=== PATIENT | male | born 1970 | race Caucasian/White ===

== ENCOUNTER 2017-12-04 14:37 | Emergency (ER) | payer OTHER ==
[~2017-12-04] VITALS: Ht 190.5 cm; Wt 130.8 kg
[~2017-12-04 14:37] MED LIST: CLINDAMYCIN HCL 150 MG CAP PO SCH; SULF800T23 PO
[2017-12-04 14:51] VITALS: Ht 190.5 cm; Wt 130.8 kg
--- NOTE | 2017-12-04 16:06 | DIAGNOSTIC IMAGING REPORT ---
LEFT THIRD FINGER 3 VIEWS CLINICAL HISTORY: left third finger laceration, infection over pip COMPARISON: None. DISCUSSION: No acute fractures or dislocations are visualized. There is soft tissue swelling centered on the proximal interphalangeal joint. There are mild osteoarthritic changes. No radiopaque foreign bodies are visualized. There is no conventional radiographic evidence of osteomyelitis. No radiopaque foreign bodies are visualized. IMPRESSION: 1. No acute fractures 2. Soft tissue swelling 3. No conventional radiographic evidence of osteomyelitis. 4. No radiopaque foreign bodies identified Electronically signed by: Venkata Gleason M.D. 12/04/2017 4:05 PM Dictated Date/Time: 12/04/2017 4:04 PM
[2017-12-04 16:12] LABS: BASO % 0.1 %; BASO ABS # 0.01 K/uL (0-0.2); EOS % 1.7 %; EOS ABS # 0.15 K/uL (0-0.5); HEMATOCRIT 43.4 % (42-52); HEMOGLOBIN 14.8 g/dL (14.0-18.0); IG# 0.03 K/uL (0.00-0.02); LYMPH % 21.8 %; LYMPH ABS # 1.97 K/uL (1.2-3.4); MEAN CELL VOLUME 92.1 fL (80-100); MEAN CORPUSCULAR HEMOGLOBIN 31.4 pg (25-34); MEAN CORPUSCULAR HGB CONC 34.1 g/dl (32-36); MEAN PLATELET VOLUME 9.7 fL (7.4-10.4); MONO % 9.3 %; MONO ABS # 0.84 K/uL (0.11-0.59); NEUT % 66.8 %; NEUT ABS # 6.03 K/uL (1.4-6.5); PLATELET COUNT 247 K/uL (130-400); RED CELL DISTRIBUTION WIDTH SD 43.6 fL (36.4-46.3); WHITE BLOOD COUNT 9.03 K/uL (4.8-10.8)
[2017-12-04 16:28] LABS: CALCIUM 8.5 mg/dl (8.5-10.1); CREATININE 0.83 mg/dl (0.60-1.40); POTASSIUM 3.7 mmol/L (3.5-5.1)
[2017-12-04] MEDS ORDERED: CLINDAMYCIN IV 600 MG in DEXTROSE 5% 50ML 50 ML IV ONE (16:45)
[2017-12-04] MEDS ORDERED: CLIN300C2 PO ×2 (18:34→18:36)
--- NOTE | 2017-12-04 18:36 | EMERGENCY ROOM VISIT NOTE ---
History First contact with patient: 15:11 Chief Complaint: LACERATION/CUT (SUT/DERMABOND) Stated Complaint: FINGER INFECTED Nursing Triage Summary: Pt bumped his finger off the rear end of his truck last week. Drainage coming from wound. History of Present Illness The patient is a 47 year old male who presents to the Emergency Room with complaints of an infection of his left third finger. The patient states that he was working on his truck approximately 1 week ago and hit his finger on the edge of the truck and cut it. He states that the finger seems to be healing well until yesterday. At that time, he bumped his hand on something and states since then it has been swollen and painful. He is having difficulty bending the finger. He rates his discomfort an 8/10. Review of Systems A complete 10 point review of systems was reviewed with the patient with pertinent positives and negatives as per history of present illness. All else were negative. Past Medical/Surgical History Medical Problems: (1) Amputation of right arm Social History Smoking Status: Current Every Day Smoker Occupation Status: unemployed Current/Historical Medications Scheduled Clindamycin Hcl (Cleocin), 300 MG PO QID Physical Exam Vital Signs Date Time Temp Pulse Resp B/P (MAP) Pulse Ox O2 Delivery O2 Flow Rate FiO2 12/04/17 19:09 37.1 73 16 172/93 97 12/04/17 19:00 73 16 172/93 97 Room Air 12/04/17 14:51 37.1 92 20 158/80 95 Room Air Physical Exam VITALS: Vitals are noted on the nurse's note and reviewed by myself. Vital signs stable. GENERAL: This is a 47-year-old male, in no acute distress, nondiaphoretic, well- developed well-nourished. SKIN: There is a 2 cm laceration to the left third finger over the PIP with surrounding mild erythema which extends slightly into the dorsal aspect of the hand, but not past the wrist. There is a small amount of drainage from the laceration. There is no palpable fluctuance or induration. Capillary refill within 2 seconds. HEART: Regular rate and rhythm without murmurs gallops or rubs. LUNGS: Clear to auscultation bilaterally without wheezes, rales or rhonchi. MUSCULOSKELETAL: Patient has full range of motion of the left third digit. NEURO: Patient was alert and oriented to person place and time. Distal sensation intact. Medical Decision & Procedures ER Provider Diagnostic Interpretation: LEFT THIRD FINGER 3 VIEWS CLINICAL HISTORY: left third finger laceration, infection over pip COMPARISON: None. DISCUSSION: No acute fractures or dislocations are visualized. There is soft tissue swelling centered on the proximal interphalangeal joint. There are mild osteoarthritic changes. No radiopaque foreign bodies are visualized. There is no conventional radiographic evidence of osteomyelitis. No radiopaque foreign bodies are visualized. IMPRESSION: 1. No acute fractures 2. Soft tissue swelling 3. No conventional radiographic evidence of osteomyelitis. 4. No radiopaque foreign bodies identified Laboratory Results 12/04/17 16:01 Red Blood Count 4.71, Mean Corpuscular Volume 92.1, Mean Corpuscular Hemoglobin 31.4, Mean Corpuscular Hemoglobin Concent 34.1, Mean Platelet Volume 9.7, Neutrophils (%) (Auto) 66.8, Lymphocytes (%) (Auto) 21.8, Monocytes (%) (Auto) 9.3, Eosinophils (%) (Auto) 1.7, Basophils (%) (Auto) 0.1, Neutrophils # (Auto) 6.03, Lymphocytes # (Auto) 1.97, Monocytes # (Auto) 0.84, Eosinophils # (Auto) 0.15, Basophils # (Auto) 0.01 12/04/17 16:01 Test 12/04/17 16:01 White Blood Count 9.03 K/uL (4.8-10.8) Red Blood Count 4.71 M/uL (4.7-6.1) Hemoglobin 14.8 g/dL (14.0-18.0) Hematocrit 43.4 % (42-52) Mean Corpuscular Volume 92.1 fL (80-100) Mean Corpuscular Hemoglobin 31.4 pg (25-34) Mean Corpuscular Hemoglobin Concent 34.1 g/dl (32-36) Platelet Count 247 K/uL (130-400) Mean Platelet Volume 9.7 fL (7.4-10.4) Neutrophils (%) (Auto) 66.8 % Lymphocytes (%) (Auto) 21.8 % Monocytes (%) (Auto) 9.3 % Eosinophils (%) (Auto) 1.7 % Basophils (%) (Auto) 0.1 % Neutrophils # (Auto) 6.03 K/uL (1.4-6.5) Lymphocytes # (Auto) 1.97 K/uL (1.2-3.4) Monocytes # (Auto) 0.84 K/uL (0.11-0.59) Eosinophils # (Auto) 0.15 K/uL (0-0.5) Basophils # (Auto) 0.01 K/uL (0-0.2) RDW Standard Deviation 43.6 fL (36.4-46.3) RDW Coefficient of Variation 13.0 % (11.5-14.5) Immature Granulocyte % (Auto) 0.3 % Immature Granulocyte # (Auto) 0.03 K/uL (0.00-0.02) Anion Gap 8.0 mmol/L (3-11) Est Creatinine Clear Calc Drug Dose 156.9 ml/min Estimated GFR () 119.7 Estimated GFR (Non- 103.3 BUN/Creatinine Ratio 11.5 (10-20) Calcium Level 8.5 mg/dl (8.5-10.1) Medications Administered Medications (Trade) Dose Ordered Sig/Nanda Route Start Time Stop Time Status Last Admin Dose Admin Clindamycin Phosphate 600 mg/ Dextrose 54 ml @ 100 mls/hr ONE ONCE IV 12/04/17 16:45 12/04/17 17:17 DC 12/04/17 17:38 100 MLS/HR Medical Decision Differential diagnosis includes cellulitis, abscess, septic joint, tenosynovitis , among others. The patient was evaluated as above. He is a 47-year-old male complaining of an infected laceration. He does appear to have an infected laceration with surrounding cellulitis. Culture was obtained and is pending. Patient has allergies to penicillins and therefore was given a dose of IV clindamycin. He will be placed on clindamycin at home. He did say that he would not be able to slat pickler the prescription for a few days due to money issues. He was given a home pack with enough medication to get him through until he is able to pay for his prescription. He was given strict return precautions and was advised to return in 48 hours for a recheck of his wound. He verbalized understanding of my assessment and treatment plan and was discharged home in good condition. Medication Reconcilliation Current Medication List: was personally reviewed by me Blood Pressure Screening Patient's blood pressure: Elevated blood pressure Blood pressure disposition: Referred to PCP Impression Primary Impression: Infected finger laceration Departure Information Dispostion Home / Self-Care Condition GOOD Prescriptions Clindamycin Hcl (CLEOCIN) 300 Mg Cap 300 MG PO QID for 10 Days, #40 CAP Prov: Dianne Beltrán PA-C 12/04/17 Referrals [facility] (PCP) Patient Instructions My [facility] Additional Instructions You were prescribed clindamycin to be taken 300 mg, 4 times daily as prescribed. This is an antibiotic. All antibiotics have the potential to cause diarrhea. Stop this medication and contact a medical provider if you were to develop any significant adverse side effects including: wheezing, shortness of breath, passing out, vomiting, or a diffuse rash. Always take antibiotics as directed and COMPLETE the ENTIRE course regardless of the improvement of your symptoms. For pain control, you can use the following [id number] medicines (if >12 yo): - Regular strength (325mg/tab) Tylenol (acetaminophen) 2 tabs every 4-6 hours as needed. Do not exceed 12 tablets in a 24 hour period. Avoid taking more than 4 grams (4000 mg) of Tylenol per day. This includes any other sources of acetaminophen you may take on a regular basis. - Regular strength (200 mg/tab) Advil (ibuprofen) 1-2 tabs every 4-6 hours as needed. Do not exceed a dose of 3200 mg per day. Proper wound care is essential for adequate wound healing and infection prevention. You can shower and clean the wound with soap and water. Do not scour over the wound, pat dry with a towel. Do not submerse the wound (i.e. bathe or dish wash) until the wound has fully healed. You can use an antibiotic ointment with a dressing over the wound for the next 3-4 days. After this time you may leave the wound dry and open to the air. Return to the emergency department in 48 hours for a recheck of your wound. Return sooner if you have worsening pain, worsening difficulty moving your finger, worsening redness, fevers or any other new/concerning symptoms. Problem Qualifiers Primary Impression: Infected finger laceration Encounter type: initial encounter Qualified Codes: S61.219A - Laceration without foreign body of unspecified finger without damage to nail, initial encounter; L08.9 - Local infection of the skin and subcutaneous tissue, unspecified
[2017-12-04 19:09] VITALS: BP 172/93; PULSE 73; TEMP 37.1; O2SAT 97
[2017-12-04] MEDS ORDERED: CLINDAMYCIN HCL 150 MG CAP PO ONE (19:15)
== END 2017-12-04 19:09 | disposition home or self-care (01) ==
LOC: C.EDB 14:40 → C.EDD 19:09
DX: L08.9 Local infection of the skin and subcutaneous tissue, unspecified (principal); S61.213A Laceration without foreign body of left middle finger without damage to nail, initial encounter; W26.8XXA Contact with other sharp object(s), not elsewhere classified, initial encounter; F17.200 Nicotine dependence, unspecified, uncomplicated; Z89.201 Acquired absence of right upper limb, unspecified level

== ENCOUNTER 2017-12-06 14:16 | Emergency (ER) | payer OTHER ==
[~2017-12-06] VITALS: Ht 190.5 cm; Wt 128.4 kg
[~2017-12-06 14:16] MED LIST changes: +CLIN300C2 PO; -CLINDAMYCIN HCL 150 MG CAP PO SCH; -SULF800T23 PO
[2017-12-06 14:30] VITALS: PULSE 83; TEMP 36.8; O2SAT 93; Ht 190.5 cm; Wt 128.4 kg
[2017-12-06 15:00] VITALS: BP 150/95
--- NOTE | 2017-12-06 21:02 | EMERGENCY ROOM VISIT NOTE ---
History First contact with patient: 14:35 (Desean Espinoza,P.A.) First contact with patient: 14:35 (Abdi Ordonez M.D.) Chief Complaint: FINGER PAIN Stated Complaint: RECHECK FINGER LEFT HAND History of Present Illness The patient is a 47 year old white male who presents to the Emergency Room for reevaluation of his left long finger. He has a history of previous finger laceration that became infected. He was seen here earlier this week and it was cleansed. He has been keeping it clean at home. He has been using triple antibiotic ointment and keeping it covered. He states he has finished his initial home pack of antibiotics and will be picking up his prescription for antibiotics later today. He denies any fevers or chills. He feels the finger is 10 times better than what it was. He denies any loss of motion. His accompanies him today. No other complaints. (Desean Espinoza,P.A.) Review of Systems Unchanged from previous exam (Desean Espinoza,P.A.) Past Medical/Surgical History Medical Problems: (1) Amputation of right arm (Abdi Ordonez M.D.) Social History Smoking Status: Current Every Day Smoker Smokeless Tobacco Use: No Drug Use: none Marital Status: Housing Status: lives with family Occupation Status: unemployed (Desean Espinoza,P.A.) Current/Historical Medications Scheduled Clindamycin Hcl (Cleocin), 300 MG PO QID Physical Exam Vital Signs Date Time Temp Pulse Resp B/P (MAP) Pulse Ox O2 Delivery O2 Flow Rate FiO2 12/06/17 15:00 150/95 12/06/17 14:30 36.8 83 18 93 Room Air (Abdi Ordonez M.D.) Physical Exam General: Well-developed, well-nourished, middle-aged white male bed. Alert and oriented. Skin: Warm and dry with good turgor. No rashes. No ecchymosis or erythema. The open wound on the dorsum of the long finger proximal phalanx shows no signs of infection. Granulation tissue is visible. It does appear healthy. The patient is not diaphoretic. Bilateral lower leg abrasions. Musculoskeletal: Patient is missing his right arm. Left long finger has intact motion at the MCP, PIP, and DIP joints. FDS and FDP function are intact by isolation. Strength is 5/5 for resisted flexion and extension of the long finger. No pain with palpation over the proximal phalanx, PIP joint, middle phalanx, DIP joint, or distal phalanx. Neurologic: Gross sensation is intact across the long finger by soft touch. Capillary refill is equal to the other fingers. (Desean Espinoza,P.A.) Medical Decision & Procedures ED Course Patient was educated regarding today's findings. Conservative care measures were discussed. The wound looks good. Continue with his home care as he has been doing. Cleanse with soap and water daily. Cover with antibiotic ointment. He should fill his antibiotic prescription today. Take it until finished. Tylenol and Motrin every 6 hours as needed for discomfort. Return to the ED for any acute worsening of symptoms. (Desean Espinoza.,P.A.) Medical Decision Possibility of retained foreign body, tendon involvement, joint penetration, and further wound infection were considered among others (Desean Espinoza.,P.A.) Medication Reconcilliation Current Medication List: was personally reviewed by me (Desean Espinoza.,P.A.) Blood Pressure Screening Blood pressure disposition: Elevated BP felt to be situational (Desean Espinoza,P.A.) Impression Primary Impression: Visit for wound check Departure Information Dispostion Home / Self-Care Condition GOOD Forms WORK / SCHOOL INSTRUCTIONS, HOME CARE DOCUMENTATION FORM, IMPORTANT VISIT INFORMATION Patient Instructions My [facility] Additional Instructions Fill your antibiotic prescription and start it today Continue gentle range of motion with the finger Continue cleansing it daily with soap and water and cover with triple antibiotic ointment Return to the ED or see your PCP for any acute worsening of symptoms
== END 2017-12-06 15:01 | disposition home or self-care (01) ==
LOC: C.EDB 14:17 → C.EDD 15:01
DX: Z48.00 Encounter for change or removal of nonsurgical wound dressing (principal); F17.200 Nicotine dependence, unspecified, uncomplicated

== ENCOUNTER 2020-06-26 11:03 | Inpatient (IN) ==
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
[2020-06-26 11:49] LABS: Basophils # (auto) 0.02 K/uL (0-0.2); Basophils % (auto) 0.2 %; Eosinophils # (auto) 0.16 K/uL (0-0.5); Eosinophils % (auto) 1.8 %; Hematocrit (blood only) 43.8 % (42-52); Hemoglobin 16.1 g/dL (14.0-18.0); Immature Granulocytes # (auto) 0.04 K/uL (0.00-0.02); Immature Granulocytes % (auto) 0.4 %; Lymphocytes # (auto) 1.92 K/uL (1.2-3.4); Lymphocytes % (auto) 21.5 %; Mean Corpuscular Hemoglobin 31.8 pg (25-34); Mean Corpuscular Hgb Conc 36.8 g/dL (32-36); Mean Corpuscular Volume 86.4 fL (80-100); Mean Platelet Volume 9.9 fL (7.4-10.4); Monocytes # (auto) 0.45 K/uL (0.11-0.59); Neutrophils # (auto) 6.33 K/uL (1.4-6.5); Neutrophils % (auto) 71.1 %; Platelet Count 283 K/uL (130-400); RDW Coefficient of Variation 12.4 % (11.5-14.5); RDW Standard Deviation 39.6 fL (36.4-46.3); Red Blood Count 5.07 M/uL (4.7-6.1); White Blood Count 8.92 K/uL (4.8-10.8)
--- NOTE | 2020-06-26 11:50 | XRay Report ---
XR chest 1V portable CLINICAL HISTORY: Atypical chest pain. COMPARISON STUDY: No previous studies for comparison. FINDINGS: Lung volumes are normal. There is no pneumothorax or pleural effusion. There is no consolid ation. Slight increased attenuation of the left lung is likely artifactual. Cardiac size is normal. M ediastinal contours are normal IMPRESSION: No acute cardiopulmonary findings. ACT 112: Negative or not required by law. Electronically signed by: Prabhjot Mederos M.D. 06/26/2020 11:48 AM
[2020-06-26 12:11] LABS: BUN Creatinine Ratio 8.6 (10-20); Bilirubin,Total 0.4 mg/dl (0.2-1); Blood Urea Nitrogen 8 mg/dl (7-18); Calcium 8.5 mg/dl (8.5-10.1); Carbon Dioxide 25 mmol/L (21-32); D Dimer 370 ug/L FEU (0-500); Est GFR (African American) 103.6; Est GFR (Non-African American) 89.4; Sodium 132 mmol/L (136-145); Total Protein 7.5 gm/dl (6.4-8.2)
[2020-06-26 12:18] LABS: Alanine Aminotransferase 33 U/L (12-78); Albumin Level 3.7 gm/dl (3.4-5.0); Alkaline Phosphatase 117 U/L (45-117); Aspartate Aminotransferase 42 U/L (15-37); Chloride 100 mmol/L (98-107); Globulin 3.8 gm/dl (2.5-4.0); Glucose 322 mg/dl (70-99); Lipase 209 U/L (73-393)
[2020-06-26] MEDS ORDERED: ASPIRIN CHEW 324 MG ONE (12:35)
[2020-06-26] MEDS ORDERED: NITROGLYCERIN SL 0.4 MG/TAB TAB SL STA ×2 (12:40→12:57)
[2020-06-26 12:43] LABS: Beta-Hydroxybutyrate 1.25 mg/dl (0.2-2.81)
[2020-06-26] MEDS ORDERED: Heparin IV Adult Wt-Based Standard WITH Bolus Protocol IV STA (12:57)
[2020-06-26] MEDS ORDERED: HEPARIN SODIUM/DEXTROSE 25,000 UNITS/500 ML BAG IV SCH (13:00)
[2020-06-26] MEDS ORDERED: niCARdipine HCL INJ 2.5 MG/ML 10 ML AMP ONE (13:05)
[2020-06-26] MEDS ORDERED: fentaNYL citrate 100 MCG/2 ML VIAL ONE ×2 (13:05→13:57)
[2020-06-26] MEDS ORDERED: HEPARIN (PORCINE) 1000 UNIT/ML 10 ML (CATH LAB USE ONLY) ONE ×2 (13:05→14:03)
[2020-06-26] MEDS ORDERED: MIDAZOLAM HCL 1 MG/ML 2ML VIAL ONE ×3 (13:05→14:07)
[2020-06-26] MEDS ORDERED: NITROGLYCERIN/D5W 100MCG/ML 20ML SYR ONE (13:06)
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
[2020-06-26] MEDS ORDERED: EPTIFIBATIDE 2 MG/ML 10 ML VIAL (CATH LAB USE ONLY) IV ONE (14:29)
[2020-06-26] MEDS ORDERED: CLOPIDOGREL BISULFATE 300 MG TAB ONE (14:52)
--- NOTE | 2020-06-26 14:56 | Pre Anesthesia Assessment ---
Date of Service June 26, 2020 Pre Sedation Assessment Vital Signs Temp Pulse Resp BP Pulse Ox 06/26/20 13:07 72 18 100/70 98 06/26/20 13:01 68 12 129/69 96 06/26/20 12:45 74 15 136/74 99 06/26/20 11:58 74 15 131/72 98 06/26/20 11:56 95 06/26/20 11:40 95 06/26/20 11:07 97.7 F 88 18 97 Cardiovascular RRR, no murmur, no edema Respiratory normal respiratory effort, lungs clear to auscultation Pre-Sedation Airway Assessment Smoking Status: Current some day smoker Hx Sleep Apnea: No Hx Difficult Intubation: No Short, Thick Neck: No Thyromental Distance: > or= 3.5 Finger Breadths Oral Cavity: + WNL Mallampati Class: III ASA: ASA3 Procedure Planning Contraindications for Sedation: none Current Medications Reviewed: Yes Notes The planned sedation has been discussed with the patient. Informed Consent was obtained. I have identified the patient, determined the appropriateness of sedation and have assessed the patient immediately prior to the procedure. All medicine(s) and interventions are by my order.
[2020-06-26] MEDS ORDERED: ACETAMINOPHEN 325 MG TAB PO PRN (14:57)
[2020-06-26] MEDS ORDERED: ONDANSETRON INJ 2 MG/ML 2 ML VIAL IV PRN (14:57)
--- NOTE | 2020-06-26 14:57 | Post Anesthesia Assessment ---
Date of Service June 26, 2020 Post Sedation Assessment Vital Signs Temp Pulse Resp BP Pulse Ox 06/26/20 13:07 72 18 100/70 98 06/26/20 13:01 68 12 129/69 96 06/26/20 12:45 74 15 136/74 99 06/26/20 11:58 74 15 131/72 98 06/26/20 11:56 95 06/26/20 11:40 95 06/26/20 11:07 97.7 F 88 18 97 Recovery Score Activity: Moves 4 extremities Respiration: Deep Breath/Cough Circulation: +/-20% PreAnes Value Consciousness: Fully Awake Oxygen Saturation: O2 needed for >90% Discharge Sedation Level of Care: Fast Track Phase II Post Sedation Plan On clinical assessment, the patient appears to have tolerated the sedation without complications. Patient is recovering as anticipated. Patient will continue to be monitored by nursing and may be discharged when sedation discharge criteria are met per below protocol. Upon Completions of procedure up to 15 minutes continue every 5 minute vital signs and the P.A.R. score; then discharge to a Phase I or Fast Track to Phase II per the following guidelines: * Discharge Patient to appropriate Phase II area if PAR is 8 or greater or return to pre- procedure baseline. The post - procedure orders will be as directed. * If PAR score is less than 8 or not return to pre-procedure baseline then patient will follow Phase I monitoring till PAR is reached for Phase II. The Phase I may be done in procedure room or may call to secure a Phase I area. * If naloxone or flumazenil are used for reversal, hold in Phase I for continued monitoring from when last reversal dose was given for a minimum of 60 minutes or longer pending the nurse and/or physician discretion of patient condition before discharge to Phase II. Please call the Sedation Physician to re-evaluate and complete post-note for discharge to Phase II area. Do NOT discharge from procedure sedation or Phase 1 until post- sedation evaluation note is complete by procedure /sedation MD Sedation Discharge Instructions to be given to the patient at discharge to home.
[2020-06-26] MEDS ORDERED: SODIUM CHLORIDE 0.9% 1000ML 1,000 ML IV SCH (15:00)
--- NOTE | 2020-06-26 15:09 | Post Operative Brief Note ---
Cardiology Brief Post Op Date of Surgery June 26, 2020 Pre & Post Diagnosis Operation Date: 06/26/20 13:30 <No data on this case meets the specified criteria> Procedure -- Sales And Service Consultant Parker Olguin MD Mail Processing Associate Jared Estimated Blood Loss 20 Findings Consistent with Post-Op Diagnosis Occluded distal RCA Successful PCI of distal RCA into PDA with 3 overlapping KOKO (2.75 x 22, 2.5 x 30, 2.5 x 30 Young). Specimens Specimen Description: none Anesthesia Type RN Sedation Complications none Disposition Accompanied Patient To Recovery: No Disposition: PCU Overlapping Procedure I was present for: the critical portions of procedure. I was immediately available: during the entire case. Back up surgeon: was not required during procedure.
[2020-06-26] MEDS ORDERED: GLUCOSE 10 TABS/TUBE PO PRN (15:50)
[2020-06-26] MEDS ORDERED: GLUCOSE 40% GEL 15 GM TUBE PO PRN (15:50)
[2020-06-26] MEDS ORDERED: GLUCAGON FOR INJ 1 MG VIAL SQ PRN (15:50)
[2020-06-26] MEDS ORDERED: DEXTROSE 50% 50 ML SYRINGE IV PRN (15:50)
[2020-06-26] MEDS ORDERED: CARBOHYDRATES FOR HYPOGLYCEMIA PO PRN (15:50)
[2020-06-26] MEDS ORDERED: PHARMACY GLYCEMIC MGMT CONSULT PRN (16:16)
[2020-06-26] MEDS ORDERED: INSULIN GLARGINE SOLOSTAR 100 UNITS/ML 3 ML PEN SC ONE (17:15)
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
[2020-06-26] MEDS: INSULIN ASPART 100 UNITS/ML 3 ML PEN SC SCH ×2 (17:36→20:23)
[2020-06-26] MEDS ORDERED: LORazepam 1 MG TAB PO PRN (17:40)
--- NOTE | 2020-06-26 18:21 | Cardiac Catheterization ---
[facility] Data: [place] Cardiac Status Clinical evaluation leading to the procedure CAD Presenation: Non STEMI Anginal Classification: CCS IV Heart Failure: No Cardiogenic Shock within 24 Hours: No Cardiac Arrest within 24 Hours: No Imaging Studies Past 6 Months: No Stress Studies Past 6 Months: No Diagnostic Physicians Name: Parker Olguin MD Status: Urgent Closure Device Percutaneous Entry Location: Radial Recommendations: PCI without planned CABG PCI Indication: PCI for high risk Non-FRANK Lesion Segment Name: distal RCA Culprit Artery: Yes Stenosis Prior to Rx (%): 100 Chronic Total Occlusion: No IVUS: No FFR: No Pre-Procedure CARLOS Flow: 0 Previously Treated Lesion: No Lesion Complexity: High/C Lesion Length (mm): 50 Thrombus Present: Yes Bifurcation Lesion: No Guidewire Across Lesion: Stenosis Post-Procedure (%): 0 Post-Procedure CARLOS Flow: 3 Devices(s) Deployed: Yes Yes Intraprocedure Events Significant Disection: No Perforation: No Cardiac Cath Procedure Full Procedure Date June 26, 2020 Pre-Procedure Diagnosis Pre-Procedure Diagnosis: Non STEMI AUC Score AUC Score: 9 Post-Procedure Diagnosis Post-Procedure Diagnosis: Severe CAD, Successful PCI and Normal Intracardiac Pressures Procedure(s) Performed Procedure(s) Performed: Coronary Angiography, Left Heart Cath and Drug Eluting Stent Student Development Coordinator Parker Olguin MD Date Night Sitter(s) Jared Estimated Blood Loss Estimated Blood Loss: None Medication(s) Medication(s): Clopidogrel, Fentanyl, Heparin, Lidocaine 1%, Nicardipine, Nitroglycerin and Versed Summary of Findings Indication: High risk NSTEMI, late presentation with subtle inferior ST elevations and ongoing chest pain. Heart Alert Access: 6 Fr left radial artery under ultrasound guidance Catheters: JR4, JL4, JL 3.5, JR4 guide Findings: LM -Short, no significant disease LAD -proximal luminal regularities, 50 to 60% mid focal stenosis at takeoff of first diagonal, 30 to 40% late mid stenosis, distal vessel with luminal irregularities and tapers to apex. Circumflex -medium caliber, 23% proximal disease, 30 to 40% mid to distal disease. Bifurcating OM 2 and left PLB with luminal irregularities. RCA -dominant, large caliber vessel, 20 to 30% mid segment disease, 100% acute distal occlusion after takeoff of large posterior branch which gives off distal PLB's. -- PCI -- Antithrombotic therapy: Heparin Procedure: RCA cannulated with JR4 guide. Guide liner used for additional support Director Of Consumer Affairs 50 wire passed across lesion into distal vessel. In PDA occlusion more organized, difficult to cross but eventually able to place wire into distal PDA. Distal vessel into PDA lesion predilated with 2.5 compliant balloon IC Integrilin given for excess thrombus burden PDA stented with 2.5 x 30 mm Young drug-eluting stent Second KOKO placed to distal RCA overlapping proximal aspect of initial stent (2.5 x 30 mm [place]) Third KOKO placed from distal RCA just after takeoff of large posterior branch. Stent overlapped with proximal aspect of second stent (2.75 x 22 mm Young) Stents postdilated with stent balloons IC vasodilators administered for spasm Post procedure CARLOS 3 flow, stent well expanded with minimal residual stenosis and no apparent cardiac complications. Arterial Closure: TR band Summary: 1. 100% occluded distal RCA into PDA 2. Mild to moderate non-culprit coronary artery disease -50 to 60% focal mid LAD 30 to 40% mid to distal circumflex 20 to 30% mid RCA 3. Successful PCI of distal RCA and PDA with 3 overlapping drug-eluting stents (2.75 x 22, 2.5 x 30, 2.5 x 30 mm Independence). Recommendations: Admit to PCU for continued monitoring Loaded with clopidogrel 600 mg in [place] Continue dual-antiplatelet therapy for at least 1 year. Trend troponins until peak, Check Echo Uptitrate beta-woody/SIDDHARTHA as BP allows High-dose statin Consult cardiac Rehab Hemodynamics Rest Ao:: 91/67/95 Final Ao: 103/65/97 LV: -- Recommendations Recommendations: PCI without planned CABG Specimens Specimens: None Radiation Exposure (mGy) 5783 Contrast (mls) 175 Fluids (cc crystalloids) Fluids (cc crystalloids): 150 Drains Drains: none Anesthesia moderate [id number] Procedural Complication(s) None Disposition PCU I attest to the content of the Intraoperative Record and any orders documented therein. Any exceptions are noted below. [facility] Card Cath Procedure Codes Cardiac Catheterization Procedure 1: Cardiovascular Cath Procedures: 49373 Coronaries and LHC (+/-LV) Moderate Sedation Procedure 1: Sedation/Anesthesia: 95297 Mod Sedation by the same physician;Init15 Min Child Age 5 & Up Procedure 2: Sedation/Anesthesia: 27285 Mod Sedation by the same physician; Ea [id number] Minutes Stenting Procedure 1: Cardiovascular Stent Procedures: 80860 Perc transluminal revascularization of acute sub/total occl, aMI PG Care Time/CCT Total # of Minutes Spent Total Time Spent with Patient: Total time spent is greater than 50% in coordi nation of care (as documented) at patient's floor/unit and/or counseling patient:
[2020-06-26] MEDS: METOPROLOL TARTRATE 25 MG TAB PO SCH (20:22)
[2020-06-27] MEDS: INSULIN ASPART 100 UNITS/ML 3 ML PEN SC SCH ×4 (00:22→12:09)
[2020-06-27 03:49] LABS: Basophils # (auto) 0.02 K/uL (0-0.2); Basophils % (auto) 0.2 %; Eosinophils # (auto) 0.26 K/uL (0-0.5); Eosinophils % (auto) 2.6 %; Hematocrit (blood only) 41.3 % (42-52); Hemoglobin 14.5 g/dL (14.0-18.0); Immature Granulocytes # (auto) 0.06 K/uL (0.00-0.02); Immature Granulocytes % (auto) 0.6 %; Lymphocytes # (auto) 2.79 K/uL (1.2-3.4); Mean Corpuscular Hgb Conc 35.1 g/dL (32-36); Mean Corpuscular Volume 88.4 fL (80-100); Mean Platelet Volume 9.7 fL (7.4-10.4); Monocytes # (auto) 0.75 K/uL (0.11-0.59); Monocytes % (auto) 7.5 %; Neutrophils # (auto) 6.09 K/uL (1.4-6.5); Neutrophils % (auto) 61.1 %; Platelet Count 241 K/uL (130-400); RDW Coefficient of Variation 12.5 % (11.5-14.5); RDW Standard Deviation 40.1 fL (36.4-46.3); Red Blood Count 4.67 M/uL (4.7-6.1); White Blood Count 9.97 K/uL (4.8-10.8)
[2020-06-27 03:59] LABS: Prothrombin Time 9.8 Seconds (9.0-12.0)
[2020-06-27 04:21] LABS: Chol HDL Ratio 7; Cholesterol 233 mg/dl (0-200); HDL Cholesterol 33 mg/dl; LDL Cholesterol Direct 145 mg/dl; Triglycerides 296 mg/dl (0-150); VLDL Cholesterol 59 mg/dl
[2020-06-27 06:05] LABS: Estimated Average Glucose 263 mg/dl; Hemoglobin A1C 10.8 % (4.5-5.6)
--- NOTE | 2020-06-27 06:31 | Electrocardiogram Report ---
Test Reason : Blood Pressure : / mmHG Vent. Rate : 087 BPM Atrial Rate : 087 BPM P-R Int : 152 ms QRS Dur : 112 ms QT Int : 350 ms P-R-T Axes : 061 065 013 degrees QTc Int : 421 ms Normal sinus rhythm Inferior infarct , age undetermined ST elevation, consider inferior injury pattern Abnormal ECG No previous ECGs available Confirmed by Gatito Cooney ([id number]) on 06/27/2020 6:30:19 AM Referred By: ED Confirmed By:Gatito Cooney
--- NOTE | 2020-06-27 06:35 | Electrocardiogram Report ---
Test Reason : Blood Pressure : / mmHG Vent. Rate : 068 BPM Atrial Rate : 068 BPM P-R Int : 158 ms QRS Dur : 106 ms QT Int : 376 ms P-R-T Axes : 047 038 018 degrees QTc Int : 399 ms Normal sinus rhythm Inferior infarct (cited on or before 26-JUN-2020) Abnormal ECG When compared with ECG of 26-JUN-2020 11:19, No significant change was found Confirmed by Gatito Cooney ([id number]) on 06/27/2020 6:35:43 AM Referred By: REFERRED SELF Confirmed By:Gatito Cooney
[2020-06-27] MEDS: METOPROLOL TARTRATE 25 MG TAB PO SCH (08:39)
[2020-06-27] MEDS ORDERED: ASPIRIN 81 MG ECTAB PO SCH (09:00)
[2020-06-27] MEDS ORDERED: ENOXAPARIN INJ 40 MG/0.4 ML SYR SQ SCH (09:00)
[2020-06-27] MEDS ORDERED: ATORVASTATIN 40 MG TAB PO SCH (09:00)
[2020-06-27] MEDS ORDERED: CLOPIDOGREL BISULFATE 75 MG TAB PO SCH (09:00)
[2020-06-27] MEDS ORDERED: lisinopril 5 MG TAB PO SCH (09:00)
[2020-06-27] MEDS ORDERED: INSULIN GLARGINE SOLOSTAR 100 UNITS/ML 3 ML PEN SC SCH (09:00)
--- NOTE | 2020-06-27 12:50 | Pharmacy Report ---
Pharmacy Glycemic Short Note 2 - Date of Service June 27, 2020 - Glycemic Short BSG Results (Last 24 hours): 06/26/20 06/26/20 06/26/20 16:46 16:48 20:05 POC Glucose 454 H* 326 H* 184 H 06/27/20 06/27/20 06/27/20 00:03 04:08 07:30 POC Glucose 106 H 137 H 155 H 06/27/20 12:07 POC Glucose 153 H OUTPATIENT ANTIDIABETIC REGIMEN: * n/a (new diagnosis) * HbA1c: 10.8% (06/26/20) ASSESSMENT: * Mr Mcpherson is a 50yo male POD 1 s/p PCI. * On admission, A1c 10.8% and BSGs elevated. Pt was initiated on SQ basal/bolus insulin. PLAN FOR INPATIENT GLYCEMIC CONTROL: * Basal insulin * Lantus 35 units SQ x1 dose given last evening * Lantus 20 units SQ BID * Bolus insulin * NovoLog per scale ACHS or Q6hrs while NPO * Goal Range: Low 110 mg/dL - High 140 mg/dL * Correction Factor: 15 mg/dL/unit * Nutritional / Prandial insulin per carb ratio of 1 unit per 6 grams CHO consumed PLAN FOR DISCHARGE: * A1c is 10.8% -- consider dual combination therapy * Metformin + additional agent listed below. * B12 supplementation may be necessary with medical terminologist metformin * Initiate Metformin + (GLP-1 receptor agonist or SGLT2 inhibitor) * GLP1 RA: strongest evidence for reducing CVD events = liraglutide > semaglutide > exenatide extended release * SGLT2i: strongest evidence for reducing CVD events = empagliflozin or canagliflozin. * Recommend starting: * Metformin XR 500mg PO daily with evening meal. Typically the XR formulation of metformin is better tolerated than the immediate release formulation. Continue to titrate metformin dosing upwards as recommended. Dosage increases should be made in increments of 500 mg weekly, up to 2,000 mg/day PO, given in divided doses. Doses above 2000 mg/day may be better tolerated if divided and given 3 times per day with meals. Max: 2,550 mg/day PO, in divided doses * Jardiance 10 mg PO once daily in the morning with or without food. May increase to 25 mg PO once daily in those who require additional glycemic c ontrol. Correct any volume depletion prior to initiation of treatment * Support Patient Self-Management * Healthy Lifestyle (diet, exercise, and smoking cessation) * Disease self-management (SMBG) * Prevention of complications (BP, Lipid goals, Immunizations) * Consider outpatient Diabetes Self-Management Education & Support
--- NOTE | 2020-06-27 13:06 | Cardiology Progress Note ---
Date of Service June 27, 2020 Assessment & Plan (1) Acute RI, inferior wall: Patient underwent emergent coronary intervention of occluded right coronary artery yesterday with successful reperfusion. Now on guideline directed beta-woody SIDDHARTHA inhibitor statin and dual antiplatelet therapy. Left radial access site healing. Urged tobacco cessation, medication compliance Stable for discharge from cardiac standpoint will need close clinical follow-up with PCP, cardiology 1 month (2) HTN (hypertension): (3) Tobacco use disorder: Admission and Anticipated Discharge Date Admission Date: June 26, 2020 Subjective Patient seen and examined, chart, medications, telemetry reviewed. No chest pains overnight. Left wrist healing well. No fevers or chills. Heart rate and blood pressure better controlled. No bleeding difficulties. Patient with substantial rise in troponin but only mild hypokinesis of the inferior posterior wall on echocardiogram. Review of Systems Review of Systems: All systems reviewed & are unremarkable except as noted in HPI & below Physical Exam Constitutional: WD/WN, vitals as above + obese Eyes: PERRL, conjunctivae normal, anicteric sclerae ENMT: external ear and nose normal, oropharynx normal Mallampati Class: III Neck: trachea midline, no thyromegaly + thick neck Respiratory: normal respiratory effort, lungs clear to auscultation Cardiovascular: Rate/Rhythm: regular rate and regular rhythm Heart Sounds: normal S1 and normal S2; no gallop and no murmur Palpation: normal PMI Ve ssels: normal carotid upstroke and radial pulses present (Left radial access site healing); no JVD and no carotid bruit Extremities: no edema Gastrointestinal (Abdomen): normal bowel sounds, soft, nontender, no hepatosplenomegaly Musculoskeletal: no cyanosis or clubbing, extremities motor strength 5/5 Right arm amputation chronic Skin: no rashes, warm and dry Neurologic: PERRL, EOMI, accommodation nl, no face palsy, no dysarthria Psychiatric: A+Ox3, euthymic affect Results & Data ([facility]) Vital Signs (Past 12 Hours) Vital Signs Temp Pulse Pulse Resp BP Pulse Ox 06/27/20 11:30 65 18 126/82 98 06/27/20 08:00 36.7 C 66 69 18 101/71 98 06/27/20 03:11 36.9 C 86 20 120/72 97 Laboratory Results Laboratory Results - last 24 hr 0306/26/20 06/26/20 11:34 14:34 16:46 WBC RBC Hgb Hct MCV MCH MCHC RDW Std Deviation RDW Coeff of Yasmine Plt Count MPV Immature Gran % (Auto) Neut % (Auto) Lymph % (Auto) Falls % (Auto) Eos % (Auto) Baso % (Auto) Neut # (Auto) Lymph # (Auto) Falls # (Auto) Eos # (Auto) Baso # (Auto) Immature Gran # (Auto) PT INR Activ Coag Time Kaolin 208 H POC Glucose 454 H* Estimat Average Glucose 263 Hemoglobin A1c 10.8 H Troponin I Triglycerides Cholesterol LDL Cholesterol Direct LDL Cholesterol, Calc VLDL Cholesterol, Calc HDL Cholesterol Cholesterol/HDL Ratio 06/26/20 06/26/20 06/26/20 16:48 20:05 20:51 WBC RBC Hgb Hct MCV MCH MCHC RDW Std Deviation RDW Coeff of Yasmine Plt Count MPV Immature Gran % (Auto) Neut % (Auto) Lymph % (Auto) Falls % (Auto) Eos % (Auto) Baso % (Auto) Neut # (Auto) Lymph # (Auto) Falls # (Auto) Eos # (Auto) Baso # (Auto) Immature Gran # (Auto) PT INR Activ Coag Time Kaolin POC Glucose 326 H* 184 H Estimat Average Glucose Hemoglobin A1c Troponin I 59.300 H* Triglycerides Cholesterol LDL Cholesterol Direct LDL Cholesterol, Calc VLDL Cholesterol, Calc HDL Cholesterol Cholesterol/HDL Ratio 06/27/20 06/27/20 06/27/20 00:03 03:13 03:13 WBC 9.97 RBC 4.67 L Hgb 14.5 Hct 41.3 L MCV 88.4 MCH 31.0 MCHC 35.1 RDW Std Deviation 40.1 RDW Coeff of Yasmine 12.5 Plt Count 241 MPV 9.7 Immature Gran % (Auto) 0.6 Neut % (Auto) 61.1 Lymph % (Auto) 28.0 Falls % (Auto) 7.5 Eos % (Auto) 2.6 Baso % (Auto) 0.2 Neut # (Auto) 6.09 Lymph # (Auto) 2.79 Falls # (Auto) 0.75 H Eos # (Auto) 0.26 Baso # (Auto) 0.02 Immature Gran # (Auto) 0.06 H PT INR Activ Coag Time Kaolin POC Glucose 106 H Estimat Average Glucose Hemoglobin A1c Troponin I 33.500 H* Triglycerides 296 H Cholesterol 233 H LDL Cholesterol Direct 145 LDL Cholesterol, Calc Not Reportable VLDL Cholesterol, Calc 59 HDL Cholesterol 33 Cholesterol/HDL Ratio 7 06/27/20 06/27/20 06/27/20 03:13 04:08 07:30 WBC RBC Hgb Hct MCV MCH MCHC RDW Std Deviation RDW Coeff of Yasmine Plt Count MPV Immature Gran % (Auto) Neut % (Auto) Lymph % (Auto) Falls % (Auto) Eos % (Auto) Baso % (Auto) Neut # (Auto) Lymph # (Auto) Falls # (Auto) Eos # (Auto) Baso # (Auto) Immature Gran # (Auto) PT 9.8 INR 1.0 Activ Coag Time Kaolin POC Glucose 137 H 155 H Estimat Average Glucose Hemoglobin A1c Troponin I Triglycerides Cholesterol LDL Cholesterol Direct LDL Cholesterol, Calc VLDL Cholesterol, Calc HDL Cholesterol Cholesterol/HDL Ratio 06/27/20 12:07 WBC RBC Hgb Hct MCV MCH MCHC RDW Std Deviation RDW Coeff of Yasmine Plt Count MPV Immature Gran % (Auto) Neut % (Auto) Lymph % (Auto) Falls % (Auto) Eos % (Auto) Baso % (Auto) Neut # (Auto) Lymph # (Auto) Falls # (Auto) Eos # (Auto) Baso # (Auto) Immature Gran # (Auto) PT INR Activ Coag Time Kaolin POC Glucose 153 H Estimat Average Glucose Hemoglobin A1c Troponin I Triglycerides Cholesterol LDL Cholesterol Direct LDL Cholesterol, Calc VLDL Cholesterol, Calc HDL Cholesterol Cholesterol/HDL Ratio Medications Administered Current Medications Acetaminophen (Acetaminophen 325 Mg Tab) 650 mg PO Q4H PRN PRN Reason: MILD Pain (Scale 1,2,3) Stop: 07/26/20 14:56 Aspirin (Aspirin 81 Mg Ectab) 81 mg PO [facility] Stop: 07/27/20 08:59 Last Admin: 06/27/20 08:40 Dose: 81 mg Documented by: Atorvastatin Calcium (Atorvastatin 40 Mg Tab) 80 mg PO [facility] Stop: 07/27/20 08:59 Last Admin: 06/27/20 08:39 Dose: 80 mg Documented by: Clopidogrel Bisulfate (Clopidogrel Bisulfate 75 Mg Tab) 75 mg PO [facility] Stop: 07/27/20 08:59 Last Admin: 06/27/20 08:39 Dose: 75 mg Documented by: Dextrose (Dextrose 50% 50 Ml Syringe) 25 - 50 ml IV UD PRN; Protocol PRN Reason: Hypoglycemia Protocol Stop: 07/26/20 15:49 Enoxaparin Sodium (Enoxaparin Inj 40 Mg/0.4 Ml Syr) 40 mg SQ QAM [facility] Stop: 07/27/20 08:59 Last Admin: 06/27/20 08:40 Dose: 40 mg Documented by: Glucagon (Glucagon For Inj 1 Mg Vial) 1 mg SQ UD PRN; Protocol PRN Reason: Hypoglycemia Protocol Stop: 07/26/20 15:49 Glucose (Glucose 10 Tabs/Tube) 4 - 8 tabs PO UD PRN; Protocol PRN Reason: Hypoglycemia Protocol Stop: 07/26/20 15:49 Glucose (Glucose 40% Gel 15 Gm Tube) 15 - 30 gm PO UD PRN; Protocol PRN Reason: Hypoglycemia Protocol Stop: 07/26/20 15:49 Insulin Aspart (Insulin Aspart 100 Units/Ml 3 Ml Pen) 0 units SC ACHS [facility] Stop: 07/26/20 16:29 Last Admin: 06/27/20 12:09 Dose: 12 units Documented by: Insulin Glargine (Insulin Glargine Solostar 100 Units/Ml 3 Ml Pen) 20 units SC BID [facility]; Protocol Stop: 07/27/20 08:59 Last Admin: 06/27/20 08:43 Dose: 20 units Documented by: Lisinopril (Lisinopril 5 Mg Tab) 5 mg PO QAM [facility] Stop: 07/27/20 08:59 Last Admin: 06/27/20 08:40 Dose: 5 mg Documented by: Lorazepam (Lorazepam 1 Mg Tab) 1 mg PO ONE PRN; Protocol PRN Reason: EtoH Withdrawal AWSS 6-10 Metoprolol Tartrate (Metoprolol Tartrate 25 Mg Tab) 12.5 mg PO BID [facility] Stop: 07/26/20 20:59 Last Admin: 06/27/20 08:39 Dose: 12.5 mg Documented by: Miscellaneous (Carbohydrates For Hypoglycemia ) 15 - 30 gm PO UD PRN PRN Reason: Hypoglycemia Protocol Stop: 07/26/20 15:49 Miscellaneous Information (Pharmacy Glycemic Mgmt Consult) 1 ea N/A UD PRN; Protocol PRN Reason: Consult Stop: 07/26/20 16:15 Ondansetron HCl (Ondansetron Inj 2 Mg/Ml 2 Ml Vial) 4 mg IV Q6H PRN PRN Reason: Nausea And Vomiting Stop: 07/26/20 14:56
--- NOTE | 2020-06-28 06:00 | Electrocardiogram Report ---
Test Reason : Blood Pressure : / mmHG Vent. Rate : 075 BPM Atrial Rate : 075 BPM P-R Int : 148 ms QRS Dur : 102 ms QT Int : 362 ms P-R-T Axes : 048 000 058 degrees QTc Int : 404 ms Normal sinus rhythm Inferior infarct (cited on or before 26-JUN-2020) Abnormal ECG When compared with ECG of 26-JUN-2020 12:38, No significant change was found Confirmed by Gatito Cooney ([id number]) on 06/28/2020 6:00:30 AM Referred By: REFERRED SELF Confirmed By:Gatito Cooney
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
== END 2020-06-27 14:35 | disposition home or self-care (01) | DRG 247 ==
LOC: 2S 11:03 → ED 11:03 → 2S 13:22 → SUATTDRO 23:55

== ENCOUNTER 2023-01-04 12:41 | Inpatient (IN) ==
[2023-01-04] MEDS ORDERED: ASPIRIN CHEW 324 MG PO STA (12:57)
[2023-01-04] MEDS ORDERED: HEPARIN SOD (PORCINE) 1000 UNIT/ML IV ONE (12:59)
[2023-01-04] MEDS ORDERED: HEPARIN (PORCINE) 1000 UNIT/ML 10 ML (CATH LAB USE ONLY) ONE (13:00)
[2023-01-04] MEDS ORDERED: MIDAZOLAM HCL 1 MG/ML 2ML VIAL ONE ×2 (13:00→13:38)
[2023-01-04] MEDS ORDERED: fentaNYL citrate PF 100 MCG/2 ML VIAL ONE (13:01)
[2023-01-04] MEDS ORDERED: niCARdipine HCL INJ 2.5 MG/ML 10 ML AMP ONE (13:01)
[2023-01-04] MEDS ORDERED: NITROGLYCERIN/D5W 100MCG/ML 20ML SYR ONE (13:01)
[2023-01-04 13:09] LABS: iSTAT Creatinine 0.7 mg/dl (0.6-1.3); iSTAT Ionized Calcium 1.15 mmol/l (1.12-1.32); iSTAT Potassium 4.1 mmol/L (3.3-5.0)
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
[2023-01-04] MEDS ORDERED: TICAGRELOR 90 MG TAB PO ONE (13:19)
[2023-01-04 13:20] LABS: Basophils # (auto) 0.05 K/uL (0.00-0.20); Basophils % (auto) 0.6 %; Eosinophils # (auto) 0.19 K/uL (0.00-0.50); Eosinophils % (auto) 2.2 %; Hemoglobin 16.5 g/dl (14.0-18.0); Immature Granulocytes # (auto) 0.05 K/uL (0.01-0.20); Immature Granulocytes % (auto) 0.6 %; Lymphocytes # (auto) 2.11 K/uL (1.20-3.40); Lymphocytes % (auto) 24.1 %; Mean Corpuscular Hemoglobin 31.4 pg (25.0-34.0); Mean Corpuscular Hgb Conc 35.1 g/dL (32.0-36.0); Mean Corpuscular Volume 89.4 fL (80.0-100.0); Mean Platelet Volume 9.5 fL (9.4-12.4); Monocytes # (auto) 0.82 K/uL (0.11-0.59); Monocytes % (auto) 9.4 %; Neutrophils # (auto) 5.53 K/uL (1.40-6.50); Neutrophils % (auto) 63.1 %; Platelet Count 259 K/uL (130-400); RDW Coefficient of Variation 12.9 % (11.5-14.5); RDW Standard Deviation 42.4 fL (36.4-46.3); Red Blood Count 5.26 M/uL (4.70-6.10); White Blood Count 8.75 K/ul (4.8-10.8)
[2023-01-04 13:34] LABS: Albumin Globulin Ratio 1.5 (0.9-2); Albumin Level 4.5 gm/dl (3.4-5.0); Bilirubin,Total 0.5 mg/dl (0.2-1.0); Calcium 9.2 mg/dl (8.6-10.3); Creatinine Clr Calc Pharmacy 155.6 ml/min; Est GFR (Non-African American) 101.8 ml/min; Potassium 4.3 mmol/L (3.5-5.1); Total Protein 7.5 gm/dl (6.0-8.3)
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
[2023-01-04 13:47] LABS: Thyroid Stimulating Hormone 1.403 uIu/ml (0.300-4.500)
[2023-01-04] MEDS ORDERED: ATROPINE SULFATE 0.1 MG/ML 10ML SYR IV PRN (14:40)
[2023-01-04] MEDS ORDERED: ACETAMINOPHEN 325 MG TAB PO PRN ×2 (14:40→15:35)
[2023-01-04] MEDS ORDERED: LORazepam 2 MG/1 ML VIAL IV PRN (14:40)
[2023-01-04] MEDS ORDERED: ONDANSETRON INJ 2 MG/ML 2 ML VIAL IV PRN ×2 (14:40→15:35)
[2023-01-04 14:55] LABS: Troponin I High Sensitivity 8.3 pg/ml (0-20)
[2023-01-04 14:56] LABS: Troponin I High Sensitivity 9.5 pg/ml (0-20)
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
--- NOTE | 2023-01-04 15:31 | Pre Anesthesia Assessment ---
Date of Service January 04, 2023 Pre Sedation Assessment Vital Signs Temp Pulse Resp BP Pulse Ox O2 Del Method 01/04/23 13:21 77 16 145/86 H 96 Room Air 01/04/23 13:11 96 Room Air 01/04/23 12:52 80 01/04/23 12:43 36.6 C 63 18 146/79 H 96 Room Air Cardiovascular RRR, no murmur, no edema Respiratory normal respiratory effort, lungs clear to auscultation Pre-Sedation Airway Assessment Smoking Status: Current every day smoker Hx Sleep Apnea: No Hx Difficult Intubation: No Short, Thick Neck: Yes Oral Cavity: + Dental Abnormalities Mallampati 3 ASA 4 Notes The planned sedation has been discussed with the patient. Informed Consent was obtained. I have identified the patient, determined the appropriateness of sedation and have assessed the patient immediately prior to the procedure. All medicine(s) and interventions are by my order. [facility] [place] Procedure Codes (Charges) Indication for Procedure Indication for procedure: ST elevation MD Sedation/Anesthesia Procedure 1: Sedation/Anesthesia: 01625 Mod Sedation by the same physician;Init15 Min Child Age 5 & Up (Initial 15 min, start time 1334) Total Sedation Time (minutes): 37 Procedure 2: Sedation/Anesthesia: 38780 Mod Sedation by the same physician; Ea [id number] Minutes (Additional 22 min, end time 1411) Total Sedation Time (minutes): 37
[2023-01-04] MEDS ORDERED: GLUCOSE 40% GEL 15 GM TUBE PO PRN (15:35)
[2023-01-04] MEDS ORDERED: DEXTROSE 50% 50 ML SYRINGE IV PRN (15:35)
[2023-01-04] MEDS ORDERED: GLUCAGON FOR INJ 1 MG VIAL SQ PRN (15:35)
[2023-01-04] MEDS ORDERED: GLUCOSE 10 TAB/TUBE PO PRN (15:35)
[2023-01-04] MEDS ORDERED: CARBOHYDRATES FOR HYPOGLYCEMIA PO PRN (15:35)
--- NOTE | 2023-01-04 15:45 | Cardiac Catheterization ---
[facility] Data: Communication Studies Professor Cardiac Status Clinical evaluation leading to the procedure CAD Presenation: STEMI Anginal Classification: CCS IV Heart Failure: No Cardiogenic Shock within 24 Hours: No Cardiac Arrest within 24 Hours: No Imaging Studies Past 6 Months: No STEMI OR Non-STEMI Symptom Onset Date: 01/04/23 Symptom Onset Time: 11:00 Coronary Anatomy Dominant: Right Left Main (% Stenosis): Normal LAD (% Stenosis): Mid (70%) D1 (% Stenosis): Proximal (90 to 95%) D2 (% Stenosis): Proximal (70 to 80%) Circumflex (% Stenosis): Mid (99 to 100%) OM1 (% Stenosis): Ostial (95%) OM2 (% Stenosis): Normal L PL1 (% Stenosis): Normal RCA (% Stenosis): Proximal (30%), Mid (Mild) and Distal (Long stent training into PDA with 100% occlusion proximally. CARLOS 0 flow.) R PL1 (% Stenosis): Normal Diagnostic Physicians Name: Nick Blue MD, PhD Closure Device Recommendations: Medical Therapy and/or Counseling and CABG Lesion Segment Name: Distal RCA/PDA Culprit Artery: Yes Stenosis Prior to Rx (%): 100% Chronic Total Occlusion: No (Possibly) Pre-Procedure CARLOS Flow: 0 Previously Treated Lesion: Yes Lesion Complexity: High/C Lesion Length (mm): 75 Thrombus Present: Yes (Small amount) Bifurcation Lesion: No Guidewire Across Lesion: No (Partial ) Intraprocedure Events Significant Disection: No Perforation: No Cardiac Cath Procedure Full Procedure Date January 04, 2023 Pre-Procedure Diagnosis Pre-Procedure Diagnosis: STEMI AUC Score AUC Score: 9 Post-Procedure Diagnosis Post-Procedure Diagnosis: Severe CAD and Unsuccessful PCI Procedure(s) Performed Procedure(s) Performed: Coronary Angiography, PTCA and Ultrasound Guided Vascular Access Telephone Supervisor Nick Blue MD, PhD Estimated Blood Loss Estimated Blood Loss: 10 mL Medication(s) Medication(s): Fentanyl, Heparin, Lidocaine 1% and Versed Summary of Findings Brief description: Patient was brought to the cardiac catheterization suite where he was shaved and prepped in a sterile fashion. Sedated using IV Versed and fentanyl. Soft tissues the right groin were anesthetized using 10 mL of 1% Xylocaine. Using the ultrasound for guidance (image saved), the right femoral artery was accessed and a 6 Indonesian femoral artery sheath was placed. All catheters were advanced and exchanged over a 0.035 J-tip wire. Of note, at the beginning of the procedure patient reported resolution of chest pain. Left coronary angiography in orthogonal views with a 6 Indonesian JL 4 diagnostic catheter. Right coronary angiography in orthogonal views with a 6 Indonesian JR4 guide catheter. We next proceeded with PCI attempt. Patient was provided additional IV heparin after ACT was checked. BMW number so guidewire was advanced through the guide catheter and into the stented portion of the RCA. We were able to advance the wire to the level of the intersection of 2 previously placed stents. However the guidewire would not advance. On the distal edge of the first stent. A 2.5 x 12 mm trek balloon was advanced over the guidewire and the proximal stented portion was predilated to nominal pressure. Several inflations performed. The balloon was then deflated and angiography was performed. We attempted to use the balloon catheter to provide backup to advance the guidewire. Despite this and multiple reshaping attempts we were unable to pass the guidewire past the proximal edge of the prior mid stent. The balloon and the guidewire were removed and a new BMW universal guidewire was advanced with a more aggressive curve in the tip. Despite this and the use of backup balloon catheter we were still unable to pass the proximal edge of the mid stent. The balloon catheter and the wire were then removed. Finally, a run-through guidewire with a aggressive bend was advanced. We were able to form a "safety loop" in the proximal stent but again this would not pass the proximal edge of the previously placed mid stent. We then pulled back and the safety loop was lost. We tried to advance the wire in the standard manner and again we could not pass the occluded proximal edge of the mid stent. Since it became increasingly obvious that we have a low likelihood of guidewire passage and since the patient had no chest pain with no identifiable ST elevations on the monitor we decided to abandon further attempts. The risk of perforation seem to outweigh the likelihood of success. The guidewire and guide catheter were removed. ACT was checked and limited right femoral artery angiography was performed to evaluate for closure. Findings were favorable, therefore, the femoral artery sheath was exchanged for a 6 Indonesian Angio-Seal closure device. This was deployed in the recommended fashion. We obtained immediate hemostasis and the patient remained hemodynamically stable. He was returned to the recovery area. This ended the case. Plan for admission to the ICU. Coronary angiography findings: HOY-tovkq-tzhoaje and short. Bifurcates into LAD and circumflex. No significant disease. LAD-large caliber and transapical. Proximal mild disease. Provides a medium to large caliber branching first diagonal which has proximal up to 95% stenosis. The mid LAD appears to have a focal up to 70% stenosis which is hazy. There is a large caliber second diagonal with proximal to mid hazy eccentric stenosis of 70 to 80%. Distal LAD is tortuous with mild scattered plaques. LCx-this is large caliber. Provides a large caliber branching OM1 there is ostial 80 to 90% stenosis and then diffuse mild disease. Mid AV groove circumflex is then 99 to 100% occluded and is still relatively large. After this there is a large caliber OM 2 with minimal disease. The distal AV groove circumflex has diffuse mild disease and tapers where it terminates after a small caliber posterolateral branch. RDM-cycjo-meytclu vessel. Proximal segment with mild disease up to 30% narrowing. Mid segment has mild disease then the vessel bifurcates into what appears to be a large caliber posterior lateral which branches distally. This vessel has mild luminal irregularities and is patent. The other branch is likely the PDA. This was previously stented and is 100% occluded very shortly after the bifurcation. There is some mild staining of the vessel in the most proximal portion but beyond that we see only the residual stent train. The most distal portion fills via left to right collateralization. CARLOS 0 flow in the stent train. PTCA of RCA/PDA. Remains occluded post PTCA CARLOS 0 flow post PTCA No evidence of dissection or perforation post PTCA Summary: 1. 100% occlusion of prior long distal RCA/PDA stent train. Attempted PCI unsuccessful as we could not pass the edge of the second stent. 2. Severe left-sided coronary artery disease as described. 3. Recommend maintain heparin drip for 48 hours and continue on aspirin. 4. Recommend continue guideline directed medical therapy for secondary prevention including high intensity statin therapy, beta-woody, and SIDDHARTHA inhibitor. Titrate to achieve clinical targets. 5. At some point the patient should be considered for surgical revascularization given multivessel coronary disease and diabetes. A viability study of the RCA territory should be considered as it is unclear how acute the occlusion may be. There is some collateralization suggesting there may be viable myocardium in that territory. 6. Highly recommend tobacco cessation and participation in CARDIAC REHAB. Hemodynamics Rest Ao:: 125/73 mmHg Final Ao: 120/71 mmHg LV: Not performed Recommendations Recommendations: Medical Therapy and/or Counseling and CABG Radiation Exposure (mGy) 2661 mGy, fluoroscopy time 12.8 minutes Contrast (mls) 145 mL Anesthesia 3 mg IV Versed, 75 mcg IV fentanyl. Start time 1334, end time 1411 Procedural Complication(s) None Disposition ICU I attest to the content of the Intraoperative Record and any orders documented therein. Any exceptions are noted below. [facility] Card Cath Procedure Codes Cardiac Catheterization Procedure 1: Cardiovascular Cath Procedures: 03553 Coronaries Therapeutic Services & Ancillary Procedure 1: Cardiovascular Tx and Anc Procedures: 75938 Ultrasonic Guidance Vascular Access Angioplasty Procedure 1: Cardiovascular Angioplasty Procedures: 72506 PTCA; Single mafor coronary artery or branch RC LC LD PG Care Time/CCT Total # of Minutes Spent Total Time Spent with Patient: Total time spent is greater than 50% in coordination of care (as documented) at patient's floor/unit and/or counseling patient:
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
[2023-01-04] MEDS: SODIUM CHLORIDE 0.9% 1,000 ML IV SCH (16:40)
[2023-01-04] MEDS: ATORVASTATIN 40 MG TAB PO SCH (16:40)
[2023-01-04 16:41] LABS: Basophils # (auto) 0.04 K/uL (0.00-0.20); Basophils % (auto) 0.5 %; Eosinophils # (auto) 0.15 K/uL (0.00-0.50); Eosinophils % (auto) 1.8 %; Hematocrit (blood only) 47.1 % (42.0-52.0); Hemoglobin 16.3 g/dl (14.0-18.0); Immature Granulocytes # (auto) 0.05 K/uL (0.01-0.20); Immature Granulocytes % (auto) 0.6 %; Lymphocytes # (auto) 1.74 K/uL (1.20-3.40); Lymphocytes % (auto) 20.4 %; Mean Corpuscular Hemoglobin 31.5 pg (25.0-34.0); Mean Corpuscular Hgb Conc 34.6 g/dL (32.0-36.0); Mean Corpuscular Volume 90.9 fL (80.0-100.0); Mean Platelet Volume 9.1 fL (9.4-12.4); Monocytes # (auto) 0.58 K/uL (0.11-0.59); Monocytes % (auto) 6.8 %; Neutrophils # (auto) 5.99 K/uL (1.40-6.50); Neutrophils % (auto) 69.9 %; Platelet Count 232 K/uL (130-400); RDW Coefficient of Variation 12.8 % (11.5-14.5); RDW Standard Deviation 43.5 fL (36.4-46.3); Red Blood Count 5.18 M/uL (4.70-6.10); White Blood Count 8.55 K/ul (4.8-10.8)
[2023-01-04] MEDS: Heparin IV Adult Wt-Based Standard *NO* INITIAL Bolus Protocol IV SCH ×2 (16:41→18:20)
[2023-01-04] MEDS: INSULIN ASPART PER UNIT CHARGE SC SCH ×2 (16:42→20:40)
[2023-01-04] MEDS: HEPARIN SODIUM/DEXTROSE 25,000 UNITS/500 ML BAG IV SCH (16:44)
[2023-01-04 16:55] LABS: Estimated Average Glucose 134 mg/dl; Hemoglobin A1C 6.3 % (4.5-5.6)
[2023-01-04 16:59] LABS: Chol HDL Ratio 3.2 (0-5)
[2023-01-04] MEDS: NICOTINE 21 MG/24 HR TDSY TD SCH (17:03)
[2023-01-04 17:17] LABS: Troponin I High Sensitivity 98.6 pg/ml (0-20)
[2023-01-04 17:21] LABS: INR 0.9 (0.9-1.1); Partial Thromboplastin Ratio 1.8; Prothrombin Time 10.3 Seconds (9.0-12.0)
[2023-01-04 17:24] LABS: Partial Thromboplastin Time 51.6 Seconds (21.0-31.0)
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
[2023-01-04 19:18] LABS: Partial Thromboplastin Ratio 1.1; Partial Thromboplastin Time 30.4 Seconds (21.0-31.0)
[2023-01-04] MEDS: METOPROLOL TARTRATE 25 MG TAB PO SCH (20:41)
[2023-01-05 02:11] LABS: Hematocrit (blood only) 43.6 % (42.0-52.0); Hemoglobin 15.3 g/dl (14.0-18.0); Mean Corpuscular Hemoglobin 31.7 pg (25.0-34.0); Mean Corpuscular Hgb Conc 35.1 g/dL (32.0-36.0); Mean Corpuscular Volume 90.5 fL (80.0-100.0); Mean Platelet Volume 9.3 fL (9.4-12.4); Platelet Count 228 K/uL (130-400); RDW Coefficient of Variation 12.9 % (11.5-14.5); RDW Standard Deviation 42.5 fL (36.4-46.3); Red Blood Count 4.82 M/uL (4.70-6.10); White Blood Count 7.65 K/ul (4.8-10.8)
[2023-01-05 02:27] LABS: BUN Creatinine Ratio 15.9 (10-20); Calcium 8.6 mg/dl (8.6-10.3); Chol HDL Ratio 3.3 (0-5); Creatinine Clr Calc Pharmacy 181.3 ml/min; Est GFR (African American) 124.7 ml/min; Est GFR (Non-African American) 107.6 ml/min; Magnesium 2.1 mg/dl (1.7-2.4); Potassium 3.6 mmol/L (3.5-5.1)
[2023-01-05 02:53] LABS: Partial Thromboplastin Ratio 1.3; Partial Thromboplastin Time 37.3 Seconds (21.0-31.0)
[2023-01-05 03:00] LABS: Troponin I High Sensitivity 359.9 pg/ml (0-20)
[2023-01-05 04:09] LABS: Phosphorus 4.1 mg/dl (2.5-4.9)
[2023-01-05] MEDS: SODIUM CHLORIDE 0.9% 1,000 ML IV SCH (06:44)
[2023-01-05] MEDS: ICU ELECTROLYTE REPLACEMENT PROTOCOL SCH ×2 (06:46→18:43)
[2023-01-05] MEDS: POTASSIUM CHLORIDE CRTAB 20 MEQ TABCR PO SCH ×2 (07:15→11:18)
--- NOTE | 2023-01-05 07:15 | Electrocardiogram Report ---
Test Reason : Blood Pressure : / mmHG Vent. Rate : 073 BPM Atrial Rate : 073 BPM P-R Int : 140 ms QRS Dur : 108 ms QT Int : 374 ms P-R-T Axes : 053 061 076 degrees QTc Int : 412 ms Normal sinus rhythm Inferior-posterior infarct (cited on or before 26-JUN-2020) ACUTE ID / STEMI Abnormal ECG When compared with ECG of 27-JUN-2020 07:48, ST more elevated in Inferior leads Nonspecific T wave abnormality no longer evident in Lateral leads Confirmed by Parker Hamm ([id number]) on 01/05/2023 7:15:41 AM Referred By: Confirmed By:Bay Hamm
--- NOTE | 2023-01-05 07:17 | Electrocardiogram Report ---
Test Reason : Blood Pressure : / mmHG Vent. Rate : 066 BPM Atrial Rate : 066 BPM P-R Int : 150 ms QRS Dur : 110 ms QT Int : 410 ms P-R-T Axes : 036 047 040 degrees QTc Int : 429 ms Normal sinus rhythm Normal ECG When compared with ECG of 04-JAN-2023 12:50, (unconfirmed) ST no longer elevated in Inferior leads Confirmed by Parker Hamm ([id number]) on 01/05/2023 7:16:23 AM Referred By: REFERRED SELF Confirmed By:Bay Hamm
--- NOTE | 2023-01-05 07:44 | XRay Report ---
XR chest 1V portable CLINICAL HISTORY: f/u COMPARISON STUDY: Chest radiograph June 26, 2020. FINDINGS: Lung volumes are normal. Lungs are clear. There is no pneumothorax or pleural effusion. Car diac size is normal. Mediastinal contours are normal. There is no evidence for pulmonary edema. IMPRESSION: No acute cardiopulmonary findings. ACT 112: Negative or not required by law. Electronically signed by: Prabhjot Mederos M.D. 01/05/2023 7:43 AM
[2023-01-05] MEDS: INSULIN ASPART PER UNIT CHARGE SC SCH ×4 (08:00→21:39)
--- NOTE | 2023-01-05 08:03 | Critical Care Progress Note ---
Date of Service January 05, 2023 Assessment & Plan (1) Benign essential hypertension: (2) CAD (coronary artery disease): (3) ST elevation myocardial infarction (STEMI): (4) Chest pain: (5) Chronic bronchitis: (6) Tobacco use disorder, continuous: (7) Obesity: Plan EKG 01/04/2023 12:50 PM: Normal sinus rhythm. ST elevation appreciated in leads II, III and aVF, ST depressions in the lateral leads. No T wave inversions -- STEMI S/p cardiac cath 01/04/2023, no stents were placed Patient have good collaterals CABG was recommended Continue with heparin drip. Brilinta on hold for possible transfer for CABG. Continue with aspirin Continue with high intensity statin therapy 2D echo 01/04/2023: EF 60-65%, grade 1 diastolic dysfunction -- Hypertension and dyslipidemia Continue with statin Continue with beta-woody and lisinopril --Chronic bronchitis Recommend PFT as an outpatient -- Current smoker > [id number] smoking history Importance of quitting explained to the patient in depth -- Diabetes Continue with ICU hyperglycemia protocol -- Obesity Advised to lose weight with diet and exercise --Prophylaxis VTE: Heparin drip GI: None Lines: Peripheral Diet: Cardiac Plan: In/out: -312, urine output 2700 EKG from today still shows mildly elevated ST segments in 2 3 and aVF, better than yesterday. Continue with beta-woody, lisinopril and aspirin. Potassium being replaced Patient hemodynamically stable. Disposition as per cardiology/primary team Please note the above document was generated using voice recognition software. It may contain grammatical, syntax or spelling errors.Any formal questions or concerns about the content, text or information contained within the body of this dictation should be directly addressed to the provider for clarification. Admission and Anticipated Discharge Date Admission Date: January 04, 2023 Subjective Patient seen and examined at bedside. No acute distress, no adverse events overnight Systolic blood pressure was in the 150s at the time of examination Denies any chest pain, no headache, no nausea, no vomiting Is on heparin drip Asking if he could go home Review of Systems Review of Systems: All systems reviewed & are unremarkable except as noted in Subjective Physical Exam Physical Exam: Constitutional: No acute distress HEENT: EOMI, PERRLA, poor dentition Respiratory system: Decreased air entry bilaterally, no wheeze, no rhonchi, no crackles CVS: S1-S2 positive, no murmurs or gallops Abdomen: Soft, nontender, nondistended, positive bowel sounds x4 Extremities: +2 pulses bilaterally radialis/ dorsalis pedis, no cyanosis, no edema, right arm amputated Neuro: Awake alert oriented x3 Psych: Normal mood and affect G/U: No [place] Skin: no rashes, warm and dry Lymphatic: no cervical or axillary lymphadenopathy Results & Data Results & Data Vital Signs (Past 12 Hours) Vital Signs Temp Pulse Resp BP Pulse Ox O2 Del Method 01/05/23 07:00 66 18 142/76 H 98 Room Air 01/05/23 07:45 Room Air 01/05/23 07:00 36.7 C 01/05/23 06:30 64 0 L 96 01/05/23 06:30 123/79 01/05/23 06:16 70 5 L 96 01/05/23 06:16 121/76 01/05/23 06:01 72 3 L 96 01/05/23 06:01 144/101 H 01/05/23 06:00 69 0 L 96 01/05/23 05:45 147/77 H 01/05/23 05:45 65 0 L 96 01/05/23 05:31 65 0 L 95 01/05/23 05:31 139/71 01/05/23 05:30 69 0 L 94 01/05/23 05:16 171/77 H 01/05/23 05:16 65 0 L 95 01/05/23 05:00 76 13 97 01/05/23 05:00 166/82 H 01/05/23 04:46 64 0 L 95 01/05/23 04:46 137/79 01/05/23 04:30 64 1 L 96 01/05/23 04:30 147/83 H 01/05/23 04:16 135/79 01/05/23 04:16 63 0 L 95 01/05/23 04:00 69 1 L 93 01/05/23 04:00 149/78 H 01/05/23 03:45 150/87 H 01/05/23 03:45 70 5 L 96 01/05/23 03:30 63 0 L 95 01/05/23 03:30 137/76 01/05/23 03:16 64 0 L 95 01/05/23 03:16 141/75 H 01/05/23 03:00 63 0 L 94 01/05/23 03:00 145/81 H 01/05/23 02:45 62 0 L 95 01/05/23 02:45 138/86 01/05/23 02:31 61 0 L 95 01/05/23 02:31 133/76 01/05/23 02:30 61 0 L 95 01/05/23 02:16 63 2 L 96 01/05/23 02:16 150/82 H 01/05/23 02:00 63 0 L 94 01/05/23 02:00 141/84 H 01/05/23 01:46 77 0 L 97 01/05/23 01:46 123/77 01/05/23 01:30 66 0 L 94 01/05/23 01:30 115/74 01/05/23 01:15 131/69 01/05/23 01:15 63 0 L 96 01/05/23 01:00 61 0 L 97 01/05/23 01:00 123/68 01/05/23 00:45 128/74 01/04/23 21:30 65 15 93 01/04/23 21:30 149/80 H 01/04/23 21:15 63 12 94 01/04/23 21:15 155/88 H 01/04/23 21:05 65 15 96 01/04/23 21:05 166/77 H 01/04/23 21:00 65 16 97 01/04/23 20:45 152/106 H 01/04/23 20:45 71 15 97 01/04/23 20:30 69 16 96 01/04/23 20:30 143/92 H 01/04/23 20:16 73 20 94 01/04/23 20:16 144/92 H Laboratory Results 01/05/23 01:46 01/05/23 01:46 Coding Level of Care Code 33615 SUB INP/OBS CARE MIN Diagnoses Benign essential hypertension I10 CAD (coronary artery disease) I25.10 ST elevation myocardial infarction (STEMI) I21.11 Involved coronary artery: right coronary artery Chest pain R07.9 Chest pain type: unspecified Chronic bronchitis J42 Tobacco use disorder, continuous F17.209 Obesity E66.9 (3) ST elevation myocardial infarction (STEMI) Involved coronary artery: right coronary artery Qualified Code(s): I21.11 - ST elevation (STEMI) myocardial infarction involving right coronary artery (4) Chest pain Chest pain type: unspecified Qualified Code(s): R07.9 - Chest pain, unspecified
[2023-01-05] MEDS: ASPIRIN 81 MG ECTAB PO SCH (08:55)
[2023-01-05] MEDS: ATORVASTATIN 40 MG TAB PO SCH (08:55)
[2023-01-05] MEDS: lisinopril 5 MG TAB PO SCH (08:56)
[2023-01-05] MEDS: NICOTINE 21 MG/24 HR TDSY TD SCH (08:56)
[2023-01-05] MEDS: METOPROLOL TARTRATE 25 MG TAB PO SCH ×2 (08:56→21:43)
[2023-01-05 10:02] LABS: Partial Thromboplastin Ratio 1.4; Partial Thromboplastin Time 39.7 Seconds (21.0-31.0)
--- NOTE | 2023-01-05 11:01 | Electrocardiogram Report ---
Test Reason : Blood Pressure : / mmHG Vent. Rate : 070 BPM Atrial Rate : 070 BPM P-R Int : 156 ms QRS Dur : 108 ms QT Int : 400 ms P-R-T Axes : 033 033 002 degrees QTc Int : 432 ms Normal sinus rhythm Inferior infarct , age undetermined Abnormal ECG When compared with ECG of 04-JAN-2023 16:24, Nonspecific T wave abnormality, worse in Inferior leads Confirmed by Parker Hamm ([id number]) on 01/05/2023 11:01:23 AM Referred By: REFERRED SELF Confirmed By:Bay Hamm
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
[2023-01-05] MEDS: HEPARIN SODIUM/DEXTROSE 25,000 UNITS/500 ML BAG IV SCH (12:47)
--- NOTE | 2023-01-05 15:28 | Hospitalist Progress Note ---
Date of Service January 05, 2023 Assessment & Plan (1) ST elevation myocardial infarction (STEMI): (2) Chest pain: (3) CAD (coronary artery disease): (4) HTN (hypertension): (5) T2DM (type 2 diabetes mellitus): (6) Tobacco use disorder: Plan: Per admitting service notes with addendum: STEMI CAD s/p cardiac stent in 2020 HTN HLD - Admit to ICU for monitoring s/p cardiac cath: Per cardiology consult possible the ST elevation is residual from prior OR, occlusion in the RCA appeared to be more acute, however could not pass wire or balloon beyond most proximal portion of that stented segment. Possible referral to tertiary care center for possible CABG, No lesion was amendable to PCI at this time -Maintain heparin drip and aspirin for 24 to 48 hours, holding Brilinta -Check 2D echo, am EKG -Continue beta-woody, aspirin, high intensity statin and SIDDHARTHA -Metoprolol 25 twice daily, lisinopril 5 daily, holding amlodipine for now -Consult cardiology - following with Dr. Collins as outpatient -Lipid panel from 11/20/22 reviewed personally in [employer] software outpt chart showing triglycerides 183, total cholesterol 145, HDL 46, LDL 72 01/05 Unsuccessful PCI Clinical suspicion for acute on chronic occlusion of the right PDA Continue heparin drip-to complete 48 hours Continue aspirin, metoprolol, atorvastatin, lisinopril Possible surgical versus PCI intervention being considered DM type 2 - Chronic, stable - Cont ISS with accucheck achs - A1C 6.7 on 11/20/22 - Hold metformin and jardiance for now BSG is within acceptable range Obesity, Class II, BMI 35-39.9 -Chronic, Diet and exercise to be encouraged throughout hospital stay, consider nutrition consult Tobacco Use -Cessation advised DVT ppx: heparin gtt FEN/GI: Allow heart healthy diet Lines-2 PIV Code: Full Dispo: Anticipate discharge to home when cleared by cardiology service Admission and Anticipated Discharge Date Admission Date: January 04, 2023 Subjective Follow-up for ST elevation OR, etc. Seen resting in bed, watching TV, comfortable no chest pain, dyspnea, palpitations, dizziness No nausea or vomiting No other new symptoms Review of Systems Review of Systems: all noted and negative except for above Physical Exam Physical Exam: General- oriented x 3, not in distress, speaks in sentences with no effort or accessory muscle use Head- atraumatic Eyes- PERRL, EOMI, anicteric ENT- oropharynx clear Neck- supple, no JVD, no adenopathy, no thyromegaly; carotids +2/2, no bruits appreciated Lungs- clear to auscultation bilaterally, no rales/wheezes Heart- normal rate, regular rhythm; no murmur, no gallop, no rub appreciated Abdomen- normal bowel sounds, nondistended, soft, nontender, no masses or hepatosplenomegaly Extremities- no pretibial edema, no calf tenderness; peripheral pulses intact Neuro- alert, oriented x 3; CN 2-12 grossly intact; motor 5/5 bilaterally;sensation 100% on all extremities; no other gross focal neurologic deficits Skin- warm & dry Results & Data Results & Data Vital Signs (Past 12 Hours) Vital Signs Temp Pulse Resp BP Pulse Ox O2 Del Method 01/05/23 13:01 69 16 131/76 94 Room Air 01/05/23 12:17 71 16 129/79 97 Room Air 01/05/23 12:00 36.5 C 01/05/23 11:08 67 16 118/77 96 Room Air 01/05/23 10:01 68 20 128/97 95 Room Air 01/05/23 09:00 70 18 145/88 H 95 Room Air 01/05/23 08:01 68 16 138/74 93 Room Air 01/05/23 07:00 66 18 142/76 H 98 Room Air 01/05/23 07:45 Room Air 01/05/23 07:00 36.7 C 01/05/23 06:30 64 0 L 96 01/05/23 06:30 123/79 01/05/23 06:16 70 5 L 96 01/05/23 06:16 121/76 01/05/23 06:01 72 3 L 96 01/05/23 06:01 144/101 H 01/05/23 06:00 69 0 L 96 01/05/23 05:45 147/77 H 01/05/23 05:45 65 0 L 96 01/05/23 05:31 65 0 L 95 01/05/23 05:31 139/71 01/05/23 05:30 69 0 L 94 01/05/23 05:16 171/77 H 01/05/23 05:16 65 0 L 95 01/05/23 05:00 76 13 97 01/05/23 05:00 166/82 H 01/05/23 04:46 64 0 L 95 01/05/23 04:46 137/79 01/05/23 04:30 64 1 L 96 01/05/23 04:30 147/83 H 01/05/23 04:16 135/79 01/05/23 04:16 63 0 L 95 01/05/23 04:00 69 1 L 93 01/05/23 04:00 149/78 H 01/05/23 03:45 150/87 H 01/05/23 03:45 70 5 L 96 01/05/23 03:30 63 0 L 95 01/05/23 03:30 137/76 all noted and reviewed including below (1) ST elevation myocardial infarction (STEMI) Involved coronary artery: right coronary artery Qualified Code(s): I21.11 - ST elevation (STEMI) myocardial infarction involving right coronary artery (2) Chest pain Chest pain type: unspecified Qualified Code(s): R07.9 - Chest pain, unspecified
[2023-01-05 16:47] LABS: Basophils # (auto) 0.03 K/uL (0.00-0.20); Basophils % (auto) 0.4 %; Eosinophils # (auto) 0.14 K/uL (0.00-0.50); Hematocrit (blood only) 43.6 % (42.0-52.0); Hemoglobin 14.9 g/dl (14.0-18.0); Immature Granulocytes # (auto) 0.05 K/uL (0.01-0.20); Immature Granulocytes % (auto) 0.7 %; Lymphocytes # (auto) 1.86 K/uL (1.20-3.40); Lymphocytes % (auto) 26.8 %; Mean Corpuscular Hemoglobin 31.1 pg (25.0-34.0); Mean Corpuscular Hgb Conc 34.2 g/dL (32.0-36.0); Mean Platelet Volume 9.4 fL (9.4-12.4); Monocytes # (auto) 0.66 K/uL (0.11-0.59); Monocytes % (auto) 9.5 %; Neutrophils # (auto) 4.19 K/uL (1.40-6.50); Neutrophils % (auto) 60.6 %; Platelet Count 207 K/uL (130-400); RDW Coefficient of Variation 12.7 % (11.5-14.5); RDW Standard Deviation 41.9 fL (36.4-46.3); Red Blood Count 4.79 M/uL (4.70-6.10); White Blood Count 6.93 K/ul (4.8-10.8)
[2023-01-05 17:05] LABS: Magnesium 2.1 mg/dl (1.7-2.4); Phosphorus 3.6 mg/dl (2.5-4.9); Potassium 4.2 mmol/L (3.5-5.1)
[2023-01-05 17:32] LABS: Partial Thromboplastin Ratio 1.6
[2023-01-05 17:36] LABS: Partial Thromboplastin Time 43.9 Seconds (21.0-31.0)
[2023-01-06] MEDS ORDERED: Nursing to Pharmacy Communication SCH ×3 (00:30→16:30)
[2023-01-06] MEDS: HEPARIN SODIUM/DEXTROSE 25,000 UNITS/500 ML BAG IV SCH (04:25)
[2023-01-06 06:00] LABS: BUN Creatinine Ratio 13.7 (10-20); Calcium 8.5 mg/dl (8.6-10.3); Creatinine Clr Calc Pharmacy 171.3 ml/min; Est GFR (African American) 121.9 ml/min; Est GFR (Non-African American) 105.2 ml/min; Phosphorus 3.6 mg/dl (2.5-4.9); Potassium 4.3 mmol/L (3.5-5.1)
[2023-01-06 06:26] LABS: Partial Thromboplastin Ratio 1.6
[2023-01-06 06:27] LABS: Partial Thromboplastin Time 45.1 Seconds (21.0-31.0)
[2023-01-06 07:28] LABS: Estimated Average Glucose 137 mg/dl; Hemoglobin A1C 6.4 % (4.5-5.6)
[2023-01-06] MEDS: ATORVASTATIN 40 MG TAB PO SCH (08:01)
[2023-01-06] MEDS: NICOTINE 21 MG/24 HR TDSY TD SCH (08:01)
[2023-01-06] MEDS: lisinopril 5 MG TAB PO SCH (08:01)
[2023-01-06] MEDS: ASPIRIN 81 MG ECTAB PO SCH (08:01)
[2023-01-06] MEDS: METOPROLOL TARTRATE 25 MG TAB PO SCH ×2 (08:02→20:27)
[2023-01-06] MEDS: INSULIN ASPART PER UNIT CHARGE SC SCH ×3 (08:12→20:25)
--- NOTE | 2023-01-06 09:09 | Cardiology Progress Note ---
Date of Service January 06, 2023 Assessment & Plan (1) ST elevation myocardial infarction (STEMI): (2) Benign essential hypertension: (3) Atherogenic dyslipidemia: (4) Tobacco use disorder, continuous: Plan 52-year-old male with a past medical history of cigarette smoking, type 2 diabetes mellitus, obesity, and coronary heart disease with previous acute inferior myocardial infarction in 2020 for which patient underwent complex PCI with 3 overlapping drug-eluting stents to the RPDA at that time. Pt underwent emergent cardiac catheterization of 01/04/23. PCI was unsuccessful, with clinical suspicion that this was an acute on chronic occlusion of the right PDA. Echocardiogram performed 01/05/2023=normal LVEF 55-60%, small wall motion abnormality of the basal inferior wall. No significant valvular disease. Patient expresses concerns of needing to limit his recovery interval as much as possible and he is concerned of loosing his job and having financial hardship. Films reviewed with Dr Olguin of interventional cardiology. Tentative plan is for repeat cardiac catheterization today for further evaluation of the LAD and consideration of PCI of the LAD and circumflex. Patient is agreeable to fdc dural antiplatelet therapy. Continue aspirin, metoprolol, lisinopril, nicotine patch, and atorvastatin. Heparin infusion discontinued, having completed jut under 48hrs of treatment. Admission and Anticipated Discharge Date Admission Date: January 04, 2023 Subjective Patient seen in cardiology follow-up. He had been transferred from the first floor ICU to room 207. Telemetry reveals sinus rhythm in the 60s to 70s with occasional isolated PVCs. No sustained arrhythmias. Review of Systems Review of Systems: All systems reviewed & are unremarkable except as noted in HPI & below Physical Exam Constitutional: WD/WN, vitals as above Respiratory: normal respiratory effort, lungs clear to auscultation Cardiovascular: RRR, no murmur, no edema right femoral arterial access site is clean , dry and intact without hematoma Gastrointestinal (Abdomen): normal bowel sounds, soft, nontender, no hepatosplenomegaly Neurologic: PERRL, EOMI, accommodation nl, no face palsy, no dysarthria Results & Data Vital Signs (Past 12 Hours) Vital Signs Temp Pulse Pulse Resp BP Pulse Ox O2 Del Method 01/06/23 07:25 36.9 C 72 18 151/67 H 93 Room Air 01/06/23 02:35 36.6 C 63 18 106/70 94 Room Air 01/05/23 21:58 72 01/05/23 22:56 36.7 C 80 18 117/77 94 Room Air Laboratory Results Cardiac Enzymes 01/05/23 Range/Units 11:05 Troponin I High Sens 231.9 H* (0-20) pg/ml Coagulation 01/05/23 01/05/23 01/06/23 Range/Units 09:11 16:02 05:28 APTT 39.7 H 43.9 H* 45.1 H* (21.0-31.0) Seconds CBC 01/05/23 Range/Units 16:02 WBC 6.93 (4.8-10.8) K/ul RBC 4.79 (4.70-6.10) M/uL Hgb 14.9 (14.0-18.0) g/dl Hct 43.6 (42.0-52.0) % Plt Count 207 (130-400) K/uL Neut # (Auto) 4.19 (1.40-6.50) K/uL Lymph # (Auto) 1.86 (1.20-3.40) K/uL [place] # (Auto) 0.66 H (0.11-0.59) K/uL Eos # (Auto) 0.14 (0.00-0.50) K/uL Baso # (Auto) 0.03 (0.00-0.20) K/uL Comprehensive Metabolic Panel 01/05/23 01/06/23 Range/Units 16:02 05:28 Sodium 134 L (136-145) mmol/L Potassium 4.2 4.3 (3.5-5.1) mmol/L Chloride 105 (98-107) mmol/L Carbon Dioxide 24 (21-32) mmol/L BUN 10 (6-23) mg/dl Creatinine 0.73 (0.6-1.4) mg/dl Glucose 95 (70-99(Fasting)) mg/dl Calcium 8.5 L (8.6-10.3) mg/dl (1) ST elevation myocardial infarction (STEMI) Involved coronary artery: right coronary artery Qualified Code(s): I21.11 - ST elevation (STEMI) myocardial infarction involving right coronary artery
[2023-01-06] MEDS ORDERED: INSULIN ASPART PER UNIT CHARGE SC SCH (12:00)
[2023-01-06] MEDS ORDERED: MIDAZOLAM HCL 1 MG/ML 2ML VIAL ONE ×3 (14:01→15:21)
[2023-01-06] MEDS ORDERED: niCARdipine HCL INJ 2.5 MG/ML 10 ML AMP ONE (14:01)
[2023-01-06] MEDS ORDERED: HEPARIN (PORCINE) 1000 UNIT/ML 10 ML (CATH LAB USE ONLY) ONE (14:01)
[2023-01-06] MEDS ORDERED: fentaNYL citrate PF 100 MCG/2 ML VIAL ONE ×2 (14:02→15:10)
[2023-01-06] MEDS ORDERED: NITROGLYCERIN/D5W 100MCG/ML 20ML SYR ONE (14:03)
--- NOTE | 2023-01-06 14:47 | Pre Anesthesia Assessment ---
Date of Service January 06, 2023 Pre Sedation Assessment Vital Signs Temp Pulse Pulse Resp BP BP Pulse Ox 01/06/23 13:30 79 14 121/74 98 01/06/23 11:55 98.8 F 72 16 145/102 H 96 01/06/23 08:00 67 01/06/23 07:25 98.4 F 72 18 151/67 H 93 01/06/23 02:35 97.9 F 63 18 106/70 94 01/05/23 19:45 01/05/23 21:58 72 01/05/23 22:56 98.1 F 80 18 117/77 94 01/05/23 19:15 98.2 F 65 18 136/79 96 01/05/23 17:47 01/05/23 17:43 99.7 F H 83 19 146/83 H 92 01/05/23 17:00 70 18 135/74 93 01/05/23 16:00 68 18 147/69 H 94 01/05/23 16:00 71 01/05/23 16:00 97.9 F 01/05/23 15:00 74 19 149/75 H 95 O2 Del Method 01/06/23 13:30 Room Air 01/06/23 11:55 Room Air 01/06/23 08:00 01/06/23 07:25 Room Air 01/06/23 02:35 Room Air 01/05/23 19:45 Room Air 01/05/23 21:58 01/05/23 22:56 Room Air 01/05/23 19:15 Room Air 01/05/23 17:47 Room Air 01/05/23 17:43 Room Air 01/05/23 17:00 Room Air 01/05/23 16:00 Room Air 01/05/23 16:00 01/05/23 16:00 01/05/23 15:00 Room Air Cardiovascular RRR, no murmur, no edema Respiratory normal respiratory effort, lungs clear to auscultation Pre-Sedation Airway Assessment Smoking Status: Current every day smoker Hx Sleep Apnea: No Hx Difficult Intubation: No Short, Thick Neck: No Thyromental Distance: > or= 3.5 Finger Breadths Oral Cavity: + WNL Mallampati Class: III ASA: ASA2 NPO Status Date of Last Intake of Fluids: 01/06/23 Time of Last Intake of Fluids: 08:00 Date of Last Intake of Solid Food: 01/06/23 Time of Last Intake of Solid Foods: 08:00 Procedure Planning Contraindications for Sedation: none Current Medications Reviewed: Yes Notes The planned sedation has been discussed with the patient. Informed Consent was obtained. I have identified the patient, determined the appropriateness of sedation and have assessed the patient immediately prior to the procedure. All medicine(s) and interventions are by my order.
[2023-01-06] MEDS ORDERED: ADENOSINE IV SOLN 3 MG/ML 20 ML VIAL IV ONE (14:54)
--- NOTE | 2023-01-06 15:24 | Hospitalist Progress Note ---
Date of Service January 06, 2023 Assessment & Plan (1) ST elevation myocardial infarction (STEMI): (2) Chest pain: (3) CAD (coronary artery disease): (4) HTN (hypertension): (5) T2DM (type 2 diabetes mellitus): (6) Tobacco use disorder: Plan: Per admitting service notes with addendum: STEMI CAD s/p cardiac stent in 2020 HTN HLD - Admit to ICU for monitoring s/p cardiac cath: Per cardiology consult possible the ST elevation is residual from prior TN, occlusion in the RCA appeared to be more acute, however could not pass wire or balloon beyond most proximal portion of that stented segment. Possible referral to tertiary care center for possible CABG, No lesion was amendable to PCI at this time -Maintain heparin drip and aspirin for 24 to 48 hours, holding Brilinta -Check 2D echo, am EKG -Continue beta-wodoy, aspirin, high intensity statin and SIDDHARTHA -Metoprolol 25 twice daily, lisinopril 5 daily, holding amlodipine for now -Consult cardiology - following with Dr. Collins as outpatient -Lipid panel from 11/20/22 reviewed personally in [facility] outpt chart showing triglycerides 183, total cholesterol 145, HDL 46, LDL 72 01/05 Unsuccessful PCI Clinical suspicion for acute on chronic occlusion of the right PDA 01/06 completed Heparin IV Continue aspirin, metoprolol, atorvastatin, lisinopril Possible surgical versus PCI intervention being considered DM type 2 - Chronic, stable - Cont ISS with accucheck achs - A1C 6.7 on 11/20/22 - Hold metformin and jardiance for now BSG is within acceptable range Obesity, Class II, BMI 35-39.9 -Chronic, Diet and exercise to be encouraged throughout hospital stay Tobacco Use -Cessation advised DVT ppx: SCD FEN/GI: Allow heart healthy diet Lines-2 PIV Code: Full Dispo: Anticipate discharge to home when cleared by cardiology service Admission and Anticipated Discharge Date Admission Date: January 04, 2023 Subjective ff up for STEMI, etc seen resting in bed, comfortable states he feels fine overall no chest pain, dyspnea, palpitations, dizziness for cardiac cath today Review of Systems Review of Systems: all noted and negative except for above Physical Exam Physical Exam: General- oriented x 3, not in distress, speaks in sentences with no effort or accessory muscle use Eyes- anicteric Neck- no JVD Lungs- clear breath sounds bilaterally, no crackles/wheezing Heart- normal rate, regular rhythm; no murmurs Abdomen- normal bowel sounds, nondistended, soft, nontender Extremities- no pretibial edema, no calf tenderness Neuro- alert, oriented x 3; no gross focal neurologic deficits Skin- warm & dry Results & Data Results & Data Vital Signs (Past 12 Hours) Vital Signs Temp Pulse Pulse Resp BP Pulse Ox O2 Del Method 01/06/23 13:30 79 14 121/74 98 Room Air 01/06/23 11:55 37.1 C 72 16 145/102 H 96 Room Air 01/06/23 08:00 67 01/06/23 07:25 36.9 C 72 18 151/67 H 93 Room Air all noted and reviewed including below (1) ST elevation myocardial infarction (STEMI) Involved coronary artery: right coronary artery Qualified Code(s): I21.11 - ST elevation (STEMI) myocardial infarction involving right coronary artery (2) Chest pain Chest pain type: unspecified Qualified Code(s): R07.9 - Chest pain, unspecified
[2023-01-06] MEDS ORDERED: LIDOCAINE 1% LOCAL 20 ML VIAL ONE (15:44)
[2023-01-06] MEDS ORDERED: CLOPIDOGREL BISULFATE 300 MG TAB ONE ×2 (15:53→15:57)
--- NOTE | 2023-01-06 16:05 | Post Anesthesia Assessment ---
Date of Service January 06, 2023 Post Sedation Assessment Vital Signs Temp Pulse Pulse Pulse Resp BP BP 01/06/23 15:50 74 18 01/06/23 13:30 79 14 121/74 01/06/23 11:55 98.8 F 72 16 145/102 H 01/06/23 08:00 67 01/06/23 07:25 98.4 F 72 18 151/67 H 01/06/23 02:35 97.9 F 63 18 106/70 01/05/23 19:45 01/05/23 21:58 72 01/05/23 22:56 98.1 F 80 18 117/77 01/05/23 19:15 98.2 F 65 18 136/79 01/05/23 17:47 01/05/23 17:43 99.7 F H 83 19 146/83 H 01/05/23 17:00 70 18 135/74 BP Pulse Ox O2 Del Method 01/06/23 15:50 128/69 96 Room Air 01/06/23 13:30 98 Room Air 01/06/23 11:55 96 Room Air 01/06/23 08:00 01/06/23 07:25 93 Room Air 01/06/23 02:35 94 Room Air 01/05/23 19:45 Room Air 01/05/23 21:58 01/05/23 22:56 94 Room Air 01/05/23 19:15 96 Room Air 01/05/23 17:47 Room Air 01/05/23 17:43 92 Room Air 01/05/23 17:00 93 Room Air Recovery Score Activity: Moves 4 extremities Respiration: Deep Breath/Cough Circulation: +/-20% PreAnes Value Consciousness: Fully Awake Oxygen Saturation: > 92% On Room Air Post Anesthesia Score: 10 Discharge Sedation Level of Care: Fast Track Phase II Post Sedation Plan On clinical assessment, the patient appears to have tolerated the sedation without complications. Patient is recovering as anticipated. Patient will continue to be monitored by nursing and may be discharged when sedation discharge criteria are met per below protocol. Upon Completions of procedure up to 15 minutes continue every 5 minute vital signs and the P.A.R. score; then discharge to a Phase I or Fast Track to Phase II per the following guidelines: * Discharge Patient to appropriate Phase II area if PAR is 8 or greater or return to pre- procedure baseline. The post - procedure orders will be as directed. * If PAR score is less than 8 or not return to pre-procedure baseline then patient will follow Phase I monitoring till PAR is reached for Phase II. The Phase I may be done in procedure room or may call to secure a Phase I area. * If naloxone or flumazenil are used for reversal, hold in Phase I for continued monitoring from when last reversal dose was given for a minimum of 60 minutes or longer pending the nurse and/or physician discretion of patient condition before discharge to Phase II. Please call the Sedation Physician to re-evaluate and complete post-note for discharge to Phase II area. Do NOT discharge from procedure sedation or Phase 1 until post- sedation evaluation note is complete by procedure /sedation MD Sedation Discharge Instructions to be given to the patient at discharge to home.
--- NOTE | 2023-01-06 16:22 | Cardiac Catheterization ---
[facility] Data: Unix Developer Cardiac Status Clinical evaluation leading to the procedure CAD Presenation: Non STEMI Anginal Classification: CCS IV Diagnostic Physicians Name: Parker Olguin MD Closure Device Recommendations: PCI without planned CABG Cardiac Cath Procedure Full Procedure Date January 06, 2023 Pre-Procedure Diagnosis Pre-Procedure Diagnosis: Non STEMI AUC Score AUC Score: 9 Post-Procedure Diagnosis Post-Procedure Diagnosis: Severe CAD Procedure(s) Performed Procedure(s) Performed: Coronary Angiography, Drug Eluting Stent and Fractional Flow [place] Manager Stone Parker Olguin MD Complex Director(s) Deibler Estimated Blood Loss Estimated Blood Loss: 20 Medication(s) Medication(s): Adenosine, Clopidogrel, Fentanyl, Heparin, Lidocaine 1%, Nicardipine, Nitroglycerin and Versed Summary of Findings Indication: NSTEMI. Acute on chronic in-stent RCA occlusion with left to right collaterals. Noted to have severe mid LCx disease and moderate mid LAD disease. Brought back today for distal LCx PCI and FFR of LAD. Access: 6Fr LT radial artery Catheters: EBU 3.5 guide Findings: For full details of patient's coronary angiography please see cath report from Dr. Blue on 01/04/2023. Again noted to have 50-60% mid LAD stenosis and 95+% mid circumflex stenosis. __ FFR of LAD -- Procedure: -Left main cannulated with EBU3.5 guide -Elastic Tape Inserter 50 wire placed into distal LAD -ACIST Catheter placed across stenosis -Pd/Pa 0.93 -FFR 0.80 -Coronary angiography revealed no apparent complications post wire/catheter removal -- PCI of mid circumflex -- Antithrombotic therapy: Heparin, Clopidogrel Procedure: Pre-procedure flow CARLOS 3 Elastic Tape Inserter 50 wire passed across lesion into distal OM2 Mid circumflex lesion predilated with 2.0 compliant balloon Whisper wire placed into distal AV groove circumflex Dilated mid circumflex lesion stented with 2.25 x 18 mm Young KOKO into OM2 Stent post-dilated with 2.5 noncompliant balloon IC vasodilators administered for spasm Post procedure CARLOS 3 flow, stent well expanded with minimal residual stenosis. Minimal ostial narrowing of jailed distal AV groove circumflex and no apparent cardiac complications. Arterial Closure: TR Band Summary: 1. Successful PCI of mid circumflex into OM2 with single drug-eluting stent (2.25 x 18 mm Young KOKO;post-dilated with 2.5 NC). 2. Moderate to severe mid LAD disease (FFR 0.80). Recommendations: Loaded with clopidogrel 600mg in [employer] Continue dual-antiplatelet therapy for at least 1 year Continue statin, ASCVD risk factor modification and tobacco cessation. Consult cardiac Rehab Hemodynamics Rest Ao:: 109/70 Final Ao: 108/71/87 LV: -- Recommendations Recommendations: PCI without planned CABG Specimens Specimens: None Radiation Exposure (mGy) 1840 Contrast (mls) 95 Anesthesia Moderate 9652-4303 Procedural Complication(s) None Disposition PCU I attest to the content of the Intraoperative Record and any orders documented therein. Any exceptions are noted below. [facility] Card Cath Procedure Codes Cardiac Catheterization Procedure 1: Cardiovascular Cath Procedures: 60953 (Doppler) Pressure Wire Moderate Sedation Procedure 1: Sedation/Anesthesia: 12959 Mod Sedation by the same physician;Init15 Min Child Age 5 & Up Procedure 2: Sedation/Anesthesia: 61206 Mod Sedation by the same physician; Ea [id number] Minutes Stenting Procedure 1: Cardiovascular Stent Procedures: 15852 Perc transcatheter placement of intracoronary stent(s), with ang PG Care Time/CCT Total # of Minutes Spent Total Time Spent with Patient: Total time spent is greater than 50% in coordination of care (as documented) at patient's floor/unit and/or counseling patient:
[2023-01-06 17:05] LABS: Basophils # (auto) 0.04 K/uL (0.00-0.20); Basophils % (auto) 0.5 %; Eosinophils # (auto) 0.11 K/uL (0.00-0.50); Eosinophils % (auto) 1.4 %; Hematocrit (blood only) 47.2 % (42.0-52.0); Hemoglobin 16.2 g/dl (14.0-18.0); Immature Granulocytes # (auto) 0.05 K/uL (0.01-0.20); Immature Granulocytes % (auto) 0.6 %; Lymphocytes # (auto) 1.96 K/uL (1.20-3.40); Lymphocytes % (auto) 25.5 %; Mean Corpuscular Hemoglobin 31.3 pg (25.0-34.0); Mean Corpuscular Hgb Conc 34.3 g/dL (32.0-36.0); Mean Corpuscular Volume 91.1 fL (80.0-100.0); Mean Platelet Volume 9.3 fL (9.4-12.4); Monocytes # (auto) 0.77 K/uL (0.11-0.59); Neutrophils # (auto) 4.77 K/uL (1.40-6.50); Platelet Count 233 K/uL (130-400); RDW Coefficient of Variation 12.8 % (11.5-14.5); RDW Standard Deviation 42.8 fL (36.4-46.3); Red Blood Count 5.18 M/uL (4.70-6.10)
[2023-01-07 07:22] LABS: BUN Creatinine Ratio 17.1 (10-20); Calcium 9.1 mg/dl (8.6-10.3); Creatinine Clr Calc Pharmacy 164.3 ml/min; Est GFR (African American) 119.9 ml/min; Est GFR (Non-African American) 103.4 ml/min; Phosphorus 3.9 mg/dl (2.5-4.9); Potassium 4.4 mmol/L (3.5-5.1)
[2023-01-07] MEDS: INSULIN ASPART PER UNIT CHARGE SC SCH ×2 (08:04→12:00)
[2023-01-07] MEDS: ASPIRIN 81 MG ECTAB PO SCH (08:24)
[2023-01-07] MEDS: NICOTINE 21 MG/24 HR TDSY TD SCH (08:26)
[2023-01-07] MEDS: ATORVASTATIN 40 MG TAB PO SCH (08:26)
[2023-01-07] MEDS ORDERED: METOPROLOL SUCC 50MG EXT REL TAB PO STA (08:27)
[2023-01-07] MEDS ORDERED: CLOPIDOGREL BISULFATE 75 MG TAB PO SCH (09:00)
[2023-01-07] MEDS ORDERED: lisinopril 10 MG TAB PO SCH (09:00)
--- NOTE | 2023-01-07 10:00 | Cardiology Progress Note ---
Date of Service January 07, 2023 Assessment & Plan (1) ST elevation myocardial infarction (STEMI): (2) Benign essential hypertension: (3) Atherogenic dyslipidemia: (4) Tobacco use disorder, continuous: Plan 52-year-old male with a past medical history of cigarette smoking, type 2 diabetes mellitus, obesity, and coronary heart disease with previous acute inferior myocardial infarction in 2020 for which patient underwent complex PCI with 3 overlapping drug-eluting stents to the RPDA at that time. Pt underwent emergent cardiac catheterization of 01/04/23. PCI was unsuccessful, with clinical suspicion that this was an acute on chronic occlusion of the right PDA. Echocardiogram performed 01/05/2023=normal LVEF 55-60%, small wall motion abnormality of the basal inferior wall. No significant valvular disease. Patient expresses concerns of needing to limit his recovery interval as much as possible and he is concerned of loosing his job and having financial hardship. Pt returned to the cardiac clinical laboratory aide on 01/06/23. The LAD was reassessed and stenosis felt not to be hemodynamically significant by visual appearance and FFR assessemtent . Pt went on to have PCI KOKO to the mid circumflex in to OM1. Summary of cardiac catheterization from 01/06/23: 1. Successful PCI of mid circumflex into OM2 with single drug-eluting stent (2.25 x 18 mm Young KOKO;post-dilated with 2.5 NC). 2. Moderate to severe mid LAD disease (FFR 0.80). Patient to have repeat EKG this am. As long as findings are stable , plan for discharge on the following medications: ASA 81 mg daily (life long therapy) Clopidogrel 75 mg daily (residential therapy over 1 year recommended) Atorvastatin 80 mg daily Metoprolol succinate 50 mg daily Increase lisinopril to 10 mg daily Jardiance 10 mg daily Will arrange cardiology follow up. Admission and Anticipated Discharge Date Admission Date: January 04, 2023 Subjective Patient seen in cardiology follow up. Telemetry reveals SR in the 70s. No arrhythmias. He feels well this am . Denies chest pain. Physical Exam Physical Exam: Temp Pulse Resp BP Pulse Ox O2 Del Method 37.0 C 99 H 22 160/91 H 97 Room Air 01/07/23 08:00 01/07/23 08:00 01/07/23 08:00 01/07/23 08:00 01/07/23 08:00 01/07/23 08:00 Constitutional: WD/WN, vitals as above Respiratory: normal respiratory effort, lungs clear to auscultation Cardiovascular: RRR, no murmur, no edema Gastrointestinal (Abdomen): normal bowel sounds, soft, nontender, no hepatosplenomegaly Neurologic: PERRL, EOMI, accommodation nl, no face palsy, no dysarthria Results & Data Vital Signs (Past 12 Hours) Vital Signs Temp Pulse Pulse Resp BP Pulse Ox O2 Del Method 01/07/23 08:00 37.0 C 99 H 22 160/91 H 97 Room Air 01/07/23 08:00 58 L 01/07/23 02:27 36.7 C 62 18 165/101 H 95 Room Air 01/07/23 00:00 69 01/06/23 22:51 37.5 C 75 18 123/79 94 Room Air Laboratory Results CBC 01/06/23 Range/Units 16:50 WBC 7.70 (4.8-10.8) K/ul RBC 5.18 (4.70-6.10) M/uL Hgb 16.2 (14.0-18.0) g/dl Hct 47.2 (42.0-52.0) % Plt Count 233 (130-400) K/uL Neut # (Auto) 4.77 (1.40-6.50) K/uL Lymph # (Auto) 1.96 (1.20-3.40) K/uL Emmet # (Auto) 0.77 H (0.11-0.59) K/uL Eos # (Auto) 0.11 (0.00-0.50) K/uL Baso # (Auto) 0.04 (0.00-0.20) K/uL Comprehensive Metabolic Panel 01/07/23 Range/Units 06:32 Sodium 133 L (136-145) mmol/L Potassium 4.4 (3.5-5.1) mmol/L Chloride 102 (98-107) mmol/L Carbon Dioxide 25 (21-32) mmol/L BUN 13 (6-23) mg/dl Creatinine 0.76 (0.6-1.4) mg/dl Glucose 95 (70-99(Fasting)) mg/dl Calcium 9.1 (8.6-10.3) mg/dl Intake and Output 01/06/23 01/07/23 01/07/23 22:59 06:59 14:59 Intake Total 200 / 2105.6 150 / 2105.6 Output Total 800 / 2100 600 / 2100 Balance -600 / 5.6 -450 / 5.6 Intake: Oral 200 / 2000 150 / 2000 Output: Urine 800 / 2100 600 / 2100 Other: Weight 131.2 kg (1) ST elevation myocardial infarction (STEMI) Involved coronary artery: right coronary artery Qualified Code(s): I21.11 - ST elevation (STEMI) myocardial infarction involving right coronary artery
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
[2023-01-08] MEDS ORDERED: METOPROLOL SUCC 50MG EXT REL TAB PO SCH (09:00)
--- NOTE | 2023-01-08 10:03 | Electrocardiogram Report ---
Test Reason : Blood Pressure : / mmHG Vent. Rate : 072 BPM Atrial Rate : 072 BPM P-R Int : 166 ms QRS Dur : 108 ms QT Int : 410 ms P-R-T Axes : 048 030 004 degrees QTc Int : 448 ms Normal sinus rhythm Inferior-posterior infarct , age undetermined Abnormal ECG When compared with ECG of 04-JAN-2023 16:24, No significant change was found Confirmed by Gatito Cooney ([id number]) on 01/08/2023 10:03:25 AM Referred By: REFERRED SELF Confirmed By:Gatito Cooney
--- NOTE | 2023-01-09 21:54 | Electrocardiogram Report ---
Test Reason : Blood Pressure : / mmHG Vent. Rate : 068 BPM Atrial Rate : 068 BPM P-R Int : 170 ms QRS Dur : 112 ms QT Int : 390 ms P-R-T Axes : 009 030 -20 degrees QTc Int : 414 ms Normal sinus rhythm Inferior infarct (cited on or before 05-JAN-2023) Abnormal ECG When compared with ECG of 05-JAN-2023 08:22, No significant change was found Confirmed by Gatito Cooney ([id number]) on 01/09/2023 9:53:58 PM Referred By: REFERRED SELF Confirmed By:Gatito Cooney
--- OUTSIDE RECORDS SUMMARY | 2023-01-12 10:23 | External Medical Summary ---
Author Name Unknown Address Unknown Organization [id number]:LABORATORY [facility] [place] - [address] [place] [address] Laboratory Report Ordering Provider Test Date Status MARILYN PATEL 11/20/2022 10:00:04 Final Observation Date Value Abnormality Reference (Units ) Status HbA1C 11/20/2022 10:00:04 6.7 Above high normal 4. 0-5.6 (%) Final Performing Location LABORATORY [facility] [place] - [address] [place] [address]
--- OUTSIDE RECORDS SUMMARY | 2023-01-12 10:23 | External Medical Summary ---
Author Name Unknown Address Unknown Organization [id number]:[facility] [place] [address] [place] [address] Laboratory Report Ordering Provider Test Date Status MARILYN PATEL 11/20/2022 10:00:04 Final Observation Date Value Abnormality Reference (Units ) Status BUN 11/20/2022 10:00:04 17 6-20 (mg/dL) Final Creatinine 11/20/2022 10:00:04 0.8 0.6-1.2 (mg/dL) Final Glomerular filtration rate/1.73 sq M.predicted [Volume Rate/Area] in Serum, Plasma or Blood by Creatinine-based formula (CKD-EPI) 11/20/2022 10:00:04 >90 >=60 (mL/min) Final Performing Location [facility] [place] [address] [place] [address]
--- OUTSIDE RECORDS SUMMARY | 2023-01-12 10:23 | External Medical Summary ---
Author Name Unknown Address Unknown Organization K01:[facility] [place] [address] [place] [address] Laboratory Report Ordering Provider Test Date Status KADE SANCHEZ 07/12/2022 10:52:50 Final Observation Date Value Abnormality Reference (Units ) Status WBC, Total 07/12/2022 10:52:50 8.39 4.00-10.80 (K/uL) Final RBC 07/12/2022 10:52:50 5.34 4.50-5.25 (M/uL) Final Hemoglobin 07/12/2022 10:52:50 16.6 14.0-16.8 (g/dL) Final HCT 07/12/2022 10:52:50 50.4 Above high normal 40.0-48.4 (%) Final MCV 07/12/2022 10:52:50 94.4 82.0-99.5 (fL) Final MCH 07/12/2022 10:52:50 31.1 27.0-34.0 (pg) Final MCHC 07/12/2022 10:52:50 32.9 32.0-36.0 (g/dL) Final RDW 07/12/2022 10:52:50 12.6 11.5-15.5 (%) Final Platelets 07/12/2022 10:52:50 295 140-400 (K/uL) Final MPV 07/12/2022 10:52:50 9.6 6.6-11.1 (fL) Final Nucleated erythrocytes/100 leukocytes [Ratio] in Blood by Automated count 07/12/2022 10:52:50 0 <=0 (/100 WBCs) Final Performing Location [facility] [place] [address] [place] [address]
--- OUTSIDE RECORDS SUMMARY | 2023-01-12 10:23 | External Medical Summary ---
Author Name Unknown Address Unknown Organization K01:[facility] [place] [facility] [place] [address] [place] [address] Laboratory Report Ordering Provider Test Date Status MARILYN PATEL 11/20/2022 10:00:04 Final Observation Date Value Abnormality Reference (Units ) Status LDL, (direct) 11/20/2022 10:00:04 72 <=129 (mg/dL) Final Performing Location [facility] - [address] [place] [address]
--- OUTSIDE RECORDS SUMMARY | 2023-01-12 10:23 | External Medical Summary | Summary of Care ---
Author Name Unknown Organization [place] [address] Care Team Providers Care Laundry Clerk Name Role Phone Ronald Jean MD Primary Care Provid er Reason for Visit * Reason Onset Date Comments Medication Refill 03/21/2022 Encounter Details Date Type Department Care Team Description 03/21/[address] [facility] [address] [place] [address] Ronald Jean MD [address] [place] [address] Encounter for long-term (current) use of other medications*; Acute ST elevation myocardial infarction (STEMI) involving right coronary artery (HCC); H/O heart artery stent Allergies Active Allergy Reactions Severity Noted Date Comments Penicillins 12/09/2018 Facial swelling documented as of this encounter (statuses as of 03/22/2022) Medications Medication Sig Dispensed Refills Start Date End Date Status acetaminophen (TYLENOL) 500 MG TabletIndications :Acute pain of left shoulder Take 2 Tabs by mouth every 8 hours as needed for Pain or Fever. 100 Tab 0 12/09/2018 Active OneTouch Verio In Vitro Strip USE 1 STRIP TO CHECK GLUCOSE ONCE DAILY DIRECTED 0 06/27/2020 Active OneTouch Delica Plus [id number] USE 1 TO CHECK GLUCOSE ONCE DAILY DIRECTED 0 06/27/2020 Active Aspirin 81 MG Oral Tablet Delayed Release Take 81 mg by mouth daily. 0 Active Vardenafil HCl 20 MG Oral Tablet (Levitra) Take by mouth 1 Tablet daily as needed for Erectile Dysfunction. 10 Tablet 5 06/18/2021 Active Atorvastatin Calcium 80 MG Oral Tablet (Lipitor) Take by mouth 1 Tablet before bedtime. 30 Tablet 8 07/24/2021 Active amLODIPine Besylate 5 MG Oral Tablet (Norvasc) Take by mouth 1 Tablet in the morning. 30 Tablet 8 07/24/2021 Active Jardiance 10 MG Oral TabletIndications :Type 2 diabetes mellitus with hemoglobin A1c goal of less than 7.0% (HCC) Take by mouth 1 Tablet in the morning. 90 Tablet 3 11/21/2021 Active Lisinopril 5 MG Oral Tablet (Prinivil) Take by mouth 1 Tablet in the morning. In the morning.. 90 Tablet 1 12/13/2021 Active Metoprolol Succinate ER 25 MG Oral Tablet Extended Release 24 Hour (toPROL XL) Take by mouth 1 Tablet in the morning. 90 Tablet 1 12/13/2021 Active metFORMIN HCl ER 500 MG Oral Tablet Extended Release 24 Hour (Glucophage XR)Indications:Ty pe 2 diabetes mellitus with hemoglobin A1c goal of less than 7.0% (HCC) Take by mouth 1 Tablet in the morning AND 1 Tablet before bedtime. 180 Tablet 1 01/22/2022 Active Clopidogrel Bisulfate 75 MG Oral Tablet (pLAVix)Indicatio ns:Acute ST elevation myocardial infarction (STEMI) involving right coronary artery (HCC),H/O heart artery stent Take 1 Tablet (75 mg) by mouth in the morning. 90 Tablet 0 03/22/2022 Active Clopidogrel Bisulfate 75 MG Oral Tablet (pLAVix)Indicatio ns:Acute ST elevation myocardial infarction (STEMI) involving right coronary artery (HCC),H/O heart artery stent Take by mouth 1 Tablet in the morning. 90 Tablet 2 06/21/2021 03/21/2022 Discontinued (Refill) documented as of this encounter (statuses as of 03/22/2022) Active Problems Problem Noted Date Coronary artery disease invo lving [place] coronary artery of [place] heart without angina pectoris 05/02/2021 Dyslipidemia, goal LDL below 70 05/02/19 Erectile disorder due to medical conditi on in male patient 09/05/2020 HTN, goal below 130/80 07/03/2020 H/O heart artery stent 07/03/2020 Type 2 diabetes mellitus with hemoglobin A1c goal of less than 7.0% 07/03/2020 Screen for colon cancer 04/02/2019 History of tobacco abuse 12/09/2018 Obesity, Class II, BMI 35-39.9, isolated (see actual BMI) 12/09/2018 documented as of this encounter (statuses as of 03/22/2022) Resolved Problems Problem Noted Date Resolved Date Acute ST elevation myocardia l infarction (STEMI) involving right coronary artery 07/03/2020 11/05/2021 Screening for diabetes mellitus 12/09/2018 04/02/2019 documented as of this encounter (statuses as of 03/22/2022) Immunizations Name Administration Dates Next Due Pneumococcal Polysaccharide PPV23 (Pneumovax) 12/09/2018 TDAP (age 11 and older)(Adacel) 10/04/2016 Zoster Vaccine Recombinant (Shingrix) (Deferred: Patient Refused - Pt states his arm is sore and will get at another time.) documented as of this encounter Social History Tobacco Use Types Packs/Day Years Used Date Smoking Tobacco: Every Day Cigarettes 0.3 30 Smokeless Tobacco: Current Snuff Comments:was sm 1.5 ppd x 2- 3 yrs, 1/2 ppd x 30yrs Alcohol Use Standard Drinks/Week Comments Yes 0 (1 standard drink = 0.6 oz pure alcohol) Beer once in awhile- light beer Alcohol Habits Answer Date Recorded How often do you have a drink containing alcohol ? 2-3 times a week 12/09/2018 How many drinks containing a lcohol do you have on a typical day when you are drinking? 3 or 4 12/09/2018 How often do you have six or more drinks on one occasion? Never 12/09/2018 Food Insecurity Answer Date Recorded Within the past 12 months, y ou worried that your food would run out before you got money to buy more. Never true 12/09/2018 Within the past 12 months, t he food you bought just didn't last and you didn't have money to get more. Never true 12/09/2018 Sex Assigned at Date Recorded Male 04/02/2019 9:[address] Job Start Date Occupation Industry Not on file Not on file Not on file documented as of this encounter Miscellaneous Notes * Telephone Encounter - Ronald Jean MD - 03/22/2022 8:05 AM EST Signed Prescriptions: Disp Refills Clopidogrel Bisulfate 75 MG Oral Tablet (p*90 Tab*0 Sig: Take 1 Tablet (75 mg) by mouth in the morning. Authorizing Provider: RONALD JEAN * Telephone Encounter - KARSTEN Yuen - 03/21/2022 10:14 AM ESTPending Prescriptions: Disp Refills Clopidogrel Bisulfate 75 MG Oral Tablet (p*90 Tab*0 Sig: Take 1 Tablet (75 mg) by mouth in the morning. * Telephone Encounter - KARSTEN Yuen - 03/21/2022 10:13 AM EST Received message from [facility] regarding patient needing labs. Placed call to patient to advise. Left message on voicemail advising of required labs Thank you, Queenie Germain [facility] Tubing Machine Operator [facility] 03/21/2022,10:13 AM * Telephone Encounter - Ayla Carlisle [facility] - 03/21/2022 9:57 AM ESTPending Prescriptions: Disp Refills Clopidogrel Bisulfate 75 MG Oral Tablet (p*90 Tab*0 Sig: Take 1 Tablet (75 mg) by mouth in the morning. * Telephone Encounter - Ayla Carlisle [facility] - 03/21/2022 9:55 AM EST Unable to authorize medication refills for pended medication(s) at this time. Part of the protocol criteria used for refill authorization was not satisfied. Patient needs CBC on file within past year. Please approve if appropriate. OUTBOUND - Per refill protocol patient should have CBC and b12 screening on file within past year. Reviewed AMP report, Care Gaps/Health Maintenance, medications list, and for any routine labs typically ordered for this patient. Lab orders placed. Please contact patient to advise of labs ordered for blood draw.. Fasting is not required. Advise to obtain labs before requesting the next refill. Thank you, Ayla Carlisle, PharmD Clinical Pharmacist [facility] [phone] 03/21/2022, 9:57 AM * Telephone Encounter - Khloe Garza CPhT - 03/21/2022 9:42 AM EST Did you pend patient's preferred pharmacy and medication before forwarding?yes Pharmacy: [facility] [address] [id number] [place] Pt requests high priority as he is out of med Pending Prescriptions: Disp Refills Clopidogrel Bisulfate 75 MG Oral Tablet (*90 Tab*2 Sig: Take 1 Tablet (75 mg) by mouth in the morning. Last Visit: 11/05/2021 (in office), Visit date not found (telemedicine) Next Visit: 2022 If no future appointments scheduled, and last appointment is greater than a year ago, please schedule patient for a follow-up appointment Last date the medication was ordered: 06/21/2021 Is this request for a controlled substance?No Urine Drug Screen:No results found for this or any previous visit. Patient Phone Numbers Labs: Lab Results Component Value Date/Time CREAT 0.8 11/01/2021 11:24 AM CREAT 0.9 12/16/2018 03:08 PM POTASSIUM 4.5 11/01/2021 11:24 AM POTASSIUM 4.4 12/16/2018 03:08 PM TSH 1.77 12/16/2018 03:08 PM LDLCALC 81 11/01/2021 11:24 AM LDLCALC 120 12/16/2018 03:08 PM LDLDIRECT 61 10/13/2020 12:13 PM LDLDIRECT NOT APPLICABLE 12/16/2018 03:08 PM ALT 30 11/01/2021 11:24 AM ALT 28 12/16/2018 03:08 PM HGBA1C 6.1 (H) 11/01/2021 11:24 AM documented in this encounter Plan of Treatment Upcoming Encounters Date Type Specialty Care Team Description 04/17/2022 Office Visit Cardiology Clementine Steiner CRNP [address] [facility] [place] [address] 2022 Office Visit Family Medicine Cristal Ayala PA-C [address] [place], [place] [id number] Scheduled Orders Name Type Priority Associated Diagnoses Orde r Schedule CBC Lab Routine Encounter for long-term (current) use of other medications Expected: 03/28/2022 (Approximate), Expires: 03/21/2023 VITAMIN B12 Lab Routine Encounter for long-term (current) use of other medications Expected: 03/28/2022 (Approximate), Expires: 03/21/2023 Health Maintenance Due Date Last Done Comments DISCUSS TOBACCO CESSATION (REFER TO SMARTSET #2801) 1968 Hepatitis B (1 of 3 - 3-dose series) 1968 COVID-19 Vaccine (#1) 1968 HIV Screening 1983 Hepatitis C Screening 1986 Cologuard: Ages 45-75 2013 Colonoscopy: Ages 45-75 2013 Colorectal Cancer Screening (Colonoscopy 10 Years; Sigmoidoscopy 5 Years; Cologuard 3 Years; FOBT 1 Year): Ages 45-75 2013 FOBT: Ages 45-75 2013 Sigmoidoscopy: Ages 45-75 2013 Zoster Vaccines (1 of 2) 2018 Depression Screening, Annual for Pts 12 and Over 12/10/2019 12/09/2018 Pneumococcal Vaccine: Pediatrics (0 to 5 Years) and At-Risk Patients (6 to 64 Years) (2 - PCV) 12/10/2019 12/09/2018 Influenza Vaccine (FLU shot) (#1) 2021 DIABETES-HGBA1C EVERY 6 MONTHS 05/04/2022 11/01/2021, 05/28/2021, 10/13/2020, Additional history exists Alb / Creat Ratio 10/18/2022 10/18/2021, 06/23/2019 DIABETES-EYE EXAM 11/01/2022 11/01/2021, 09/05/2020 DIABETES-FOOT EXAM 11/01/2022 11/01/2021 GFR - Renal Function 11/01/2022 11/01/2021, 05/28/2021, 07/14/2020, Additional history exists DTaP,Tdap,and Td Vaccines (2 - Td or Tdap) 10/04/2026 10/04/2016 GARDASIL-HPV IMMUNIZATION SERIES Aged Out No longer eligible based on patient's age to complete this topic MENINGOCOCCAL (MENACTRA/MENVEO) Aged Out No longer eligible based on patient's age to complete this topic documented as of this encounter Medical Devices Not on filedocumented as of this encounter Visit Diagnoses Diagnosis Encounter for long-term (current) use of other medications- Primary Acute ST elevation myocardial infarction (STEMI) involving right coronary artery (HCC) H/O heart artery stent Postsurgical percutaneous transluminal coronary angioplasty status documented in this encounter Care Teams Laundry Clerk Relationship Specialty Start Date End Date Ronald Jean MD [address] [facility] [place] [address] PCP - General Family Medicine 06/28/20 documented as of this encounter
--- OUTSIDE RECORDS SUMMARY | 2023-01-12 10:23 | External Medical Summary | Summary of Care ---
Author Name Unknown Organization [facility] Address [address] [place] [address] Phone [phone] Care Team Providers Care Shirt Sewer Name Role Phone Patrica Zhang MD Primary Care Provid er Reason for Referral * Evaluate & Treat - Unlimited Visits (Within 30 days (routine)) - Authorized Specialty Diagnoses / Procedures Referred By Contact Referred To Contact Cardiovascular Medicine / Cardiology Diagnoses HTN, goal below 130/80 H/O heart artery stent Obesity, Class II, BMI 35-39.9, isolated (see actual BMI) Cristal Ayala PA-C [address] [place] [address] Referral ID Status Reason Start Date Expiration Date Visits Requested Visits Authorized [id number] Authorized Specialty Services Required 07/12/[phone] Question Answer Referral Priority Within 30 days (routine) To which of the following clinics are you referring your patient? General Cardiology Clinic Reason for Visit * Reason Comments Re-Check 6 month return Encounter Details Date Type Department Care Team Description 07/12/2022 Office Visit [facility] [address] [place] [id number] Cristal Ayala PA-C [address] [place] [address] DM type 2 nursing care encounter (HCC)*; Coronary artery disease involving [place] coronary artery of [place] heart without angina pectoris; Type 2 diabetes mellitus with hemoglobin A1c goal of less than 7.0% (HCC); HTN, goal below 130/80; Diabetes mellitus screening; Weight gain; H/O heart artery stent; Obesity, Class II, BMI 35-39.9, isolated (see actual BMI) Allergies Active Allergy Reactions Severity Noted Date Comments Penicillins 12/09/2018 Facial swelling documented as of this encounter (statuses as of 07/12/2022) Medications Medication Sig Dispensed Refills Start Date End Date Status acetaminophen (TYLENOL) 500 MG TabletIndications :Acute pain of left shoulder Take 2 Tabs by mouth every 8 hours as needed for Pain or Fever. 100 Tab 0 12/09/2018 Active OneTouch Verio In Vitro Strip USE 1 STRIP TO CHECK GLUCOSE ONCE DAILY DIRECTED 0 06/27/2020 Active OneTouch Delica Plus [id number] USE 1 TO CHECK GLUCOSE ONCE DAILY DIRECTED 0 06/27/2020 Active Aspirin 81 MG Oral Tablet Delayed Release Take 1 Tablet by mouth in the morning. 0 Active Jardiance 10 MG Oral TabletIndications :Type 2 diabetes mellitus with hemoglobin A1c goal of less than 7.0% (HCC) Take by mouth 1 Tablet in the morning. 90 Tablet 3 11/21/2021 Active Atorvastatin Calcium 80 MG Oral Tablet (Lipitor) Take 1 Tablet by mouth at bedtime. 30 Tablet 8 04/22/2022 Active amLODIPine Besylate 5 MG Oral Tablet (Norvasc) Take 1 Tablet by mouth in the morning. 30 Tablet 8 04/22/2022 Active Metoprolol Succinate ER 25 MG Oral Tablet Extended Release 24 Hour (toPROL XL) Take 1 Tablet by mouth in the morning. 90 Tablet 1 06/13/2022 Active metFORMIN HCl ER 500 MG Oral Tablet Extended Release 24 Hour (Glucophage XR)Indications:Ty pe 2 diabetes mellitus with hemoglobin A1c goal of less than 7.0% (HCC) Take 1 Tablet by mouth in the morning and 1 Tablet before bedtime. 180 Tablet 1 06/13/2022 Active Lisinopril 5 MG Oral Tablet (Prinivil) Take 1 Tablet by mouth in the morning. In the morning.. 90 Tablet 1 06/13/2022 Active Vardenafil HCl 20 MG Oral Tablet (Levitra) Take 1 Tablet by mouth daily as needed for Erectile Dysfunction. 30 Tablet 3 07/12/2022 Active Vardenafil HCl 20 MG Oral Tablet (Levitra) Take by mouth 1 Tablet daily as needed for Erectile Dysfunction. 10 Tablet 5 06/18/2021 07/12/2022 Discontinued (Refill) documented as of this encounter (statuses as of 07/12/2022) Active Problems Problem Noted Date Coronary artery disease invo lving [place] coronary artery of [place] heart without angina pectoris 05/02/2021 Dyslipidemia, goal [...] as of this encounter (statuses as of 07/12/2022) Resolved Problems Problem Noted Date Resolved Date Acute ST elevation myocardia l infarction (STEMI) involving right coronary artery 07/03/2020 11/05/2021 Screening for diabetes mellitus 12/09/2018 04/02/2019 documented as of this encounter (statuses as of 07/12/2022) Immunizations Name Administration Dates Next Due Pneumococcal Polysaccharide PPV23 (Pneumovax) 12/09/2018 TDAP (age 11 and older)(Adacel) 10/04/2016 Zoster Vaccine Recombinant (Shingrix) (Deferred: Patient Refused - Pt states his arm is sore and will get at another time.) documented as of this encounter Social History Tobacco Use Types Packs/Day Years Used Date Smoking Tobacco: Every Day Cigarettes 0.3 30 Smokeless Tobacco: Current Snuff Tobacco Cessation:Ready to Q uit: Not Asked; Counseling Given: Not Answered Comments:was sm 1.5 ppd x 2-3 yrs, 1/2 ppd x 30yrs Alcohol Use [...] on file documented as of this encounter Last Filed Vital Signs Vital Sign Reading Time Taken Comments Blood Pressure 132/78 07/12/2022 10:09 AM EDT Pulse 82 07/12/2022 10:09 AM EDT Temperature 36.2 C (97.1 F) 07/12/2022 1 0:09 AM EDT Respiratory Rate 16 07/12/2022 10:0 9 AM EDT Oxygen Saturation 95% 07/12/2022 10: 09 AM EDT Inhaled Oxygen Concentration - - Weight 132.2 kg (291 lb 6.4 oz) 023 10:09 AM EDT Height 188 cm (6' 2") 07/12/2022 10:09 AM EDT Body Mass Index 37.41 07/12/2022 10:09 AM EDT documented in this encounter Progress Notes * Cristal Ayala PA-C - 07/12/2022 10:27 AM EDT Images from the original note were not included. History of Present Illness Reyes Mcpherson is a 52 year old male that presents for Re-Check (6 month return ) Here for 6 month return. Has noted that he gained some weight. He did just start walking in the evenings. Cardiology took him off plavix as it had been a year. Component Latest Ref Rng 10/18/2021 11/01/2021 BUN 6 - 20 mg/dL 17 Creatinine 0.6 - 1.2 mg/dL 0.8 Estimated Glomerular Filtration Rate >=60 mL/min >90 Sodium 135 - 146 mmol/L 137 Potassium 3.5 - 5.1 mmol/L 4.5 Chloride 98 - 107 mmol/L 104 CO2 22 - 32 mmol/L 22 Anion Gap 7 - 15 mmol/L 11 Glucose 70 - 120 mg/dL 129 (H) Albumin 3.8 - 5.0 g/dL 4.6 AST 10 - 50 U/L 22 Alkaline Phosphatase 35 - 130 U/L 78 Bilirubin, Total <=1.2 mg/dL 0.4 Calcium 8.4 - 10.2 mg/dL 9.0 Protein 6.0 - 8.3 g/dL 6.9 ALT 10 - 50 U/L 30 Triglycerides <=174 mg/dL 77 Cholesterol <200 mg/dL 147 HDL Cholesterol >39 mg/dL 51 Non-HDL Cholesterol <=159 mg/dL 96 LDL Cholesterol <=129 mg/dL 81 Albumin, Random Urine mg/dL <1.20 Creatinine, Random Urine mg/dL 87 Albumin / Creatinine Ratio, Urine <30 mg/g Creat <14 Hemoglobin A1C 4.0 - 5.6 % 6.1 (H) Estimated Average Glucose <126 mg/dL 128 (H) (H) High Past Medical History: Diagnosis Date ADD (attention deficit disorder) as a child H/O heart artery stent 07/03/2020 Extensive ROS Constitutional (f/c/wt/vision/hearing): Negative Resp (cough/sob/gavin): Negative CV (cp/palp/fluttering/diaphoresis/gavin/pnd):Negative GI (n/v/d/hrtburn): Negative Endo (hair/cold or heat intol/ 3 p's): Negative Neuro (shaking/weak/fatigu/parasthesi/): Negative Skin (rash/easy bruis/xerosis): Negative Psy (si/hi/halluc/): Negative (nocturia/hesit/drib/sexual review): Negative Lymph (swollen glands/b sx's/: Negative Physical Exam Vitals: 07/12/22 1009 Temp: 36.2 C (97.1 F) Pulse: 82 Resp: 16 SpO2: 95% BP: 132/78 BMI: 37.4 BP Readings from Last 3 Encounters: 07/12/22 132/78 11/05/21 120/78 10/18/21 122/78 Wt Readings from Last 3 Encounters: 07/12/22 132.2 kg (291 lb 6.4 oz) 11/05/21 125.5 kg (276 lb 9.6 oz) 10/18/21 124 kg (273 lb 6 oz) BMI Readings from Last 3 Encounters: 07/12/22 37.41 kg/m 11/05/21 35.51 kg/m 10/18/21 35.10 kg/m Ht Readings from Last 3 Encounters: 07/12/22 1.88 m (6' 2") 11/05/21 1.88 m (6' 2") 09/05/20 1.88 m (6' 2") General: alert, healthy and no distress Head: Normocephalic, No masses, lesions, tenderness or abnormalities Eye Exam: PERRLA, extraocular movements intact, conjunctiva are pink and non- injected, sclera clear Heart: regular rate & rhythm, no murmur, no gallops, S-1 normal and S-2 normal Lungs: chest symmetric with normal AP diameter, no chest deformities noted, no chest wall tenderness, lungs clear to auscultation Extremities: less than 2 second capillary refill, no joint deformities, effusion, or inflammation Skin: skin color, texture, turgor are normal, no rashes or significant lesions Assessment and Plan DM type 2 nursing care encounter (HCC) (Primary) - HEMOGLOBIN A1C; Future; Expected date: 07/12/2022 Coronary artery disease involving [place] coronary artery of [place] heart without angina pectoris - able to stop plavix, per cardiology does not need dual platelet therapy. Type 2 diabetes mellitus with hemoglobin A1c goal of less than 7.0% (HCC) - ALBUMIN / CREATININE RATIO, URINE; Future; Expected date: 07/12/2022 HTN, goal below 130/80 - ALBUMIN / CREATININE RATIO, URINE; Future; Expected date: 07/12/2022 - CARDIOLOGY REFERRAL OP Diabetes mellitus screening - HEMOGLOBIN A1C; Future; Expected date: 07/12/2022 Weight gain - HEMOGLOBIN A1C; Future; Expected date: 07/12/2022 H/O heart artery stent - CARDIOLOGY REFERRAL OP Obesity, Class II, BMI 35-39.9, isolated (see actual BMI) - CARDIOLOGY REFERRAL OP Wrap-Up Refills done Labs due No other concerns Defers HM Time: I spent a total of 10-19 minutes (exact time 18 mins) on the date of service in preparation, delivery, and documentation of the care provided to Reyes Mcpherson excluding any time spent in the performance of separately billed services. Cristal Ayala PA-C 07/12/2022 10:34 AM documented in this encounter Nursing Notes * WILLOW Solorio - 07/12/2022 10:12 AM EDT Reyes Mcpherson is a 52 year old male who presents today for Chief Complaint Patient presents with Re-Check 6 month return documented in this encounter Plan of Treatment Upcoming Encounters Date Type Specialty Care Team Description 07/12/2022 Laboratory Laboratory [facility] [address] [place] [address] Encounter for long-term (current) use of medications; Encounter for long-term (current) use of other medications; DM type 2 nursing care encounter (HCC); Diabetes mellitus screening; Weight gain 07/18/2022 Office Visit Cardiology Clementine Steiner CRNP [address] [place] [address] 01/14/2023 Office Visit Family Medicine Cristal Ayala PA-C [address] [place] [address] Scheduled Orders Name Type Priority Associated Diagnoses Orde r Schedule HEMOGLOBIN A1C Lab Routine DM type 2 nursing care encounter (HCC) Diabetes mellitus screening Weight gain Expected: 07/12/2022 (Approximate), Expires: 07/12/2023 ALBUMIN / CREATININE RATIO, URINE Lab Routine Type 2 diabetes mellitus with hemoglobin A1c goal of less than 7.0% (HCC) HTN, goal below 130/80 Expected: 07/12/2022 (Approximate), Expires: 07/12/2023 Scheduled Referrals Name Type Priority Associated Diagnoses Orde r Schedule CARDIOLOGY REFERRAL OP Referral Within 30 days (routine) HTN, goal below 130/80 H/O heart artery stent Obesity, Class II, BMI 35-39.9, isolated (see actual BMI) Ordered: 07/12/2022 Health Maintenance Due Date Last Done Comments DISCUSS TOBACCO CESSATION (REFER TO SMARTSET #9919) 1970 Hepatitis B (1 of 3 - [...] 12/09/2018 Influenza Vaccine (FLU shot) (#1) 2021 HgA1C 05/04/2022 11/01/2021, 05/15, 10/13/2020, Additional history exists Albumin/Creatinine Ratio 10/18/2022 10/18/2021, 06/12 DIABETES-EYE EXAM 11/01/2022 11/01/2021, 09/05/2020 DIABETES-FOOT EXAM [...] as of this encounter Visit Diagnoses Diagnosis DM type 2 nursing care encounter (HCC)- Primary Type II or unspecified type diabetes mellitus without mention of complication, not stated as uncontrolled Coronary artery disease involving [place] coronary artery of [place] heart without angina pectoris Type 2 diabetes mellitus with hemoglobin A1c goal of less than 7.0% (HCC) HTN, goal below 130/80 Unspecified essential hypertension Diabetes mellitus screening Screening for diabetes mellitus Weight gain Abnormal weight gain H/O heart artery stent Postsurgical percutaneous transluminal coronary angioplasty status Obesity, Class II, BMI 35-39.9, isolated (see actual BMI) Morbid obesity Encounter for long-term (current) use of medications Encounter for long-term (current) use of other medications Encounter for long-term (current) use of other medications DM type 2 nursing care encounter (HCC) Type II or unspecified type diabetes mellitus without mention of complication, not stated as uncontrolled Diabetes mellitus screening Screening for diabetes mellitus Weight gain Abnormal weight gain documented in this encounter Care Teams Shirt Sewer Relationship Specialty Start Date End Date Patrica hZang MD [address] [place] [address] PCP - General Family Medicine 06/28/20 documented as of this encounter
--- OUTSIDE RECORDS SUMMARY | 2023-01-12 10:23 | External Medical Summary | Summary of Care ---
Author Name Unknown Organization [place] [address] Care Team Providers Care Director Of Informatics Name Role Phone Patrica Zhang MD Primary Care Provid er Reason for Visit * Reason Onset Date Comments Medication Refill 01/21/2022 Encounter Details Date Type Department Care Team Description 01/21/2022 Refill [facility] [address] [place] [address] Patrica Zhang MD [address] [place] [address] Encounter for long-term (current) use of medications*; Type 2 diabetes mellitus with hemoglobin A1c goal of less than 7.0% ([facility]) Allergies Active Allergy Reactions Severity Noted Date Comments Penicillins 12/09/2018 Facial swelling documented as of this encounter (statuses as of 01/22/2022) Medications Medication Sig Dispensed Refills Start Date End Date Status acetaminophen (TYLENOL) 500 MG TabletIndications :Acute pain of left shoulder Take 2 Tabs by mouth every 8 hours as needed for Pain or Fever. 100 Tab 0 12/09/2018 Active OneTouch Verio In Vitro Strip USE 1 STRIP TO CHECK GLUCOSE ONCE DAILY DIRECTED 0 06/27/2020 Active OneTouch Delica Plus [id number] USE 1 TO CHECK GLUCOSE ONCE DAILY DIRECTED 0 06/27/2020 Active Aspirin 81 MG Oral Tablet Delayed Release Take 81 mg by mouth daily. 0 Active Vardenafil HCl 20 MG Oral Tablet (Levitra) Take by mouth 1 Tablet daily as needed for Erectile Dysfunction. 10 Tablet 5 06/18/2021 Active Clopidogrel Bisulfate 75 MG Oral Tablet (pLAVix)Indicatio ns:Acute ST elevation myocardial infarction (STEMI) involving right coronary artery (HCC),H/O heart artery stent Take by mouth 1 Tablet in the morning. 90 Tablet 2 06/21/2021 Active Atorvastatin Calcium 80 MG Oral Tablet [...] before bedtime. 180 Tablet 1 01/22/2022 Active metFORMIN HCl ER 500 MG Oral Tablet Extended Release 24 Hour (Glucophage XR)Indications:Ty pe 2 diabetes mellitus with hemoglobin A1c goal of less than 7.0% (HCC) Take by mouth 1 Tablet in the morning AND 1 Tablet before bedtime. 90 Tablet 2 11/05/2021 01/21/2022 Discontinued (Refill) documented as of this encounter (statuses as of 01/22/2022) Active Problems Problem Noted Date Coronary artery disease invo lving [place] coronary artery of [place] heart without angina pectoris 05/02/2021 Dyslipidemia, goal LDL below 70 05/02/19 22 Erectile disorder due to medical conditi on in male patient 09/05/2020 HTN, goal below 130/80 07/03/2020 H/O heart artery stent 07/03/2020 Type 2 diabetes mellitus with hemoglobin A1c goal of less than 7.0% 07/03/2020 Screen for colon cancer 04/02/2019 History of tobacco abuse 12/09/2018 Obesity, Class II, BMI 35-39.9, isolated (see actual BMI) 12/09/2018 documented as of this encounter (statuses as of 01/22/2022) Resolved Problems Problem Noted Date Resolved Date Acute ST elevation myocardia l infarction (STEMI) involving right coronary artery 07/03/2020 11/05/2021 Screening for diabetes mellitus 12/09/2018 04/02/2019 documented as of this encounter (statuses as of 01/22/2022) Immunizations Name Administration Dates Next Due Pneumococcal Polysaccharide PPV23 (Pneumovax) 12/09/2018 TDAP (age 11 and older)(Adacel) 10/04/2016 Zoster Vaccine Recombinant (Shingrix) (Deferred: Patient Refused - Pt states his arm is sore and will get at another time.) documented as of this encounter Social History Tobacco Use Types Packs/Day Years Used Date Current Every Day Smoker Cigarettes 0.25 30 Smokeless Tobacco: Current User Snuff Comments:was sm 1.5 ppd x 2- 3 yrs, 1/2 ppd x 30yrs Alcohol Use Standard Drinks/Week Comments Yes 0 (1 standard drink = 0.6 oz pure alcohol) Beer once in awhile- light beer Alcohol Habits Answer Date Recorded How often do you have a drin k containing alcohol? 2-3 times a week 12/09/2018 How many drinks containing a lcohol do you have on a typical day when you are drinking? 3 or 4 12/09/2018 How often do you have six or more drinks on one occasion? Never 12/09/2018 Comment: Beer once in awhile- light beer 05/02/2021 Food Insecurity Answer Date Recorded Within the [...] encounter Miscellaneous Notes * Telephone Encounter - Claus Presley [facility] - 01/22/2022 9:39 AM EDT Signed Prescriptions: Disp Refills metFORMIN HCl ER 500 MG Oral Tablet Extend*180 Ta*1 Sig: Take bymouth 1 Tablet in the morning AND 1 Tablet before bedtime.Authorizing Provider: CRISTAL AYALA User: CLAUS PRESLEY * Telephone Encounter - Sophia Calderon [facility] - 01/21/2022 10:00 AM EDT Did you pend patient's preferred pharmacy and medication before forwarding?yes [facility] [id number] [id number] [facility] Pending Prescriptions: Disp Refills metFORMIN HCl ER 500 MG Oral Tablet Exten*90 Tab*2 Sig: Take by mouth 1 Tablet in the morning AND 1 Tablet before bedtime. Last Visit: 11/05/2021 (in office), Visit date not found (telemedicine) Next Visit: 2022 If no future appointments scheduled, and last appointment is greater than a year ago, please schedule patient for a follow-up appointment Last date the medication was ordered: 11/05/2021 Is this request for a controlled substance?No [...] Encounters Date Type Specialty Care Team Description 01/30/2022 Office Visit Cardiology Michael Collins MD [address] [facility] [place] [address] 2022 Office Visit Family Medicine Cristal Ayala PA-C [address] [facility] [address] Scheduled Orders Name Type Priority Associated Diagnoses Orde r Schedule VITAMIN B12 Lab Routine Encounter for long-term (current) use of medications Expected: 02/22/2022 (Approximate), Expires: 01/22/2023 Health Maintenance Due Date Last Done Comments DISCUSS TOBACCO CESSATION (REFER TO SMARTSET #3299) 1970 COVID-19 Vaccine (#1) 1970 HIV Screening 1983 Hepatitis C Screening 1986 Hepatitis B (1 of 3 - Risk 3-dose series) 1987 Cologuard: Ages 45-75 2013 Colonoscopy: Ages 45-75 [...] this topic documented as of this encounter Implants Not on filedocumented as of this encounter Visit Diagnoses Diagnosis Encounter for long-term (current) use of medications- Primary Encounter for long-term (current) use of other medications Type 2 diabetes mellitus with hemoglobin A1c goal of less than 7.0% (HCC) documented in this encounter Advance Directives Documents on File Type Date Recorded Patient Production Corrugator Expl 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 Advanced Directive Advanced Directive Advanced Directive Advanced Directive Advanced Directive Advanced Directive Advanced Directive Advanced Directive Advanced Directive Advanced Directive Advanced Directive Advanced Directive Advanced Directive Advanced Directive Advanced Directive Care Teams Director Of Informatics Relationship Specialty Start Date End Date Patrica Zhang MD [address] [place] [address] PCP - General Family Medicine 06/28/20 documented as of this encounter
--- OUTSIDE RECORDS SUMMARY | 2023-01-12 10:23 | External Medical Summary ---
Author Name Unknown Address Unknown Organization [id number]:[facility] [place] [address] [place] [address] Laboratory Report Ordering Provider Test Date Status JAMIE MADDEN 07/12/2022 10:52:50 Final Observation Date Value Abnormality Reference (Units ) Status HbA1C 07/12/2022 10:52:50 6.4 Above high normal 4. 0-5.6 (%) Final Performing Location LAB[facility] - [address] [place] [address]
--- OUTSIDE RECORDS SUMMARY | 2023-01-12 10:23 | External Medical Summary ---
Author Name Unknown Address Unknown Organization [id number][place] [place] [address] [facility] [place] [address] Laboratory Report Ordering Provider Test Date Status ESPERANZA ORTIZ 07/12/2022 10:52:50 Final Observation Date Value Abnormality Reference (Units ) Status Vitamin B12 07/12/2022 10:52:50 [id number] (pg/mL) Final Performing Location [facility] [place] [address] [place] [address]
--- OUTSIDE RECORDS SUMMARY | 2023-01-12 10:23 | External Medical Summary | Summary of Care ---
Author Name Unknown Organization [place] [address] Care Team Providers Care Purse Framer Name Role Phone Ronald Jean MD Primary Care Provid er Reason for Visit * Reason Onset Date Comments Medication Refill 11/20/2021 Encounter Details Date Type Department Care Team Description 11/20/2021 Refill [facility] [address] [place] [address] Ronald Jean MD [address] [place] [address] Type 2 diabetes mellitus with hemoglobin A1c goal of less than 7.0% ([facility]) Allergies Active Allergy Reactions Severity Noted Date Comments Penicillins 12/09/2018 Facial swelling documented as of this encounter (statuses as of 11/21/2021) Medications Medication Sig Dispensed Refills Start Date End Date Status acetaminophen (TYLENOL) 500 MG TabletIndications :Acute pain of left shoulder Take 2 Tabs by mouth every 8 hours as needed for Pain or Fever. 100 Tab 0 12/09/2018 Active OneTouch Verio In Vitro Strip USE 1 STRIP TO CHECK GLUCOSE ONCE DAILY DIRECTED 0 06/27/2020 Active OneTouch Delica Plus [id number] USE 1 TO CHECK GLUCOSE ONCE DAILY DIRECTED 0 06/27/2020 Active Aspirin 81 MG Oral Tablet Delayed Release Take 81 mg by mouth daily. 0 Active Metoprolol Succinate ER 25 MG Oral Tablet Extended Release 24 Hour (toPROL XL) Take 1 Tablet (25 mg) in the morning by mouth. 90 Tablet 1 05/08/2021 Active Lisinopril 5 MG Oral Tablet (Prinivil) Take 1 Tablet (5 mg) in the morning by mouth. In the morning.. 90 Tablet 1 05/08/2021 Active Vardenafil HCl 20 MG Oral Tablet [...] the morning. 30 Tablet 8 07/24/2021 Active metFORMIN HCl ER 500 MG Oral Tablet Extended Release 24 Hour (Glucophage XR)Indications:Ty pe 2 diabetes mellitus with hemoglobin A1c goal of less than 7.0% (HCC) Take by mouth 1 Tablet in the morning AND 1 Tablet before bedtime. 90 Tablet 2 11/05/2021 Active Jardiance 10 MG Oral TabletIndications :Type 2 diabetes mellitus with hemoglobin A1c goal of less than 7.0% (HCC) Take by mouth 1 Tablet in the morning. 90 Tablet 3 11/21/2021 Active Jardiance 10 MG Oral TabletIndications :Type 2 diabetes mellitus with hemoglobin A1c goal of less than 7.0% (HCC) Take 1 tablet by mouth once daily 90 Tab 3 11/27/2020 11/20/2021 Discontinued (Refill) documented as of this encounter (statuses as of 11/21/2021) Active Problems Problem Noted Date Coronary artery disease invo lving [place] coronary artery of [place] heart without angina pectoris 05/02/2021 Dyslipidemia, goal [...] as of this encounter (statuses as of 11/21/2021) Resolved Problems Problem Noted Date Resolved Date Acute ST elevation myocardia l infarction (STEMI) involving right coronary artery 07/03/2020 11/05/2021 Screening for diabetes mellitus 12/09/2018 04/02/2019 documented as of this encounter (statuses as of 11/21/2021) Immunizations Name Administration Dates Next Due Pneumococcal [...] encounter Miscellaneous Notes * Telephone Encounter - Shikha Hawkins [facility] - 11/21/2021 6:10 AM EDT Signed Prescriptions: Disp Refills Jardiance 10 MG Oral Tablet 90 Tab*3 Sig: Take by mouth 1 Tablet in the morning. Authorizing Provider: RONALD JEAN Ordering User: SHIKHA HAWKINS * Telephone Encounter - Daysi Presley CPhT - 11/20/2021 8:21 AM EDT Did you pend patient's preferred pharmacy and medication before forwarding?yes Pharmacy: [facility] [place] Pending Prescriptions: Disp Refills Jardiance 10 MG Oral Tablet 90 Tab*3 Sig: Take by mouth 1 Tablet in the morning. Last Visit: 11/05/2021 (in office), Visit date not found (telemedicine) Next Visit: 2022 If no future appointments scheduled, and last appointment is greater than a year ago, please schedule patient for a follow-up appointment Last date the medication was ordered: 11/27/20 Is this request for a controlled substance?No [...] Office Visit Cardiology Michael Collins MD [address] [place] [id number] 2022 Office Visit Family Medicine Cristal Ayala PA-C [address] [place] [facility] [place] [address] Health Maintenance Due Date Last Done Comments [...] 05/04/2022 11/01/2021, 05/28/2021, 10/13/2020, Additional history exists DIABETES-URINE ALBUMIN/CREATININE EVERY 12 MONTHS 10/18/2022 10/18/2021, 06/23/2019 DIABETES-EYE EXAM 11/01/2022 11/01/2021, [...] as of this encounter Visit Diagnoses Diagnosis Type 2 diabetes mellitus with hemoglobin A1c goal of less than 7.0% (HCC) documented in this encounter Advance Directives Documents on File Type Date Recorded Patient Blood Bank Technologist Expl 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 Advanced Directive Advanced Directive Advanced Directive Advanced Directive Advanced Directive Advanced Directive Advanced Directive Advanced Directive Advanced Directive Advanced Directive Advanced Directive Advanced Directive Advanced Directive Advanced Directive Advanced Directive Care Teams Purse Framer Relationship Specialty Start Date End Date Ronald Jean MD [address] [place] [id number] PCP - General Family Medicine 06/28/20 documented as of this encounter
--- OUTSIDE RECORDS SUMMARY | 2023-01-12 10:23 | External Medical Summary | Summary of Care ---
Author Name Unknown Organization [facility] Address [address] [place] [address] Phone [phone] Care Team Providers Care Home School Teacher Name Role Phone Ronald Jean MD Primary Care Provid er Reason for Visit * Reason Onset Date Comments Medication Refill 06/12/2022 Encounter Details Date Type Department Care Team Description 06/12/2022 Refill [facility] [address] [place] [address] Ronald Jean MD [address] [place] [address] Type 2 diabetes mellitus with hemoglobin A1c goal of less than 7.0% ([facility]); Acute ST elevation myocardial infarction (STEMI) involving right coronary artery ([facility]); H/O heart artery stent Allergies Active Allergy Reactions Severity Noted Date Comments Penicillins 12/09/2018 Facial swelling documented as of this encounter (statuses as of 06/14/2022) Medications Medication Sig Dispensed Refills Start Date End Date Status acetaminophen (TYLENOL) 500 MG TabletIndications :Acute pain of left shoulder Take 2 Tabs by mouth every 8 hours as needed for Pain or Fever. 100 Tab 0 12/09/2018 Active OneTouch Verio In Vitro Strip USE 1 STRIP TO CHECK GLUCOSE ONCE DAILY DIRECTED 0 06/27/2020 Active OneTouch Delica Plus [id number] USE 1 TO CHECK GLUCOSE ONCE DAILY DIRECTED 0 06/27/2020 Active Aspirin 81 MG Oral Tablet Delayed Release Take 81 mg by mouth daily. 0 Active Vardenafil HCl 20 MG Oral Tablet (Levitra) Take by mouth 1 Tablet daily as needed for Erectile Dysfunction. 10 Tablet 5 06/18/2021 Active Jardiance 10 MG Oral TabletIndications :Type [...] the morning.. 90 Tablet 1 06/13/2022 Active Lisinopril 5 MG Oral Tablet (Prinivil) Take by mouth 1 Tablet in the morning. In the morning.. 90 Tablet 1 12/13/2021 06/12/2022 Discontinued (Refill) Metoprolol Succinate ER 25 MG Oral Tablet Extended Release 24 Hour (toPROL XL) Take by mouth 1 Tablet in the morning. 90 Tablet 1 12/13/2021 06/12/2022 Discontinued (Refill) metFORMIN HCl ER 500 MG Oral Tablet Extended Release 24 Hour (Glucophage XR)Indications:Ty pe 2 diabetes mellitus with hemoglobin A1c goal of less than 7.0% (HCC) Take by mouth 1 Tablet in the morning AND 1 Tablet before bedtime. 180 Tablet 1 01/22/2022 06/12/2022 Discontinued (Refill) Clopidogrel Bisulfate 75 MG Oral Tablet (pLAVix)Indicatio ns:Acute ST elevation myocardial infarction (STEMI) involving right coronary artery (HCC),H/O heart artery stent Take 1 Tablet (75 mg) by mouth in the morning. 90 Tablet 0 03/22/2022 06/14/2022 Discontinued (End of Procedure) documented as of this encounter (statuses as of 06/14/2022) Active Problems Problem Noted Date Coronary artery disease invo lving [place] coronary artery of [place] heart without angina pectoris 05/02/2021 Dyslipidemia, goal [...] as of this encounter (statuses as of 06/14/2022) Resolved Problems Problem Noted Date Resolved Date Acute ST elevation myocardia l infarction (STEMI) involving right coronary artery 07/03/2020 11/05/2021 Screening for diabetes mellitus 12/09/2018 04/02/2019 documented as of this encounter (statuses as of 06/14/2022) Immunizations Name Administration Dates Next Due Pneumococcal [...] Telephone Encounter - Ronald Jean MD - 06/14/2022 1:00 PM EST Signed Prescriptions: Disp Refills Metoprolol Succinate ER 25 MG Oral Tablet *90 Tab*1 Sig: Take 1Tablet by mouth in the morning.Authorizing Provider: RONALD JEAN User: REGINA TALBERT metFORMIN HCl ER 500 MG Oral Tablet Extend*180 Ta*1 Sig: Take 1 Tablet by mouth in the morning and 1 Tablet before bedtime.Authorizing Provider: RONALD JEAN User: REGINA TALBERT Lisinopril 5 MG Oral Tablet (Prinivil) 90 Tab*1 Sig: Take 1 Tablet by mouth in the morning. In the morning..Authorizing Provider: RONALD JEAN User: REGINA TALBERT NN * Telephone Encounter - Ronald Jean MD - 06/14/2022 1:00 PM EST Signed Prescriptions: Disp Refills Metoprolol Succinate ER 25 MG Oral Tablet *90 Tab*1 Sig: Take 1 Tablet by mouth in the morning.Authorizing Provider: RONALD JEAN User: REGINA TALBERT metFORMIN HCl ER 500 MG Oral Tablet Extend*180 Ta*1 Sig: Take 1 Tablet by mouth in the morning and 1 Tablet before bedtime.Authorizing Provider: RONALD JEAN User: REGINA TALBERT Lisinopril 5 MG Oral Tablet (Prinivil) 90 Tab*1 Sig: Take 1 Tablet by mouth in the morning. In the morning..Authorizing Provider: RONALD JEAN User: REGINA TALBERT * Telephone Encounter - Ronald Jean MD - 06/14/2022 12:58 PM EST Reviewed last cardiology note from Apr 2021 - "He needs to continue dual antiplatelet therapy for minimum of 1 year, which would be mid June 2021. For ease of remembering, I told him and wrote instructions that plavix can be discontinued on 07/13/21. Continue ASA 81 mg for life. Continue all other meds. " Plavix dc'd AG * Telephone Encounter - Gisela Scanoln mowing machine operator - 06/13/2022 1:07 PM EST Pt returning call received. Advised pt of message regarding labs needed. Pt reports he will have labs drawn prior to upcoming OV scheduled for 07/12/2022. Thank you, Gisela Scanlon Storage Brine Worker [facility] 06/13/2022,1:08 PM * Telephone Encounter - Christiane Massey CPhT - 06/13/2022 12:47 PM ESTPending Prescriptions: Disp Refills Clopidogrel Bisulfate 75 MG Oral Tablet (p*90 Tab*0 Sig: Take 1 Tablet by mouth in the morning. Signed Prescriptions: Disp Refills Metoprolol Succinate ER 25 MG Oral Tablet *90 Tab*1 Sig: Take 1 Tablet by mouth in the morning. Authorizing Provider: RONALD JEAN Ordering User: REGINA TALBERT tFORMIN HCl ER 500 MG Oral Tablet Extend*180 Ta*1 Sig: Take 1 Tablet by mouth in the morning and 1 Tablet before bedtime. Authorizing Provider: RONALD JEAN Ordering User: REGINA TALBERT Lisinopril 5 MG Oral Tablet (Prinivil) 90 Tab*1 Sig: Take 1 Tablet by mouth in the morning. In the morning.. Authorizing Provider: RONALD JEAN Ordering User: REGINA ROCHA * Telephone Encounter - Christiane Massey CPhT - 06/13/2022 12:46 PM EST Received message from [facility] regarding patient needing labs. Placed call to patient to advise. Unable to reach pt, as there was no answer and no VM available to leave message. Letter created, please send out to patient to advise. Thank you, Christiane Massey CPhT Contract Driver [facility] 06/13/2022,12:46 PM * Telephone Encounter - Regina Talbert [facility] - 06/13/2022 9:01 AM ESTPending Prescriptions: Disp Refills Clopidogrel Bisulfate 75 MG Oral Tablet (p*90 Tab*0 Sig: Take 1 Tablet by mouth in the morning. Signed Prescriptions: Disp Refills Metoprolol Succinate ER 25 MG Oral Tablet *90 Tab*1 Sig: Take 1 Tablet by mouth in the morning. Authorizing Provider: RONALD JEAN Ordering User: REGINA TALBERT tFORMIN HCl ER 500 MG Oral Tablet Extend*180 Ta*1 Sig: Take 1 Tablet by mouth in the morning and 1 Tablet before bedtime. Authorizing Provider: RONALD JEAN Ordering User: REGINA TALBERT Lisinopril 5 MG Oral Tablet (Prinivil) 90 Tab*1 Sig: Take 1 Tablet by mouth in the morning. In the morning.. Authorizing Provider: RONALD JEAN Ordering User: NEIDA GrisREGINA * Telephone Encounter - Regina Talbert RP - 06/13/2022 9:00 AM EST Second attempt. Provided 0 days supply with 0 refill(s). Per refill protocol patient should have CBC and B12 on file within past year. Reviewed AMP report, Care Gaps/Health Maintenance, medications list, and for anyroutine labs typically ordered for this patient. Lab orders placed. Please contact patient to advise of labs ordered for blood draw.. Fasting is not required. Advise to obtain labs before requesting the next refill. Thanks, Regina Talbert Clinical Pharmacist [facility] [phone] 06/13/2022, 9:00 AM * Telephone Encounter - Renate Garcia CPhT - 06/12/2022 10:44 AM EST Did you pend patient's preferred pharmacy and medication before forwarding?yes Pharmacy: [facility] [id number] [id number] [address] Pending Prescriptions: Disp Refills Metoprolol Succinate ER 25 MG Oral Tablet*90 Tab*1 Sig: Take 1 Tablet by mouth in the morning. metFORMIN HCl ER 500 MG Oral Tablet Exten*180 Ta*1 Sig: Take 1 Tablet by mouth in the morning and 1 Tablet before bedtime. Lisinopril 5 MG Oral Tablet (Prinivil) 90 Tab*1 Sig: Take 1 Tablet by mouth in the morning. In the morning.. Clopidogrel Bisulfate 75 MG Oral Tablet (*90 Tab*0 Sig: Take 1 Tablet by mouth in the morning. Last Visit: 11/05/2021 (in office), Visit date not found (telemedicine) Next Visit: Visit date not found If no future appointments scheduled, and last appointment is greater than a year ago, please schedule patient for a follow-up appointment Last date the medication was ordered: 12/13/2021,01/22/2022 Is this request for a controlled substance?No [...] Date Type Specialty Care Team Description 07/12/2022 Office Visit Family Medicine Cristal Ayala PA-C [address] [place] [address] Health Maintenance Due Date Last Done Comments DISCUSS TOBACCO CESSATION (REFER TO SMARTSET #1440) 1970 Hepatitis B (1 of 3 - [...] A1c goal of less than 7.0% (HCC) Acute ST elevation myocardial infarction (STEMI) involving right coronary artery (HCC) H/O heart artery stent Postsurgical percutaneous transluminal coronary angioplasty status documented in this encounter Care Teams Home School Teacher Relationship Specialty Start Date End Date Ronald Jean MD [address] [place] [id number] PCP - General Family Medicine 06/28/20 documented as of this encounter
--- OUTSIDE RECORDS SUMMARY | 2023-01-12 10:23 | External Medical Summary ---
Author Name Unknown Address Unknown Organization K01:[facility] - [address] [place] [address] Laboratory Report Ordering Provider Test Date Status MARILYN PATEL 11/20/2022 10:00:04 Final Observation Date Value Abnormality Reference (Units ) Status Triglyceride 11/20/2022 10:00:04 183 Above high normal <=174 (mg/dL) Final Performing Location [facility] - [address] [place] [address]
--- OUTSIDE RECORDS SUMMARY | 2023-01-12 10:23 | External Medical Summary | Summary of Care ---
Author Name Unknown Organization [facility] Address [address] [place] [address] Phone [phone] Care Team Providers Care Meat Stock Clerk Name Role Phone Patrica Zhang MD Primary Care Provid er Reason for Visit * Reason Comments Outpatient Testing Encounter Details Date Type Department Care Team Description 07/12/2022 Laboratory Laboratory, [place] [address] [place] [address] [place] [address] [place] [address] Encounter for long-term (current) use of medications; Encounter for long-term (current) use of other medications; DM type 2 nursing care encounter ([facility]); Diabetes mellitus screening; Weight gain; Type 2 diabetes mellitus with hemoglobin A1c goal of less than 7.0% ([facility]); HTN, goal below 130/80 Allergies Active Allergy Reactions Severity Noted Date Comments Penicillins 12/09/2018 Facial swelling documented as of this encounter (statuses as of 07/12/2022) Medications Medication Sig Dispensed Refills Start Date End Date Status acetaminophen (TYLENOL) 500 MG TabletIndications:Ac viet pain of left shoulder Take 2 Tabs by mouth every 8 hours as needed for Pain or Fever. 100 Tab 0 12/09/2018 Active OneTouch Verio In Vitro Strip USE 1 STRIP TO CHECK GLUCOSE ONCE DAILY DIRECTED 0 06/27/2020 Active OneTouch Delica Plus [id number] USE 1 TO CHECK GLUCOSE ONCE DAILY DIRECTED 0 06/27/2020 Active Aspirin 81 MG Oral Tablet Delayed Release Take 1 Tablet by mouth in the morning. 0 Active Jardiance 10 MG Oral TabletIndications:Ty pe 2 diabetes mellitus with hemoglobin A1c [...] Oral Tablet Extended Release 24 Hour (Glucophage XR)Indications:Type 2 diabetes mellitus with hemoglobin A1c goal [...] Erectile Dysfunction. 30 Tablet 3 07/12/2022 Active documented as of this encounter (statuses as of 07/12/2022) Active Problems Problem Noted Date Coronary artery disease invo lving [place] coronary artery of [place] heart without angina pectoris 05/02/2021 Dyslipidemia, goal [...] on file documented as of this encounter Plan of Treatment Upcoming Encounters Date Type Specialty Care Team Description 07/18/2022 Office Visit Cardiology Clementine Steiner CRNP [address] [place] [id number] 01/14/2023 Office Visit Family Medicine [facility]al [facility]C [address] [facility] [address] Pending Results Name Type Priority Associated Diagnoses Date /Time VITAMIN B12 Lab Routine Encounter for long-term (current) use of medications 07/12/2022 10:52 AM EDT CBC Lab Routine Encounter for long-term (current) use of other medications 07/12/2022 10:52 AM EDT HEMOGLOBIN A1C Lab Routine DM type 2 nursing care encounter (HCC) Diabetes mellitus screening Weight gain 07/12/2022 10:52 AM EDT ALBUMIN / CREATININE RATIO, URINE Lab Routine Type 2 diabetes mellitus with hemoglobin A1c goal of less than 7.0% (HCC) HTN, goal below 130/80 07/12/2022 10:59 AM EDT Health Maintenance Due Date Last Done Comments DISCUSS TOBACCO CESSATION (REFER TO SMARTSET #3291) 1970 Hepatitis B (1 of 3 - [...] Diagnosis Encounter for long-term (current) use of medications Encounter for long-term (current) use of other medications Encounter for long-term (current) use of other medications DM type 2 nursing care encounter (HCC) Type II or unspecified type diabetes mellitus without mention of complication, not stated as uncontrolled Diabetes mellitus screening Screening for diabetes mellitus Weight gain Abnormal weight gain Type 2 diabetes mellitus with hemoglobin A1c goal of less than 7.0% (HCC) HTN, goal below 130/80 Unspecified essential hypertension documented in this encounter Care Teams Meat Stock Clerk Relationship Specialty Start Date End Date Patrica Zhang MD [address], [place] [id number] PCP - General Family Medicine 06/28/20 documented as of this encounter
--- OUTSIDE RECORDS SUMMARY | 2023-01-12 10:23 | External Medical Summary | Summary of Care ---
Author Name Unknown Organization [facility] Address [address] [place] [address] Phone [phone] Care Team Providers Care Sales Representative Graphic Art Name Role Phone Ronald Jean MD Primary Care Provid er Reason for Visit * Reason Onset Date Comments Medication Refill 11/19/2022 Encounter Details Date Type Department Care Team Description 11/19/2022 Refill [facility] [address] [place] [address] Ronald Jean MD [address] [place] [address] Type 2 diabetes mellitus with hemoglobin A1c goal of less than 7.0% ([facility]) Allergies Active Allergy Reactions Severity Noted Date Comments Penicillins 12/09/2018 Facial swelling documented as of this encounter (statuses as of 11/19/2022) Medications Medication Sig Dispensed Refills Start Date End Date Status acetaminophen (TYLENOL) 500 MG TabletIndications :Acute pain of left shoulder Take 2 Tabs by mouth every 8 hours as needed for Pain or Fever. 100 Tab 0 12/09/2018 Active OneTouch Verio In Vitro Strip USE 1 STRIP TO CHECK GLUCOSE ONCE DAILY DIRECTED 0 06/27/2020 Active OneTouch Delica Plus [id number] USE 1 TO CHECK GLUCOSE ONCE DAILY DIRECTED 0 06/27/2020 Active Aspirin 81 MG Oral Tablet Delayed Release Take 1 Tablet by mouth in the morning. 0 Active Atorvastatin Calcium 80 MG Oral Tablet [...] Erectile Dysfunction. 30 Tablet 3 07/12/2022 Active Jardiance 10 MG Oral TabletIndications :Type 2 diabetes mellitus with hemoglobin A1c goal of less than 7.0% (HCC) Take 1 Tablet by mouth in the morning. 90 Tablet 1 11/19/2022 Active Jardiance 10 MG Oral TabletIndications :Type 2 diabetes mellitus with hemoglobin A1c goal of less than 7.0% (HCC) Take by mouth 1 Tablet in the morning. 90 Tablet 3 11/21/2021 11/19/2022 Discontinued (Refill) documented as of this encounter (statuses as of 11/19/2022) Active Problems Problem Noted Date Coronary artery disease invo lving [place] coronary artery of [place] heart without angina pectoris 05/02/2021 Dyslipidemia, goal [...] as of this encounter (statuses as of 11/19/2022) Resolved Problems Problem Noted Date Resolved Date Acute ST elevation myocardia l infarction (STEMI) involving right coronary artery 07/03/2020 11/05/2021 Screening for diabetes mellitus 12/09/2018 04/02/2019 documented as of this encounter (statuses as of 11/19/2022) Immunizations Name Administration Dates Next Due Pneumococcal [...] encounter Miscellaneous Notes * Telephone Encounter - Marleni Barargan RPh - 11/19/2022 1:37 PM EDTSigned Prescriptions: Disp Refills Jardiance 10 MG Oral Tablet 90 Tab*1 Sig: Take 1 Tablet by mouth in the morning. Authorizing Provider: RONALD JEAN Ordering User: MARLENI BARRAGAN * Telephone Encounter - Marleni Barragan RP - 11/19/2022 1:37 PM EDT Provided 90 days supply with 1 refill(s). Per refill protocol patient should have cmp lipid on filewithin past year. Reviewed AMP report, Care Gaps/Health Maintenance, medications list, and for any routine labs typically ordered for this patient. Lab orders placed. Please contact patient to advise of labs ordered for blood draw. Recommend patient to fast if able for labs. Patient may still have water and regular medications. Advise to obtain labs before requesting the next refill. Thank you, Marleni Barragan, PharmD. Clinical Pharmacist [facility] ([facility]) (formerly Telepharmacy) 11/19/2022, 1:37 PM * Telephone Encounter - Clementine Palencia CPhT - 11/19/2022 1:24 PM EDT Pt is completely out of medication, asking high priority. Did you pend patient's preferred pharmacy and medication before forwarding?yes [facility]acy: [facility] [address] [address] [facility] Pending Prescriptions: Disp Refills Jardiance 10 MG Oral Tablet 90 Tab*3 Sig: Take 1 Tablet by mouth in the morning. Last Visit: 07/12/2022 (in office), Visit date not found (telemedicine) Next Visit: 01/14/2023 If no future appointments scheduled, and last appointment is greater than a year ago, please schedule patient for a follow-up appointment Last date the medication was ordered: 11/21/2022 Is this request for a controlled substance?No [...] AM ALT 28 12/16/2018 03:08 PM HGBA1C 6.4 (H) 07/12/2022 10:52 AM documented in this encounter Plan of Treatment Upcoming Encounters Date Type Specialty Care Team Description 01/14/2023 Office Visit Family Medicine Cristal Ayala, PA-C [address] [place] [address] Scheduled Orders Name Type Priority Associated Diagnoses Orde r Schedule COMPREHENSIVE METABOLIC PANEL Lab Routine Type 2 diabetes mellitus with hemoglobin A1c goal of less than 7.0% (HCC) Expected: 11/19/2022 (Approximate), Expires: 11/20/2023 LIPID PANEL WITH DIRECT LDL IF TG IS HIGH Lab Routine Type 2 diabetes mellitus with hemoglobin A1c goal of less than 7.0% (HCC) Expected: 11/19/2022 (Approximate), Expires: 11/20/2023 HEMOGLOBIN A1C Lab Routine Type 2 diabetes mellitus with hemoglobin A1c goal of less than 7.0% (HCC) Expected: 11/19/2022 (Approximate), Expires: 11/20/2023 Health Maintenance Due Date Last Done Comments DISCUSS TOBACCO CESSATION (REFER TO SMARTSET #8056) 1970 Hepatitis B (1 of 3 - 3-dose series) 1968 COVID-19 Vaccine (#1) 1968 HIV Screening 1983 Hepatitis C Screening 1986 Cologuard 2013 Colonoscopy 2013 Colorectal Cancer Screening 2013 Fecal Occult Blood Test 2013 Sigmoidoscopy 2013 Zoster Vaccines (1 of 2) 2018 Depression Screening, Annual for Pts 12 and Over 12/10/2019 12/09/2018 Pneumococcal Vaccine: Pediatrics (0 to 5 Years) and At-Risk Patients (6 to 64 Years) (2 - PCV) 12/10/2019 12/09/2018 DIABETES-EYE EXAM 11/01/2022 11/01/2021, 09/05/2020 DIABETES-FOOT EXAM 11/01/2022 11/01/2021 GFR 11/01/2022 11/01/2021, 05/15, 07/14/2020, Additional history exists Influenza Vaccine (FLU shot) (#1) 2022 HbA1c 01/11/2023 07/12/2022, 10/13, 05/28/2021, Additional history exists Albumin/Creatinine Ratio 07/13/2023 023, 10/18/2021, 06/23/2019 DTaP,Tdap,and Td Vaccines (2 - Td or [...] than 7.0% (HCC) documented in this encounter Care Teams Sales Representative Graphic Art Relationship Specialty Start Date End Date Ronald Jean MD [address] [place] [facility] [place] [address] PCP - General Family Medicine 06/28/20 documented as of this encounter
--- OUTSIDE RECORDS SUMMARY | 2023-01-12 10:23 | External Medical Summary | Summary of Care ---
Author Name Unknown Organization [facility] Address [address] [place] [address] Phone [phone] Care Team Providers Care Asphalt Coater Name Role Phone Ronald Zhang MD Primary Care Provid er Reason for Visit * Reason Onset Date Comments Medication Refill 06/12/2022 Encounter Details Date Type Department Care Team Description 06/12/[address] [facility] [address] [place] [address] Ronald Zhang MD [address] [place] [address] Type 2 diabetes mellitus with hemoglobin A1c goal of less than 7.0% ([facility]); Acute ST elevation myocardial infarction (STEMI) involving right coronary artery ([facility]); H/O heart artery stent Allergies Active Allergy Reactions Severity Noted Date Comments Penicillins 12/09/2018 Facial swelling documented as of this encounter (statuses as of 06/18/2022) Medications Medication Sig Dispensed Refills Start Date End Date Status acetaminophen (TYLENOL) 500 MG TabletIndications :Acute pain of left shoulder Take 2 Tabs by mouth every 8 hours as needed for Pain or Fever. 100 Tab 0 12/09/2018 Active OneTouch Verio In Vitro Strip USE 1 STRIP TO CHECK GLUCOSE ONCE DAILY DIRECTED 0 06/27/2020 Active OneTouch Delica Plus [id number] USE 1 TO CHECK GLUCOSE ONCE DAILY [...] as of this encounter (statuses as of 06/18/2022) Active Problems Problem Noted Date Coronary artery disease invo lving [place] coronary artery of [place] heart without angina pectoris 05/02/2021 Dyslipidemia, goal [...] as of this encounter (statuses as of 06/18/2022) Resolved Problems Problem Noted Date Resolved Date Acute ST elevation myocardia l infarction (STEMI) involving right coronary artery 07/03/2020 11/05/2021 Screening for diabetes mellitus 12/09/2018 04/02/2019 documented as of this encounter (statuses as of 06/18/2022) Immunizations Name Administration Dates Next Due Pneumococcal [...] encounter Miscellaneous Notes * Telephone Encounter - KARSTEN Dunn - 06/18/2022 10:26 AM EST Pt calling to check on status of Plavix . Advised dr's message below and he understood Thank you, Alia Wing,[facility] Industry Segment Specialist [employer] 06/18/2022,10:26 AM * Telephone Encounter - Ronald Zhang MD - 06/14/2022 1:00 PM EST Signed Prescriptions: Disp Refills Metoprolol Succinate ER 25 MG Oral Tablet *90 Tab*1 Sig: Take 1 Tablet by mouth in the morning.Authorizing Provider: RONALD ZHANG User: REGINA TALBERT metFORMIN HCl ER 500 MG Oral Tablet Extend*180 Ta*1 Sig: Take 1 Tablet by mouth in the morning and 1 Tablet before bedtime.Authorizing Provider: RONALD ZHANG User: REGINA TALBERT Lisinopril 5 MG Oral Tablet (Prinivil) 90 Tab*1 Sig: Take 1 Tablet by mouth in the morning. In the morning..Authorizing Provider: RONALD ZHANG User: REGINA TALBERT NN * Telephone Encounter - Ronald Zhang MD - 06/14/2022 1:00 PM EST Signed Prescriptions: Disp Refills Metoprolol Succinate ER 25 MG Oral Tablet *90 Tab*1 Sig: Take 1 Tablet by mouth in the morning.Authorizing Provider: RONALD ZHANG User: REGINA TALBERT metFORMIN HCl ER 500 MG Oral Tablet Extend*180 Ta*1 Sig: Take 1 Tablet by mouth in the morning and 1 Tablet before bedtime.Authorizing Provider: RONALD ZHANG User: REGINA TALBERT Lisinopril 5 MG Oral Tablet (Prinivil) 90 Tab*1 Sig: Take 1 Tablet by mouth in the morning. In the morning..Authorizing Provider: RONALD ZHANG User: REGINA TALBERT NN * Telephone Encounter - Ronald Zhang MD - 06/14/2022 12:58 PM EST Reviewed [...] dc'd AG * Telephone Encounter - Gisela Scanlon, shipwright supervisor - 06/13/2022 1:07 PM EST Pt returning call received. Advised pt of message regarding labs needed. Pt reports he will have labs drawn prior to upcoming OV scheduled for 07/12/2022. Thank you, Gisela Scanlon Storage Consultant [employer] 06/13/2022,1:08 PM * Telephone Encounter - Christiane Massey CPhT - 06/13/2022 12:47 PM ESTPending Prescriptions: Disp Refills Clopidogrel Bisulfate 75 MG Oral Tablet (p*90 Tab*0 Sig: Take 1 Tablet by mouth in the morning. Signed Prescriptions: Disp Refills Metoprolol Succinate ER 25 MG Oral Tablet *90 Tab*1 Sig: Take 1 Tablet by mouth in the morning. Authorizing Provider: RONALD ZHANG Ordering User: REGINA TALBERT me tFORMIN HCl ER 500 MG Oral Tablet Extend*180 Ta*1 Sig: Take 1 Tablet by mouth in the morning and 1 Tablet before bedtime. Authorizing Provider: RONALD ZHANG Ordering User: REGINA TALBERT Lisinopril 5 MG Oral Tablet (Prinivil) 90 Tab*1 Sig: Take 1 Tablet by mouth in the morning. In the morning.. Authorizing Provider: RONALD ZHANG Ordering User: REGINA ROCHA * Telephone Encounter - Christiane Massey CPhT - 06/13/2022 12:46 PM EST Received message from [facility] regarding patient needing labs. Placed call to patient to advise. Unable to reach pt, as there was no answer and no VM available to leave message. Letter created, please send out to patient to advise. Thank you, Christiane Massey CPhT Industry Segment Specialist [facility] 06/13/2022,12:46 PM * Telephone Encounter - Regina Talbert [facility] - 06/13/2022 9:01 AM ESTPending Prescriptions: Disp Refills Clopidogrel Bisulfate 75 MG Oral Tablet (p*90 Tab*0 Sig: Take 1 Tablet by mouth in the morning. Signed Prescriptions: Disp Refills Metoprolol Succinate ER 25 MG Oral Tablet *90 Tab*1 Sig: Take 1 Tablet by mouth in the morning. Authorizing Provider: RONALD ZHANG Ordering User: REGINA TALBERT tFORMIN HCl ER 500 MG Oral Tablet Extend*180 Ta*1 Sig: Take 1 Tablet by mouth in the morning and 1 Tablet before bedtime. Authorizing Provider: RONALD ZHANG Ordering User: REGINA TALBERT Lisinopril 5 MG Oral Tablet (Prinivil) 90 Tab*1 Sig: Take 1 Tablet by mouth in the morning. In the morning.. Authorizing Provider: RONALD ZHANG Ordering User: REGINA ROCHA * Telephone Encounter - Regina Talbert RP [...] next refill. Thanks, Regina Talbert Clinical Pharmacist [facility] [phone] 06/13/2022, 9:00 AM * Telephone Encounter - Renate Garcia CPhT - 06/12/2022 10:44 AM EST Did you pend patient's preferred pharmacy and medication before forwarding?yes [facility] [address] [address] [address] Pending Prescriptions: Disp Refills Metoprolol [...] Family Medicine Cristal Ayala PA-C [address] [place] [address] Health Maintenance Due Date Last Done Comments DISCUSS TOBACCO CESSATION (REFER TO SMARTSET #8551) 1970 Hepatitis B (1 of 3 - [...] status documented in this encounter Care Teams Asphalt Coater Relationship Specialty Start Date End Date Ronald Zhang MD [address] [place] [address] PCP - General Family Medicine 06/28/20 documented as of this encounter
--- OUTSIDE RECORDS SUMMARY | 2023-01-12 10:23 | External Medical Summary | Summary of Care ---
Author Name Unknown Organization [facility] Address [address] [place] [address] Phone [phone] Care Team Providers Care Senior Environmental Consultant Name Role Phone Patrica Zhang MD Primary Care Provid er Reason for Visit * Reason Onset Date Comments Health Maintenance 11/04/2022 Encounter Details Date Type Department Care Team Description 11/04/2022 Telephone [facility] [address] [place] [address] Patrica Zhang MD [address] [place] [address] Health Maintenance Allergies Active Allergy Reactions Severity Noted Date Comments Penicillins 12/09/2018 Facial swelling documented as of this encounter (statuses as of 11/04/2022) Medications Medication Sig Dispensed Refills Start Date End Date Status acetaminophen (TYLENOL) 500 MG TabletIndications:Ac [place] pain of left shoulder Take 2 Tabs by mouth every 8 hours as needed for Pain or Fever. 100 Tab 0 12/09/2018 Active OneTouch Verio In Vitro Strip USE 1 STRIP TO CHECK GLUCOSE ONCE DAILY DIRECTED 0 06/27/2020 Active OneTouch Delica Plus [id number] USE 1 TO CHECK GLUCOSE ONCE DAILY DIRECTED 0 06/27/2020 Active Aspirin 81 MG Oral Tablet Delayed Release Take 1 Tablet by mouth in the morning. 0 Active Jardiance 10 MG Oral TabletIndications:Ty pe 2 diabetes mellitus with hemoglobin A1c goal of less than 7.0% ([facility]) Take by mouth 1 Tablet in the [...] as of this encounter (statuses as of 11/04/2022) Active Problems Problem Noted Date Coronary artery disease invo lving [place] coronary artery of [place] heart without angina pectoris 05/02/2021 Dyslipidemia, goal [...] as of this encounter (statuses as of 11/04/2022) Resolved Problems Problem Noted Date Resolved Date Acute ST elevation myocardia l infarction (STEMI) involving right coronary artery 07/03/2020 11/05/2021 Screening for diabetes mellitus 12/09/2018 04/02/2019 documented as of this encounter (statuses as of 11/04/2022) Immunizations Name Administration Dates Next Due Pneumococcal [...] encounter Miscellaneous Notes * Telephone Encounter - Kaleigh Bella LPN - 11/04/2022 8:48 AM EDT Care Gaps Comprehensive Care Outreach Last Office/Telemedicine Visit: 07/12/2022 (in office), Visit date not found (telemedicine) Next Office Visit: 01/14/2023 Hemoglobin AIC Results: Lab Results Component Value Date/Time HEMOGLOBIN A1C - [facility] 6.4 (H) 07/12/2022 10:52 AM HEMOGLOBIN A1C - [facility] 6.1 (H) 11/01/2021 11:24 AM HEMOGLOBIN A1C - [facility] 6.2 (H) 05/28/2021 08:46 AM Reviewed Health Maintenance below: Health Maintenance Topic Date Due Hepatitis B (1 of 3 - 3-dose series) Never done DISCUSS TOBACCO CESSATION (REFER TO SMARTSET #3291) Never done COVID-19 Vaccine (1) Never done HIV Screening Never done Hepatitis C Screening Never done Colorectal Cancer Screening Never done Zoster Vaccines (1 of 2) Never done Depression Screening, Annual for Pts 12 and Over 12/10/2019 Pneumococcal Vaccine: Pediatrics (0 to 5 Years) and At-Risk Patients (6 to 64 Years) (2 - PCV) 12/10/2019 DIABETES-EYE EXAM 11/01/2022 DIABETES-FOOT EXAM 11/01/2022 GFR 11/01/2022 Influenza Vaccine (FLU shot) (1) 12/13/2022 HbA1c 01/11/2023 Colon Eye Foot labs Care Gap Outreach Action Taken: Unable to reach picked up and hung up documented in this encounter Plan of Treatment Upcoming Encounters Date Type Specialty Care Team Description 01/14/2023 Office Visit Family Medicine Cristal Ayala PA-C [address] [place] [address] Health Maintenance Due Date Last Done Comments [...] Not on filedocumented as of this encounter Care Teams Senior Environmental Consultant Relationship Specialty Start Date End Date Patrica Zhang MD [address] [place] [address] PCP - General Family Medicine 06/28/20 documented as of this encounter
--- OUTSIDE RECORDS SUMMARY | 2023-01-12 10:23 | External Medical Summary ---
Author Name Unknown Address Unknown Organization K01:[facility] - [address] [facility] [address] Laboratory Report Ordering Provider Test Date Status MARYANNENATALIAKAN 07/12/2022 10:59:41 Final Observation Date Value Abnormality Reference (Units ) Status Albumin, Urine 07/12/2022 10:59:41 <1.20 (mg/dL) Final Creatinine, Urine 07/12/2022 10:59:41 73 (mg/dL) Final Albumin/Creatinine [Mass Ratio] in Urine 07/12/2022 10:59:41 <16 <30 (mg/g Creat) Final Performing Location [facility] [address] [facility] [address]
--- OUTSIDE RECORDS SUMMARY | 2023-01-12 10:23 | External Medical Summary | Summary of Care ---
Author Name Unknown Organization [facility] Address [address] [place] [address] Phone [phone] Care Team Providers Care Vegetable Tester Name Role Phone Patrica Zhang MD Primary Care Provid er Reason for Visit * Reason Comments Outpatient Testing Encounter Details Date Type Department Care Team Description 07/12/2022 Laboratory [facility] [address] [place] [address] [facility] [address] [place] [address] Encounter for long-term (current) use of medications; Encounter for long-term (current) use of other medications; DM type 2 nursing care encounter ([facility]); Diabetes mellitus screening; Weight gain; Type 2 diabetes mellitus with hemoglobin A1c goal of less than 7.0% ([facility]); HTN, goal below 130/80 Allergies [...] DIRECTED 0 06/27/2020 Active OneTouch Delica Plus [id number] USE 1 TO CHECK GLUCOSE ONCE DAILY [...] Noted Date Coronary artery disease invo lving [place] coronary artery of [place] heart without angina pectoris 05/02/2021 Dyslipidemia, goal [...] Steiner CRNP [address] [place] [address] 01/14/2023 Office Visit Family Medicine Cristal [facility] [address] [facility] [address] Pending Results Name Type Priority Associated Diagnoses [...] hypertension documented in this encounter Care Teams Vegetable Tester Relationship Specialty Start Date End Date Patrica Zhang MD [address], [place] [id number] PCP - General Family Medicine 06/28/20 documented as of this encounter
--- OUTSIDE RECORDS SUMMARY | 2023-01-12 10:23 | External Medical Summary | Summary of Care ---
Author Name Unknown Organization [place] [address] Care Team Providers Care Coil Strapper Name Role Phone Patrica Zhang MD Primary Care Provid er Reason for Visit * Reason Onset Date Comments Medication Refill 04/22/2022 Encounter Details Date Type Department Care Team Description 04/22/2022 Refill [facility] [address] [place] [address] Patrica Zhang MD [address] [place] [address] Allergies Active Allergy Reactions Severity Noted Date Comments Penicillins 12/09/2018 Facial swelling documented as of this encounter (statuses as of 04/22/2022) Medications Medication Sig Dispensed Refills Start Date End Date Status acetaminophen (TYLENOL) 500 MG TabletIndications :Acute pain of left shoulder Take 2 Tabs by mouth every 8 hours as needed for Pain or Fever. 100 Tab 0 12/09/2018 Active OneTouch Verio In Vitro Strip USE 1 STRIP TO CHECK GLUCOSE ONCE DAILY DIRECTED 0 06/27/2020 Active OneTouch Delica Plus [id number] USE 1 TO CHECK GLUCOSE ONCE DAILY [...] hemoglobin A1c goal of less than 7.0% ([facility]) Take by mouth 1 Tablet in the [...] the morning. 90 Tablet 0 03/22/2022 Active Atorvastatin Calcium 80 MG Oral Tablet (Lipitor) Take 1 Tablet by mouth at bedtime. 30 Tablet 8 04/22/2022 Active amLODIPine Besylate 5 MG Oral Tablet (Norvasc) Take 1 Tablet by mouth in the morning. 30 Tablet 8 04/22/2022 Active Atorvastatin Calcium 80 MG Oral Tablet (Lipitor) Take by mouth 1 Tablet before bedtime. 30 Tablet 8 07/24/2021 04/22/2022 Discontinued (Refill) amLODIPine Besylate 5 MG Oral Tablet (Norvasc) Take by mouth 1 Tablet in the morning. 30 Tablet 8 07/24/2021 04/22/2022 Discontinued (Refill) documented as of this encounter (statuses as of 04/22/2022) Active Problems Problem Noted Date Coronary artery disease invo lving [place] coronary artery of [place] heart without angina pectoris 05/02/2021 Dyslipidemia, goal [...] as of this encounter (statuses as of 04/22/2022) Resolved Problems Problem Noted Date Resolved Date Acute ST elevation myocardia l infarction (STEMI) involving right coronary artery 07/03/2020 11/05/2021 Screening for diabetes mellitus 12/09/2018 04/02/2019 documented as of this encounter (statuses as of 04/22/2022) Immunizations Name Administration Dates Next Due Pneumococcal [...] encounter Miscellaneous Notes * Telephone Encounter - Kali Henriquez, [facility] - 04/22/2022 10:42 AM ESTSigned Prescriptions: Disp Refills Atorvastatin Calcium 80 MG Oral Tablet (Li*30 Tab*8 Sig: Take 1 Tablet by mouth at bedtime. Authorizing Provider: MARYANNE AYALA Ordering User: KALI HENRIQUEZ amLODIPine Besylate 5 MG Oral Tablet (Norv*30 Tab*8 Sig: Take 1 Tablet by mouth in the morning. Authorizing Provider: MARYANNE AYALA Ordering User: KALI HENRIQUEZ SE * Telephone Encounter - Theo Panda, pipelaying fitter - 04/22/2022 10:30 AM EST Pt only has one dose of each med left. Asking for scripts to be expedited. Did you pend patient's preferred pharmacy and medication before forwarding?yes Pharmacy: [facility] [address] [place] [address] Pending Prescriptions: Disp Refills Atorvastatin Calcium 80 MG Oral Tablet (L*30 Tab*8 Sig: Take 1 Tablet by mouth at bedtime. amLODIPine Besylate 5 MG Oral Tablet (Nor*30 Tab*8 Sig: Take 1 Tablet by mouth in the morning. Last Visit: 11/05/2021 (in office), Visit date not found (telemedicine) Next Visit: Visit date not found If no future appointments scheduled, and last appointment is greater than a year ago, please schedule patient for a follow-up appointment Last date the medication was ordered: 07/24/2021 Is this request for a controlled substance?No [...] documented in this encounter Plan of Treatment Health Maintenance Due Date Last Done Comments [...] filedocumented as of this encounter Care Teams Coil Strapper Relationship Specialty Start Date End Date Patrica Zhang MD [address] [facility] [place] [place] [address] PCP - General Family Medicine 06/28/20 documented as of this encounter
--- OUTSIDE RECORDS SUMMARY | 2023-01-12 10:23 | External Medical Summary | Summary of Care ---
Author Name Unknown Organization [facility] Address [address] [place] [address] Phone [phone] Care Team Providers Care [employer] Principal Name Role Phone Ronald Jean MD Primary Care Provid er Reason for Visit * Reason Onset Date Comments Medication Refill 11/19/2022 Encounter Details Date Type Department Care Team Description 11/19/2022 Refill [facility] [address] [place] [address] Ronald Jean MD [address] [place] [address] Type 2 diabetes mellitus with hemoglobin A1c goal of less than 7.0% ([facility]) Allergies Active Allergy Reactions Severity Noted Date [...] DIRECTED 0 06/27/2020 Active OneTouch Delica Plus [id number] USE 1 TO CHECK GLUCOSE ONCE DAILY [...] Noted Date Coronary artery disease invo lving [place] coronary artery of [place] heart without angina pectoris 05/02/2021 Dyslipidemia, goal [...] encounter Miscellaneous Notes * Telephone Encounter - Eva Armstrong, lead driver - 11/19/2022 3:01 PM EDT Received message from [facility] regarding patient needing labs. Placed call to patient to advise. Pt was agreeable to have labs drawn but would prefer to walk-in at their convenience. Thank you, Eva Armstrong Data Warehouse Developer [facility] 11/19/2022, 3:01 PM * Telephone Encounter - Marleni Sanders [facility] - 11/19/2022 1:37 PM EDTSigned Prescriptions: Disp Refills Jardiance 10 MG Oral Tablet 90 Tab*1 Sig: Take 1 Tablet by mouth in the morning. Authorizing Provider: RONALD JEAN Ordering User: MARLENI SANDERS * Telephone Encounter - Marleni Sanders RP - 11/19/2022 1:37 PM EDT Provided [...] requesting the next refill. Thank you, Marleni Sanders, PharmD. Clinical Pharmacist [facility] ([facility]PS) (formerly Telepharmacy) 11/19/2022, 1:37 PM * Telephone Encounter - Clementine Palencia CPhT - 11/19/2022 1:24 PM EDT Pt is completely out of medication, asking high priority. Did you pend patient's preferred pharmacy and medication before forwarding?yes [facility]acy: [facility] [address] [address] [place] Pending Prescriptions: Disp Refills Jardiance 10 MG [...] Family Medicine Cristal Ayala PA-C [address] [place] [facility] [place] [address] Scheduled Orders Name Type Priority Associated Diagnoses [...] Comments DISCUSS TOBACCO CESSATION (REFER TO SMARTSET #4057) 1970 Hepatitis B (1 of 3 - [...] (HCC) documented in this encounter Care Teams [employer] Principal Relationship Specialty Start Date End Date Ronald Jean MD [address] [place] [id number] PCP - General Family Medicine 06/28/20 documented as of this encounter
--- OUTSIDE RECORDS SUMMARY | 2023-01-12 10:23 | External Medical Summary | Summary of Care ---
Author Name Unknown Organization [facility] Address [address] [place] [address] Phone [phone] Care Team Providers Care Sales Development Consultant Name Role Phone Patrica Zhang MD Primary Care Provid er Reason for Visit * Reason Comments Outpatient Testing Encounter Details Date Type Department Care Team Description 11/20/2022 Laboratory [facility] [place] [address] [place] [address] [place] [address] [place] [address] Type 2 diabetes mellitus with hemoglobin A1c goal of less than 7.0% ([facility]) Allergies Active Allergy Reactions Severity Noted Date Comments Penicillins 12/09/2018 Facial swelling documented as of this encounter (statuses as of 11/20/2022) Medications Medication Sig Dispensed Refills Start Date End Date Status acetaminophen (TYLENOL) 500 MG TabletIndications:Ac viet pain of left shoulder Take 2 Tabs by mouth every 8 hours as needed for Pain or Fever. 100 Tab 0 12/09/2018 Active OneTouch Verio In Vitro Strip USE 1 STRIP TO CHECK GLUCOSE ONCE DAILY DIRECTED 0 06/27/2020 Active OneTouch Delica Plus [id number] USE 1 TO CHECK GLUCOSE ONCE DAILY [...] 3 07/12/2022 Active Jardiance 10 MG Oral TabletIndications:Ty pe 2 diabetes mellitus with hemoglobin A1c goal of less than 7.0% (HCC) Take 1 Tablet by mouth in the morning. 90 Tablet 1 11/19/2022 Active documented as of this encounter (statuses as of 11/20/2022) Active Problems Problem Noted Date Coronary artery disease invo lving [place] coronary artery of [place] heart without angina pectoris 05/02/2021 Dyslipidemia, goal [...] as of this encounter (statuses as of 11/20/2022) Resolved Problems Problem Noted Date Resolved Date Acute ST elevation myocardia l infarction (STEMI) involving right coronary artery 07/03/2020 11/05/2021 Screening for diabetes mellitus 12/09/2018 04/02/2019 documented as of this encounter (statuses as of 11/20/2022) Immunizations Name Administration Dates Next Due Pneumococcal [...] Family Medicine Cristal Ayala PA-C [address] [place] [facility] [place] [id number] Pending Results Name Type Priority Associated Diagnoses Date /Time COMPREHENSIVE METABOLIC PANEL Lab Routine Type 2 diabetes mellitus with hemoglobin A1c goal of less than 7.0% ([facility]) 11/20/2022 10:00 AM EDT LIPID PANEL WITH DIRECT LDL IF TG IS HIGH Lab Routine Type 2 diabetes mellitus with hemoglobin A1c goal of less than 7.0% ([facility]) 11/20/2022 10:00 AM EDT HEMOGLOBIN A1C Lab Routine Type 2 diabetes mellitus with hemoglobin A1c goal of less than 7.0% (HCC) 11/20/2022 10:00 AM EDT Health Maintenance Due Date Last [...] documented in this encounter Care Teams Sales Development Consultant Relationship Specialty Start Date End Date Patrica Zhang MD [address], [place] [phone] PCP - General Family Medicine 06/28/20 documented as of this encounter
--- OUTSIDE RECORDS SUMMARY | 2023-01-12 10:23 | External Medical Summary | Summary of Care ---
Author Name Unknown Organization [place] [address] Care Team Providers Care Cut Off Saw Operator Pipe Blanks Name Role Phone Ronald Jean MD Primary Care Provid er Reason for Visit * Reason Onset Date Comments Medication Refill 12/12/2021 Encounter Details Date Type Department Care Team Description 12/12/2021 Refill [facility] [address] [place] [address] Ronald Jean MD [address] [place] [address] Allergies Active Allergy Reactions Severity Noted Date Comments Penicillins 12/09/2018 Facial swelling documented as of this encounter (statuses as of 12/13/2021) Medications Medication Sig Dispensed Refills Start Date End Date Status acetaminophen (TYLENOL) 500 MG TabletIndications :Acute pain of left shoulder Take 2 Tabs by mouth every 8 hours as needed for Pain or Fever. 100 Tab 0 12/09/2018 Active OneTouch Verio In Vitro Strip USE 1 STRIP TO CHECK GLUCOSE ONCE DAILY DIRECTED 0 06/27/2020 Active OneTouch Delica Plus [id number] USE 1 TO CHECK GLUCOSE ONCE DAILY [...] the morning. 90 Tablet 1 12/13/2021 Active Metoprolol Succinate ER 25 MG Oral Tablet Extended Release 24 Hour (toPROL XL) Take 1 Tablet (25 mg) in the morning by mouth. 90 Tablet 1 05/08/2021 12/12/2021 Discontinued (Refill) Lisinopril 5 MG Oral Tablet (Prinivil) Take 1 Tablet (5 mg) in the morning by mouth. In the morning.. 90 Tablet 1 05/08/2021 12/12/2021 Discontinued (Refill) documented as of this encounter (statuses as of 12/13/2021) Active Problems Problem Noted Date Coronary artery disease invo lving [place] coronary artery of [place] heart without angina pectoris 05/02/2021 Dyslipidemia, goal [...] as of this encounter (statuses as of 12/13/2021) Resolved Problems Problem Noted Date Resolved Date Acute ST elevation myocardia l infarction (STEMI) involving right coronary artery 07/03/2020 11/05/2021 Screening for diabetes mellitus 12/09/2018 04/02/2019 documented as of this encounter (statuses as of 12/13/2021) Immunizations Name Administration Dates Next Due Pneumococcal [...] encounter Miscellaneous Notes * Telephone Encounter - Barbara Mcguire [facility] - 12/13/2021 9:46 AM EDT Signed Prescriptions: Disp Refills Lisinopril 5 MG Oral Tablet (Prinivil) 90 Tab*1 Sig: Take by mouth 1 Tablet in the morning. In the morning.. Authorizing Provider: RONALD JEAN Ordering User: BARBARA MCGUIRE Metoprolol Succinate ER 25 MG Oral Tablet *90 Tab*1 Sig: Take by mouth 1 Tablet in the morning. Authorizing Provider: RONALD JEAN Ordering User: BARBARA MCGUIRE * Telephone Encounter - Bj Khan V outreach associate - 12/12/2021 11:47 AM EDT Did you pend patient's preferred pharmacy and medication before forwarding?yes Pharmacy: [facility] [place] Pending Prescriptions: Disp Refills Lisinopril 5 MG Oral Tablet (Prinivil) 90 Tab*1 Sig: Take by mouth 1 Tablet in the morning. In the morning.. Metoprolol Succinate ER 25 MG Oral Tablet*90 Tab*1 Sig: Take by mouth 1 Tablet in the morning. Last Visit: 11/05/2021 (in office), Visit date not found (telemedicine) Next Visit: 2022 If no future appointments scheduled, and last appointment is greater than a year ago, please schedule patient for a follow-up appointment Last date the medication was ordered: 05/08/2021 Is this request for a controlled substance?No [...] Office Visit Cardiology Michael Collins MD [address] [facility] [place] [address] 2022 Office Visit Family Medicine Cristal Ayala PAZafarC [address] [place] [address] Health Maintenance Due Date Last Done Comments DISCUSS TOBACCO CESSATION (REFER TO SMARTSET #3290) 1970 COVID-19 Vaccine (#1) 1970 HIV Screening [...] Not on filedocumented as of this encounter Advance Directives Documents on File Type Date Recorded Patient Java Lead Engineer Expl 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 Advanced Directive Advanced Directive Advanced Directive Advanced Directive Advanced Directive Advanced Directive Advanced Directive Advanced Directive Advanced Directive Advanced Directive Advanced Directive Advanced Directive Advanced Directive Advanced Directive Advanced Directive Care Teams Cut Off Saw Operator Pipe Blanks Relationship Specialty Start Date End Date Ronald Jean MD [address] [place] [address] PCP - General Family Medicine 06/28/20 documented as of this encounter
--- OUTSIDE RECORDS SUMMARY | 2023-01-12 10:24 | External Medical Summary ---
Author Name Unknown Address Unknown Organization K01:[facility] - [address] [place] [address] Laboratory Report Ordering Provider Test Date Status SULLY GAXIOLA 05/28/2021 08:46:21 Final Observation Date Value Abnormality Reference (Units ) Status Triglyceride 05/28/2021 08:46:21 146 <=174 ( mg/dL) Final Performing Location [facility] - [address] [place] [address]
--- OUTSIDE RECORDS SUMMARY | 2023-01-12 10:24 | External Medical Summary ---
Author Name Unknown Address Unknown Organization K01:[facility] - [address] [place] [address] Laboratory Report Ordering Provider Test Date Status SULLY GAXIOLA 05/28/2021 08:46:21 Final Observation Date Value Abnormality Reference (Units ) Status BUN 05/28/2021 08:46:21 22 Above high normal 6-20 (mg/dL) Final Creatinine 05/28/2021 08:46:21 0.8 0.6-1.2 (mg/dL) Final Glomerular filtration rate/1.73 sq M.predicted [Volume Rate/Area] in Serum, Plasma or Blood by Creatinine-based formula (CKD-EPI) 05/28/2021 08:46:21 >90 >=60 (mL/min) Final Performing Location [facility] - [address] [place] [address]
--- OUTSIDE RECORDS SUMMARY | 2023-01-12 10:24 | External Medical Summary ---
Author Name Unknown Address Unknown Organization K01:[facility] - [address] [place] [address] Laboratory Report Ordering Provider Test Date Status MIRANDA CARDENAS 11/01/2021 11:24:29 Final Observation Date Value Abnormality Reference (Units ) Status BUN 11/01/2021 11:24:29 17 6-20 (mg/dL) Final Creatinine 11/01/2021 11:24:29 0.8 0.6-1.2 (mg/dL) Final Glomerular filtration rate/1.73 sq M.predicted [Volume Rate/Area] in Serum, Plasma or Blood by Creatinine-based formula (CKD-EPI) 11/01/2021 11:24:29 >90 >=60 (mL/min) Final Performing Location [facility] - [address] [place] [address]
--- OUTSIDE RECORDS SUMMARY | 2023-01-12 10:24 | External Medical Summary ---
Author Name Unknown Address Unknown Organization K01:[facility] - [address] [place] [address] Laboratory Report Ordering Provider Test Date Status RONALDMIRANDA 11/01/2021 11:24:29 Final Observation Date Value Abnormality Reference (Units ) Status HbA1C 11/01/2021 11:24:29 6.1 Above high normal 4. 0-5.6 (%) Final Performing Location LAB[facility]ATORY [facility] - [address] [place] [address]
--- OUTSIDE RECORDS SUMMARY | 2023-01-12 10:24 | External Medical Summary ---
Author Name Unknown Address Unknown Organization K01:[facility] [address] [place] [address] Laboratory Report Ordering Provider Test Date Status JAMIE MADDEN 05/28/2021 08:46:21 Final Observation Date Value Abnormality Reference (Units ) Status HbA1C 05/28/2021 08:46:21 6.2 Above high normal 4. 0-5.6 (%) Final Performing Location [facility] - [address] [place] [address]
--- OUTSIDE RECORDS SUMMARY | 2023-01-12 10:24 | External Medical Summary | Summary of Care ---
Author Name Unknown Organization [place] [address] Care Team Providers Care Box Car Washer Name Role Phone Ronald Jean MD Primary Care Provid er Reason for Visit * Reason Onset Date Comments Medication Refill 06/20/2021 Encounter Details Date Type Department Care Team Description 06/20/2021 Refill [facility] [address] [place] [address] Ronald Jean MD [address] [place] [address] elevation myocardial infarction (STEMI) involving right coronary artery (HCC); H/O heart artery stent Allergies Active Allergy Reactions Severity Noted Date Comments Penicillins 12/09/2018 Facial swelling documented as of this encounter (statuses as of 06/21/2021) Medications Medication Sig Dispensed Refills Start Date End Date Status acetaminophen (TYLENOL) 500 MG TabletIndications :Acute pain of left shoulder Take 2 Tabs by mouth every 8 hours as needed for Pain or Fever. 100 Tab 0 12/09/2018 Active OneTouch Verio In Vitro Strip USE 1 STRIP TO CHECK GLUCOSE ONCE DAILY DIRECTED 0 06/27/2020 Active OneTouch Delica Plus Uiodcy24M USE 1 TO CHECK GLUCOSE ONCE DAILY DIRECTED 0 06/27/2020 Active Aspirin 81 MG Oral Tablet Delayed Release Take 81 mg by mouth daily. 0 Active Atorvastatin Calcium 80 MG Oral Tablet (Lipitor) Take 1 Tab by mouth at bedtime. 30 Tab 11 07/25/2020 Active Jardiance 10 MG Oral TabletIndications :Type 2 diabetes mellitus with hemoglobin A1c goal of less than 7.0% (HCC) Take 1 tablet by mouth once daily 90 Tab 3 11/27/2020 Active amLODIPine Besylate 5 MG Oral Tablet (Norvasc) Take 1 tablet by mouth once daily 30 Tab 5 01/24/2021 Active metFORMIN HCl ER 500 MG Oral Tablet Extended Release 24 Hour (Glucophage XR)Indications:Ty pe 2 diabetes mellitus with hemoglobin A1c goal of less than 7.0% (HCC) Take 2 tablets by mouth twice daily 180 Tablet 2 03/12/2021 Active Metoprolol Succinate ER 25 MG Oral [...] the morning. 90 Tablet 2 06/21/2021 Active Clopidogrel Bisulfate 75 MG Oral Tablet (pLAVix)Indicatio ns:Acute ST elevation myocardial infarction (STEMI) involving right coronary artery (HCC),H/O heart artery stent Take 1 Tab by mouth daily. 90 Tab 2 09/05/2020 06/20/2021 Discontinued (Refill) documented as of this encounter (statuses as of 06/21/2021) Active Problems Problem Noted Date Coronary artery disease invo lving [place] coronary artery of [place] heart without angina pectoris 05/02/2021 Dyslipidemia, goal LDL below 70 05/02/19 Erectile disorder due to medical conditi on in male patient 09/05/2020 HTN, goal below 130/80 07/03/[address] elevation myocardia l infarction (STEMI) involving right coronary artery 07/03/2020 H/O heart artery stent 07/03/2020 Type 2 diabetes mellitus with hemoglobin A1c goal of less than 7.0% 07/03/2020 Screen for colon cancer 04/02/2019 History of tobacco abuse 12/09/2018 Obesity, Class II, BMI 35-39.9, isolated (see actual BMI) 12/09/2018 documented as of this encounter (statuses as of 06/21/2021) Resolved Problems Problem Noted Date Resolved Date Screening for diabetes mellitus 12/09/2018 04/02/2019 documented as of this encounter (statuses as of 06/21/2021) Immunizations Name Administration Dates Next Due Pneumococcal [...] Telephone Encounter - Ronald Jean MD - 06/21/2021 9:43 AM EST Signed Prescriptions: Disp Refills Clopidogrel Bisulfate 75 MG Oral Tablet (p*90 Tab*2 Sig: Take by mouth 1 Tablet in the morning. Authorizing Provider: RONALD JEAN * Telephone Encounter - Chetan Blanchard [facility] - 06/21/2021 9:39 AM EST Pending Prescriptions: Disp Refills Clopidogrel Bisulfate 75 MG Oral Tablet (*90 Tab*2 Sig: Take by mouth 1 Tablet in the morning. * Telephone Encounter - Chetan Blanchard [facility] - 06/21/2021 9:39 AM EST Unable to provide refills at this time. Per refill protocol patient should have CBC on file within past year. Please review and approve if appropriate. Pt just had labs done on 05/28/21 Pending Prescriptions: Disp Refills Clopidogrel Bisulfate 75 MG Oral Tablet (*90 Tab*2 Sig: Take by mouth 1 Tablet in the morning. 05/08/2021 (in office), Visit date not found (telemedicine) 11/05/2021 If no future appointments scheduled, and last appointment is greater than a year ago, please schedule patient for a follow-up appointment Last date the medication was ordered: 09/05/20 [facility] [address] [address] [place] Is this request for a controlled substance? No Urine Drug Screen:No results found for this or any previous visit. Patient Phone Numbers Labs: Lab Results Component Value Date/Time CREAT 0.8 05/28/2021 08:46 AM CREAT 0.9 12/16/2018 03:08 PM POTASSIUM 4.7 05/28/2021 08:46 AM POTASSIUM 4.4 12/16/2018 03:08 PM TSH 1.77 12/16/2018 03:08 PM LDLCALC 60 05/28/2021 08:46 AM LDLCALC 120 12/16/2018 03:08 PM LDLDIRECT 61 10/13/2020 12:13 PM LDLDIRECT NOT APPLICABLE 12/16/2018 03:08 PM ALT 23 05/28/2021 08:46 AM ALT 28 12/16/2018 03:08 PM HGBA1C 6.2 (H) 05/28/2021 08:46 AM Cheatn Whitehead, JazmineD Clinical Pharmacist Telepharmacy 11/14/2020, 10:12 AM * Telephone Encounter - Christiane Massey CPhT - 06/20/2021 9:04 AM EST Pending Prescriptions: Disp Refills Clopidogrel Bisulfate 75 MG Oral Tablet (*90 Tab*2 Sig: Take by mouth 1 Tablet in the morning. Last Visit: 05/08/2021 (in office), Visit date not found (telemedicine) Next Visit: 11/05/2021 If no future appointments scheduled, and last appointment is greater than a year ago, please schedule patient for a follow-up appointment Last date the medication was ordered: 09/05/20 [facility] [address] [place] [address] [place] Is this request for a controlled substance?No Urine Drug Screen:No results found for this or any previous visit. Patient Phone Numbers Labs: Lab Results Component Value Date/Time CREAT 0.8 05/28/2021 08:46 AM CREAT 0.9 12/16/2018 03:08 PM POTASSIUM 4.7 05/28/2021 08:46 AM POTASSIUM 4.4 12/16/2018 03:08 PM TSH 1.77 12/16/2018 03:08 PM LDLCALC 60 05/28/2021 08:46 AM LDLCALC 120 12/16/2018 03:08 PM LDLDIRECT 61 10/13/2020 12:13 PM LDLDIRECT NOT APPLICABLE 12/16/2018 03:08 PM ALT 23 05/28/2021 08:46 AM ALT 28 12/16/2018 03:08 PM HGBA1C 6.2 (H) 05/28/2021 08:46 AM documented in this encounter Plan of Treatment Upcoming Encounters Date Type Specialty Care Team Description 11/05/2021 Office Visit Family Medicine Cristal Ayala PA-C [address], [place] [phone] 01/30/2022 Office Visit Cardiology Michael Collins MD [address] [facility] [place] [address] Health Maintenance Due Date Last Done Comments DISCUSS TOBACCO CESSATION (REFER TO SMARTSET #3291) 1970 COVID-19 Vaccine (1) 1973 DIABETES-FOOT EXAM 1986 DIABETES HEPATITIS B (3 DOSE SERIES) (#1) 1987 Cologuard: Ages 45-75 2013 Colonoscopy: Ages 45-75 2013 Colorectal Cancer Screening (Colonoscopy 10 Years; Sigmoidoscopy 5 Years; Cologuard 3 Years; FOBT 1 Year): Ages 45-75 2013 FOBT: Ages 45-75 2013 Sigmoidoscopy: Ages 45-75 2013 Zoster Vaccines (1 of 2) 2018 Depression Screening, Annual for Pts 12 and Over 12/10/2019 12/09/2018 DIABETES-URINE ALBUMIN/CREATININE EVERY 12 MONTHS 06/22/2020 06/23/2019 Influenza Vaccine (FLU shot) (#1) 2020 DIABETES-EYE EXAM 09/05/2021 09/05/2020 DIABETES-HGBA1C EVERY 6 MONTHS 11/25/2021 0 05/28/2021, 10/13/2020, 07/14/2020 BASIC METABOLIC PANEL (BMP) FOR HTN YEARLY 05/28/2022 05/28/2021, 07/14/2020, 12/16/2018 DTaP,Tdap,and Td Vaccines (2 - Td or Tdap) 10/04/2026 10/04/2016 Pneumococcal Vaccine: Pediatrics (0 to 5 Years) and At-Risk Patients (6 to 64 Years) (2 of 2 - PPSV23) 2033 12/09/2018 GARDASIL-HPV IMMUNIZATION SERIES Aged Out No longer eligible b ased on patient's age to complete this topic MENINGOCOCCAL (MENACTRA/MENVEO) Aged Out No longer eligible b ased on patient's age to complete this topic documented as of this encounter Implants Not on filedocumented as of this encounter Visit Diagnoses Diagnosis Acute ST elevation myocardial infarction (STEMI) involving right coronary artery (HCC) H/O heart artery stent Postsurgical percutaneous transluminal coronary angioplasty status documented in this encounter Advance Directives Documents on File Type Date Recorded Patient Legal Job Titles Expl 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 Advanced Directive Advanced Directive Advanced Directive Advanced Directive Advanced Directive Advanced Directive Advanced Directive Advanced Directive Advanced Directive Advanced Directive Advanced Directive Care Teams Box Car Washer Relationship Specialty Start Date End Date Ronald Jean MD [address] [place] [address] PCP - General Family Medicine 06/28/20 documented as of this encounter
--- OUTSIDE RECORDS SUMMARY | 2023-01-12 10:24 | External Medical Summary | Summary of Care ---
Author Name Unknown Organization [place] [address] Care Team Providers Care Patient Transport Officer Name Role Phone Patrica Zhang MD Primary Care Provid er Encounter Details Date Type Department Care Team Description 11/01/2021 Nurse Only Ancillary Department, [place] [address] [place] [address] [place], Nurse [address] [place] [address] Arrived Allergies Active Allergy Reactions Severity Noted Date Comments Penicillins 12/09/2018 Facial swelling documented as of this encounter (statuses as of 11/01/2021) Medications Medication Sig Dispensed Refills Start Date End Date Status acetaminophen (TYLENOL) 500 MG TabletIndications:Ac [place] pain of left shoulder Take 2 Tabs by mouth every 8 hours as needed for Pain or Fever. 100 Tab 0 12/09/2018 Active OneTouch Verio In Vitro Strip USE 1 STRIP TO CHECK GLUCOSE ONCE DAILY DIRECTED 0 06/27/2020 Active OneTouch Delica Plus [id number] USE 1 TO CHECK GLUCOSE ONCE DAILY DIRECTED 0 06/27/2020 Active Aspirin 81 MG Oral Tablet Delayed Release Take 81 mg by mouth daily. 0 Active Jardiance 10 MG Oral TabletIndications:Ty pe 2 diabetes mellitus with hemoglobin A1c goal of less than 7.0% ([facility]) Take 1 tablet by mouth once daily 90 Tab 3 11/27/2020 Active metFORMIN HCl ER 500 MG Oral [...] Active Clopidogrel Bisulfate 75 MG Oral Tablet (pLAVix)Indications: Acute ST elevation myocardial infarction (STEMI) involving [...] the morning. 30 Tablet 8 07/24/2021 Active documented as of this encounter (statuses as of 11/01/2021) Active Problems Problem Noted Date Coronary artery disease invo lving [place] coronary artery of ki[place] tribe heart without angina pectoris 05/02/2021 Dyslipidemia, goal [...] as of this encounter (statuses as of 11/01/2021) Resolved Problems Problem Noted Date Resolved Date Screening for diabetes mellitus 12/09/2018 04/02/2019 documented as of this encounter (statuses as of 11/01/2021) Immunizations Name Administration Dates Next Due Pneumococcal [...] 11/05/2021 [facility] [address] [facility] [address] [facility]22 [facility] [place] [address] Health Maintenance Due Date Last Done Comments DISCUSS TOBACCO CESSATION (REFER TO SMARTSET #3291) 1970 COVID-19 Vaccine (#1) 1970 Hepatitis B (1 of 3 - Risk [...] (2 - PCV) 12/10/2019 12/09/2018 DIABETES-EYE EXAM 09/05/2021 09/05/2020 DIABETES-HGBA1C EVERY 6 MONTHS 11/25/2021 0 05/28/2021, 10/13/2020, 07/14/2020 Influenza Vaccine (FLU shot) (#1) 2021 GFR - Renal Function 05/28/2022 05/28/2021, 07/14/2020, 12/16/2018 DIABETES-URINE ALBUMIN/CREATININE EVERY 12 MONTHS 10/18/2022 10/18/2021, 06/23/2019 DIABETES-FOOT EXAM 11/01/2022 11/01/2021 DTaP,Tdap,and Td Vaccines (2 - Td or Tdap) 10/04/2026 10/04/2016 GARDASIL-HPV IMMUNIZATION SERIES Aged Out No longer eligible b ased on patient's age to complete this topic MENINGOCOCCAL (MENACTRA/MENVEO) Aged Out No longer eligible b ased on patient's age to complete this topic documented as of this encounter Implants Not on filedocumented as of this encounter Visit Diagnoses Diagnosis Screening for diabetic retinopathy- Primary Screening for other eye conditions documented in this encounter Advance Directives Documents on File Type Date Recorded 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 Advanced Directive Advanced Directive Advanced Directive Advanced Directive Advanced Directive Advanced Directive Advanced Directive Advanced Directive Advanced Directive Advanced Directive Advanced Directive Advanced Directive Advanced Directive Advanced Directive Care Teams Patient Transport Officer Relationship Specialty Start Date End Date Patrica Zhang MD [address] [place] [address] PCP - General Family Medicine 06/28/20 documented as of this encounter
--- OUTSIDE RECORDS SUMMARY | 2023-01-12 10:24 | External Medical Summary | Summary of Care ---
Author Name Unknown Organization [place] [address] Care Team Providers Care Hvac Sheet Metal Installer Helper Name Role Phone Patrica Zhang MD Primary Care Provid er Reason for Visit * Reason Onset Date Comments Scan To Read 11/01/2021 Diabetic Eye Cam era Encounter Details Date Type Department Care Team Description 11/01/[address] [facility] [address] [place] [address] Patrica Zhang MD [address] [place] [address] Scan To Read (Diabetic Eye Camera) Allergies Active Allergy Reactions Severity Noted Date Comments Penicillins 12/09/2018 Facial swelling documented as of this encounter (statuses as of 11/09/2021) Medications Medication Sig Dispensed Refills Start Date End Date Status acetaminophen (TYLENOL) 500 MG TabletIndications :Acute pain of left shoulder Take 2 Tabs by mouth every 8 hours as needed for Pain or Fever. 100 Tab 0 12/09/2018 Active OneTouch Verio In Vitro Strip USE 1 STRIP TO CHECK GLUCOSE ONCE DAILY DIRECTED 0 06/27/2020 Active OneTouch Delica Plus [id number] USE 1 TO CHECK GLUCOSE ONCE DAILY DIRECTED 0 06/27/2020 Active Aspirin 81 MG Oral Tablet Delayed Release Take 81 mg by mouth daily. 0 Active Jardiance 10 MG Oral TabletIndications :Type 2 diabetes mellitus with hemoglobin A1c goal of less than 7.0% ([facility]) Take 1 tablet by mouth once daily 90 Tab 3 11/27/2020 Active Metoprolol Succinate ER 25 MG Oral [...] mouth twice daily 180 Tablet 2 03/12/2021 11/05/2021 Discontinued (Refill) documented as of this encounter (statuses as of 11/09/2021) Active Problems Problem Noted Date Coronary artery disease invo lving [place] coronary artery of [place] heart without angina pectoris 05/02/2021 Dyslipidemia, goal [...] as of this encounter (statuses as of 11/09/2021) Resolved Problems Problem Noted Date Resolved Date Acute ST elevation myocardia l infarction (STEMI) involving right coronary artery 07/03/2020 11/05/2021 Screening for diabetes mellitus 12/09/2018 04/02/2019 documented as of this encounter (statuses as of 11/09/2021) Immunizations Name Administration Dates Next Due Pneumococcal [...] on file documented as of this encounter Patient Instructions * Patient Instructions* Mali Lord, MED ASSIST - 11/01/2021 12:20 PM EDT Diabetes: Keeping Feet Healthy Inspect your feet every day for signs of a problem. Diabetes can damage nerves in your feet and cause neuropathy. This condition makes it hard for you to feel injuries or sore spots. Diabetes can also change blood flow, making it harder for small problems, like a blister, to heal properly. In fact, minor injuries can quickly become serious infections that send you to the hospital. Practice self-care to protect your feet and keep them healthy. Take Special Care Inspect your feet daily for problems such as redness, blisters, cracks, dry skin, or numbness. Use a mirror to see the bottoms of your feet. Or, ask for help. Manage your diabetes. Monitor and control your blood sugar. Take all your medications as prescribed. Avoid walking barefoot, even indoors. Wash your feet with warm water and mild soap. Dry well, especially between toes. Dont treat corns or calluses yourself. Talk to your doctor or journeyman level acoustic analyst (a doctor who specializes in foot care) if you need assistance trimming your toenails. Use moisturizing cream or lotion if you have dry skin, but dont use it between toes. Dont use heating pads on your feet. If you have neuropathy, you could get a burn and not feel it. Stop smoking. Smoking restricts blood flow and can make it harder for wounds to heal. Have Regular Checkups Foot problems can develop quickly. So be sure to follow your healthcare teams schedule for regular checkups. During office visits, take off your shoes and socks as soon as you get in the exam room. Ask your healthcare provider to examine your feet for problems. This will make it easier to find and treat small skin irritations before they get worse. Regular checkups can also help keep track of the blood flow and feeling in your feet. If you have neuropathy, you may need to have checkups more often. Wear Proper Footwear Wearing proper footwear is very important. If areas of your feet have been damaged by too much pressure, your healthcare provider may recommend changing your footwear. In some cases, avoiding high heels or tight work boots may be all thats needed. Or, your healthcare provider may recommend special shoes or custom inserts. These help protect your feet and keep existing irritations from getting worse. If you need special footwear, ask your healthcare provider if you qualify for [employer] diabetic shoe program. Make Sure Shoes and Socks Fit Any pair of shoesnew or oldshould feel comfortable as soon as you put them on. There shouldnt be any rubbing when you walk. Wear the right shoe for any activity. For instance, a running shoeis designed to keep your feet injury-free while jogging. Buy shoes at the end of the day, when yourfeet are larger. Make sure they provide support without feeling too loose. Make sure your socks fit, too. Wear soft, seamless, well-padded socks for activity. Cotton or microfiber socks are best to help to absorb sweat. To protect your feet, avoid shoes that are open-toed or open-heeled. If you have questions about what kinds of shoes and socks are best, talk to your healthcare team. Get Regular Exercise Regular exercise improves blood flow in your feet. It also increases foot strength and flexibility.Gentle exercises, like walking or riding a stationary bicycle, are best. You can also do special foot exercises. Just be sure to talk with your healthcare provider before starting any exercise program. Also mention if any exercise causes pain, redness, or other signs of foot problems. Note: If you have any kind of break in the skin of your foot or ankle, keep the area clean. Then call your doctorespecially if the area doesnt appear to be healing. [phone] [employer], [address] [place] [address]. All rights reserved. This information is not intended as a substitute for professional medical care. Always follow your healthcare professional's instructions. documented in this encounter Miscellaneous Notes * Telephone Encounter - RUY Albarran ASSIST - 11/09/2021 12:[address] Black, I just released the photos into the chart. You should be able to see them now. My apologies. I had a hard time getting clear photos on this patient. Thank you! * Telephone Encounter - Carlton Black MD - 11/01/2021 12:55 PM EDT [place] I don't see any current retinal scans in [facility]. Carlton Black MD * Telephone Encounter - RUY Albarran - 11/01/2021 12:12 PM EDT A Diabetic Telemed Eye image was taken and requires your interpretation for Dr. Zhang. Please check your inbasket for image. Patient prefers to be seen at [facility] if a follow-up appointment is needed. DM Foot Exam completed today. Provider aware. RUY Albarran Socks and Shoes Removed for Annual Diabetic Foot Screening RIGHT FOOT: No Reddened, Cracking, Or Open Areas Noted. Pt has thick callus' w/ cracking and monge around heel and ball of feet. RIGHT Dorsalis Pedis Pulse: Palpable RIGHT Posterior Tibial Pulse: Palpable RIGHT Monofilament:Patient reports feeling monofilament pressure on plantar surface of foot LEFT FOOT: No Reddened, Cracking or Open Areas Noted. Pt has thick callus' w/ cracking and monge around heels and ball of feet. LEFT Dorsalis Pedis Pulse: Palpable LEFT Posterior Tibial Pulse: Palpable LEFT Monofilament:Patient reports feeling monofilament pressure on plantar surface of foot. documented in this encounter Plan of Treatment Upcoming Encounters Date Type Specialty Care Team Description 01/30/2022 Office Visit Cardiology Michael Collins MD [address] [place] [address] [place] [address] 2022 Office Visit Family Medicine Cristal Ayala PA-C [address] [place] [address] Health Maintenance Due Date Last Done Comments DISCUSS TOBACCO CESSATION (REFER TO SMARTSET #1801) 1970 COVID-19 Vaccine (#1) 1968 HIV Screening [...] mention of complication, not stated as uncontrolled documented in this encounter Advance Directives Documents on File Type Date Recorded Patient Disciplinary Hearing Officer Expl 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 Advanced Directive Advanced Directive Advanced Directive Advanced Directive Advanced Directive Advanced Directive Advanced Directive Advanced Directive Advanced Directive Advanced Directive Advanced Directive Advanced Directive Advanced Directive Advanced Directive Advanced Directive Care Teams Hvac Sheet Metal Installer Helper Relationship Specialty Start Date End Date Patrica Zhang MD [address] [place] [address] PCP - General Family Medicine 06/28/20 documented as of this encounter
--- OUTSIDE RECORDS SUMMARY | 2023-01-12 10:24 | External Medical Summary | Summary of Care ---
Author Name Unknown Organization [place] [address] Care Team Providers Care Unit Educator Name Role Phone Patrica Zhang MD Primary Care Provid er Reason for Visit * Reason Onset Date Comments Scan To Read 11/01/2021 Diabetic Eye Cam era Encounter Details Date Type Department Care Team Description 11/01/2021 Telephone [facility] [address] [place] [address] Patrica Zhang MD [address] [place] [address] Scan To Read (Diabetic Eye Camera) Allergies Active Allergy Reactions Severity Noted Date Comments Penicillins 12/09/2018 Facial swelling documented as of this encounter (statuses as of 11/01/2021) Medications Medication Sig Dispensed Refills Start Date End Date Status acetaminophen (TYLENOL) 500 MG TabletIndications:Ac cheesh-na pain of left shoulder Take 2 Tabs by mouth every 8 hours as needed for Pain or Fever. 100 Tab 0 12/09/2018 Active OneTouch Verio In Vitro Strip USE 1 STRIP TO CHECK GLUCOSE ONCE DAILY DIRECTED 0 06/27/2020 Active OneTouch Delica Plus [id number] USE 1 TO CHECK GLUCOSE ONCE DAILY DIRECTED 0 06/27/2020 Active Aspirin 81 MG Oral Tablet Delayed Release Take 81 mg by mouth daily. 0 Active Jardiance 10 MG Oral TabletIndications:Ty pe 2 diabetes mellitus with hemoglobin A1c goal of less than 7.0% ([facility]) Take 1 tablet by mouth once daily [...] Noted Date Coronary artery disease invo lving [place] coronary artery of [place] heart without angina pectoris 05/02/2021 Dyslipidemia, goal [...] calluses yourself. Talk to your doctor or prevention coordinator (a doctor who specializes in foot care) [...] the area doesnt appear to be healing. [phone] [employer], [address] [place] [address]. All rights reserved. This information is not intended as a substitute for professional medical care. Always follow your healthcare professional's instructions. documented in this encounter Miscellaneous Notes * Telephone Encounter - Carlton Black MD - 11/01/2021 12:55 PM EDT Mali Cooley don't see any current retinal scans in [facility]. Carlton Black MD * Telephone Encounter - RUY Albarran - 11/01/2021 12:12 PM EDT A Diabetic Telemed Eye image was taken and requires your interpretation for Dr. Zhang. Please check your inbasket for image. Patient prefers to be seen at [facility] if a follow-up appointment is needed. DM Foot Exam completed today. Provider aware. 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
--- OUTSIDE RECORDS SUMMARY | 2023-01-12 10:24 | External Medical Summary | Summary of Care ---
Author Name Unknown Organization [facility] [place] [address] Care Team Providers Care Organ Tuner Name Role Phone Patrica Zhang MD Primary Care Provid er Reason for Visit * Reason Onset Date Comments Health Maintenance 10/29/2021 Encounter Details Date Type Department Care Team Description 10/29/2021 Telephone [facility] [address] [place] [address] Patrica Zhang MD [address] [place] [address] Health Maintenance Allergies Active Allergy Reactions Severity Noted Date Comments Penicillins 12/09/2018 Facial swelling documented as of this encounter (statuses as of 10/29/2021) Medications Medication Sig Dispensed Refills Start Date End Date Status acetaminophen (TYLENOL) 500 MG TabletIndications:Ac vi[place] pain of left shoulder Take 2 Tabs by mouth every 8 hours as needed for Pain or Fever. 100 Tab 0 12/09/2018 Active OneTouch Verio In Vitro Strip USE 1 STRIP TO CHECK GLUCOSE ONCE DAILY DIRECTED 0 06/27/2020 Active OneTouch Delica Plus [id number] USE 1 TO CHECK GLUCOSE ONCE DAILY [...] as of this encounter (statuses as of 10/29/2021) Active Problems Problem Noted Date Coronary artery disease invo lving [place] tribe coronary artery of [place] indian tribe heart without angina pectoris 05/02/2021 Dyslipidemia, [...] as of this encounter (statuses as of 10/29/2021) Resolved Problems Problem Noted Date Resolved Date Screening for diabetes mellitus 12/09/2018 04/02/2019 documented as of this encounter (statuses as of 10/29/2021) Immunizations Name Administration Dates Next Due Pneumococcal [...] encounter Miscellaneous Notes * Telephone Encounter - Araseli Hammond LPN - 10/29/2021 8:39 AM EDT Care Gaps Comprehensive Care Outreach Last Office/Telemedicine Visit: 05/08/2021 (in office), Visit date not found (telemedicine) Last Office/Telemedine Visit Annual Wellness: Next Office Visit: 11/05/2021 Hemoglobin AIC Results: Lab Results Component Value Date/Time HEMOGLOBIN A1C - [facility] 6.2 (H) 05/28/2021 08:46 AM HEMOGLOBIN A1C - [facility] 6.4 (H) 10/13/2020 12:13 PM HEMOGLOBIN A1C - [facility] 9.3 (H) 07/14/2020 12:58 PM Health Maintenance Topic Date Due COVID-19 Vaccine (1) Never done DIABETES-FOOT EXAM Never done DIABETES HEPATITIS B (3 DOSE SERIES) (1) Never done Colorectal Cancer Screening (Colonoscopy 10 Years; Sigmoidoscopy 5 Years; Cologuard 3 Years; FOBT 1 Year): Ages 45-75 Never done Zoster Vaccines (1 of 2) Never done Pneumococcal Vaccine: Pediatrics (0 to 5 Years) and At-Risk Patients (6 to 64 Years) (2 - PCV) 12/10/2019 DIABETES-EYE EXAM 09/05/2021 DIABETES-HGBA1C EVERY 6 MONTHS 11/25/2021 Care Gap Outreach Action Taken: Spoke to patient Scheduled diabetes day Scheduled labs Declined other hm documented in this encounter Plan of Treatment Upcoming Encounters Date Type Specialty Care Team Description 11/01/2021 Nurse Only Ancillary [facility] [address] [place] [facility] [place] [address] 11/01/2021 Laboratory Laboratory [facility] [address] [place] [address] 11/05/2021 Office Visit Family Medicine Cristal Ayala PA-C [address] [place] [address] 01/30/2022 Office Visit Cardiology Michael Collins MD [address] [place] [address] Scheduled Orders Name Type Priority Associated Diagnoses Orde r Schedule HEMOGLOBIN A1C Lab Routine Diabetes mellitus screening Expected: 10/29/2021, Expires: 10/29/2022 LIPID PANEL WITH DIRECT LDL IF TG IS HIGH Lab Routine Dyslipidemia, goal LDL below 70 Expected: 10/29/2021, Expires: 10/29/2022 COMPREHENSIVE METABOLIC PANEL Lab Routine HTN, goal below 130/80 Expected: 10/29/2021, Expires: 10/29/2022 Health Maintenance Due Date Last Done Comments DISCUSS TOBACCO CESSATION (REFER TO SMARTSET #6761) 1970 COVID-19 Vaccine (#1) 1970 DIABETES-FOOT EXAM 1986 DIABETES HEPATITIS B (3 [...] ALBUMIN/CREATININE EVERY 12 MONTHS 10/18/2022 10/18/2021, 06/23/2019 DTaP,Tdap,and Td Vaccines (2 - Td or Tdap) 10/04/2026 10/04/2016 GARDASIL-HPV IMMUNIZATION SERIES Aged Out No longer eligible b ased on patient's age to complete this topic MENINGOCOCCAL (MENACTRA/MENVEO) Aged Out No longer eligible b ased on patient's age to complete this topic documented as of this encounter Implants Not on filedocumented as of this encounter Visit Diagnoses Diagnosis Dyslipidemia, goal LDL below 70- Primary Other and unspecified hyperlipidemia Diabetes mellitus screening Screening for diabetes mellitus Screening for diabetic retinopathy Screening for other eye conditions Hypertension, unspecified type Screening for lipid disorders documented in this encounter Advance Directives Documents on File Type Date Recorded Patient Documentation Manager Expl 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 Advanced Directive Advanced Directive Advanced Directive Advanced Directive Advanced Directive Advanced Directive Advanced Directive Advanced Directive Advanced Directive Advanced Directive Advanced Directive Advanced Directive Advanced Directive Advanced Directive Care Teams Organ Tuner Relationship Specialty Start Date End Date Patrica Zhang MD [address] [place] [address] PCP - General Family Medicine 06/28/20 documented as of this encounter
--- OUTSIDE RECORDS SUMMARY | 2023-01-12 10:24 | External Medical Summary ---
Author Name Unknown Address Unknown Organization K01:[facility] - [address] [place] [address] Laboratory Report Ordering Provider Test Date Status MIRANDA CARDENAS 11/01/2021 11:24:29 Final Observation Date Value Abnormality Reference (Units ) Status Triglyceride 11/01/2021 11:24:29 77 <=174 ( mg/dL) Final Performing Location [facility] [address] [place] [address]
--- OUTSIDE RECORDS SUMMARY | 2023-01-12 10:24 | External Medical Summary | Summary of Care ---
Author Name Unknown Organization [place] [address] Care Team Providers Care Auto Body Repairer Name Role Phone Patrica Zhang MD Primary Care Provid er Reason for Visit * Reason Onset Date Comments Test Results 06/07/2021 Encounter Details Date Type Department Care Team Description 06/07/[address] [facility] [address] [place] [address] Cristal Ayala PA-C [address] [place] [address] Test Results Allergies Active Allergy Reactions Severity Noted Date Comments Penicillins 12/09/2018 Facial swelling documented as of this encounter (statuses as of 06/18/2021) Medications Medication Sig Dispensed Refills Start Date End Date Status acetaminophen (TYLENOL) 500 MG TabletIndications :Acute pain of left shoulder Take 2 Tabs by mouth every 8 hours as needed for Pain or Fever. 100 Tab 0 12/09/2018 Active OneTouch Verio In Vitro Strip USE 1 STRIP TO CHECK GLUCOSE ONCE DAILY DIRECTED 0 06/27/2020 Active OneTouch Delica Plus [id number] USE 1 TO CHECK GLUCOSE ONCE DAILY DIRECTED 0 06/27/2020 Active Aspirin 81 MG Oral Tablet Delayed Release Take 81 mg by mouth daily. 0 Active Atorvastatin Calcium 80 MG Oral Tablet (Lipitor) Take 1 Tab by mouth at bedtime. 30 Tab 11 07/25/2020 Active Clopidogrel Bisulfate 75 MG Oral Tablet (pLAVix)Indicatio ns:Acute ST elevation myocardial infarction (STEMI) involving right coronary artery (HCC),H/O heart artery stent Take 1 Tab by mouth daily. 90 Tab 2 09/05/2020 Active Jardiance 10 MG Oral TabletIndications :Type [...] goal of less than 7.0% ([facility]) Take 2 tablets by mouth twice daily [...] Erectile Dysfunction. 10 Tablet 5 06/18/2021 Active Vardenafil HCl 20 MG Oral Tablet (Levitra) Take 1 Tablet (20 mg) daily as needed by mouth for Erectile Dysfunction. 10 Tablet 0 05/08/2021 06/15/2021 Discontinued (Refill) documented as of this encounter (statuses as of 06/18/2021) Active Problems Problem Noted Date Coronary artery disease invo lving te[place] coronary artery of [place] heart without angina pectoris 05/02/2021 Dyslipidemia, goal [...] as of this encounter (statuses as of 06/18/2021) Resolved Problems Problem Noted Date Resolved Date Screening for diabetes mellitus 12/09/2018 04/02/2019 documented as of this encounter (statuses as of 06/18/2021) Immunizations Name Administration Dates Next Due Pneumococcal [...] encounter Miscellaneous Notes * Telephone Encounter - WILLOW Pa - 06/15/2021 11:27 AM EST Patient has been informed of below message and verbalized understanding. Pt is asking for refill of ED med. Med pending. * Telephone Encounter - Marely Dash LPN - 06/07/2021 4:19 PM EST Called pt. No answer. Voicemail is not setup, unable to leave message. * Telephone Encounter - Marely Dash LPN - 06/07/2021 4:19 PM EST ----- Message from Cristal Ayala PA-C sent at 06/07/2021 1:52 PM EST ----- Great news! Recent sugar labs look great. No changes from me!Please call the office at [phone] you have any questions or concerns.KEE Marino21:52 PM documented in this encounter Plan of Treatment Upcoming Encounters Date Type Specialty Care Team Description 11/05/2021 Office Visit Family Medicine Cristal Ayala PA-C [address] [place] [address] 01/30/2022 [facility] [address] 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
--- OUTSIDE RECORDS SUMMARY | 2023-01-12 10:24 | External Medical Summary ---
Author Name Unknown Address Unknown Organization K01:[facility] - [address] [place] [address] Laboratory Report Ordering Provider Test Date Status KENDALL HUFFMAN 10/18/2021 19:24:05 Final Observation Date Value Abnormality Reference (Units ) Status Albumin, Urine 10/18/2021 19:24:05 <1.20 (mg/dL) Final Creatinine, Urine 10/18/2021 19:24:05 87 (mg/dL) Final Albumin/Creatinine [Mass Ratio] in Urine 10/18/2021 19:24:05 <14 <30 (mg/g Creat) Final Performing Location [facility] - [address] [place] [address]
--- OUTSIDE RECORDS SUMMARY | 2023-01-12 10:24 | External Medical Summary | Summary of Care ---
Author Name Unknown Organization [place] [address] Care Team Providers Care Water Commissioner Name Role Phone Patrica Zhang MD Primary Care Provid er Reason for Visit * Reason Onset Date Comments Test Results 05/14/2021 Encounter Details Date Type Department Care Team Description 05/14/2021 Telephone Cardiology, [facility] [address] [facility] [place] [address] Clementine Steiner CRNP [address] [place] [address] Test Results Allergies Active Allergy Reactions Severity Noted Date Comments Penicillins 12/09/2018 Facial swelling documented as of this encounter (statuses as of 05/14/2021) Medications Medication Sig Dispensed Refills Start Date End Date Status acetaminophen (TYLENOL) 500 MG TabletIndications:Ac rosebud pain of left shoulder Take 2 Tabs by mouth every 8 hours as needed for Pain or Fever. 100 Tab 0 12/09/2018 Active OneTouch Verio In Vitro Strip USE 1 STRIP TO CHECK GLUCOSE ONCE DAILY DIRECTED 0 06/27/2020 Active OneTouch Delica Plus [id number] USE 1 TO CHECK GLUCOSE ONCE DAILY [...] 2 09/05/2020 Active Jardiance 10 MG Oral TabletIndications:Ty pe 2 diabetes mellitus with hemoglobin A1c goal of less than 7.0% ([facility]) Take 1 tablet by mouth once daily 90 Tab 3 11/27/2020 Active amLODIPine Besylate 5 MG Oral Tablet (Norvasc) Take 1 tablet by mouth once daily 30 Tab 5 01/24/2021 Active metFORMIN HCl ER 500 MG Oral Tablet Extended Release 24 Hour (Glucophage XR)Indications:Type 2 diabetes mellitus with hemoglobin A1c goal of less than 7.0% ([facility]) Take 2 tablets by mouth twice daily [...] for Erectile Dysfunction. 10 Tablet 0 05/08/2021 Active documented as of this encounter (statuses as of 05/14/2021) Active Problems Problem Noted Date Coronary artery disease invo lving tel[place] coronary artery of [place] heart without angina pectoris 05/02/2021 Dyslipidemia, goal [...] as of this encounter (statuses as of 05/14/2021) Resolved Problems Problem Noted Date Resolved Date Screening for diabetes mellitus 12/09/2018 04/02/2019 documented as of this encounter (statuses as of 05/14/2021) Immunizations Name Administration Dates Next Due Pneumococcal [...] encounter Miscellaneous Notes * Telephone Encounter - Basilio Coleman RN - 05/14/2021 12:07 PM EST Called and spoke to the patient by phone and reviewed the message with him from Clementine ROJAS in regards to his B/L lower extremity vascular studies. He stated he understood. * Telephone Encounter - Basilio Coleman RN - 05/14/2021 12:07 PM EST ----- Message from CRYSTAL Resendiz sent at 05/11/2021 4:39 PM EST ----- Results reviewed and coverage of Maria Alfaro PA-C No evidence of significant arterial occlusive disease in bilateral lower extremities. documented in this encounter Plan of Treatment Upcoming Encounters Date Type Specialty Care Team Description 11/05/2021 Office Visit Family Medicine Cristal Ayala PA-C [address] [place] [address] 01/30/2022 [facility] Visit [facility] [address] [facility] [address] Health Maintenance Due Date Last Done Comments COVID-19 Vaccine (1) 1973 DIABETES-FOOT EXAM 1986 DIABETES HEPATITIS B (3 DOSE SERIES) (#1) 1987 Zoster Vaccines (1 of 2) 2018 *COLORECTAL CANCER SCREENING (COLONOSCOPY 10 YEARS; SIGMOIDOSCOPY 5 YEARS; COLOGUARD 3 YEARS; FOBT 1 YEAR),AGES 50-75 12/03/2018 Depression Screening, Annual for Pts 12 and Over 12/10/2019 12/09/2018 DIABETES-URINE ALBUMIN/CREATININE EVERY 12 MONTHS 06/22/2020 06/23/2019 Influenza Vaccine (FLU shot) (#1) 2020 DIABETES-HGBA1C EVERY 6 MONTHS 04/15/2021 0 10/13/2020, 07/14/2020 *DISCUSS TOBACCO CESSATION (REFER TO SMARTSET #3291) 05/05/2021 DIABETES-EYE EXAM 09/05/2021 09/05/2020 DTaP,Tdap,and Td Vaccines (2 - Td or [...] Documents on File Type Date Recorded 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
--- OUTSIDE RECORDS SUMMARY | 2023-01-12 10:24 | External Medical Summary | Summary of Care ---
Author Name Unknown Organization [place] [address] Care Team Providers Care Acid Tender Name Role Phone Patrica Zhang MD Primary Care Provid er Reason for Visit * Reason Comments Follow Up 6 month follow up Encounter Details Date Type Department Care Team Description 05/08/2021 Office Visit [facility] [address] [place] [address] Cristal Ayala PA-C [address] [place] [address] Type 2 diabetes mellitus with hemoglobin A1c goal of less than 7.0% ([facility])*; HTN, goal below 130/80; History of tobacco abuse; Dyslipidemia, goal LDL below 70; H/O heart artery stent; COVID-19 vaccine dose declined Allergies Active Allergy Reactions Severity Noted Date Comments Penicillins 12/09/2018 Facial swelling documented as of this encounter (statuses as of 05/08/2021) Medications Medication Sig Dispensed Refills Start Date End Date Status acetaminophen (TYLENOL) 500 MG TabletIndications :Acute pain of left shoulder Take 2 Tabs by mouth every 8 hours as needed for Pain or Fever. 100 Tab 0 12/09/2018 Active OneTouch Verio In Vitro Strip USE 1 STRIP TO CHECK GLUCOSE ONCE DAILY DIRECTED 0 06/27/2020 Active OneTouch Delica Plus [id number] USE 1 TO CHECK GLUCOSE ONCE DAILY [...] 7.0% ([facility]) Take 2 tablets by mouth twice daily [...] Erectile Dysfunction. 10 Tablet 0 05/08/2021 Active Lisinopril 5 MG Oral Tablet (Prinivil) Take 1 Tab by mouth daily. In the morning. 30 Tab 5 07/25/2020 05/08/2021 Discontinued (Refill) Sildenafil Citrate 25 MG Oral Tablet Take 1 Tab by mouth daily as needed for Erectile Dysfunction. 10 Tab 0 11/28/2020 05/08/2021 Discontinued (Refill) Metoprolol Succinate ER 25 MG Oral Tablet Extended Release 24 Hour (toPROL XL) Take 1 tablet by mouth once daily 90 Tablet 0 03/25/2021 05/08/2021 Discontinued (Refill) documented as of this encounter (statuses as of 05/08/2021) Active Problems Problem Noted Date Coronary artery disease invo lving [place] coronary artery of [place] heart without angina pectoris 05/02/2021 Dyslipidemia, goal [...] as of this encounter (statuses as of 05/08/2021) Resolved Problems Problem Noted Date Resolved Date Screening for diabetes mellitus 12/09/2018 04/02/2019 documented as of this encounter (statuses as of 05/08/2021) Immunizations Name Administration Dates Next Due Pneumococcal [...] Sign Reading Time Taken Comments Blood Pressure 138/74 05/08/2021 2:35 PM EST Pulse 74 05/08/2021 2:35 PM EST Temperature 36.4 C (97.5 F) 05/08/2021 2:35 PM ES T Respiratory Rate 16 05/08/2021 2:35 PM EST Oxygen Saturation 98% 05/08/2021 2:35 PM EST Inhaled Oxygen Concentration - - Weight 131 kg (288 lb 12.8 oz) 05/08/2021 2:35 P M EST Height - - Body Mass Index 37.08 09/05/2020 6:15 PM EDT documented in this encounter Progress Notes * Cristal Ayala PA-C - 05/08/2021 2:38 PM EST Images from the original note were not included. History of Present Illness Reyes Mcpherson is a 51 year old male that presents for Follow Up (6 month follow up) Here for regular return. He defers covid vaccine. He is due for lab work. Current with cardiology. He is due for fasting lab work. They have arrangedfor him to have an jazlyn. Last labs done summer Hemoglobin AIC Results: Lab Results Component Value Date/Time HEMOGLOBIN A1C - [facility] 6.4 (H) 10/13/2020 12:13 PM HEMOGLOBIN A1C - [facility] 9.3 (H) 07/14/2020 12:58 PM Doing ok. Down 11 lbs. Watching diet. Past Medical History: Diagnosis Date ADD (attention deficit disorder) as a child H/O heart artery stent 07/03/2020 Extensive ROS Constitutional (f/c/wt/vision/hearing): Negative Resp (cough/sob/gavin): Negative CV (cp/palp/fluttering/diaphoresis/gavin/pnd):Negative GI (n/v/d/hrtburn): occ issues with constipation Endo (hair/cold or heat intol/ 3 p's): Negative Neuro (shaking/weak/fatigu/parasthesi/): Negative Skin (rash/easy bruis/xerosis): Negative Psy (si/hi/halluc/): Negative (nocturia/hesit/drib/sexual review): Negative Lymph (swollen glands/b sx's/: Negative Physical Exam Vitals: 05/08/21 1435 Temp: 36.4 C (97.5 F) Pulse: 74 Resp: 16 SpO2: 98% BP: 138/74 General: alert, healthy and no distress Head: Normocephalic, No masses, lesions, tenderness or abnormalities Eye Exam: PERRLA, extraocular movements intact, conjunctiva are pink and non- injected, sclera clear Ears: External ears normal, Canals clear, TM's Normal Nose: no mucosal erythema, no mucosal edema, no purulent discharge Neck: supple, no adenopathy, no bruits, thyroid normal size, non-tender, without nodularity Heart: regular rate & rhythm, no murmurs, no gallops, S-1 normal and S-2 normal Lungs: chest symmetric with normal AP diameter, no chest deformities noted, no chest wall tenderness, lungs clear to auscultation Pulses: carotid=2/4 w/o bruits Abdomen: abdomen soft, non-tender, normal bowel sounds and no masses or organomegaly Back: back symmetric, no curvature, no costovertebral angle tenderness, range of motion is normal Skin: skin color, texture, turgor are normal, no rashes or significant lesions Assessment and Plan Type 2 diabetes mellitus with hemoglobin A1c goal of less than 7.0% ([facility]) (Primary) - HEMOGLOBIN A1C; Future; Expected date: 05/08/2021 - ALBUMIN / CREATININE RATIO, URINE; Future; Expected date: 05/08/2021 HTN, goal below 130/80 - close to goal History of tobacco abuse Dyslipidemia, goal LDL below 70 - labs due for cardiology H/O heart artery stent - on blood thinners COVID-19 vaccine dose declined Other orders - Metoprolol Succinate ER 25 MG Oral Tablet Extended Release 24 Hour (toPROL XL); Take 1 Tablet (25mg) in the morning by mouth. - Lisinopril 5 MG Oral Tablet (Prinivil); Take 1 Tablet (5 mg) in the morning by mouth. In the morning.. - Vardenafil HCl 20 MG Oral Tablet (Levitra); Take 1 Tablet (20 mg) daily as needed by mouth for Erectile Dysfunction. Discussion with patient of risk and benefit of medication. also discussion of common side affects. patient counseled and is aware and wishes to purse this medication, agrees to call with any issues or concerns. refills Labs due Cont current emds Time: I spent a total of 20-29 minutes (exact time 19 mins) on the date of service in preparation, delivery, and documentation of the care provided to Reyes Mcpherson excluding any time spent in the performance of separately billed services. Cristal Ayala PA-C 05/08/2021 2:54 PM documented in this encounter Nursing Notes * Christopher Wick LPN - 05/08/2021 2:32 PM EST The patient has been properly identified by confirmation of name and date of . Chief Complaint Patient presents with Follow Up 6 month follow up documented in this encounter Plan of Treatment Upcoming Encounters Date Type Specialty Care Team Description 05/11/2021 Imaging Radiology 11/05/2021 Office Visit Family Medicine Cristal Ayala PA-C [address] [place] [address] 01/30/2022 Office Visit Cardiology Michael Collins MD [address] [place] [address] Scheduled Orders Name Type Priority Associated Diagnoses Orde r Schedule HEMOGLOBIN A1C Lab Routine Type 2 diabetes mellitus with hemoglobin A1c goal of less than 7.0% (HCC) Expected: 05/08/2021 (Approximate), Expires: 05/08/2022 ALBUMIN / CREATININE RATIO, URINE Lab Routine Type 2 diabetes mellitus with hemoglobin A1c goal of less than 7.0% (HCC) Expected: 05/08/2021 (Approximate), Expires: 05/08/2022 Health Maintenance Due Date Last Done Comments [...] hemoglobin A1c goal of less than 7.0% (HCC)- Primary HTN, goal below 130/80 Unspecified essential hypertension History of tobacco abuse Personal history of tobacco use, presenting hazards to health Dyslipidemia, goal LDL below 70 Other and unspecified hyperlipidemia H/O heart artery stent Postsurgical percutaneous transluminal coronary angioplasty status COVID-19 vaccine dose declined documented in this encounter Advance Directives Documents on File Type Date Recorded 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
--- OUTSIDE RECORDS SUMMARY | 2023-01-12 10:24 | External Medical Summary | Summary of Care ---
Author Name Unknown Organization [place] [address] Care Team Providers Care Mark Up Designer Name Role Phone Patrica Zhang MD Primary Care Provid er Reason for Visit * Reason Comments Outpatient Testing Encounter Details Date Type Department Care Team Description 11/01/2021 Laboratory Laboratory, [place] [address] [place] [address] [place] [address] [place] [address] Diabetes mellitus screening; Dyslipidemia, goal LDL below 70; HTN, goal below 130/80 Allergies Active Allergy [...] DIRECTED 0 06/27/2020 Active OneTouch Delica Plus [id number] USE 1 TO CHECK GLUCOSE ONCE DAILY [...] Noted Date Coronary artery disease invo lving [place] coronary artery of [place] heart without angina pectoris 05/02/2021 Dyslipidemia, goal [...] Family Medicine Cristal Ayala PA-C [address] [facility] [place] [address] 01/30/2022 Office Visit Cardiology Michael Collins MD [address] [place] [address] Pending Results Name Type Priority Associated Diagnoses Date /Time HEMOGLOBIN A1C Lab Routine Diabetes mellitus screening 11/01/2021 11:24 AM EDT LIPID PANEL WITH DIRECT LDL IF TG IS HIGH Lab Routine Dyslipidemia, goal LDL below 70 11/01/2021 11:24 AM EDT COMPREHENSIVE METABOLIC PANEL Lab Routine HTN, goal below 130/80 11/01/2021 11:24 AM EDT Health Maintenance Due Date Last Done Comments DISCUSS TOBACCO CESSATION (REFER TO SMARTSET #3291) 1968 COVID-19 Vaccine (#1) 1968 DIABETES-FOOT EXAM 1986 Hepatitis B (1 of 3 - [...] as of this encounter Visit Diagnoses Diagnosis Diabetes mellitus screening Screening for diabetes mellitus Dyslipidemia, goal LDL below 70 Other and unspecified hyperlipidemia HTN, goal below 130/80 Unspecified essential hypertension documented in this encounter Advance Directives Documents on File Type Date Recorded 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 Advanced Directive Advanced Directive Advanced Directive Advanced Directive Advanced Directive Advanced Directive Advanced Directive Advanced Directive Advanced Directive Advanced Directive Advanced Directive Advanced Directive Advanced Directive Advanced Directive Care Teams Mark Up Designer Relationship Specialty Start Date End Date Patrica Zhang MD [address] [place] [address] PCP - General Family Medicine 06/28/20 documented as of this encounter
--- OUTSIDE RECORDS SUMMARY | 2023-01-12 10:24 | External Medical Summary | Summary of Care ---
Author Name Unknown Organization [place] [address] Care Team Providers Care Heel Seater Name Role Phone Patrica Zhang MD Primary Care Provid er Reason for Visit * Reason Onset Date Comments Scan To Read 11/01/2021 Diabetic Eye Cam era Encounter Details Date Type Department Care Team Description 11/01/2021 Telephone [facility] [address] [place] [address] Patrica Zhang MD [address] [place] [address] Scan To Read (Diabetic Eye Camera) Allergies [...] DIRECTED 0 06/27/2020 Active OneTouch Delica Plus [id number] USE 1 TO CHECK GLUCOSE ONCE DAILY DIRECTED 0 06/27/2020 Active Aspirin 81 MG Oral Tablet Delayed Release Take 81 mg by mouth daily. 0 Active Jardiance 10 MG Oral TabletIndications :Type 2 diabetes mellitus with hemoglobin A1c goal of less than 7.0% ([facility]) Take 1 tablet by mouth once [...] Noted Date Coronary artery disease invo lving [place] coronary artery of [place] heart without angina pectoris 05/02/2021 Dyslipidemia, goal [...] calluses yourself. Talk to your doctor or business services assistant (a doctor who specializes in foot care) [...] the area doesnt appear to be healing. [id number] [employer], [address] [place] [address]. All rights reserved. This information is not intended as a substitute for professional medical care. Always follow your healthcare professional's instructions. documented in this encounter Miscellaneous Notes * Telephone Encounter - Carlton Black MD - 11/09/2021 3:39 PM EDT Retinal Scan Imaging [place] [id number] Retinal Scan Interpretation: There is no retinopathy in both eyes Diabetes Retinal Imaging Care Plan: The retinal scan results are normal - I will forward this encounter to the Ophthalmology DM Letter Pool [[id number]], they will send a normal retinal scan letter to the patient, and the patient will be seen back for a yearly scan. Carlton Black MD 11/09/2021 3:39 PM * Telephone Encounter - RUY Albarran - 11/09/2021 12:[address] Black, I just released the photos into the chart. You should be able to see them now. My apologies. I had a hard time getting clear photos on this patient. Thank you! * Telephone Encounter - Carlton Black MD - 11/01/2021 12:55 PM EDT Mali Cooley don't see any current retinal scans in [facility]. Carlton Black MD * Telephone Encounter - Mali Lord MED ASSIST - 11/01/2021 12:12 PM EDT A Diabetic Telemed Eye image was taken and requires your interpretation for Dr. Zhang. Please check your inbasket for image. Patient prefers to be seen at [facility] if a follow-up appointment is needed. DM Foot Exam completed today. Provider aware. Mali Lord MED ASSIST Socks and Shoes Removed for Annual Diabetic [...] Office Visit Cardiology Michael Collins MD [address] 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 Advanced Directive Advanced Directive Advanced Directive Advanced Directive Advanced Directive Advanced Directive Advanced Directive Advanced Directive Advanced Directive Advanced Directive Advanced Directive Advanced Directive Advanced Directive Advanced Directive Advanced Directive Care Teams Heel Seater Relationship Specialty Start Date End Date Patrica Zhang MD [address] [place] [address] PCP - General Family Medicine 06/28/20 documented as of this encounter
--- OUTSIDE RECORDS SUMMARY | 2023-01-12 10:24 | External Medical Summary | Summary of Care ---
Author Name Unknown Organization [place] [address] Care Team Providers Care Prototype Assembler Electronics Name Role Phone Patrica Zhang MD Primary Care Provid er Encounter Details Date Type Department Care Team Description 11/01/2021 Nurse Only Ancillary Department, [place] [address] [place] [address] [place], Nurse [address] [place] [address] Arrived Allergies Active Allergy Reactions Severity Noted Date Comments Penicillins 12/09/2018 Facial swelling documented as of this encounter (statuses as of 11/01/2021) Medications Medication Sig Dispensed Refills Start Date End Date Status acetaminophen (TYLENOL) 500 MG TabletIndications:Ac [place] pain of left shoulder Take 2 Tabs by mouth every 8 hours as needed for Pain or Fever. 100 Tab 0 12/09/2018 Active OneTouch Verio In Vitro Strip USE 1 STRIP TO CHECK GLUCOSE ONCE DAILY DIRECTED 0 06/27/2020 Active OneTouch Delica Plus [id number] USE 1 TO CHECK GLUCOSE ONCE DAILY DIRECTED 0 06/27/2020 Active Aspirin 81 MG Oral Tablet Delayed Release Take 81 mg by mouth daily. 0 Active Jardiance 10 MG Oral TabletIndications:Ty pe 2 diabetes mellitus with hemoglobin A1c goal of less than 7.0% ([facility]) Take 1 tablet by mouth [...] Noted Date Coronary artery disease invo lving [place] coronary artery of [place] heart without angina pectoris 05/02/2021 Dyslipidemia, goal [...] Family Medicine Cristal Ayala PAZafarC [address] [facility] [address] 01/30/2022 Office Visit Cardiology Michael Collins MD [address] [facility] [place] [address] Health Maintenance Due Date Last Done Comments [...] Documents on File Type Date 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 Advanced Directive Advanced Directive Advanced Directive Advanced Directive Advanced Directive Advanced Directive Advanced Directive Advanced Directive Advanced Directive Advanced Directive Advanced Directive Advanced Directive Advanced Directive Advanced Directive Care Teams Prototype Assembler Electronics Relationship Specialty Start Date End Date Patrica Zhang MD [address] [place] [address] PCP - General Family Medicine 06/28/20 documented as of this encounter
--- OUTSIDE RECORDS SUMMARY | 2023-01-12 10:24 | External Medical Summary | Summary of Care ---
Author Name Unknown Organization [place] [address] Care Team Providers Care Retail Service Technician Name Role Phone Patrica Zhang MD Primary Care Provid er Reason for Visit * Reason Comments Return Visit 6 month return Encounter Details Date Type Department Care Team Description 11/05/2021 Office Visit [facility] [address] [place] [address] Cristal Ayala PA-C [address] [place] [address] Type 2 diabetes mellitus with hemoglobin A1c goal of less than 7.0% ([facility])*; HTN, goal below 130/80; H/O heart artery stent; Dyslipidemia, goal LDL below 70; Coronary artery disease involving [place] coronary artery of [place] heart without angina pectoris; Colonoscopy refused; Vaccine refused by patient Allergies Active Allergy Reactions Severity Noted Date Comments Penicillins 12/09/2018 Facial swelling documented as of this encounter (statuses as of 11/05/2021) Medications Medication Sig Dispensed Refills Start Date End Date Status acetaminophen (TYLENOL) 500 MG TabletIndications :Acute pain of left shoulder Take 2 Tabs by mouth every 8 hours as needed for Pain or Fever. 100 Tab 0 12/09/2018 Active OneTouch Verio In Vitro Strip USE 1 STRIP TO CHECK GLUCOSE ONCE DAILY DIRECTED 0 06/27/2020 Active OneTouch Delica Plus [id number] USE 1 TO CHECK GLUCOSE ONCE DAILY [...] before bedtime. 90 Tablet 2 11/05/2021 Active metFORMIN HCl ER 500 MG Oral Tablet Extended Release 24 Hour (Glucophage XR)Indications:Ty pe 2 diabetes mellitus with hemoglobin A1c goal of less than 7.0% (HCC) Take 2 tablets by mouth twice daily 180 Tablet 2 03/12/2021 11/05/2021 Discontinued (Refill) documented as of this encounter (statuses as of 11/05/2021) Active Problems Problem Noted Date Coronary artery disease invo lving [place] coronary artery of [place] heart without angina pectoris 05/02/2021 Dyslipidemia, goal [...] as of this encounter (statuses as of 11/05/2021) Resolved Problems Problem Noted Date Resolved Date Acute ST elevation myocardia l infarction (STEMI) involving right coronary artery 07/03/2020 11/05/2021 Screening for diabetes mellitus 12/09/2018 04/02/2019 documented as of this encounter (statuses as of 11/05/2021) Immunizations Name Administration Dates Next Due Pneumococcal [...] Sign Reading Time Taken Comments Blood Pressure 120/78 11/05/2021 2:03 PM EDT Pulse 77 11/05/2021 2:03 PM EDT Temperature 36.3 C (97.3 F) 11/05/2021 2:03 PM ED T Respiratory Rate 18 11/05/2021 2:03 PM EDT Oxygen Saturation 98% 11/05/2021 2:03 PM EDT Inhaled Oxygen Concentration - - Weight 125.5 kg (276 lb 9.6 oz) 11/05/2021 2:03 PM EDT Height 188 cm (6' 2") 11/05/2021 2:03 PM EDT Body Mass Index 35.51 11/05/2021 2:03 PM EDT documented in this encounter Progress Notes * Cristal Ayala PA-C - 11/05/2021 2:06 PM EDT Images from the original note were not included. History of Present Illness Reyes Mcpherson is a 51 year old male that presents for Return Visit (6 month return) Here for 6 month return. Labs current. Multiple hm issues due. Had a low bg issue lately. He was in the 40's. He literally fell due to this. Happened again the next day. He dropped a dose of the metformin and bg has been fine. He thinks that the heat and humidity are the issue. With the change running 145-155 and he feels better. Otherwise doing well. Component Latest Ref Rng & Units 10/18/2021 11/01/2021 BUN 6 - 20 mg/dL [...] Estimated Average Glucose <126 mg/dL 128 (H) Physical Exam Vitals: 11/05/21 1403 Temp: 36.3 C (97.3 F) Pulse: 77 Resp: 18 SpO2: 98% BP: 120/78 BMI: 35.5 BP Readings from Last 3 Encounters: 11/05/21 120/78 10/18/21 122/78 05/08/21 138/74 Wt Readings from Last 3 Encounters: 11/05/21 125.5 kg (276 lb 9.6 oz) 10/18/21 124 kg (273 lb 6 oz) 05/08/21 131 kg (288 lb 12.8 oz) General: alert, healthy and no distress Head: Normocephalic, No masses, lesions, tenderness or abnormalities Eye Exam: PERRLA, extraocular movements intact, conjunctiva are pink and non- injected, sclera clear Ears: External ears normal, Canals clear, TM's Normal Nose: no mucosal erythema, no mucosal edema, no purulent discharge Oropharynx: no exudate, no erythema, lips, buccal mucosa, and tongue normal and mucous membranes are moist Neck: supple, no adenopathy, no bruits, thyroid normal size, non-tender, without nodularity Heart: regular rate & rhythm, no murmurs, no gallops, S-1 normal and S-2 normal Lungs: chest symmetric with normal AP diameter, no chest deformities noted, no chest wall tenderness, lungs clear to auscultation Extremities: less than 2 second capillary refill, no joint deformities, effusion, or inflammation, 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 Skin: skin color, texture, turgor are normal, no rashes or significant lesions Assessment and Plan Type 2 diabetes mellitus with hemoglobin A1c goal of less than 7.0% ([facility]) (Primary) - metFORMIN HCl ER 500 MG Oral Tablet Extended Release 24 Hour (Glucophage XR); Take by mouth 1 Tablet in the morning AND 1 Tablet before bedtime. HTN, goal below 130/80 - at or below goal H/O heart artery stent - on plavix Dyslipidemia, goal LDL below 70 - on statin Coronary artery disease involving [place] coronary artery of [place] heart without angina pectoris - on plavix and statin Colonoscopy refused Vaccine refused by patient Wrap-Up Has cardiology appt in January with Dr Dennis Chavarria ov note 05/08/2021 Drop metformin dose No other changes Hm deferred Time: I spent a total of 10-19 minutes (exact time 19 mins) on the date of service in preparation, delivery, and documentation of the care provided to Reyes Mcpherson excluding any time spent in the performance of separately billed services. Cristal Ayala PA-C 11/05/2021 2:15 PM documented in this encounter Nursing Notes * Kylie Hill LPN - 11/05/2021 2:00 PM EDT The patient has been properly identified by confirmation of name and date of . Chief Complaint Patient presents with Return Visit 6 month return documented in this encounter Plan of Treatment Upcoming Encounters Date Type Specialty Care Team Description 01/30/2022 Office Visit Cardiology Michael Collins MD [address] [place], [place] [address] [address] 2022 Office Visit Family Medicine Cristal Ayala PA-C [address] [place] [id number] Health Maintenance Due Date Last Done Comments DISCUSS TOBACCO CESSATION (REFER TO SMARTSET #0193) 1970 COVID-19 Vaccine (#1) 1970 Hepatitis B [...] PCV) 12/10/2019 12/09/2018 DIABETES-EYE EXAM 09/05/2021 09/05/2020 Influenza Vaccine (FLU shot) (#1) 2021 DIABETES-HGBA1C EVERY 6 MONTHS 05/04/2022 11/01/2021, 05/28/2021, 10/13/2020, Additional history exists DIABETES-URINE ALBUMIN/CREATININE EVERY 12 MONTHS 10/18/2022 10/18/2021, 06/23/2019 DIABETES-FOOT EXAM 11/01/2022 11/01/2021 GFR - Renal [...] HTN, goal below 130/80 Unspecified essential hypertension H/O heart artery stent Postsurgical percutaneous transluminal coronary angioplasty status Dyslipidemia, goal LDL below 70 Other and unspecified hyperlipidemia Coronary artery disease involving [place] coronary artery of [place] heart without angina pectoris Colonoscopy refused Surgical or other procedure not carried out because of patient's decision Vaccine refused by patient Vaccination not carried out for other reason documented in this encounter Advance Directives Documents on File Type Date 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 Advanced Directive Advanced Directive Advanced Directive Advanced Directive Advanced Directive Advanced Directive Advanced Directive Advanced Directive Advanced Directive Advanced Directive Advanced Directive Advanced Directive Advanced Directive Advanced Directive Advanced Directive Care Teams Retail Service Technician Relationship Specialty Start Date End Date Patrica Zhang MD [address] [place] [address] PCP - General Family Medicine 06/28/20 documented as of this encounter
--- OUTSIDE RECORDS SUMMARY | 2023-01-12 10:24 | External Medical Summary | Summary of Care ---
Author Name Unknown Organization [place] [address] Care Team Providers Care Continuous Process Tanner Rotary Drum Name Role Phone Patrica Zhang MD Primary Care Provid er Reason for Visit * Reason Onset Date Comments Medication Refill 07/23/2021 Encounter Details Date Type Department Care Team Description 07/23/2021 Refill [facility] [address] [place] [address] Cristal Ayala PA-C [address] [place] [address] Allergies Active Allergy Reactions Severity Noted Date Comments Penicillins 12/09/2018 Facial swelling documented as of this encounter (statuses as of 09/15/2021) Medications Medication Sig Dispensed Refills Start Date End Date Status acetaminophen (TYLENOL) 500 MG TabletIndications :Acute pain of left shoulder Take 2 Tabs by mouth every 8 hours as needed for Pain or Fever. 100 Tab 0 12/09/2018 Active OneTouch Verio In Vitro Strip USE 1 STRIP TO CHECK GLUCOSE ONCE DAILY DIRECTED 0 06/27/2020 Active OneTouch Delica Plus [id number] USE 1 TO CHECK GLUCOSE ONCE DAILY [...] the morning. 30 Tablet 8 07/24/2021 Active Atorvastatin Calcium 80 MG Oral Tablet (Lipitor) Take 1 Tab by mouth at bedtime. 30 Tab 11 07/25/2020 07/23/2021 Discontinued (Refill) amLODIPine Besylate 5 MG Oral Tablet (Norvasc) Take 1 tablet by mouth once daily 30 Tab 5 01/24/2021 07/23/2021 Discontinued (Refill) documented as of this encounter (statuses as of 09/15/2021) Active Problems Problem Noted Date Coronary artery disease invo lving [place] coronary artery of [place] heart without angina pectoris 05/02/2021 Dyslipidemia, goal [...] as of this encounter (statuses as of 09/15/2021) Resolved Problems Problem Noted Date Resolved Date Screening for diabetes mellitus 12/09/2018 04/02/2019 documented as of this encounter (statuses as of 09/15/2021) Immunizations Name Administration Dates Next Due Pneumococcal [...] encounter Miscellaneous Notes * Telephone Encounter - Nawaf Fuller, [facility] - 07/24/2021 5:00 AM EDT Signed Prescriptions: Disp Refills Atorvastatin Calcium 80 MG Oral Tablet (Li*30 Tab*8 Sig: Take by mouth 1 Tablet before bedtime. Authorizing Provider: CRISTAL AYALA Ordering User: NAWAF FULLER amLODIPine Besylate 5 MG Oral Tablet (Norv*30 Tab*8 Sig: Take by mouth 1 Tablet in the morning. Authorizing Provider: CRISTAL AYALA Ordering User: NAWAF FULLER < BR> * Telephone Encounter - Kaleigh Livingston, [facility] - 07/23/2021 9:53 AM EDT Pending Prescriptions: Disp Refills Atorvastatin Calcium 80 MG Oral Tablet (L*30 Tab*11 Sig: Take by mouth 1 Tablet before bedtime. amLODIPine Besylate 5 MG Oral Tablet (Nor*30 Tab*5 Sig: Take by mouth 1 Tablet in the morning. 05/08/2021 (in office), Visit date not found (telemedicine) 11/05/2021 If no future appointments scheduled, and last appointment is greater than a year ago, please schedule patient for a follow-up appointment Last date the medication was ordered: 01/24/21 07/25/20 Patient Phone Numbers Labs: Lab Results Component [...] Family Medicine Cristal Ayala PA-C [address] [place] [address] 01/30/2022 Office Visit Cardiology Michael Collins MD [address] [facility] [place] [address] Health Maintenance Due Date Last Done Comments DISCUSS TOBACCO CESSATION (REFER TO SMARTSET #6837) 1970 COVID-19 Vaccine (1) 1973 DIABETES-FOOT EXAM [...] 62 Years) (2 - PCV) 12/10/2019 12/09/2018 DIABETES-URINE ALBUMIN/CREATININE EVERY 12 MONTHS 06/22/2020 06/23/2019 DIABETES-EYE EXAM 09/05/2021 09/05/2020 DIABETES-HGBA1C EVERY 6 MONTHS 11/25/2021 0 05/28/2021, 10/13/2020, 07/14/2020 Influenza Vaccine (FLU shot) (Season Ended) 2021 BASIC METABOLIC PANEL (BMP) FOR HTN YEARLY [...] Documents on File Type Date Recorded 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
--- OUTSIDE RECORDS SUMMARY | 2023-01-12 10:24 | External Medical Summary | Summary of Care ---
Author Name Unknown Organization [place] [address] Care Team Providers Care Financial Sales Associate Name Role Phone Patrica Zhang MD Primary Care Provid er Reason for Visit * Reason Onset Date Comments Scan To Read 11/01/2021 Diabetic Eye Cam era Encounter Details Date Type Department Care Team Description 11/01/2021 Telephone [facility] [address] [place] [address] Patrica Zhang MD [address] [place] [address] Scan To Read (Diabetic Eye Camera) Allergies Active Allergy Reactions Severity Noted Date Comments Penicillins 12/09/2018 Facial swelling documented as of this encounter (statuses as of 11/01/2021) Medications Medication Sig Dispensed Refills Start Date End Date Status acetaminophen (TYLENOL) 500 MG TabletIndications:Ac [place] pain of left shoulder Take 2 Tabs by mouth every 8 hours as needed for Pain or Fever. 100 Tab 0 12/09/2018 Active OneTouch Verio In Vitro Strip USE 1 STRIP TO CHECK GLUCOSE ONCE DAILY DIRECTED 0 06/27/2020 Active OneTouch Delica Plus [id number] USE 1 TO CHECK GLUCOSE ONCE DAILY DIRECTED 0 06/27/2020 Active Aspirin 81 MG Oral Tablet Delayed Release Take 81 mg by mouth daily. 0 Active Jardiance 10 MG Oral TabletIndications:Ty pe 2 diabetes mellitus with hemoglobin A1c goal of less than 7.0% ([facility]) Take 1 tablet by mouth once [...] Noted Date Coronary artery disease invo lving [place] coronary artery of [place] heart without angina pectoris 05/02/2021 Dyslipidemia, goal [...] calluses yourself. Talk to your doctor or pinsetter mechanic helper (a doctor who specializes in foot care) [...] the area doesnt appear to be healing. 8801-5001 [employer], [address] [place] [address]. All rights reserved. This information is not intended as a substitute for professional medical care. Always follow your healthcare professional's instructions. documented in this encounter Miscellaneous Notes * Telephone Encounter - Carlton Black MD - 11/01/2021 12:55 PM EDT Mali Cooley don't see any current retinal scans in [facility]. Carlton Black MD * Telephone Encounter - RUY Albarran - 11/01/2021 12:12 PM EDT A Diabetic Telemed Eye image was taken and requires your interpretation for Dr. Zhang. Please check your inbasket for image. Patient prefers to be seen at [facility] if a follow-up appointment is needed. 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 Advanced Directive Advanced Directive Advanced Directive Advanced Directive Advanced Directive Advanced Directive Advanced Directive Advanced Directive Advanced Directive Advanced Directive Advanced Directive Advanced Directive Advanced Directive Advanced Directive Care Teams Financial Sales Associate Relationship Specialty Start Date End Date Patrica Zhang MD [address] [place] [address] PCP - General Family Medicine 06/28/20 documented as of this encounter
--- OUTSIDE RECORDS SUMMARY | 2023-01-12 10:24 | External Medical Summary | Summary of Care ---
Author Name Unknown Organization [place] [address] Care Team Providers Care Territory Representative Name Role Phone Patrica Zhang MD Primary Care Provid er Reason for Visit * Reason Comments Constipation Experienced constipa tion and nausea. Then dizziness. Lowe blood sugars. Trying to drink more water. Eating 3 meals a day. Last BS: 85 Encounter Details Date Type Department Care Team Description 10/18/2021 Office Visit Family [facility] [address] [facility] [place] [id number] Leeroy Farmer DO [address] [facility] [place] [address] Acute gastroenteritis*; Type 2 diabetes mellitus with hemoglobin A1c goal of less than 7.0% ([facility]); HTN, goal below 130/80 Allergies Active Allergy Reactions Severity Noted Date Comments Penicillins 12/09/2018 Facial swelling documented as of this encounter (statuses as of 11/01/2021) Medications Medication Sig Dispensed Refills Start Date End Date Status acetaminophen (TYLENOL) 500 MG TabletIndications:Ac [place] pain of left shoulder Take 2 Tabs by mouth every 8 hours as needed for Pain or Fever. 100 Tab 0 12/09/2018 Active OneTouch Verio In Vitro Strip USE 1 STRIP TO CHECK GLUCOSE ONCE DAILY DIRECTED 0 06/27/2020 Active OneTouch Delica Plus [id number] USE 1 TO CHECK GLUCOSE ONCE DAILY [...] Noted Date Coronary artery disease invo [place]ving [place] coronary artery of [place] heart without angina pectoris 05/02/2021 Dyslipidemia, goal [...] Sign Reading Time Taken Comments Blood Pressure 122/78 10/18/2021 6:55 PM EDT Pulse 88 10/18/2021 6:55 PM EDT Temperature - - Respiratory Rate - - Oxygen Saturation 96% 10/18/2021 6:55 PM EDT Inhaled Oxygen Concentration - - Weight 124 kg (273 lb 6 oz) 10/18/2021 6:55 PM E DT Height - - Body Mass Index 35.1 09/05/2020 6:15 PM EDT documented in this encounter Patient Instructions * Patient Instructions* Leeroy Farmer - 10/18/2021 7:17 PM EDT BMI (Body Mass Index) is the number obtained by dividing a person's weight in kilograms by his or her height in meters squared. BMI is used in determining obesity. BMI is not used to determine a person's actual percentage of body fat, but it is a good tool to historiography teacher weight in terms of what is healthy and unhealthy. It is used to identify adults at increased risk for developing weight related medical problems. Estimated body mass index is 35.1 kg/m as calculated from the following: Height as of 09/05/20: 1.88 m (6' 2"). Weight as of this encounter: 124 kg (273 lb 6 oz). Obesity - BMI 35 kg/m2 to 39.9 kg/mg - Obese individuals are at a risk for developing * Heart disease * Stroke * Diabetes * High Blood Pressure * High Cholesterol * GERD (acid reflux) * Sleep Apnea * Osteoarthritis * Fatty Liver Disease * Certain Types of Cancers * Gout * Gall Bladder Disease - Weight loss has been shown to decrease weight related medical problems. - Those with a BMI 35 kg/m2 or higher are almost ten times more likely to develop diabetes in theirlifetimes than those with a normal BMI. - A 12-week weight management text message program is also available. Go to [employer] and seethe message under '[employer]' for more information and enrollment. Patient is Instructed to: Diet: * Limit total fat intake to no more than 40 grams per day (low fat diet). * Increase fruits and vegetables to 5 servings per day, combined. * Limited starches (breads, pasta, rice, potatoes, corn, cereals) to 4 servings per day. Avoid Calorie Containing Drinks: * No fruit juices, regular sodas or sweetened drinks. * Water is preferred - 64 ounces per day unless advised of a fluid restriction. * Diet sodas and drinks permitted. Keep Honest, Accurate Food logs: * www.[email or web address] * www.[employer] * If you bite it - write it! Weigh Yourself Weekly: * Morning is best. * Try to do this outside your home. * Have a friend/spouse remind you to weigh yourself, accountability to others helps. Perform 30 minutes of physical activity daily: * Can do all at once or 5 minutes 6 times per day * 8, 000-10,000 steps per day using a pedometer * Make it fun! documented in this encounter Progress Notes * Leeroy Farmer DO - 10/18/2021 7:17 PM EDT Images from the original note were not included. History of Present Illness Reyes Mcpherson is a 51 year old male that presents for Constipation (Experienced constipation and nausea. Then dizziness. Lowe blood sugars. Trying to drink more water. Eating 3 meals a day. Last BS:85) Patient is a 51-year-old male history diabetes mellitus type 2 and hypertension. Patient complains of abdominal pain nausea and constipation. Patient denies vomiting. Patient complains of intermittent hypoglycemia. Patient denies polyuria polydipsia or blurred vision. Patient denies fatigue fever chills or sweats . Patient denies nasal congestion sore throat or earache. Patient is cough or sputum. Patient denies chest pain palpitations or edema. Review of systems otherwise negative Physical Exam Vitals: 10/18/21 1855 Pulse: 88 SpO2: 96% BP: 122/78 BP Readings from Last 3 Encounters: 10/18/21 122/78 05/08/21 138/74 05/02/21 168/88 Wt Readings from Last 3 Encounters: 10/18/21 124 kg (273 lb 6 oz) 05/08/21 131 kg (288 lb 12.8 oz) 05/02/21 132.9 kg (293 lb) BMI Readings from Last 3 Encounters: 10/18/21 35.10 kg/m 05/08/21 37.08 kg/m 05/02/21 37.62 kg/m General: alert, healthy and no distress Head: [...] bruits, thyroid normal size, non-tender, without nodularity Lymph: no palpable lymphadenopathy Heart: regular rate & rhythm, no murmurs and no gallops Lungs: chest symmetric with normal AP diameter, no chest deformities noted, no chest wall tenderness, lungs clear to auscultation Pulses: carotid=2/4 w/o bruits Abdomen: abdomen soft, non-tender, normal bowel sounds and no masses or organomegaly Back: back symmetric, no curvature, no costovertebral angle tenderness, range of motion is normal Extremities: less than 2 second capillary refill, no joint deformities, effusion, or inflammation Neuro Exam: alert & oriented x 3 with fluent speech, no focal motor/sensory deficits, gait normal, reflexes normal and symmetric Skin: skin color, texture, turgor are normal, no rashes or significant lesions I have reviewed the following results: CMP, Lipid Panel, Hemoglobin A1C and Albumin / Creatinine Ratio, Urine Assessment and Plan Acute gastroenteritis Supportive care, increase fluids, tylenol OTC as directed prn RTO if symptoms persist or worsen Type 2 diabetes mellitus with hemoglobin A1c goal of less than 7.0% (HCC) Continue present medication Jardiance 10 mg 1 tab once daily Metformin ER 500 mg 2 tabs twice daily Diabetic diet exercise - ALBUMIN / CREATININE RATIO, URINE; Future HTN, goal below 130/80 Lisinopril 5 mg 1 tab once daily Amlodipine 5 mg 1 tab once daily Cardiac diet and exercise - ALBUMIN / CREATININE RATIO, URINE; Future Wrap-Up Time: I spent a total of 20-29 minutes (exact time 20 mins) on the date of service in preparation, delivery, and documentation of the care provided to Reyes Mcpherson excluding any time spent in the performance of separately billed services. Patient counseling on weight management given. documented in this encounter Plan of Treatment Upcoming Encounters Date Type Specialty Care Team Description 11/05/2021 Office Visit Family Medicine Cristal Ayala, PA-C [address] [place] [address] 01/30/2022 Office Visit Cardiology Michael Collins MD [address] [place] [id number] Health Maintenance Due Date Last Done Comments DISCUSS TOBACCO CESSATION (REFER TO SMARTSET #[id number]) 1970 COVID-19 Vaccine (#1) 1970 Hepatitis B [...] 05/04/2022 11/01/2021, 05/28/2021, 10/13/2020, Additional history exists GFR - Renal Function 05/28/2022 11/01/2021, 05/28/2021, 07/14/2020, Additional history exists DIABETES-URINE ALBUMIN/CREATININE EVERY 12 [...] Not on filedocumented as of this encounter Procedures Procedure Name Priority Date/Time Associated Diagnosis Comments ALBUMIN / CREATININE RATIO, URINE Routine 10/18/2021 7:24 PM EDT Type 2 diabetes mellitus with hemoglobin A1c goal of less than 7.0% (HCC) HTN, goal below 130/80 documented in this encounter Results * ALBUMIN / CREATININE RATIO, URINE (10/18/2021 7:24 PM EDT) Albumin, Random Urine <1.20 mg/dL [facility] Creatinine, Random Urine 87 mg/dL [facility] [place] Albumin / Creatinine Ratio, Urine <14 <30 mg/g Creat [facility] [place] Specimen Urine - Urine specimen obtai jesus by clean catch procedure (specimen) Narrative [facility] - 10/19/2021 2:41 PM EDT Normal: <30 mg/g creatinine High: 30-300 mg/g creatinine Very High: >300 mg/g creatinine Nephrotic: >2200 mg/g creatinine Performing Organization Address City/State/[facility] Co de Phone Number [facility] [address] [place] [address] documented in this encounter Visit Diagnoses Diagnosis Acute gastroenteritis- Primary Other and unspecified noninfectious gastroenteritis and colitis Type 2 diabetes mellitus with hemoglobin A1c goal of less than 7.0% (HCC) HTN, goal below 130/80 Unspecified essential hypertension documented in this encounter Advance Directives Documents on File Type Date Recorded Patient Personnel Recruiter Expl 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 Advanced Directive Advanced Directive Advanced Directive Advanced Directive Advanced Directive Advanced Directive Advanced Directive Advanced Directive Advanced Directive Advanced Directive Advanced Directive Advanced Directive Advanced Directive Advanced Directive Care Teams Territory Representative Relationship Specialty Start Date End Date Patrica Zhang MD [address], [place] [phone] PCP - General Family Medicine 06/28/20 documented as of this encounter
--- OUTSIDE RECORDS SUMMARY | 2023-01-12 10:24 | External Medical Summary | Summary of Care ---
Author Name Unknown Organization [place] [address] Care Team Providers Care Pricing Strategist Name Role Phone Patrica Zhang MD Primary Care Provid er Encounter Details Date Type Department Care Team Description 05/28/2021 Documentation Laboratory, [facility] [address] [place] [address] [facility] [address] [place] [address] HTN, goal below 130/80; Coronary artery disease involving [place] coronary artery of [place] heart without angina pectoris; Dyslipidemia, goal LDL below 70; Claudication (HCC); Numbness and tingling of left leg; Type 2 diabetes mellitus with hemoglobin A1c goal of less than 7.0% (HCC) Allergies Active Allergy Reactions Severity Noted Date Comments Penicillins 12/09/2018 Facial swelling documented as of this encounter (statuses as of 05/31/2021) Medications Medication Sig Dispensed Refills Start Date End Date Status acetaminophen (TYLENOL) 500 MG TabletIndications:Ac [place] pain of left shoulder Take 2 Tabs by mouth every 8 hours as needed for Pain or Fever. 100 Tab 0 12/09/2018 Active OneTouch Verio In Vitro Strip USE 1 STRIP TO CHECK GLUCOSE ONCE DAILY DIRECTED 0 06/27/2020 Active OneTouch Delica Plus [id number] USE 1 TO CHECK GLUCOSE ONCE DAILY [...] as of this encounter (statuses as of 05/31/2021) Active Problems Problem Noted Date Coronary artery disease invo lving [place] coronary artery of [place] heart without angina pectoris 05/02/2021 Dyslipidemia, goal [...] as of this encounter (statuses as of 05/31/2021) Resolved Problems Problem Noted Date Resolved Date Screening for diabetes mellitus 12/09/2018 04/02/2019 documented as of this encounter (statuses as of 05/31/2021) Immunizations Name Administration Dates Next Due Pneumococcal [...] on file documented as of this encounter Nursing Notes * Entry Data - 05/29/2021 5:32 AM EST Automated conversion to a Documentation Encounter documented in this encounter Miscellaneous Notes * Result QuickNote - Maria Alfaro PA-C - 05/30/2021 4:40 PM EST Stable renal function. May be slightly dehydrated. Increase water intake. Normal electrolytes Normal liver function Cholesterol greatly improved. LDL at goal of 60. No changes at this time documented in this encounter Plan of Treatment Upcoming Encounters Date Type Specialty Care Team Description 11/05/2021 Office Visit Family Medicine Cristal Ayala PA-C [address] [place] [address] 01/30/2022 Office Visit Cardiology Michael Collins MD [address] [facility] [place] [address] Health Maintenance Due Date Last Done Comments DISCUSS TOBACCO CESSATION (REFER TO SMARTSET #[id number]) 1970 COVID-19 Vaccine (1) 1975 DIABETES-FOOT EXAM [...] Procedure Name Priority Date/Time Associated Diagnosis Comments LIPID PANEL WITH DIRECT LDL IF TG IS HIGH Routine 05/28/2021 8:46 AM EST HTN, goal below 130/80 Coronary artery disease involving [place] coronary artery of [place] heart without angina pectoris Dyslipidemia, goal LDL below 70 Claudication (HCC) Numbness and tingling of left leg HEMOGLOBIN A1C Routine 05/28/2021 8:46 AM EST Type 2 diabetes mellitus with hemoglobin A1c goal of less than 7.0% (HCC) COMPREHENSIVE METABOLIC PANEL Routine 05/28/2021 8:46 AM EST HTN, goal below 130/80 Coronary artery disease involving [place] coronary artery of [place] heart without angina pectoris Dyslipidemia, goal LDL below 70 Claudication (HCC) Numbness and tingling of left leg documented in this encounter Results * HEMOGLOBIN A1C (05/28/2021 8:46 AM EST) Hemoglobin A1C 6.2(H)Comment:The use of HbA1c to monitor glycemic status is based on normal hemoglobin and HbA composition. This test should not be used in patients with abnormal hemoglobin that affects the half life of the red blood cell or the in vivo glycation rates. 4.0 - 5.6 % [facility] Estimated Average Glucose 131(H) <126 mg/dL [facility] [place] [place] Specimen Blood - Venous blood specime n (specimen) [facility] [place] [place] [address] [place] [address] * LIPID PANEL WITH DIRECT LDL IF TG IS HIGH (05/28/2021 8:46 AM EST) Triglycerides 146 Comment: Triglyceride Reference Ranges (mg/dL): <150 Acceptable 150-174 Borderline high 175-499 High >=500 Very high <=174 mg/dL [facility] Cholesterol 132 Comment: Total Cholesterol Reference Ranges (mg/dL): <200 Desirable 200-239 Borderline high >=240 High <200 mg/dL [facility] HDL Cholesterol 43 Comment: HDL Cholesterol Reference Ranges (mg/dL): >=60 High (Desirable) <50 Low (Undesirable) For Females <40 Low (Undesirable) For Males >39 mg/dL [facility] Non-HDL Cholesterol 89 Comment: Non-HDL Cholesterol Reference Range (mg/dL): <100 Target level for high risk ASCVD patient <130 Optimal for general population 130-159 Near optimal for general population 160-189 Borderline High 190-219 High >=220 Very High <=159 mg/dL [facility] LDL Cholesterol 60 Comment: LDL Cholesterol Reference Ranges (mg/dL): <70 Target level for high risk ASCVD patient <100 Optimal for general population 100-129 Near optimal for general population 130-159 Borderline high 160-189 High >=190 Very high <=129 mg/dL [facility] [place] [place] Specimen Blood - Venous blood specime n (specimen) [facility] [place] [place] [address] [place] [address] * COMPREHENSIVE METABOLIC PANEL (05/28/2021 8:46 AM EST) BUN 22(H) 6 - 20 mg/dL [facility] Creatinine 0.8 0.6 - 1.2 mg/dL [facility] Estimated Glomerular Filtration Rate >90Comment:eGFR is calculated based on the CKD-EPI 2020 equation >=60 mL/min [facility] Sodium 135 135 - 146 mmol/L [facility] Potassium 4.7 3.5 - 5.1 mmol/L [facility] Chloride 101 98 - 107 mmol/L [facility] CO2 21(L) 22 - 32 mmol/L [facility] Anion Gap 13 7 - 15 mmol/L [facility] Glucose 114 70 - 120 mg/dL [facility] Albumin 4.6 3.8 - 5.0 g/dL [facility] AST 17 10 - 50 U/L [facility] Alkaline Phosphatase 97 35 - 130 U/L [facility] Bilirubin, Total 0.4 <=1.2 mg/dL [facility] Calcium 9.6 8.4 - 10.2 mg/dL [facility] Protein 7.2 6.0 - 8.3 g/dL [facility] ALT 23 10 - 50 U/L [facility] Specimen Blood - Venous blood specime n (specimen) [facility] [address] [place] [address] documented in this encounter Visit Diagnoses Diagnosis HTN, goal below 130/80 Unspecified essential hypertension Coronary artery disease involving [place] coronary artery of [place] heart without angina pectoris Dyslipidemia, goal LDL below 70 Other and unspecified hyperlipidemia Claudication (HCC) Peripheral vascular disease, unspecified Numbness and tingling of left leg Disturbance of skin sensation Type 2 diabetes mellitus with hemoglobin A1c goal of less than 7.0% (HCC) documented in this encounter Advance Directives Documents on File Type Date Recorded Patient Bilingual Legal Assistant Expl 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 Advanced Directive Advanced Directive Advanced Directive Advanced Directive Advanced Directive Advanced Directive Advanced Directive Advanced Directive Advanced Directive Advanced Directive Advanced Directive Care Teams Pricing Strategist Relationship Specialty Start Date End Date Patrica Zhang MD [address], [place] [phone] PCP - General Family Medicine 06/28/20 documented as of this encounter
--- OUTSIDE RECORDS SUMMARY | 2023-01-12 10:24 | External Medical Summary | Summary of Care ---
Author Name Unknown Organization [place] [address] Care Team Providers Care Certified Pedorthotist Name Role Phone Patrica Zhang MD Primary Care Provid er Reason for Visit * Reason Comments Follow Up 6 month follow up Encounter Details Date Type Department Care Team Description 05/08/2021 Office Visit [facility] [address] [place] [address] Cristal Ayala PA-C [address] [place] [address] Type 2 diabetes mellitus with hemoglobin A1c goal of less than 7.0% ([facility])*; HTN, goal below 130/80; History of tobacco abuse; Dyslipidemia, goal LDL below 70; H/O heart artery stent; COVID-19 vaccine dose declined Allergies Active Allergy Reactions Severity Noted Date Comments Penicillins 12/09/2018 Facial swelling documented as of this encounter (statuses as of 05/10/2021) Medications Medication Sig Dispensed Refills Start Date End Date Status acetaminophen (TYLENOL) 500 MG TabletIndications :Acute pain of left shoulder Take 2 Tabs by mouth every 8 hours as needed for Pain or Fever. 100 Tab 0 12/09/2018 Active OneTouch Verio In Vitro Strip USE 1 STRIP TO CHECK GLUCOSE ONCE DAILY DIRECTED 0 06/27/2020 Active OneTouch Delica Plus [id number] USE 1 TO CHECK GLUCOSE ONCE DAILY [...] hemoglobin A1c goal of less than 7.0% ([facility]) Take 2 tablets by mouth twice daily [...] as of this encounter (statuses as of 05/10/2021) Active Problems Problem Noted Date Coronary artery disease invo lving [place] coronary artery of [place] heart without angina pectoris 05/02/2021 Dyslipidemia, goal [...] as of this encounter (statuses as of 05/10/2021) Resolved Problems Problem Noted Date Resolved Date Screening for diabetes mellitus 12/09/2018 04/02/2019 documented as of this encounter (statuses as of 05/10/2021) Immunizations Name Administration Dates Next Due Pneumococcal [...] hemoglobin A1c goal of less than 7.0% ([facility]) (Primary) - HEMOGLOBIN A1C; Future; Expected date: [...] Family Medicine Cristal Ayala PA-C [address] [place] [address] 01/30/2022 Office Visit Cardiology Michael Collins MD [address] [place] [address] Scheduled Orders Name Type Priority Associated Diagnoses [...] Documents on File Type Date Recorded Patient Parquetry Floor Layer Expl 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 Advanced Directive Advanced Directive Advanced Directive Advanced Directive Advanced Directive Advanced Directive Advanced Directive Advanced Directive Advanced Directive Advanced Directive Care Teams Certified Pedorthotist Relationship Specialty Start Date End Date Patrica Zhang MD [address] [facility] [place] [phone] PCP - General Family Medicine 06/28/20 documented as of this encounter
--- OUTSIDE RECORDS SUMMARY | 2023-01-12 10:25 | External Medical Summary | Summary of Care ---
Author Name Unknown Organization [place] [address] Care Team Providers Care Tractor Distributor Name Role Phone Ronald Jean MD Primary Care Provid er Reason for Visit * Reason Onset Date Comments Med Request 07/25/2020 Encounter Details Date Type Department Care Team Description 07/25/2020 Telephone [facility] [address] [place] [address] Ronald Jean MD [address] [place] [address] Med Request Allergies Active Allergy Reactions Severity Noted Date Comments Penicillins 12/09/2018 Facial swelling documented as of this encounter (statuses as of 07/25/2020) Medications Medication Sig Dispensed Refills Start Date End Date Status acetaminophen (TYLENOL) 500 MG TabletIndications :Acute pain of left shoulder Take 2 Tabs by mouth every 8 hours as needed for Pain or Fever. 100 Tab 0 12/09/2018 Active metoprolol succinate XL (TOPROL XL) 25 MG [id number] TN, goal below 140/80 Take 0.5 Tabs by mouth daily. Start 06/23/2019 30 Tab 2 06/23/2019 Active OneTouch Verio In Vitro Strip USE 1 STRIP TO CHECK GLUCOSE ONCE DAILY DIRECTED 0 06/27/2020 Active OneTouch Delica Plus [id number] USE 1 TO CHECK GLUCOSE ONCE DAILY DIRECTED 0 06/27/2020 Active Aspirin 81 MG Oral Tablet Delayed Release Take 81 mg by mouth daily. 0 Active amLODIPine Besylate 5 MG Oral Tablet (Norvasc) Take 1 Tab by mouth daily. 30 Tab 5 07/25/2020 Active Lisinopril 5 MG Oral Tablet (Prinivil) Take 1 Tab by mouth daily. In the morning. 30 Tab 5 07/25/2020 Active Atorvastatin Calcium 80 MG Oral Tablet (Lipitor) Take 1 Tab by mouth at bedtime. 0 06/27/2020 07/25/2020 Discontinued( Refill) Clopidogrel Bisulfate 75 MG Oral Tablet (pLAVix) Take 1 Tab by mouth daily. 0 06/27/2020 07/25/2020 Discontinued( Refill) metFORMIN HCl ER 500 MG Oral Tablet Extended Release 24 Hour (Glucophage XR) Take 500 mg by mouth daily. 0 06/27/2020 07/25/2020 Discontinued( Refill) amLODIPine Besylate 5 MG Oral Tablet (Norvasc) Take 5 mg by mouth daily. 0 06/27/2020 07/25/2020 Discontinued( Refill) Jardiance 10 MG Oral Tablet Take 10 mg by mouth daily. 0 06/28/2020 07/25/2020 Discontinued( Refill) Lisinopril 5 MG Oral Tablet (Prinivil) Take 5 mg by mouth daily. In the morning. 0 06/27/2020 07/25/2020 Discontinued( Refill) documented as of this encounter (statuses as of 07/25/2020) Active Problems Problem Noted Date HTN, goal below 130/80 07/03/[address] elevation myocardia l infarction (STEMI) involving right coronary artery 07/03/2020 H/O heart artery stent 07/03/2020 Type 2 diabetes mellitus with hemoglobin A1c goal of less than 7.0% 07/03/2020 Screen for colon cancer 04/02/2019 Tobacco use disorder 12/09/2018 Obesity, Class II, BMI 35-39.9, isolated (see actual BMI) 12/09/2018 documented as of this encounter (statuses as of 07/25/2020) Resolved Problems Problem Noted Date Resolved Date Screening for diabetes mellitus 12/09/2018 04/02/2019 documented as of this encounter (statuses as of 07/25/2020) Immunizations Name Administration Dates Next Due Pneumococcal Polysaccharide PPV23 (Pneumovax) 12/09/2018 TDAP (age 11 and older)(Adacel) 10/04/2016 Zoster Vaccine Recombinant (Shingrix) (Deferred: Patient Refused - Pt states his arm is sore and will get at another time.) documented as of this encounter Social History Tobacco Use Types Packs/Day Years Used Date Former Smoker Cigarettes 0.5 30 Smokeless Tobacco: Former User Snuff Comments:was sm 1.5 ppd x 2- 3 yrs, 1/2 ppd x 30yrs Alcohol Use Drinks/Week oz/Week Comments Yes Alcohol Habits Answer Date Recorded How often [...] got money to buy more. Never true Within the past 12 months, t he food you bought just didn't last and you didn't have money to get more. Never true Sex Assigned at Date Recorded Male 04/02/2019 9:[address] Job Start Date Occupation Industry Not on file Not on file Not on file documented as of this encounter Miscellaneous Notes * Addendum Note - Ronald Jean MD - 07/25/2020 4:56 PM EDT Addended by: RONALD JEAN on: 07/25/2020 04:56 PM Modules accepted: Orders * Addendum Note - Funmilayo Orta LPN - 07/25/2020 1:49 PM EDT Addended by: FUNMILAYO ORTA on: 07/25/2020 01:49 PM Modules accepted: Orders * Telephone Encounter - Funmilayo Orta LPN - 07/25/2020 1:49 PM EDT Pending Prescriptions: Disp Refills amLODIPine Besylate 5 MG Oral Tablet (Nor*30 Tab 5 Sig: Take 1 Tab by mouth daily. Lisinopril 5 MG Oral Tablet (Prinivil) 30 Tab 5 Sig: Take 1 Tab by mouth daily. In the morning. Last Office/Telemedicine Visit: 07/03/2020 Next Office Visit: 09/05/2020 Scheduled Provider(s): Ronald Jean MD Last date the medication was ordered: Patient Active Problem List Diagnosis Code Tobacco use disorder F17.200 Obesity, Class II, BMI 35-39.9, isolated (see actual BMI) E66.9 Screen for colon cancer Z12.11 HTN, goal below 130/[address] elevation myocardial infarction (STEMI) involving right coronary artery (HCC) I21.11 H/O heart artery stent Z95.5 Type 2 diabetes mellitus with hemoglobin A1c goal of less than 7.0% (HCC) E11.9 Labs: Lab Results Component Value Date/Time CREATININE - [facility] 1.0 07/14/2020 12:58 PM CREATININE - [facility] 0.9 12/16/2018 03:08 PM CREATININE, RANDOM URINE - [facility] 113 06/23/2019 01:42 PM Lab Results Component Value Date/Time POTASSIUM - [facility] 4.5 07/14/2020 12:58 PM POTASSIUM - [facility] 4.4 12/16/2018 03:08 PM Lab Results Component Value Date/Time TSH - [facility] 1.77 12/16/2018 03:08 PM Lab Results Component Value Date/Time LDL CHOLESTEROL (CALCULATED) - [facility] 120 12/16/2018 03:08 PM LDL CHOLESTEROL (DIRECT MEASURE) - [facility] NOT APPLICABLE 12/16/2018 03:08 PM Lab Results Component Value Date/Time ALT - [facility] 29 07/14/2020 12:58 PM ALT - [facility] 28 12/16/2018 03:08 PM Hemoglobin AIC Results: Lab Results Component Value Date/Time HEMOGLOBIN A1C - [facility] 9.3 (H) 07/14/2020 12:58 PM * Telephone Encounter - Hollie Guerra, motorcycle repair shop supervisor - 07/25/2020 1:29 PM EDT pt calling requesting the following medication below that is listed as "Historical". The following information was provided: Medication Name: amlodipine Strength: 5 mg Directions: take 5 mg by mouth daily Preferred Quantity: 30 day Previous Prescriber: renu Preferred Pharmacy: [facility] [id number] Medication Name: Lisinopril Strength: 5 mg Directions: take 5 mg by mouth daily in morning Preferred Quantity: 30 day Previous Prescriber: renu Preferred Pharmacy: [facility] [id number] Asking to have these expedited as he is almost out. Please review and approve if appropriate. Hollie Guerra Advanced Manufacturing Associate [email or web address] 07/25/2020 1:30 PM documented in this encounter Plan of Treatment Upcoming Encounters Date Type Specialty Care Team Description 09/05/2020 Office Visit Family Medicine Ronald Jean MD [address] [place], [place] [id number] 01/19/2021 Office Visit Cardiology Maria Alfaro PA-C [address] [facility] [place] [address] [phone] Health Maintenance Due Date Last Done Comments DIABETES-EYE EXAM 1986 DIABETES-FOOT EXAM 1986 DIABETES HEPATITIS B (3 DOSE SERIES) (#1) 1987 Zoster Vaccines (1 of 2) 2018 *COLORECTAL CANCER SCREENING (COLONOSCOPY 10 YEARS; SIGMOIDOSCOPY 5 YEARS; COLOGUARD 3 YEARS; FOBT 1 YEAR),AGES 50-75 12/03/2018 Influenza Vaccine (FLU shot) (#1) 2019 *DEPRESSION SCREENING,ANNUAL FOR PTS 12 AND OVER 12/12/2019 DIABETES-HGBA1C EVERY 6 MONTHS 01/13/2021 07/14/2020 DTaP,Tdap,and Td Vaccines (2 - Td) 10/04/20262016 Pneumococcal Vaccine: Pediat rics (0 to 5 Years) and At-Risk Patients (6 to 64 Years) (2 of 2) 2033 12/09/2018 MENINGOCOCCAL (MENACTRA/MENVEO) Aged Out No longer eligible based on patient's age to complete this topic documented as of this encounter Implants Not on filedocumented as of this encounter Advance Directives Documents on File Type Date Recorded 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
--- OUTSIDE RECORDS SUMMARY | 2023-01-12 10:25 | External Medical Summary | Summary of Care ---
Author Name Unknown Organization [place] [address] Care Team Providers Care Slurry Mixer Name Role Phone Ronald Jean MD Primary Care Provid er Reason for Visit * Reason Comments eRx-Medication Refill Encounter Details Date Type Department Care Team Description 01/22/2021 Refill [facility] [address] [place] [address] Ronald Jean MD [address] [place] [address] Allergies Active Allergy Reactions Severity Noted Date Comments Penicillins 12/09/2018 Facial swelling documented as of this encounter (statuses as of 01/24/2021) Medications Medication Sig Dispensed Refills Start Date End Date Status acetaminophen (TYLENOL) 500 MG TabletIndications :Acute pain of left shoulder Take 2 Tabs by mouth every 8 hours as needed for Pain or Fever. 100 Tab 0 12/09/2018 Active OneTouch Verio In Vitro Strip USE 1 STRIP TO CHECK GLUCOSE ONCE DAILY DIRECTED 0 06/27/2020 Active OneTouch Delica Plus [id number] USE 1 TO CHECK GLUCOSE ONCE DAILY DIRECTED 0 06/27/2020 Active Aspirin 81 MG Oral Tablet Delayed Release Take 81 mg by mouth daily. 0 Active Atorvastatin Calcium 80 MG Oral Tablet (Lipitor) Take 1 Tab by mouth at bedtime. 30 Tab 11 07/25/2020 Active Lisinopril 5 MG Oral Tablet (Prinivil) Take 1 Tab by mouth daily. In the morning. 30 Tab 5 07/25/2020 Active Clopidogrel Bisulfate 75 MG Oral Tablet (pLAVix)Indicatio ns:Acute ST elevation myocardial infarction (STEMI) involving right coronary artery (HCC),H/O heart artery stent Take 1 Tab by mouth daily. 90 Tab 2 09/05/2020 Active metFORMIN HCl ER 500 MG Oral Tablet Extended Release 24 Hour (Glucophage XR)Indications:Ty pe 2 diabetes mellitus with hemoglobin A1c goal of less than 7.0% (HCC) Take 2 Tabs by mouth 2 times a day. 180 Tab 3 09/05/2020 Active Metoprolol Succinate ER 25 MG Oral Tablet Extended Release 24 Hour (toPROL XL) Take 1 Tab by mouth daily. 90 Tab 1 09/05/2020 Active Jardiance 10 MG Oral TabletIndications :Type 2 diabetes mellitus with hemoglobin A1c goal of less than 7.0% (HCC) Take 1 tablet by mouth once daily 90 Tab 3 11/27/2020 Active Sildenafil Citrate 25 MG Oral Tablet Take 1 Tab by mouth daily as needed for Erectile Dysfunction. 10 Tab 0 11/28/2020 Active amLODIPine Besylate 5 MG Oral Tablet (Norvasc) Take 1 tablet by mouth once daily 30 Tab 5 01/24/2021 Active amLODIPine Besylate 5 MG Oral Tablet (Norvasc) Take 1 Tab by mouth daily. 30 Tab 5 07/25/2020 01/24/2021 Discontinued documented as of this encounter (statuses as of 01/24/2021) Active Problems Problem Noted Date Erectile disorder due to medical conditi on [...] as of this encounter (statuses as of 01/24/2021) Resolved Problems Problem Noted Date Resolved Date Screening for diabetes mellitus 12/09/2018 04/02/2019 documented as of this encounter (statuses as of 01/24/2021) Immunizations Name Administration Dates Next Due Pneumococcal [...] encounter Miscellaneous Notes * Telephone Encounter - Lisa Keith RPh - 01/24/2021 1:59 PM EDT Signed Prescriptions: Disp Refills amLODIPine Besylate 5 MG Oral Tablet (Norv*30 Tab 5 Sig: Take 1 tablet by mouth once dailyAuthorizing Provider: RONALD JEAN User: BERKLEY KEITH N documented in this encounter Plan of Treatment Upcoming Encounters Date Type Specialty Care Team Description 02/28/2021 Office Visit Cardiology Maria Alfaro PA-C [address] [place] [address] [phone] 05/08/2021 Office Visit [facility] [address] [facility] [address] [phone] Health Maintenance Due Date Last Done Comments COVID-19 Vaccine (1) 1980 DIABETES-FOOT EXAM 1986 DIABETES HEPATITIS B (3 DOSE SERIES) (#1) 1987 Zoster Vaccines (1 of 2) 2018 *COLORECTAL CANCER SCREENING (COLONOSCOPY 10 YEARS; SIGMOIDOSCOPY 5 YEARS; COLOGUARD 3 YEARS; FOBT 1 YEAR),AGES 50-75 12/03/2018 *DEPRESSION SCREENING,ANNUAL FOR PTS 12 AND OVER 12/12/2019 Influenza Vaccine (FLU shot) (#1) 2020 DIABETES-HGBA1C EVERY 6 MONTHS 04/15/2021 0 10/13/2020, 07/14/2020 DIABETES-EYE EXAM 09/05/2021 09/05/2020 DTaP,Tdap,and Td Vaccines (2 - Td) 10/04/2026 10/04/2016 Pneumococcal Vaccine: Pediatrics (0 to 5 Years) and At-Risk Patients (6 to 64 Years) (2 of 2 - PPSV23) 2033 12/09/2018 MENINGOCOCCAL (MENACTRA/MENVEO) Aged Out No longer eligible b ased on patient's age to complete this topic documented as of this encounter Implants Not on filedocumented as of this encounter Advance Directives Documents on File Type Date Recorded 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
--- OUTSIDE RECORDS SUMMARY | 2023-01-12 10:25 | External Medical Summary | Summary of Care ---
Author Name Unknown Organization [place] [address] Care Team Providers Care Unmanned Equipment Operator Name Role Phone Patrica Zhang MD Primary Care Provid er Reason for Visit * Reason Onset Date Comments Scan To Read 09/05/2020 Diabetic Retinal Images Encounter Details Date Type Department Care Team Description 09/05/2020 Telephone [facility] [address] [place] [address] Patrica Zhang MD [address], [place] [id number] Scan To Read (Diabetic Retinal Images) Allergies Active Allergy Reactions Severity Noted Date Comments Penicillins 12/09/2018 Facial swelling documented as of this encounter (statuses as of 09/05/2020) Medications Medication Sig Dispensed Refills Start Date End Date Status acetaminophen (TYLENOL) 500 MG TabletIndications:Acu te pain of left shoulder Take 2 Tabs by mouth every 8 hours as needed for Pain or Fever. 100 Tab 0 12/09/2018 Active OneTouch Verio In Vitro Strip USE 1 STRIP TO CHECK GLUCOSE ONCE DAILY DIRECTED 0 06/27/2020 Active OneTouch Delica Plus [id number] USE 1 TO CHECK GLUCOSE ONCE DAILY DIRECTED 0 06/27/2020 Active Aspirin 81 MG Oral Tablet Delayed Release Take 81 mg by mouth daily. 0 Active Atorvastatin Calcium 80 MG Oral Tablet (Lipitor) Take 1 Tab by mouth at bedtime. 30 Tab 11 07/25/2020 Active amLODIPine Besylate 5 MG Oral Tablet (Norvasc) Take 1 Tab by mouth daily. 30 Tab 5 07/25/2020 Active Lisinopril 5 MG Oral Tablet (Prinivil) Take 1 Tab by mouth daily. In the morning. 30 Tab 5 07/25/2020 Active Clopidogrel Bisulfate 75 MG Oral Tablet (pLAVix)Indications:A cute ST elevation myocardial infarction (STEMI) involving right coronary artery (HCC),H/O heart artery stent Take 1 Tab by mouth daily. 90 Tab 2 09/05/2020 Active metFORMIN HCl ER 500 MG Oral Tablet Extended Release 24 Hour (Glucophage XR)Indications:Type 2 diabetes mellitus with hemoglobin A1c goal of less than 7.0% (HCC) Take 2 Tabs by mouth 2 times a day. 180 Tab 3 09/05/2020 Active Jardiance 10 MG Oral TabletIndications:Typ e 2 diabetes mellitus with hemoglobin A1c goal of less than 7.0% (HCC) Take 1 Tab by mouth daily. 30 Tab 1 09/05/2020 Active Metoprolol Succinate ER 25 MG Oral Tablet Extended Release 24 Hour (toPROL XL)Indications:HTN, goal below 140/80 Take 1 Tab by mouth daily. 90 Tab 1 09/05/2020 Active documented as of this encounter (statuses as of 09/05/2020) Active Problems Problem Noted Date HTN, goal [...] as of this encounter (statuses as of 09/05/2020) Resolved Problems Problem Noted Date Resolved Date Screening for diabetes mellitus 12/09/2018 04/02/2019 documented as of this encounter (statuses as of 09/05/2020) Immunizations Name Administration Dates Next Due Pneumococcal [...] encounter Miscellaneous Notes * Telephone Encounter - Reina Joseph LPN - 09/05/2020 7:20 PM EDT A Diabetic Telemed Eye image was taken and requires your interpretation for Dr Zhang. Please check your inbasket for image. Patient prefers to be [facility] at [facility] if a follow-up appointment isneeded. documented in this encounter Plan of Treatment Upcoming Encounters Date Type Specialty Care Team Description 10/13/2020 Laboratory Laboratory [facility] [address] [place] [facility] [place] [address] 01/19/2021 Office Visit Cardiology Maria Alfaro PA-C [address] [place] [address] [phone] 03/13/2021 Office Visit Family Medicine Patrica Zhang MD [address] [place] [facility] [place] [address] [phone] Health Maintenance Due Date Last Done Comments COVID-19 Vaccine (1) 1980 DIABETES-FOOT EXAM 1986 DIABETES HEPATITIS B (3 DOSE SERIES) (#1) 1987 Zoster Vaccines (1 of 2) 2018 *COLORECTAL CANCER SCREENING (COLONOSCOPY 10 YEARS; SIGMOIDOSCOPY 5 YEARS; COLOGUARD 3 YEARS; FOBT 1 YEAR),AGES 50-75 12/03/2018 *DEPRESSION SCREENING,ANNUAL FOR PTS 12 AND OVER 12/12/2019 Influenza Vaccine (FLU shot) (Season Ended) 2020 DIABETES-HGBA1C EVERY 6 MONTHS 01/13/2021 07/14/2020 DIABETES-EYE EXAM 09/05/2021 09/05/2020 DTaP,Tdap,and Td Vaccines (2 - Td) 10/04/20262016 [...] Documents on File Type Date Recorded 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
--- OUTSIDE RECORDS SUMMARY | 2023-01-12 10:25 | External Medical Summary | Summary of Care ---
Author Name Unknown Organization [place] [address] Care Team Providers Care Cone Sewer Name Role Phone Patrica Zhang MD Primary Care Provid er Reason for Referral * Evaluate & Treat - Unlimited Visits (Within 30 days (routine)) Status Reason Specialty Diagnoses / Procedures Referred By Contact Referred To Contact Authorized Specialty Services Required Cardiovascular Medicine / Cardiology Diagnoses Hospital discharge follow-up Soniya Mendoza MD [address] [place] [address] Question Answer Referral Priority Within 30 days (routine) To which of the following clinics are you referring your patient? [facility] Electronically signed by Soniya Mendoza MD at Reason for Visit * Reason Onset Date Comments Referral Requested by Specialist 06/27/2020 Encounter Details Date Type Department Care Team Description 06/27/2020 Telephone General Internal Medicine [facility] [address] [facility] [place] [address] Soniya Mendoza MD [address] [place], [place] [id number] Referral Requested by Specialist Allergies Active Allergy Reactions Severity Noted Date Comments Penicillins 12/09/2018 Facial swelling documented as of this encounter (statuses as of 06/28/2020) Medications Medication Sig Dispensed Refills Start Date End Date Status acetaminophen (TYLENOL) 500 MG TabletIndications:Acut e pain of left shoulder Take 2 Tabs by mouth every 8 hours as needed for Pain or Fever. 100 Tab 0 12/09/2018 Active metoprolol succinate XL (TOPROL XL) 25 MG [id number]:HTN, goal below 140/80 Take 0.5 Tabs by mouth daily. Start 06/23/2019 30 Tab 2 06/23/2019 Active amLODIPine (NORVASC) 10 MG TabletIndications:HTN, goal below 130/80 Take 1 Tab by mouth daily. 90 Tab 1 07/28/2019 Active documented as of this encounter (statuses as of 06/28/2020) Active Problems Problem Noted Date HTN, goal below 140/80 04/02/2019 Screen for colon cancer 04/02/2019 Tobacco use disorder 12/09/2018 Obesity, Class II, BMI 35-39.9, isolated (see actual BMI) 12/09/2018 documented as of this encounter (statuses as of 06/28/2020) Resolved Problems Problem Noted Date Resolved Date Screening for diabetes mellitus 12/09/2018 04/02/2019 documented as of this encounter (statuses as of 06/28/2020) Immunizations Name Administration Dates Next Due Pneumococcal Polysaccharide PPV23 (Pneumovax) 12/09/2018 TDAP (age 11 and older)(Adacel) 10/04/2016 Zoster Vaccine Recombinant (Shingrix) (Deferred: Patient Refused - Pt states his arm is sore and will get at another time.) documented as of this encounter Social History Tobacco Use Types Packs/Day Years Used Date Current Every Day Smoker Cigarettes 0.5 30 Smokeless Tobacco: Former [...] Recorded Male 04/02/2019 9:[address] documented as of this encounter Miscellaneous Notes * Telephone Encounter - Soniya Mendoza MD - 06/28/2020 6:45 PM EDT Done, has app[facility] at [facility]. * Telephone Encounter - Soniya Mendoza MD - 06/28/2020 1:[address] enter reason. I last saw him 1 yr ago. * Telephone Encounter - Karely Andres LPN - 06/28/2020 8:25 AM EDT Cardiology referral pended if agreeable * Telephone Encounter - Stephanie Pittman OSA - 06/27/2020 2:42 PM EDT Appt 07/24/[address] Collins. documented in this encounter Plan of Treatment Upcoming Encounters Date Type Specialty Care Team Description 07/03/2020 Office Visit Family Medicine Patrica Zhang MD [address] [place] [phone] 07/24/2020 Office Visit Cardiology Michael Collins MD [address] [place] [address] [phone] Scheduled Referrals Name Type Priority Associated Diagnoses Orde r Schedule CARDIOLOGY REFERRAL OP Referral Within 30 days (routine) Hospital discharge follow-up Ordered: 06/28/2020 Health Maintenance Due Date Last Done Comments Zoster Vaccines (1 of 2) 2018 *COLORECTAL CANCER SCREENING (COLONOSCOPY 10 YEARS; SIGMOIDOSCOPY 5 YEARS; COLOGUARD 3 YEARS; FOBT 1 YEAR),AGES 50-75 12/03/2018 Influenza Vaccine (FLU shot) (#1) 2019 *DEPRESSION SCREENING,ANNUAL FOR PTS 12 AND OVER 12/12/2019 *BASIC METABOLIC PANEL (BMP) FOR HTN YEARLY 12/20/2019 DIABETES SCREEN EVERY 3 YRS- AGE 45 AND ABOVE 12/16/2021 12/16/2018 LIPID SCREEN EVERY 5 YRS-MEN AGE 35-75 12/17/2023 12/16/2018 DTaP,Tdap,and Td Vaccines (2 - Td) 10/04/20262016 Pneumococcal Vaccine: Pediat rics (0 to 5 Years) and At-Risk Patients (6 to 64 Years) Completed 12/09/2018 MENINGOCOCCAL (MENACTRA/MENVEO) Aged Out No longer eligible based on patient's age to complete this topic documented as of this encounter Implants Not on filedocumented as of this encounter Visit Diagnoses Diagnosis Hospital discharge follow-up- Primary Other follow-up examination documented in this encounter Advance Directives Documents on File Type Date Recorded Patient Foundation Director Expl anation Advanced Directive Advanced Directive Advanced Directive Advanced Directive
--- OUTSIDE RECORDS SUMMARY | 2023-01-12 10:25 | External Medical Summary | Summary of Care ---
Author Name Unknown Organization [place] [address] Care Team Providers Care Fitter Mechanic Name Role Phone Ronald Jean MD Primary Care Provid er Reason for Visit * Reason Onset Date Comments Medication Refill 11/27/2020 Encounter Details Date Type Department Care Team Description 11/27/2020 Refill [facility] [address] [place] [address] Ronald Jean MD [address] [place] [address] Allergies Active Allergy Reactions Severity Noted Date Comments Penicillins 12/09/2018 Facial swelling documented as of this encounter (statuses as of 11/28/2020) Medications Medication Sig Dispensed Refills Start Date End Date Status acetaminophen (TYLENOL) 500 MG TabletIndications :Acute pain of left shoulder Take 2 Tabs by mouth every 8 hours as needed for Pain or Fever. 100 Tab 0 12/09/2018 Active OneTouch Verio In Vitro Strip USE 1 STRIP TO CHECK GLUCOSE ONCE DAILY DIRECTED 0 06/27/2020 Active OneTouch Delica Plus [id number] USE 1 TO CHECK GLUCOSE ONCE DAILY [...] mouth daily. 90 Tab 1 09/05/2020 Active Sildenafil Citrate 25 MG Oral Tablet Take 1 Tab by mouth daily as needed for Erectile Dysfunction. 10 Tab 0 11/28/2020 Active Sildenafil Citrate 25 MG Oral Tablet Take 1 Tab by mouth daily as needed for Erectile Dysfunction. 10 Tab 0 10/05/2020 11/27/2020 Discontinued( Refill) documented as of this encounter (statuses as of 11/28/2020) Active Problems Problem Noted Date Erectile disorder [...] as of this encounter (statuses as of 11/28/2020) Resolved Problems Problem Noted Date Resolved Date Screening for diabetes mellitus 12/09/2018 04/02/2019 documented as of this encounter (statuses as of 11/28/2020) Immunizations Name Administration Dates Next Due Pneumococcal [...] Telephone Encounter - Ronald Jean MD - 11/28/2020 9:50 AM EDT Signed Prescriptions: Disp Refills Sildenafil Citrate 25 MG Oral Tablet 10 Tab 0 Sig: Take 1 Tab by mouth daily as needed for Erectile Dysfunction. Authorizing Provider: RONALD JEAN * Telephone Encounter - Eva Armstrong, Flite - 11/27/2020 11:36 AM EDT Pending Prescriptions: Disp Refills Sildenafil Citrate 25 MG Oral Tablet 10 Tab 0 Sig: Take 1 Tab by mouth daily as needed for Erectile Dysfunction. Last Office/Telemedicine Visit: 09/05/2020 03/13/2021 If no future appointments scheduled, and last appointment is greater than a year ago, please schedule patient for a follow-up appointment Last date the medication was ordered: 10/05/2020 Pharmacy: [facility] [address] [place] Is this request for a controlled substance?No Urine Drug Screen:No results found for this or any previous visit. Patient Phone Numbers Labs: Lab Results Component Value Date/Time CREAT 1.0 07/14/2020 12:58 PM CREAT 0.9 12/16/2018 03:08 PM POTASSIUM 4.5 07/14/2020 12:58 PM POTASSIUM 4.4 12/16/2018 03:08 PM TSH 1.77 12/16/2018 03:08 PM LDLCALC 120 12/16/2018 03:08 PM LDLDIRECT 61 10/13/2020 12:13 PM LDLDIRECT NOT APPLICABLE 12/16/2018 03:08 PM ALT 29 07/14/2020 12:58 PM ALT 28 12/16/2018 03:08 PM HGBA1C 6.4 (H) 10/13/2020 12:13 PM documented in this encounter Plan of Treatment Upcoming Encounters Date Type Specialty Care Team Description 01/19/2021 Office Visit Cardiology Maria Alfaro PA-C [address] [facility] [place] [address] [phone] 03/13/2021 Office Visit Family Medicine Ronald Jean MD [address] [facility] [facility] [address] [phone] Health Maintenance Due Date Last Done Comments [...] Documents on File Type Date Recorded Patient Twister Hand Expl 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 Advanced Directive Advanced Directive
--- OUTSIDE RECORDS SUMMARY | 2023-01-12 10:25 | External Medical Summary ---
Author Name Unknown Address Unknown Organization K01:[facility] [address] [place] [id number] Laboratory Report Ordering Provider Test Date Status JAMEY KATZ 10/13/2020 12:13:52 Final Observation Date Value Abnormality Reference (Units ) Status Triglyceride 10/13/2020 12:13:52 202 Above high normal <=174 (mg/dL) Final Performing Location [facility] [address] [place] [address]
--- OUTSIDE RECORDS SUMMARY | 2023-01-12 10:25 | External Medical Summary | Summary of Care ---
Author Name Unknown Organization [place] [address] Care Team Providers Care Circuit Board Assembler Name Role Phone Patrica Zhang MD Primary Care Provid er Reason for Visit * Reason Onset Date Comments Appointment 10/02/2020 Patient has ques tion Encounter Details Date Type Department Care Team Description 10/02/2020 Telephone [facility] [address] [place] [address] Patrica Zhang MD [address] [place] [address] Appointment (Patient has question) Allergies Active Allergy Reactions Severity Noted Date Comments Penicillins 12/09/2018 Facial swelling documented as of this encounter (statuses as of 10/05/2020) Medications Medication Sig Dispensed Refills Start Date End Date Status acetaminophen (TYLENOL) 500 MG TabletIndications:Acu te pain of left shoulder Take 2 Tabs by mouth every 8 hours as needed for Pain or Fever. 100 Tab 0 12/09/2018 Active OneTouch Verio In Vitro Strip USE 1 STRIP TO CHECK GLUCOSE ONCE DAILY DIRECTED 0 06/27/2020 Active OneTouch Delica Plus [id number] USE 1 TO CHECK GLUCOSE ONCE DAILY [...] for Erectile Dysfunction. 10 Tab 0 10/05/2020 Active documented as of this encounter (statuses as of 10/05/2020) Active Problems Problem Noted Date Erectile disorder [...] as of this encounter (statuses as of 10/05/2020) Resolved Problems Problem Noted Date Resolved Date Screening for diabetes mellitus 12/09/2018 04/02/2019 documented as of this encounter (statuses as of 10/05/2020) Immunizations Name Administration Dates Next Due Pneumococcal [...] encounter Miscellaneous Notes * Telephone Encounter - Мария Covarrbuias LPN - 10/05/2020 9:59 AM EDT Patient aware. * Telephone Encounter - Patrica Zhang MD - 10/05/2020 9:43 AM EDT FYI Script sent - pt is to try sildenafil for erectile disfunction. Cardiology aware. AG * Telephone Encounter - Мария Covarrubias LPN - 10/02/2020 12:14 PM EDT Spoke to patient- He states he spoke to provider about an embarrassing issue and wanted to know the status of the possible medication. Advised PCP is out of the office this week but we would be in touch. Per last visit note: "Erectile disorder - likely related to BB medicine - messaging sent to cardiology to see if any reservations against prescribing sildenafil - will await recs" Any updates? * Telephone Encounter - Debi Montilla OSA - 10/02/2020 10:00 AM EDT Patient wants a call from Dr. Zhang b/c It was something he discussed with her last time. He would not tell me what it was about but wants someone to call him. I let him know that someone will be in touch. Please call him on his cell phone. documented in this encounter Plan of Treatment Upcoming Encounters Date Type Specialty Care Team Description 10/13/2020 Laboratory Laboratory [place] [address] [place] [address] 01/19/2021 Office Visit Cardiology Maria Alfaro PA-C [address] [facility] [place] [address] 03/13/2021 Office Visit Family Medicine Patrica Zhang MD [address] [place] [address] Health Maintenance Due Date Last [...] Documents on File Type Date Recorded Patient Activities Specialist Expl 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 Advanced Directive Advanced Directive
--- OUTSIDE RECORDS SUMMARY | 2023-01-12 10:25 | External Medical Summary | Summary of Care ---
Author Name Unknown Organization [place] [address] Care Team Providers Care Solutions Delivery Consultant Name Role Phone Patrica Zhang MD Primary Care Provid er Reason for Visit * Reason Onset Date Comments Scan To Read 09/05/2020 Diabetic Retinal Images Encounter Details Date Type Department Care Team Description 09/05/[address] [facility] [address] [place] [address] Patrica Zhang MD [address], [place] [id number] Scan To Read (Diabetic Retinal Images) Allergies Active Allergy Reactions Severity Noted Date Comments Penicillins 12/09/2018 Facial swelling documented as of this encounter (statuses as of 09/06/2020) Medications Medication Sig Dispensed Refills Start Date End Date Status acetaminophen (TYLENOL) 500 MG TabletIndications:Acu te pain of left shoulder Take 2 Tabs by mouth every 8 hours as needed for Pain or Fever. 100 Tab 0 12/09/2018 Active OneTouch Verio In Vitro Strip USE 1 STRIP TO CHECK GLUCOSE ONCE DAILY DIRECTED 0 06/27/2020 Active OneTouch Delica Plus [id number] USE 1 TO CHECK GLUCOSE ONCE DAILY [...] as of this encounter (statuses as of 09/06/2020) Active Problems Problem Noted Date Erectile disorder [...] as of this encounter (statuses as of 09/06/2020) Resolved Problems Problem Noted Date Resolved Date Screening for diabetes mellitus 12/09/2018 04/02/2019 documented as of this encounter (statuses as of 09/06/2020) Immunizations Name Administration Dates Next Due Pneumococcal [...] Telephone Encounter - Carlton Black MD - 09/06/2020 7:15 AM EDT Retinal Scan Imaging [place] [id number] Retinal Scan Interpretation: There is no retinopathy in both eyes Diabetes Retinal Imaging Care Plan: The retinal scan results are normal - I will forward this encounter to the Ophthalmology DM Letter Pool [[id number]], they will send a normal retinal scan letter to the patient, and the patient will be seen back for a yearly scan. Carlton Black MD 09/06/2020 7:15 AM * Telephone Encounter - Reina Joseph LPN - 09/05/2020 7:20 PM EDT A Diabetic Telemed Eye image was taken and requires your interpretation for Dr Zhang. Please check your inbasket for image. Patient prefers to be seen at [facility] if a follow-up appointment isneeded. documented in this encounter Plan of Treatment Upcoming Encounters Date Type Specialty Care Team Description 10/13/2020 Laboratory [facility] [address] [place] [address] [phone] 01/19/2021 Office Visit Cardiology Maria Alfaro PA-C [address] [facility] [place] [address] [phone] 03/13/2021 Office Visit Family Medicine Patrica Zhang MD [address] [place] [address] Health Maintenance Due Date Last Done [...] Documents on File Type Date Recorded Patient Powderman Expl 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 Advanced Directive Advanced Directive
--- OUTSIDE RECORDS SUMMARY | 2023-01-12 10:25 | External Medical Summary | Summary of Care ---
Author Name Unknown Organization [place] [address] Care Team Providers Care Strategic Insights Lead Name Role Phone Patrica Zhang MD Primary Care Provid er Reason for Visit * Reason Onset Date Comments Hospital Follow-Up Hospital Follow-Up 07/03/2020 Encounter Details Date Type Department Care Team Description 07/03/2020 Office Visit [facility] [address] [place] [address] Patrica Zhang MD [address] [place] [address] [phone] Hospital discharge follow-up*; HTN, goal below 130/80; Obesity, Class II, BMI 35-39.9, isolated (see actual BMI); Type 2 diabetes mellitus with hemoglobin A1c goal of less than 7.0% ([facility]); Acute ST elevation myocardial infarction (STEMI) involving right coronary artery ([facility]); H/O heart artery stent Allergies Active Allergy Reactions Severity Noted Date Comments Penicillins 12/09/2018 Facial swelling documented as of this encounter (statuses as of 07/03/2020) Medications Medication Sig Dispensed Refills Start Date End Date Status acetaminophen (TYLENOL) 500 MG TabletIndications :Acute pain of left shoulder Take 2 Tabs by mouth every 8 hours as needed for Pain or Fever. 100 Tab 0 12/09/2018 Active metoprolol succinate XL (TOPROL XL) 25 MG [id number] TN, goal below 140/80 Take 0.5 Tabs by mouth daily. Start 06/23/2019 30 Tab 2 06/23/2019 Active Atorvastatin Calcium 80 MG Oral Tablet (Lipitor) Take 1 Tab by mouth at bedtime. 0 06/27/2020 Active Clopidogrel Bisulfate 75 MG Oral Tablet (pLAVix) Take 1 Tab by mouth daily. 0 06/27/2020 Active metFORMIN HCl ER 500 MG Oral Tablet Extended Release 24 Hour (Glucophage XR) Take 500 mg by mouth daily. 0 06/27/2020 Active OneTouch Verio In Vitro Strip USE 1 STRIP TO CHECK GLUCOSE ONCE DAILY DIRECTED 0 06/27/2020 Active amLODIPine Besylate 5 MG Oral Tablet (Norvasc) Take 5 mg by mouth daily. 0 06/27/2020 Active OneTouch Delica Plus [id number] USE 1 TO CHECK GLUCOSE ONCE DAILY DIRECTED 0 06/27/2020 Active Jardiance 10 MG Oral Tablet Take 10 mg by mouth daily. 0 06/28/2020 Active Lisinopril 5 MG Oral Tablet (Prinivil) Take 5 mg by mouth daily. In the morning. 0 06/27/2020 Active Aspirin 81 MG Oral Tablet Delayed Release Take 81 mg by mouth daily. 0 Active amLODIPine (NORVASC) 10 MG TabletIndications :HTN, goal below 130/80 Take 1 Tab by mouth daily. 90 Tab 1 07/28/2019 07/03/2020 Discontinued documented as of this encounter (statuses as of 07/03/2020) Active Problems Problem Noted Date HTN, goal [...] as of this encounter (statuses as of 07/03/2020) Resolved Problems Problem Noted Date Resolved Date Screening for diabetes mellitus 12/09/2018 04/02/2019 documented as of this encounter (statuses as of 07/03/2020) Immunizations Name Administration Dates Next Due Pneumococcal Polysaccharide PPV23 (Pneumovax) 12/09/2018 TDAP (age 11 and older)(Adacel) 10/04/2016 Zoster Vaccine Recombinant (Shingrix) (Deferred: Patient Refused - Pt states his arm is sore and will get at another time.) documented as of this encounter Social History Tobacco Use Types Packs/Day Years Used Date Former Smoker Cigarettes 0.5 30 Smokeless Tobacco: Former User Snuff Tobacco Cessation:Counseling Given: Yes Comments:was sm 1.5 ppd x 2-3 yrs, [...] Sign Reading Time Taken Comments Blood Pressure 126/64 07/03/2020 4:03 PM EDT Pulse 80 07/03/2020 4:03 PM EDT Temperature 36.4 C (97.5 F) 07/03/2020 4:03 PM ED T Respiratory Rate 18 07/03/2020 4:03 PM EDT Oxygen Saturation - - Inhaled Oxygen Concentration - - Weight 140.6 kg (310 lb) 07/03/2020 4:03 PM EDT Height 188 cm (6' 2") 07/03/2020 4:03 PM EDT Body Mass Index 39.8 07/03/2020 4:03 PM EDT documented in this encounter Progress Notes * Patrica Zhang MD - 07/03/2020 4:09 PM EDT ASSESSMENT / PLAN: Hospital discharge follow-up (Primary) - reviewed hospital notes - in summary: admitted for STEMI - s/p 3x KOKO to RCA - also found to haveelevated BSG - A1C 10.8% - started on statin, metformin, jardiance, plavix, toprol and baby ASA. Remainder of stay was uneventful. - Tolerating discharge meds well. Answered all questions. - DISCH MED RECON CUR MED LIS - BASIC METABOLIC PANEL; Future; Expected date: 07/03/2020 - AST; Future; Expected date: 07/03/2020 - ALT; Future; Expected date: 07/03/2020 - HEMOGLOBIN A1C; Standing HTN, goal below 130/80 - controlled - continue BB, CCB, SIDDHARTHA Obesity, Class II, BMI 35-39.9, isolated (see actual BMI) - weight counseling given Type 2 diabetes mellitus with hemoglobin A1c goal of less than 7.0% ([facility]) - NEW diagnosis upon hospitalization - continue metformin 500mg daily, jardiance - will likely need to increase metformin. Following. - BASIC METABOLIC PANEL; Future; Expected date: 07/03/2020 - AST; Future; Expected date: 07/03/2020 - ALT; Future; Expected date: 07/03/2020 - HEMOGLOBIN A1C; Standing Acute ST elevation myocardial infarction (STEMI) involving right coronary artery (HCC) - s/p 3 KOKO to RCA - continue DAPT x 1 year, BB, SIDDHARTHA, diabetic control, statin - has cardiology f/u 12April - BASIC METABOLIC PANEL; Future; Expected date: 07/03/2020 - AST; Future; Expected date: 07/03/2020 - ALT; Future; Expected date: 07/03/2020 - HEMOGLOBIN A1C; Standing H/O heart artery stent - as above Follow Up: Return in about 2 months (around 09/02/2020). If needed, prefers contact by: Ok to leave message on phone: Pre-visit time: 4:09 PM - 414 = 5 min Visit time: 4:14 PM - 4:35 PM = 21 min Post visit: 545 - 5:48 PM = 3 min Total time: I spent a total of 29 minutes on the date of service in preparation, delivery, and documentation of the care provided to Reyes Mcpherson excluding any time spent in the performance of separately billed services. SUBJECTIVE: Reyes Mcpherson is a 50 year old male. Chief Complaint Patient presents with Hospital Follow-Up Hospital Follow-Up HPI: Discharged 6 days ago - cc was chest pain - found to have ST changes in ED - heart alert commenced - s/p 3x KOKO to RCA - also found to have elevated BSG - A1C 10.8% - started on statin, metformin, jardiance, plavix, toprol and baby ASA. Remainder of stay was uneventful. Tolerating discharge meds well. Random BSG <140. No lows. No recurring symptoms, is back to work. Has follow up with Cardiology. Quit smoking Quit soda - drinking diet soda now Current Outpatient Medications Medication Sig Dispense Refill amLODIPine Besylate 5 MG Oral Tablet (Norvasc) Take 5 mg by mouth daily. Aspirin 81 MG Oral Tablet Delayed Release Take 81 mg by mouth daily. Atorvastatin Calcium 80 MG Oral Tablet (Lipitor) Take 1 Tab by mouth at bedtime. Clopidogrel Bisulfate 75 MG Oral Tablet (pLAVix) Take 1 Tab by mouth daily. Jardiance 10 MG Oral Tablet Take 10 mg by mouth daily. Lisinopril 5 MG Oral Tablet (Prinivil) Take 5 mg by mouth daily. In the morning. metFORMIN HCl ER 500 MG Oral Tablet Extended Release 24 Hour (Glucophage XR) Take 500 mg by mouth daily. OneTouch Delica Plus [id number] USE 1 TO CHECK GLUCOSE ONCE DAILY DIRECTED OneTouch Verio In Vitro Strip USE 1 STRIP TO CHECK GLUCOSE ONCE DAILY DIRECTED metoprolol succinate XL (TOPROL XL) 25 MG TB24 Take 0.5 Tabs by mouth daily. Start 06/23/2019 30Tab 2 acetaminophen (TYLENOL) 500 MG Tablet Take 2 Tabs by mouth every 8 hours as needed for Pain or Fever. 100 Tab 0 OBJECTIVE: BP 126/64 | Pulse 80 | Temp 36.4 C (97.5 F) (Tympanic) | Resp 18 | Ht 1.88 m (6' 2") | Wt (!) 140.6 kg (310 lb) | BMI 39.80 kg/m | BSA 2.71 m Vitals reviewed and is normotensive afebrile and not tachycardic and not hypoxic General: No acute distress. Neuro: Alert Pleasant & interactive. Respiratory: Good inspiratory effort, no labored breathing. CTAB CV: RRR no M R G HEENT: Conjunctivae appear clear. No swelling noted face or lips. Skin: No rash visible on exposed skin areas, normal coloration & appears dry. Psych: Normal affect. Fluent speech. Patrica Zhang MD [facility] [address] [facility] [address] documented in this encounter Nursing Notes * Tricia Varner LPN - 07/03/2020 3:59 PM EDT Hospital f/u documented in this encounter Plan of Treatment Upcoming Encounters Date Type Specialty Care Team Description 07/24/2020 Office Visit Cardiology Michael Collins MD [address] [facility] [place] [address] [phone] 09/05/2020 Office Visit Family [facility] Patrica Zhang MD [address] [place] [address] [phone] Scheduled Orders Name Type Priority Associated Diagnoses Orde r Schedule BASIC METABOLIC PANEL Lab Routine Hospital discharge follow-up HTN, goal below 130/80 Obesity, Class II, BMI 35-39.9, isolated (see actual BMI) Type 2 diabetes mellitus with hemoglobin A1c goal of less than 7.0% (HCC) Acute ST elevation myocardial infarction (STEMI) involving right coronary artery (HCC) H/O heart artery stent Expected: 07/03/2020 (Approximate), Expires: 07/03/2021 AST Lab Routine Hospital discharge follow-up HTN, goal below 130/80 Obesity, Class II, BMI 35-39.9, isolated (see actual BMI) Type 2 diabetes mellitus with hemoglobin A1c goal of less than 7.0% (HCC) Acute ST elevation myocardial infarction (STEMI) involving right coronary artery (HCC) H/O heart artery stent Expected: 07/03/2020 (Approximate), Expires: 07/03/2021 ALT Lab Routine Hospital discharge follow-up HTN, goal below 130/80 Obesity, Class II, BMI 35-39.9, isolated (see actual BMI) Type 2 diabetes mellitus with hemoglobin A1c goal of less than 7.0% (HCC) Acute ST elevation myocardial infarction (STEMI) involving right coronary artery (HCC) H/O heart artery stent Expected: 07/03/2020 (Approximate), Expires: 07/03/2021 HEMOGLOBIN A1C Lab Routine Hospital discharge follow-up HTN, goal below 130/80 Obesity, Class II, BMI 35-39.9, isolated (see actual BMI) Type 2 diabetes mellitus with hemoglobin A1c goal of less than 7.0% (HCC) Acute ST elevation myocardial infarction (STEMI) involving right coronary artery (HCC) H/O heart artery stent Every 3 Months for 3 Occurrences starting 07/03/2020 until 07/03/2021 Health Maintenance Due Date Last Done Comments DIABETES-EYE EXAM 1986 DIABETES-FOOT EXAM 1986 DIABETES-HGBA1C EVERY 6 MONTHS 1986 DIABETES HEPATITIS B (3 DOSE SERIES) (#1) 1987 Zoster Vaccines (1 of 2) 2018 *COLORECTAL CANCER SCREENING (COLONOSCOPY 10 YEARS; SIGMOIDOSCOPY 5 YEARS; COLOGUARD 3 YEARS; FOBT 1 YEAR),AGES 50-75 12/03/2018 Influenza Vaccine (FLU shot) (#1) 2019 *DEPRESSION SCREENING,ANNUAL FOR PTS 12 AND OVER 12/12/2019 *BASIC METABOLIC PANEL (BMP) FOR HTN YEARLY 12/20/2019 DTaP,Tdap,and Td Vaccines (2 - Td) 10/04/20262016 Pneumococcal Vaccine: Pediat rics (0 to 5 Years) and At-Risk Patients (6 to 64 Years) Completed 12/09/2018 MENINGOCOCCAL (MENACTRA/MENVEO) Aged Out No longer eligible based on patient's age to complete this topic documented as of this encounter Implants Not on filedocumented as of this encounter Visit Diagnoses Diagnosis Hospital discharge follow-up- Primary Other follow-up examination HTN, goal below 130/80 Unspecified essential hypertension Obesity, Class II, BMI 35-39.9, isolated (see actual BMI) Morbid obesity Type 2 diabetes mellitus with hemoglobin A1c goal of less than 7.0% (HCC) Acute ST elevation myocardial infarction (STEMI) involving right coronary artery (HCC) H/O heart artery stent Postsurgical percutaneous transluminal coronary angioplasty status documented in this encounter Advance Directives Documents on File Type Date Recorded Patient Coordinator Volunteer Services Expl anation Advanced Directive Advanced Directive Advanced Directive Advanced Directive Advanced Directive
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
--- OUTSIDE RECORDS SUMMARY | 2023-01-12 10:25 | External Medical Summary ---
Author Name Unknown Address Unknown Organization K01:[facility] [address] [place] [address] Laboratory Report Ordering Provider Test Date Status MIRANDA CARDENAS 10/13/2020 12:13:52 Final Observation Date Value Abnormality Reference (Units ) Status HbA1C 10/13/2020 12:13:52 6.4 Above high normal 4. 0-5.6 (%) Final Performing Location [facility] [address] [place] [address]
--- OUTSIDE RECORDS SUMMARY | 2023-01-12 10:25 | External Medical Summary | Summary of Care ---
Author Name Unknown Organization [place] [address] Care Team Providers Care Oven Equipment Repairer Name Role Phone Patrica Zhang MD Primary Care Provid er Reason for Visit * Reason Onset Date Comments Med Request 07/25/2020 Encounter Details Date Type Department Care Team Description 07/25/2020 Telephone [facility] [address] [place] [address] Patrica Zhang MD [address] [place] [address] Med Request Allergies Active Allergy [...] metoprolol succinate XL (TOPROL XL) 25 MG BB34Vfiksripksn:H TN, goal below 140/80 Take 0.5 Tabs by mouth daily. Start 06/23/2019 30 Tab 2 06/23/2019 Active OneTouch Verio In Vitro Strip USE 1 STRIP TO CHECK GLUCOSE ONCE DAILY DIRECTED 0 06/27/2020 Active amLODIPine Besylate 5 MG Oral Tablet (Norvasc) Take 5 mg by mouth daily. 0 06/27/2020 Active OneTouch Delica Plus [id number] USE 1 TO CHECK GLUCOSE ONCE DAILY DIRECTED 0 06/27/2020 Active Lisinopril 5 MG Oral Tablet (Prinivil) [...] mouth daily. 0 06/28/2020 07/25/2020 Discontinued( Refill) documented as of this [...] encounter Miscellaneous Notes * Telephone Encounter - Hollie Guerra PHARM Tech - 07/25/2020 1:29 PM EDT pt calling requesting the following medication below that is listed as "Historical". The following information was provided: Medication Name: amlodipine Strength: 5 mg Directions: take 5 mg by mouth daily Preferred Quantity: 30 day Previous Prescriber: renu Preferred Pharmacy: [facility] [address] [place] [address] [place] Medication Name: Lisinopril Strength: 5 mg Directions: take 5 mg by mouth daily in morning Preferred Quantity: 30 day Previous Prescriber: renu Preferred Pharmacy: [facility] [address] [place] [address] [place] Asking to have these expedited as he is almost out. Please review and approve if appropriate. Hollie Guerra Bottle Capping Machine Operator [facility] 07/25/2020 1:30 PM documented in this encounter Plan of Treatment Upcoming Encounters Date Type Specialty Care Team Description 09/05/2020 Office Visit Family Medicine Patrica Zhang MD [address] [place] [address] [phone] 01/19/2021 Office Visit Cardiology Maria Alfaro PA-C [address] [place] [address] [phone] Health Maintenance Due Date Last Done Comments [...] Documents on File Type Date Recorded Patient Sternman Expl 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
--- OUTSIDE RECORDS SUMMARY | 2023-01-12 10:25 | External Medical Summary | Summary of Care ---
Author Name Unknown Organization [place] [address] Care Team Providers Care Mainframe Programmer Name Role Phone Ronald Jean MD Primary Care Provid er Reason for Visit * Reason Comments eRx-Medication Refill Encounter Details Date Type Department Care Team Description 03/24/2021 Refill [facility] [id number] [place] [address] Ronald Jean MD [address] [place] [address] Allergies Active Allergy Reactions Severity Noted Date Comments Penicillins 12/09/2018 Facial swelling documented as of this encounter (statuses as of 03/25/2021) Medications Medication Sig Dispensed Refills Start Date End Date Status acetaminophen (TYLENOL) 500 MG TabletIndication s:Acute pain of left shoulder Take 2 Tabs by mouth every 8 hours as needed for Pain or Fever. 100 Tab 0 12/09/2018 Active OneTouch Verio In Vitro Strip USE 1 STRIP TO CHECK GLUCOSE ONCE DAILY DIRECTED 0 06/27/2020 Active OneTouch Delica Plus [id number] USE 1 TO CHECK GLUCOSE ONCE DAILY [...] Active Clopidogrel Bisulfate 75 MG Oral Tablet (pLAVix)Indicati ons:Acute ST elevation myocardial infarction (STEMI) involving right coronary artery (HCC),H/O heart artery stent Take 1 Tab by mouth daily. 90 Tab 2 09/05/2020 Active Jardiance 10 MG Oral TabletIndication s:Type 2 diabetes mellitus with hemoglobin A1c goal [...] Oral Tablet Extended Release 24 Hour (Glucophage XR)Indications:T ype 2 diabetes mellitus with hemoglobin A1c goal of less than 7.0% (HCC) Take 2 tablets by mouth twice daily 180 Tablet 2 03/12/2021 Active Metoprolol Succinate ER 25 MG Oral Tablet Extended Release 24 Hour (toPROL XL) Take 1 tablet by mouth once daily 90 Tablet 0 03/25/2021 Active Metoprolol Succinate ER 25 MG Oral Tablet Extended Release 24 Hour (toPROL XL) Take 1 Tab by mouth daily. 90 Tab 1 09/05/2020 03/25/2021 Discontinued documented as of this encounter (statuses as of 03/25/2021) Active Problems Problem Noted Date Erectile disorder [...] as of this encounter (statuses as of 03/25/2021) Resolved Problems Problem Noted Date Resolved Date Screening for diabetes mellitus 12/09/2018 04/02/2019 documented as of this encounter (statuses as of 03/25/2021) Immunizations Name Administration Dates Next Due Pneumococcal [...] 0 (1 standard drink = 0.6 oz pur e alcohol) Alcohol Habits Answer Date Recorded How often do you have a drink containing alcohol ? 2-3 times a week 12/09/2018 How many drinks containing a lcohol do you have on a typical day when you are drinking? 3 or 4 12/09/2018 How often do you have six or more drinks on one occasion? Never 12/09/2018 Comment: Not asked Food Insecurity Answer Date Recorded Within the [...] encounter Miscellaneous Notes * Telephone Encounter - Regina Allan RPh - 03/25/2021 11:19 AM EST Signed Prescriptions: Disp Refills Metoprolol Succinate ER 25 MG Oral Tablet *90 Tab*0 Sig: Take 1 tablet by mouth once daily Authorizing Provider: RONALD JEAN Ordering User: REGINA ALLAN * Telephone Encounter - Regina Allan RPh - 03/25/2021 11:19 AM EST Approved until upcoming OV. Thanks, Regina Allan Clinical Pharmacist Telepharmacy [phone] 03/25/2021, 11:19 AM documented in this encounter Plan of Treatment Upcoming Encounters Date Type Specialty Care Team Description 05/08/2021 Office Visit Family Medicine Ronald Jean MD [address] [place] [address] Health Maintenance Due Date Last Done Comments [...] Documents on File Type Date Recorded Patient Chip Bin Conveyor Tender Expl 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 Advanced Directive Advanced Directive Advanced Directive Advanced Directive Care Teams Mainframe Programmer Relationship Specialty Start Date End Date Ronald Jean MD [address] [place] [phone] PCP - General Family Medicine 06/28/20 documented as of this encounter
--- OUTSIDE RECORDS SUMMARY | 2023-01-12 10:25 | External Medical Summary | Summary of Care ---
Author Name Unknown Organization [place] [address] Care Team Providers Care Librarian Specialist Name Role Phone Ronald Jean MD Primary Care Provid er Reason for Visit * Reason Comments eRx-Medication Refill Encounter Details Date Type Department Care Team Description 11/24/2020 Refill [facility] [address] [place] [address] Ronald Jean MD [address] [place] [address] Type 2 diabetes mellitus with hemoglobin A1c goal of less than 7.0% (HCC) Allergies Active Allergy Reactions Severity Noted Date Comments Penicillins 12/09/2018 Facial swelling documented as of this encounter (statuses as of 11/27/2020) Medications Medication Sig Dispensed Refills Start Date End Date Status acetaminophen (TYLENOL) 500 MG TabletIndications :Acute pain of left shoulder Take 2 Tabs by mouth every 8 hours as needed for Pain or Fever. 100 Tab 0 12/09/2018 Active OneTouch Verio In Vitro Strip USE 1 STRIP TO CHECK GLUCOSE ONCE DAILY DIRECTED 0 06/27/2020 Active OneTouch Delica Plus [id number] USE 1 TO CHECK GLUCOSE ONCE DAILY [...] Erectile Dysfunction. 10 Tab 0 10/05/2020 Active Jardiance 10 MG Oral TabletIndications :Type 2 diabetes mellitus with hemoglobin A1c goal of less than 7.0% (HCC) Take 1 tablet by mouth once daily 90 Tab 3 11/27/2020 Active Jardiance 10 MG Oral TabletIndications :Type 2 diabetes mellitus with hemoglobin A1c goal of less than 7.0% (HCC) Take 1 Tab by mouth daily. 30 Tab 1 09/05/2020 11/27/2020 Discontinued documented as of this encounter (statuses as of 11/27/2020) Active Problems Problem Noted Date Erectile disorder [...] as of this encounter (statuses as of 11/27/2020) Resolved Problems Problem Noted Date Resolved Date Screening for diabetes mellitus 12/09/2018 04/02/2019 documented as of this encounter (statuses as of 11/27/2020) Immunizations Name Administration Dates Next Due Pneumococcal [...] Notes * Telephone Encounter - Barbara Mcguire RPh - 11/27/2020 11:53 AM EDT Signed Prescriptions: Disp Refills Jardiance 10 MG Oral Tablet 90 Tab 3 Sig: Take 1 tablet by mouth once daily Authorizing Provider: RONALD JEAN Ordering User: BARBARA MCGUIRE * Telephone Encounter - Eva Armstrong PHARM Tech - 11/27/2020 11:35 AM EDT Pending Prescriptions: Disp Refills Jardiance 10 MG Oral Tablet 30 Tab 0 Sig: Take 1 tablet by mouth once daily Last Office/Telemedicine Visit: 09/05/2020 03/13/2021 If no future appointments scheduled, and last appointment is greater than a year ago, please schedule patient for a follow-up appointment Last date the medication was ordered: 09/05/2020 Pharmacy: [facility] [address] [address] [place] Is this request for a [...] Office Visit Cardiology Maria Alfaro PA-C [address] [facility] [place] [address] 03/13/2021 Office Visit Family Medicine Ronald Jean MD [address] [place] [address] Health Maintenance Due Date Last [...] Documents on File Type Date Recorded Patient Tunnel Kiln Operator Expl 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 Advanced Directive Advanced Directive
--- OUTSIDE RECORDS SUMMARY | 2023-01-12 10:25 | External Medical Summary | Summary of Care ---
Author Name Unknown Organization [place] [address] Care Team Providers Care Brand Sales Manager Name Role Phone Patrica Zhang MD Primary Care Provid er Reason for Visit * Reason Onset Date Comments Appointment 10/02/2020 Patient has ques tion Encounter Details Date Type Department Care Team Description 10/02/2020 Telephone [facility] [address] [place] [address] Patrica Zhang MD [address] [place] [address] Appointment (Patient has question) Allergies [...] DIRECTED 0 06/27/2020 Active OneTouch Delica Plus [id number] USE 1 TO CHECK GLUCOSE ONCE DAILY [...] encounter Miscellaneous Notes * Telephone Encounter - Patrica Zhang MD [...] EDT Patient wants a call from Dr. Leatha lucas/rhea It was something he discussed with her last time. He would not tell me what it was about but wants someone to call him. I let him know that someone will be in touch. Please call him on his cell phone. documented in this encounter Plan of Treatment Upcoming Encounters Date Type Specialty Care Team Description 10/13/2020 [facility] [address] [place] [address] 01/19/2021 Office Visit Cardiology Maria Alfaro PA-C [address] [facility] [place] [address] 03/13/2021 Office Visit Family Medicine Patirca Zahng MD [address] [place] [address] Health Maintenance Due Date Last [...] Documents on File Type Date Recorded Patient Order Management Specialist Expl 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 Advanced Directive Advanced Directive
--- OUTSIDE RECORDS SUMMARY | 2023-01-12 10:25 | External Medical Summary | Summary of Care ---
Author Name Unknown Organization [place] [address] Care Team Providers Care Compensation Expert Name Role Phone Ronald Jean MD Primary Care Provid er Reason for Visit * Reason Onset Date Comments Medication Refill 07/25/2020 Encounter Details Date Type Department Care Team Description 07/25/2020 Refill [facility] [address] [place] [address] Ronald Jean MD [address] [place] [address] [phone] Allergies Active Allergy Reactions Severity Noted Date [...] metoprolol succinate XL (TOPROL XL) 25 MG [id number]:H TN, goal below 140/80 Take 0.5 Tabs by mouth daily. Start 06/23/2019 30 Tab 2 06/23/2019 Active OneTouch Verio In Vitro Strip USE 1 STRIP TO CHECK GLUCOSE ONCE DAILY DIRECTED 0 06/27/2020 Active amLODIPine Besylate 5 MG Oral Tablet (Norvasc) Take 5 mg by mouth daily. 0 06/27/2020 Active OneTouch Delica Plus [id number] USE 1 TO CHECK GLUCOSE ONCE DAILY DIRECTED 0 06/27/2020 Active Lisinopril 5 MG Oral Tablet (Prinivil) Take 5 mg by mouth daily. In the morning. 0 06/27/2020 Active Aspirin 81 MG Oral Tablet Delayed Release Take 81 mg by mouth daily. 0 Active metFORMIN HCl ER 500 MG Oral Tablet Extended Release 24 Hour (Glucophage XR) Take 1 Tab by mouth daily. 30 Tab 1 07/25/2020 Active Jardiance 10 MG Oral Tablet Take 1 Tab by mouth daily. 30 Tab 1 07/25/2020 Active Clopidogrel Bisulfate 75 MG Oral Tablet (pLAVix) Take 1 Tab by mouth daily. 30 Tab 1 07/25/2020 Active Atorvastatin Calcium 80 MG Oral Tablet (Lipitor) Take 1 Tab by mouth at bedtime. 30 Tab 11 07/25/2020 Active Atorvastatin Calcium 80 MG Oral [...] Telephone Encounter - Ronald Jean MD - 07/25/2020 1:34 PM EDT Signed Prescriptions: Disp Refills metFORMIN HCl ER 500 MG Oral Tablet Extend*30 Tab 1 Sig: Take 1 Tab by mouth daily. Authorizing Provider: RONALD JEAN Jardiance 10 MG Oral Tablet 30 Tab 1 Sig: Take 1 Tab by mouth daily. Authorizing Provider: RONALD JEAN Clopidogrel Bisulfate 75 MG Oral Tablet (p*30 Tab 1 Sig: Take 1 Tab by mouth daily. Authorizing Provider: RONALD JEAN Atorvastatin Calcium 80 MG Oral Tablet (Li*30 Tab 11 Sig: Take 1 Tab by mouth at bedtime. Authorizing Provider: RONALD JEAN * Telephone Encounter - Hollie Guerra final operations technician - 07/25/2020 1:28 PM EDT Medication(s) is/are listed as "Historical". Pt confirmed the current dosage, directions, and qty that they are normally prescribed, as reflected in the pending order below. This is also indicated from encounter on 07/03/2020. Confirmed patient has been seen within the last year.. Please review and approve if appropriate. Pending Prescriptions: Disp Refills metFORMIN HCl ER 500 MG Oral Tablet Exten* Sig: Take 1 Tab by mouth daily. Jardiance 10 MG Oral Tablet Sig: Take 1 Tab by mouth daily. Clopidogrel Bisulfate 75 MG Oral Tablet (* Sig: Take 1 Tab by mouth daily. Atorvastatin Calcium 80 MG Oral Tablet (L*30 Tab Sig: Take 1 Tab by mouth at bedtime. Last Office/Telemedicine Visit: 07/03/2020 Next Office Visit: 09/05/2020 Scheduled Provider(s): Ronald Jean MD If no future appointments scheduled, and last appointment is greater than a year ago, please schedule patient for a follow-up appointment Last date the medication was ordered: Historical Patient Phone Numbers Labs: Lab Results Component Value Date/Time CREAT 1.0 07/14/2020 12:58 PM CREAT 0.9 12/16/2018 03:08 PM POTASSIUM 4.5 07/14/2020 12:58 PM POTASSIUM 4.4 12/16/2018 03:08 PM TSH 1.77 12/16/2018 03:08 PM LDLCALC 120 12/16/2018 03:08 PM LDLDIRECT NOT APPLICABLE 12/16/2018 03:08 PM ALT 29 07/14/2020 12:58 PM ALT 28 12/16/2018 03:08 PM HGBA1C 9.3 (H) 07/14/2020 12:58 PM documented in this encounter Plan of Treatment Upcoming Encounters Date Type Specialty Care Team Description 09/05/2020 Office Visit Family Medicine Ronald Jean MD [address] [address] [phone] 01/19/2021 Office Visit [facility]iology [facility] [address] [facility] [place] [address] [phone] Health Maintenance Due Date Last Done Comments [...] Documents on File Type Date Recorded 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
--- OUTSIDE RECORDS SUMMARY | 2023-01-12 10:25 | External Medical Summary | Summary of Care ---
Author Name Unknown Organization [place] [address] Care Team Providers Care Call Center Rn Name Role Phone Patrica Zhang MD Primary Care Provid er Reason for Visit * Reason Onset Date Comments Health Maintenance 08/23/2020 Encounter Details Date Type Department Care Team Description 08/23/2020 Telephone [facility] [address] [place] [address] Patrica Zhang MD [address] [place] [address] Health Maintenance Allergies Active Allergy Reactions Severity Noted Date Comments Penicillins 12/09/2018 Facial swelling documented as of this encounter (statuses as of 08/23/2020) Medications Medication Sig Dispensed Refills Start Date End Date Status acetaminophen (TYLENOL) 500 MG TabletIndications:Acu te pain of left shoulder Take 2 Tabs by mouth every 8 hours as needed for Pain or Fever. 100 Tab 0 12/09/2018 Active metoprolol succinate XL (TOPROL XL) 25 MG [id number]:HTN, goal below 140/80 Take 0.5 Tabs by mouth daily. Start 06/23/2019 30 Tab 2 06/23/2019 Active OneTouch Verio In Vitro Strip USE 1 STRIP TO CHECK GLUCOSE ONCE DAILY DIRECTED 0 06/27/2020 Active OneTouch Delica Plus [id number] USE 1 TO CHECK GLUCOSE ONCE DAILY [...] the morning. 30 Tab 5 07/25/2020 Active documented as of this encounter (statuses as of 08/23/2020) Active Problems Problem Noted Date HTN, goal [...] as of this encounter (statuses as of 08/23/2020) Resolved Problems Problem Noted Date Resolved Date Screening for diabetes mellitus 12/09/2018 04/02/2019 documented as of this encounter (statuses as of 08/23/2020) Immunizations Name Administration Dates Next Due Pneumococcal [...] Telephone Encounter - Araseli Hammond LPN - 08/23/2020 1:40 PM EDT Care Gaps Comprehensive Care Outreach Last Office/Telemedicine Visit: Last Office/Telemedicine Visit: 07/03/2020 Next Office Visit: Next Office Visit: 09/05/2020 Scheduled Provider(s): Patrica Zhang MD Reviewed Health Maintenance below Health Maintenance Topic Date Due DIABETES-EYE EXAM Never done DIABETES-FOOT EXAM Never done DIABETES HEPATITIS B (3 DOSE SERIES) (1) Never done Zoster Vaccines (1 of 2) Never done *COLORECTAL CANCER SCREENING (COLONOSCOPY 10 YEARS; SIGMOIDOSCOPY 5 YEARS; COLOGUARD 3 YEARS; FOBT 1 YEAR),AGES 50-75 Never done Influenza Vaccine (FLU shot) (Season Ended) 2020 DIABETES-HGBA1C EVERY 6 MONTHS 01/13/2021 Care Gap Outreach Action Taken: Able to reach: Declined. Patient preference. 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
--- OUTSIDE RECORDS SUMMARY | 2023-01-12 10:25 | External Medical Summary ---
Author Name Unknown Address Unknown Organization K01:LABORATORY [facility] [place] - [address] [facility] [place] [address] Laboratory Report Ordering Provider Test Date Status MIRANDA CARDENAS 07/14/2020 12:58:52 Final Observation Date Value Abnormality Reference (Units ) Status AST (Aspartate aminotransferase) 07/14/2020 12:58:52 20 10-50 (U/L) Final Performing Location LABORATORY [facility] [place] - [address] [place] [address]
--- OUTSIDE RECORDS SUMMARY | 2023-01-12 10:25 | External Medical Summary ---
Author Name Unknown Address Unknown Organization K01:LABORATORY [facility] - [address] [place] [address] Laboratory Report Ordering Provider Test Date Status JAMEY KATZ 10/13/2020 12:13:52 Final Observation Date Value Abnormality Reference (Units ) Status LDL, (direct) 10/13/2020 12:13:52 61 <=129 (mg/dL) Final Performing Location LABORATORY [facility] - [address] [place] [address]
--- OUTSIDE RECORDS SUMMARY | 2023-01-12 10:25 | External Medical Summary | Summary of Care ---
Author Name Unknown Organization [place] [address] Care Team Providers Care Hotel Security Officer Name Role Phone Patrica Zhang MD Primary Care Provid er Encounter Details Date Type Department Care Team Description 06/27/2020 Scan Encounter Unspecified Department <No scans attached> Allergies Active Allergy Reactions Severity Noted Date [...] metoprolol succinate XL (TOPROL XL) 25 MG [id number]:HTN, goal below 140/80 Take 0.5 Tabs by [...] E ST documented as of this encounter Plan of Treatment Upcoming Encounters Date Type Specialty Care Team Description 07/03/2020 Office Visit Family Medicine Patrica Zhang MD [address] [facility] [place] [id number] 07/24/2020 Office Visit Cardiology Michael Collins MD [address] [address] [phone] Health Maintenance Due Date Last Done Comments [...] Documents on File Type Date Recorded 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
--- OUTSIDE RECORDS SUMMARY | 2023-01-12 10:25 | External Medical Summary ---
Author Name Unknown Address Unknown Organization K01:LABORATORY [facility] [place] - [address] [place] [address] Laboratory Report Ordering Provider Test Date Status MIRANDA CARDENAS 07/14/2020 12:58:52 Final Observation Date Value Abnormality Reference (Units ) Status HbA1C 07/14/2020 12:58:52 9.3 Above high normal 4. 0-5.6 (%) Final Performing Location LAB[facility]ATORY [facility] - [address] [place] [address]
--- OUTSIDE RECORDS SUMMARY | 2023-01-12 10:25 | External Medical Summary | Summary of Care ---
Author Name Unknown Organization [place] [address] Care Team Providers Care Substation Designer Name Role Phone Patrica Zhang MD Primary Care Provid er Reason for Visit * Reason Onset Date Comments Med Request 07/25/2020 Encounter Details Date Type Department Care Team Description 07/25/2020 Telephone [facility] [address] [place] [address] Patrica Zhang MD [address] [place] [address] Med Request Allergies Active Allergy [...] metoprolol succinate XL (TOPROL XL) 25 MG [id number]:H TN, goal below 140/80 Take 0.5 Tabs by mouth daily. Start 06/23/2019 30 Tab 2 06/23/2019 Active OneTouch Verio In Vitro Strip USE 1 STRIP TO CHECK GLUCOSE ONCE DAILY DIRECTED 0 06/27/2020 Active amLODIPine Besylate 5 MG Oral Tablet (Norvasc) Take 5 mg by mouth daily. 0 06/27/2020 Active OneTouch Delica Plus [id number] USE 1 TO CHECK GLUCOSE ONCE DAILY [...] encounter Miscellaneous Notes * Addendum Note - Funmilayo Orta LPN [...] 07/03/2020 Next Office Visit: 09/05/2020 Scheduled Provider(s): Patrica Zhang MD Last date the medication was ordered: [...] PM * Telephone Encounter - Hollie Guerra, international trade analyst - 07/25/2020 1:29 PM EDT pt calling requesting the following medication below that is listed as "Historical". The following information was provided: Medication Name: amlodipine Strength: 5 mg Directions: take 5 mg by mouth daily Preferred Quantity: 30 day Previous Prescriber: na Preferred Pharmacy: [facility] [address] [place], [place] [address] Med[facility] Name: Lisinopril Strength: 5 mg Directions: take 5 mg by mouth daily in morning Preferred Quantity: 30 day Previous Prescriber: na Preferred Pharmacy: [address] Asking to have these expedited as he is almost out. Please review and approve if appropriate. 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
--- OUTSIDE RECORDS SUMMARY | 2023-01-12 10:25 | External Medical Summary | Summary of Care ---
Author Name Unknown Organization [place] [address] Care Team Providers Care Data Analytics Chief Scientist Name Role Phone Patrica Zhang MD Primary Care Provid er Encounter Details Date Type Department Care Team Description 10/13/2020 Documentation Laboratory, [place] [address], [place] [id number] [place] [address] [place], [place] [id number] Hospital discharge follow-up; HTN, goal below 130/80; Obesity, Class II, BMI 35-39.9, isolated (see actual BMI); Type 2 diabetes mellitus with hemoglobin A1c goal of less than 7.0% ([facility]); Acute ST elevation myocardial infarction (STEMI) involving right coronary artery ([facility]); H/O heart artery stent Allergies Active Allergy Reactions Severity Noted Date Comments Penicillins 12/09/2018 Facial swelling documented as of this encounter (statuses as of 10/18/2020) Medications Medication Sig Dispensed Refills Start Date End Date Status acetaminophen (TYLENOL) 500 MG TabletIndications:Acu te pain of left shoulder Take 2 Tabs by mouth every 8 hours as needed for Pain or Fever. 100 Tab 0 12/09/2018 Active OneTouch Verio In Vitro Strip USE 1 STRIP TO CHECK GLUCOSE ONCE DAILY DIRECTED 0 06/27/2020 Active OneTouch Delica Plus [id number] USE 1 TO CHECK GLUCOSE ONCE DAILY [...] as of this encounter (statuses as of 10/18/2020) Active Problems Problem Noted Date Erectile disorder [...] as of this encounter (statuses as of 10/18/2020) Resolved Problems Problem Noted Date Resolved Date Screening for diabetes mellitus 12/09/2018 04/02/2019 documented as of this encounter (statuses as of 10/18/2020) Immunizations Name Administration Dates Next Due Pneumococcal [...] as of this encounter Nursing Notes * Data, Entry - 10/14/2020 5:32 AM EDT Automated conversion to a Documentation Encounter documented in this encounter Miscellaneous Notes * Result Paula Avendano RN - 10/18/2020 12:39 PM EDT Letter sent. 10/18/2020 * Result Michael Flores MD - 10/17/2020 11:13 AM EDT Good Continue medications and diet documented in this encounter Plan of Treatment Upcoming Encounters Date Type Specialty Care Team Description 01/19/2021 Office Visit Cardiology Maria Alfaro PA-C [address] [place] [address] [phone] 03/13/2021 Office Visit Family Medicine [facility] [address] [facility] [address] Health Maintenance Due Date Last Done [...] DIRECT LDL IF TG IS HIGH Routine 10/13/2020 12:[address] elevation myocardial infarction (STEMI) involving right coronary artery (HCC) HTN, goal below 130/80 Type 2 diabetes mellitus with hemoglobin A1c goal of less than 7.0% (HCC) HEMOGLOBIN A1C Routine 10/13/2020 12:13 PM EDT Hospital discharge follow-up HTN, goal below 130/80 Obesity, Class II, BMI 35-39.9, isolated (see actual BMI) Type 2 diabetes mellitus with hemoglobin A1c goal of less than 7.0% (HCC) Acute ST elevation myocardial infarction (STEMI) involving right coronary artery (HCC) H/O heart artery stent LDL CHOLESTEROL (DIRECT MEASURE) Routine 10/13/2020 12:[address] elevation myocardial infarction (STEMI) involving right coronary artery (HCC) HTN, goal below 130/80 Type 2 diabetes mellitus with hemoglobin A1c goal of less than 7.0% (HCC) documented in this encounter Results * LDL CHOLESTEROL (DIRECT MEASURE) (10/13/2020 12:13 PM EDT) LDL Cholesterol (Direct Measure) 61 Comment: LDL Cholesterol Reference Ranges (mg/dL): <70 Target level for high risk ASCVD patient <100 Optimal for general population 100-129 Near optimal for general population 130-159 Borderline high 160-189 High >=190 Very high <=129 mg/dL [facility] Specimen Blood - Venous blood specime n (specimen) [facility] [address] [place] [address] * LIPID PANEL WITH DIRECT LDL IF TG IS HIGH (10/13/2020 12:13 PM EDT) Triglycerides 202(H) Comment: Triglyceride Reference Ranges (mg/dL): <150 Acceptable 150-174 Borderline high 175-499 High >=500 Very high <=174 mg/dL [facility] Cholesterol 117 Comment: Total Cholesterol Reference Ranges (mg/dL): <200 Desirable 200-239 Borderline high >=240 High <200 mg/dL [facility] HDL Cholesterol 36(L) Comment: HDL Cholesterol Reference Ranges (mg/dL): >=60 High (Desirable) <50 Low (Undesirable) For Females <40 Low (Undesirable) For Males >39 mg/dL [facility] Non-HDL Cholesterol 81 Comment: Non-HDL Cholesterol Reference Range (mg/dL): <100 Target level for high risk ASCVD patient <130 Optimal for general population 130-159 Near optimal for general population 160-189 Borderline High 190-219 High >=220 Very High <=159 mg/dL [facility] Specimen Blood - Venous blood specime n (specimen) Performing Organization Address [facility] de Phone Number [facility] [address] [place] [address] * HEMOGLOBIN A1C (10/13/2020 12:13 PM EDT) Hemoglobin A1C 6.4(H)Comment:The use of HbA1c to monitor glycemic status is based on normal hemoglobin and HbA composition. This test should not be used in patients with abnormal hemoglobin that affects the half life of the red blood cell or the in vivo glycation rates. 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
--- OUTSIDE RECORDS SUMMARY | 2023-01-12 10:25 | External Medical Summary ---
Author Name Unknown Address Unknown Organization K01:LABORATORY [facility] [place] - [address] [facility] [place] [address] Laboratory Report Ordering Provider Test Date Status MIRANDA CARDENAS 07/14/2020 12:58:52 Final Observation Date Value Abnormality Reference (Units ) Status ALT (Alanine aminotransferase) 07/14/2020 12:58:52 29 10-50 (U/L) Final Performing Location LAB[facility]ATORY [facility] - [address] [place] [address]
--- OUTSIDE RECORDS SUMMARY | 2023-01-12 10:25 | External Medical Summary ---
Author Name Unknown Address Unknown Organization K01:LABORATORY [facility] [place] - [address] [place] [address] Laboratory Report Ordering Provider Test Date Status MIRANDA CARDENAS 07/14/2020 12:58:52 Final Observation Date Value Abnormality Reference (Units ) Status BUN 07/14/2020 12:58:52 27 Above high normal 6-20 (mg/dL) Final Creatinine 07/14/2020 12:58:52 1.0 0.6-1.2 (mg/dL) Final Glomerular filtration rate/1.73 sq M.predicted [Volume Rate/Area] in Serum, Plasma or Blood by Creatinine-based formula (CKD-EPI) 07/14/2020 12:58:52 82.2 >=60.0 (mL/min) Final Performing Location LABORATORY [facility] [place] - [address] [place] [address]
--- OUTSIDE RECORDS SUMMARY | 2023-01-12 10:25 | External Medical Summary | Summary of Care ---
Author Name Unknown Organization [place] [address] Care Team Providers Care Pipe Turner Name Role Phone Ronald Jean MD Primary Care Provid er Reason for Visit * Reason Comments eRx-Medication Refill Encounter Details Date Type Department Care Team Description 03/11/2021 Refill [place] [address] [place] [address] Ronald Jean MD [address] [place] [address] Type 2 diabetes mellitus with hemoglobin A1c goal of less than 7.0% ([facility]) Allergies Active Allergy Reactions Severity Noted Date Comments Penicillins 12/09/2018 Facial swelling documented as of this encounter (statuses as of 03/12/2021) Medications Medication Sig Dispensed Refills Start Date End Date Status acetaminophen (TYLENOL) 500 MG TabletIndication s:Acute pain of left shoulder Take 2 Tabs by mouth every 8 hours as needed for Pain or Fever. 100 Tab 0 12/09/2018 Active OneTouch Verio In Vitro Strip USE 1 STRIP TO CHECK GLUCOSE ONCE DAILY DIRECTED 0 06/27/2020 Active OneTouch Delica Plus [id number] USE 1 TO CHECK GLUCOSE ONCE DAILY [...] mouth daily. 90 Tab 2 09/05/2020 Active Metoprolol Succinate ER 25 MG Oral Tablet Extended Release 24 Hour (toPROL XL) Take 1 Tab by mouth daily. 90 Tab 1 09/05/2020 Active Jardiance 10 MG Oral TabletIndication [...] twice daily 180 Tablet 2 03/12/2021 Active metFORMIN HCl ER 500 MG Oral Tablet Extended Release 24 Hour (Glucophage XR)Indications:T ype 2 diabetes mellitus with hemoglobin A1c goal of less than 7.0% (HCC) Take 2 Tabs by mouth 2 times a day. 180 Tab 3 09/05/2020 03/12/2021 Discontinued documented as of this encounter (statuses as of 03/12/2021) Active Problems Problem Noted Date Erectile disorder [...] as of this encounter (statuses as of 03/12/2021) Resolved Problems Problem Noted Date Resolved Date Screening for diabetes mellitus 12/09/2018 04/02/2019 documented as of this encounter (statuses as of 03/12/2021) Immunizations Name Administration Dates Next Due Pneumococcal [...] encounter Miscellaneous Notes * Telephone Encounter - Chetan Blanchard [facility] - 03/12/2021 11:44 AM EST Signed Prescriptions: Disp Refills metFORMIN HCl ER 500 MG Oral Tablet Extend*180 Ta*2 Sig: Take 2 tablets by mouth twice dailyAuthorizing Provider: RONALD JEAN User: CHETAN BLANCHARD documented in this encounter Plan of Treatment Upcoming Encounters Date Type Specialty Care Team Description 05/08/2021 Office Visit Family Medicine Ronald Jean MD [address] [address] Health Maintenance Due Date Last Done [...] Documents on File Type Date Recorded Patient Network Manager Expl 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 Advanced Directive Advanced Directive Advanced Directive Advanced Directive Care Teams Pipe Turner Relationship Specialty Start Date End Date Ronald Jean MD [address] [address] PCP - General Family Medicine 06/28/20 documented as of this encounter
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
--- OUTSIDE RECORDS SUMMARY | 2023-01-12 10:25 | External Medical Summary | Summary of Care ---
Author Name Unknown Organization [facility] [address] Care Team Providers Care Energy Trader Name Role Phone Patrica Zhang MD Primary Care Provid er Reason for Visit * Reason Comments Follow Up Encounter Details Date Type Department Care Team Description 09/05/2020 Office Visit [facility] [address] [place] [address] Patrica Zhang MD [address] [place] [address] Type 2 diabetes mellitus with hemoglobin A1c goal of less than 7.0% ([facility])*; DM type 2 nursing care encounter ([facility]); Acute ST elevation myocardial infarction (STEMI) involving right coronary artery ([facility]); HTN, goal below 130/80; Tobacco use disorder; H/O heart artery stent; Erectile disorder due to medical condition in male patient Allergies Active Allergy Reactions Severity Noted [...] DIRECTED 0 06/27/2020 Active OneTouch Delica Plus [id number] USE 1 TO CHECK GLUCOSE ONCE DAILY [...] 3 09/05/2020 Active Jardiance 10 MG Oral TabletIndications :Type 2 diabetes mellitus with hemoglobin A1c goal of less than 7.0% (HCC) Take 1 Tab by mouth daily. 30 Tab 1 09/05/2020 Active Metoprolol Succinate ER 25 MG Oral Tablet Extended Release 24 Hour (toPROL XL) Take 1 Tab by mouth daily. 90 Tab 1 09/05/2020 Active metoprolol succinate XL (TOPROL XL) 25 MG [id number]:H TN, goal below 140/80 Take 0.5 Tabs by mouth daily. Start 06/23/2019 30 Tab 2 06/23/2019 09/05/2020 Discontinued( Refill) metFORMIN HCl ER 500 MG Oral Tablet Extended Release 24 Hour (Glucophage XR) Take 1 Tab by mouth daily. 30 Tab 1 07/25/2020 09/05/2020 Discontinued( Refill) Jardiance 10 MG Oral Tablet Take 1 Tab by mouth daily. 30 Tab 1 07/25/2020 09/05/2020 Discontinued( Refill) Clopidogrel Bisulfate 75 MG Oral Tablet (pLAVix) Take 1 Tab by mouth daily. 30 Tab 1 07/25/2020 09/05/2020 Discontinued( Refill) documented as of this encounter (statuses as of 09/05/2020) Active Problems Problem Noted Date Erectile disorder [...] Sign Reading Time Taken Comments Blood Pressure 140/82 09/05/2020 6:15 PM EDT Pulse 75 09/05/2020 6:15 PM EDT Temperature 35.6 C (96.1 F) 09/05/2020 6:15 PM ED T Respiratory Rate - - Oxygen Saturation 98% 09/05/2020 6:15 PM EDT Inhaled Oxygen Concentration - - Weight 135.7 kg (299 lb 3.2 oz) 09/05/2020 6:15 PM EDT Height 188 cm (6' 2") 09/05/2020 6:15 PM EDT Body Mass Index 38.42 09/05/2020 6:15 PM EDT documented in this encounter Patient Instructions * Patient Instructions* Reina Joseph, NATAN - 09/05/2020 6:19 PM EDT Images from the original note were not included. UP THE METFORMIN FROM 1 TAB A DAY, TO 2 TABS TWICE A DAY (SO THAT MEANS 4 TABS IN A DAY). Dear Reyes Keller, The care of your Diabetes is very important to us. A yearly diabetic eye exam is important to protect your vision. If youre getting an eye exam done outside of [facility] please tell your Eye Doctor to fax or mail us the results of your Diabetic Eye Exam at your next visit. Our Address and Fax Number are listed below to help. Thank you for helping us to improve your Diabetes Care Our Office Address and Fax Number: Patrica Zhang MD [address] [address] Diabetic Retinopathy: Evaluating Your Eyes Diabetic retinopathy is a condition that happens when diabetes damages blood vessels in the rear ofthe eye. It can lead to vision loss. To help catch it early, have a complete dilated eye exam at least once a year. During the exam, the eye healthcare provider will review your medical history, examine your eyes, and check your vision. Women who are and have pre-existing type 1 or type 2 diabetes have an increased risk of retinopathy. Women with diabetes should have an eye exam before or in the first trimester. They should continue to be monitored every trimester and for 1 year after delivery, depending on the severity of the retinopathy. The retina is the light-sensitive part of the eye that allows you to see. High blood sugar can damage blood vessels of the retina and cause them to leak or bleed. This damage can lead to abnormal blood vessel growth. This condition is called diabetic retinopathy. You may not have symptoms early in the disease. Later, there may be floaters, blurred vision, or poor night vision. There may also be partial or complete vision loss. Early cases of diabetic retinopathy can be treated by carefully controlling blood sugar, blood pressure, and cholesterol. Surgery or laser treatments may help restore lost vision. Laser surgery can shrink abnormal blood vessels or close ones that are leaking. Medicines injected in the eye can help decrease swelling of the retina. Home care Take all medicines, including insulin or oral diabetic medicine, exactly as prescribed. Follow the diet advised by your healthcare provider. If you have high cholesterol, follow a low-fat, low-cholesterol diet. Monitor blood sugars as advised. Try to achieve your ideal weight. If you smoke, quit smoking. Tobacco use worsens the effect of diabetes on your blood vessels. If you have high blood pressure, consider buying an automatic blood pressure machine. These are available at most pharmacies. Use this to monitor your blood pressure. Report your blood pressure readings to your healthcare provider. Exercise regularly. Follow-up care Follow up with your healthcare provider, or as advised. You must have a complete eye exam at least once a year, more often if needed. Untreated diabetic retinopathy can lead to complete loss of vision. Occupational therapists can help you adapt to any vision loss you have, including learning techniques to safely administer insulin. When to seek medical advice Call your healthcare provider right away if any of these occur. Increasing blurriness or any sudden changes in your vision Sudden flashes of light inside your eye New floaters (small dots or strings that seem to be moving across your field of vision) Eye pain, redness, or discharge from your eyelid New dark spots appearing in your field of vision Halos around lights Dimness of vision Partial or complete loss of vision Women with diabetes should have a complete eye exam before becoming , or as soon as possible when they find out they are . Retinopathy sometimes worsens during . Your eye exam Your eye healthcare provider uses an eye chart and other tools to check your vision. Then he or sheexamines your eyes for signs of disease. You are given eye drops to widen (dilate) your pupils. Youmay have one or more of the following tests: Tonometry to measure fluid pressure inside the eye. Slit lamp exam to allow the healthcare provider to view the structures of your eye. Ultrasound to create an image of the eye using sound waves. Ultrasound may be used if blood is found in the clear gel that fills the eye (vitreous). Ocular coherence tomography (OCT) to create an image of the retina using light waves. This showsif there is fluid leaking into certain parts of the eye. It can also measure the thickness of the retina. Fluorescein angiography This test may be done to check the health of the inside lining of the eye (retina). It also checks the tiny blood vessels (capillaries) that carry blood to the retina. During the test: Photographs are taken of the retina. A dye is then injected into the bloodstream through the arm or hand. The dye travels to the capillaries in the eye. More photographs are taken of the retina. The dye causes the capillaries to stand out on the photographs. You may feel brief nausea during the procedure. For a few hours after the test, your skin, eyes, and urine may appear yellow. Talk with your healthcare provider for more information about this test. Date Last Reviewed: 09/13/201519996978-4754 [employer]. [address] [place] [address], [place] [address]. All rights reserved. This information is not intended as a substitute for professional medical care. Always follow your healthcare professional's instructions. documented in this encounter Progress Notes * Patrica Zhang MD - 09/05/2020 6:20 PM EDT ASSESSMENT / PLAN: Type 2 diabetes mellitus with hemoglobin A1c goal of less than 7.0% (HCC) (Primary) - last a1c not to goal - recommend increase metformin to max dosing as below - recheck A1C in October - order is standing - treat based on results - he would be a great candidate for GLP 1 Ozempic. - INCREASE: metFORMIN HCl ER 500 MG Oral Tablet Extended Release 24 Hour (Glucophage XR); Take 2 Tabs by mouth 2 times a day. - CONTINUE/REFILL: Jardiance 10 MG Oral Tablet; Take 1 Tab by mouth daily. DM type 2 nursing care encounter (HCC) - TELEMEDICINE DIABETIC EYE Acute ST elevation myocardial infarction (STEMI) involving right coronary artery (HCC) - stable, sees Cardiology next in January - REFILL: Clopidogrel Bisulfate 75 MG Oral Tablet (pLAVix); Take 1 Tab by mouth daily. HTN, goal below 130/80 - stable, somewhat elevated today but over all stable. - REFILL: Metoprolol Succinate ER 25 MG Oral Tablet Extended Release 24 Hour (toPROL XL); Take 1 Tab by mouth daily. Tobacco use disorder - has decreased cigarettes to 2 a day! H/O heart artery stent - stable, as above Erectile disorder - likely related to BB medicine - messaging sent to cardiology to see if any reservations against prescribing sildenafil - will await recs Follow-up: Return in about 6 months (around 03/08/2021). | Check-out note: Please also schedule timoteo lab appointment for recheck A1C in early October thank you If needed, prefers contact by: Ok to leave message on phone: Pre-visit time: 4:58 PM - 5:00 PM = 2 min Visit time: 6:30 PM - 7:00 PM = 30 min Post visit: 7:40 PM - 7:51 PM = 11 min Total time: I spent a total of 43 minutes on the date of service in preparation, delivery, and documentation of the care provided to Reyes Keller excluding any time spent in the performance of separately billed services. SUBJECTIVE: Reyes Keller is a 50 year old male. Chief Complaint Patient presents with Follow Up Scheduling Notes: 2 mo ret and retinal scan HPI: 50 yo M with h/o CAD s/p stents - Last seen by this provider on 07/03/20 for hospital dc f/u - reviewed STEMI s/p 3x KOKO to RCA (continue DAPT x 1 year, BB, SIDDHARTHA, diabetic control, statin- seen bycardiology 08Apr, told to f/u in January, continue meds), new diagnosis of T2DM A1C 10.8 in hospital, HTN, obesity. Lab letter sent 05Apr. A1C still elevated to 9.3%. Says he has been watching his diet - cutting out sugars and no more cheeseburgers. Endorses erectile dysfunction since starting beta woody therapy - his med list says "12.5mg" toprol daily, but he is unable to split his pills given that he has use of only 1 arm. He is requesting sildenafil today. Results for REYES KELLER ( ) as of 09/05/2020 16:58 Ref. Range 07/14/2020 12:58 Sodium Latest Ref [...] Latest Ref Range: <126 mg/dL 220 (H) Hemoglobin A1C Latest Ref Range: 4.0 - 5.6 % 9.3 (H) AST Latest Ref Range: 10 - 50 U/L 20 ALT Latest Ref Range: 10 - 50 U/L 29 Current Outpatient Medications Medication Sig Dispense Refill Clopidogrel Bisulfate 75 MG Oral Tablet (pLAVix) Take 1 Tab by mouth daily. 90 Tab 2 Jardiance 10 MG Oral Tablet Take 1 Tab by mouth daily. 30 Tab 1 metFORMIN HCl ER 500 MG Oral Tablet Extended Release 24 Hour (Glucophage XR) Take 2 Tabs by mouth 2 times a day. 180 Tab 3 Metoprolol Succinate ER 25 MG Oral Tablet Extended Release 24 Hour (toPROL XL) Take 1 Tab by mouth daily. 90 Tab 1 amLODIPine Besylate 5 MG Oral Tablet (Norvasc) Take 1 Tab by mouth daily. 30 Tab 5 Atorvastatin Calcium 80 MG Oral Tablet (Lipitor) Take 1 Tab by mouth at bedtime. 30 Tab 11 Lisinopril 5 MG Oral Tablet (Prinivil) Take 1 Tab by mouth daily. In the morning. 30 Tab 5 Aspirin 81 MG Oral Tablet Delayed Release Take 81 mg by mouth daily. OneTouch Delica Plus [id number] USE 1 TO CHECK GLUCOSE ONCE DAILY DIRECTED OneTouch Verio In Vitro Strip USE 1 STRIP TO CHECK GLUCOSE ONCE DAILY DIRECTED acetaminophen (TYLENOL) 500 MG Tablet Take 2 Tabs by mouth every 8 hours as needed for Pain or Fever. 100 Tab 0 OBJECTIVE: BP 140/82 | Pulse 75 | Temp 35.6 C (96.1 F) (Tympanic) | Ht 1.88 m (6' 2") | Wt 135.7 kg (299 lb 3.2 oz) | SpO2 98% | BMI 38.42 kg/m | BSA 2.66 m Vitals reviewed and is normotensive afebrile and not tachycardic and not hypoxic General: No acute distress. Neuro: Alert Pleasant & interactive. Respiratory: Good inspiratory effort, no labored breathing. HEENT: Conjunctivae appear clear. No swelling noted face Skin: No rash visible on exposed skin areas, normal coloration & appears dry. Psych: Normal affect. Fluent speech. Patrica Zhang MD [address] [address] * Reina Joseph LPN - 09/05/2020 6:19 PM EDT The importance of having a yearly diabetic eye exam has been discussed with patient. Order and/or Referral placed along with patient instructions. Provider made aware. Reina Joseph LPN documented in this encounter Nursing Notes * Reina Joseph LPN - 09/05/2020 6:16 PM EDT Chief Complaint Patient presents with Follow Up documented in this encounter Plan of Treatment Upcoming Encounters Date Type Specialty Care Team Description 10/13/2020 Laboratory [facility] [place] [address], [place] [id number] 01/19/2021 Office Visit Cardiology Maria Alfaro PA-C [address] [facility] [place] [address] [phone] 03/13/2021 Office Visit Family Medicine Patrica Zhang MD [address], [place] [id number] Health Maintenance Due Date Last Done Comments [...] Procedure Name Priority Date/Time Associated Diagnosis Comments TELEMEDICINE DIABETIC EYE Routine 09/05/2020 DM type 2 nursing care encounter (HCC) documented in this encounter Results * TELEMEDICINE DIABETIC EYE (09/05/2020) Specimen Narrative Performed At documented in this encounter Visit Diagnoses Diagnosis Type 2 diabetes mellitus with hemoglobin A1c goal of less than 7.0% ([facility])- Primary DM type 2 nursing care encounter (HCC) Type II or unspecified type diabetes mellitus without mention of complication, not stated as uncontrolled Acute ST elevation myocardial infarction (STEMI) involving right coronary artery ([facility]) HTN, goal below 130/80 Unspecified essential hypertension Tobacco use disorder H/O heart artery stent Postsurgical percutaneous transluminal coronary angioplasty status Erectile disorder due to medical condition in male patient documented in this encounter Advance Directives Documents on File Type Date Recorded Patient Parts Salvager Expl 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 Advanced Directive Advanced Directive
--- OUTSIDE RECORDS SUMMARY | 2023-01-12 10:26 | External Medical Summary | Summary of Care ---
Author Name Unknown Organization [place] [address] Care Team Providers Care Truck Despatcher Name Role Phone Soniya Mendoza MD Primary Care Provider [phone] Encounter Details Date Type Department Care Team Description 06/26/2020 Scan Encounter Unspecified Department <No scans attached> [...] metoprolol succinate XL (TOPROL XL) 25 MG [id number]:HTN, goal below 140/80 Take 0.5 Tabs by [...] Family Medicine Patrica Zhang MD [address] [place] [address] 07/24/2020 Office Visit Cardiology Michael Collins MD [address] [place] [address] [phone] Health Maintenance Due Date Last Done Comments [...] Documents on File Type Date Recorded Patient Siding Applicator Expl anation Advanced Directive Advanced Directive Advanced Directive Advanced Directive
--- OUTSIDE RECORDS SUMMARY | 2023-01-12 10:26 | External Medical Summary | Summary of Care ---
Author Name Unknown Organization [place] [address] Care Team Providers Care Crusher Loader Operator Name Role Phone Soniya Mendoza MD Primary Care Provider [phone] Reason for Visit * Reason Comments Other Encounter Details Date Type Department Care Team Description 01/14/2019 Telephone Orthopaedics [facility] [address] [place] [address] Jayjay Magaña MD [address] [place] [address] [phone] Other Allergies Active Allergy Reactions Severity Noted Date Comments Penicillins 12/09/2018 Facial swelling documented as of this encounter (statuses as of 01/18/2019) Medications Medication Sig Dispensed Refills Start Date End Date Status Meloxicam (MOBIC) 15 MG TabletIndications:Acut e pain of left shoulder Take 1 Tab by mouth daily. for pain. 30 Tab 0 12/09/2018 Active acetaminophen (TYLENOL) 500 MG TabletIndications:Acut e pain of left shoulder Take 2 Tabs by mouth every 8 hours as needed for Pain or Fever. 100 Tab 0 12/09/2018 Active documented as of this encounter (statuses as of 01/18/2019) Active Problems Problem Noted Date Tobacco use disorder 12/09/2018 Screening for diabetes mellitus 12/10/19 19 Obesity, Class II, BMI 35-39.9, isolated (see actual BMI) 12/09/2018 documented as of this encounter (statuses as of 01/18/2019) Immunizations Name Administration Dates Next Due Pneumococcal Polysaccharide PPV23 (Pneumovax) TDAP (age 11 and older)(Adacel) 10/04/2016 documented as of this encounter Social History [...] Never true Sex Assigned at Date Recorded Not on file Job Start Date Occupation Industry Not on file Not on file Not on file Travel History Travel Start Travel End documented as of this encounter Miscellaneous Notes * Telephone Encounter - Samara Dale OSA - 01/18/2019 10:13 AM EDT Pt is scheduled for 01/20/2019. Thanks! * Telephone Encounter - Jayjay Magaña MD - 01/14/2019 2:28 PM EDT Please call the patient and schedule a visit with him with Dr. Ramos to discuss surgical options related to his left shoulder massive rotator cuff tears. Dr. Ramos is aware the patient's case. Hopefully he can be seen within the next 1-2 weeks Patient is aware we will be calling to schedule this fit documented in this encounter Plan of Treatment Upcoming Encounters Date Type Specialty Care Team Description 01/20/2019 Office Visit Orthopedics Brandi Ramos DO [address] [facility] [place] [address] [phone] 03/17/2019 Office Visit Family Medicine Soniya Mendoza MD [address] [facility] [place] [address] [phone] Health Maintenance Due Date Last Done Comments *COLORECTAL CANCER SCREENING (COLONOSCOPY 10 YEARS; SIGMOIDOSCOPY 5 YEARS; COLOGUARD 3 YEARS; FOBT 1 YEAR),AGES 50-75 12/03/2018 Influenza Vaccine (FLU shot) (#1) 2018 DIABETES SCREEN EVERY 3 YRS- AGE 45 AND ABOVE 12/16/2021 12/16/2018 LIPID SCREEN EVERY 5 YRS-MEN AGE 35-75 12/17/2023 12/16/2018 DTaP,Tdap,and Td Vaccines (2 - Td) 10/04/20262016 Pneumococcal Vaccine: Pediat rics (0 to 5 Years) and At-Risk Patients (6 to 64 Years) Completed 12/09/2018 MENINGOCOCCAL (MENACTRA) Aged Out No longer eligible based on patient's age to complete this topic documented as of this encounter Implants Not on filedocumented as of this encounter Advance Directives Documents on File Type Date Recorded Patient Blade Filer Expl anation Advanced Directive
--- OUTSIDE RECORDS SUMMARY | 2023-01-12 10:26 | External Medical Summary | Summary of Care ---
Author Name Unknown Organization [place] [address] Care Team Providers Care Livestock Rancher Name Role Phone Soniya Mendoza MD Primary Care Provider [phone] Encounter Details Date Type Department Care Team [...] metoprolol succinate XL (TOPROL XL) 25 MG [id number]:HTN, goal below 140/80 Take 0.5 Tabs by [...] Family Medicine Pat[facility] [address] [place] [facility] [address] 07/24/2020 Office Visit Cardiology Michael Collins MD [address] [address] [phone] Health Maintenance Due Date Last Done Comments [...] Documents on File Type Date Recorded Patient Felt Pad Cutter Expl anation Advanced Directive Advanced Directive Advanced Directive Advanced Directive
--- OUTSIDE RECORDS SUMMARY | 2023-01-12 10:26 | External Medical Summary ---
Author Name Unknown Address [address] [place] [address] Phone Organization K01:[facility] [address] [id number] Laboratory Report Ordering Provider Test Date Status DON LOYA 12/16/2018 15:08:00 Final Observation Date Value Abnormality Reference Status TSH 12/16/2018 22:59 1.77 0.27-4.2 Fin al T4, Free 12/16/2018 22:59 NOT APPLICABLE 0.9-1.7 Final Performing Location [facility] [address] [facility] [address]
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
--- OUTSIDE RECORDS SUMMARY | 2023-01-12 10:26 | External Medical Summary | Summary of Care ---
Author Name Unknown Organization [place] [address] Care Team Providers Care Community Support Worker Name Role Phone Soniya Mendoza MD Primary Care Provider [phone] Reason for Visit * Reason Comments Blood Pressure Check Encounter Details Date Type Department Care Team Description 06/09/2019 Nurse Only Ancillary Department, [address] [address] [place], Nurse [address] [place] [address] Blood Pressure Check Allergies Active Allergy Reactions Severity Noted Date Comments Penicillins 12/09/2018 Facial swelling documented as of this encounter (statuses as of 06/09/2019) Medications Medication Sig Dispensed Refills Start Date End Date Status acetaminophen (TYLENOL) 500 MG TabletIndications:Acut e pain of left shoulder Take 2 Tabs by mouth every 8 hours as needed for Pain or Fever. 100 Tab 0 12/09/2018 Active amLODIPine (NORVASC) 5 MG TabletIndications:HTN, goal below 130/80 Take 1 Tab by mouth daily. Start 05/12/2019--nurse bp ch 3wks 30 Tab 0 05/12/2019 Active documented as of this encounter (statuses as of 06/09/2019) Active Problems Problem Noted Date HTN, goal below 130/80 04/02/2019 Screen for colon cancer 04/02/2019 Tobacco use disorder 12/09/2018 Obesity, Class II, BMI 35-39.9, isolated (see actual BMI) 12/09/2018 documented as of this encounter (statuses as of 06/09/2019) Resolved Problems Problem Noted Date Resolved Date Screening for diabetes mellitus 12/09/2018 04/02/2019 documented as of this encounter (statuses as of 06/09/2019) Immunizations Name Administration Dates Next Due Pneumococcal [...] Travel End documented as of this encounter Last Filed Vital Signs Vital Sign Reading Time Taken Comments Blood Pressure 146/82 06/09/2019 3:31 PM EST Pulse 84 06/09/2019 3:31 PM EST Temperature - - Respiratory Rate - - Oxygen Saturation - - Inhaled Oxygen Concentration - - Weight - - Height - - Body Mass Index - - documented in this encounter Progress Notes * Rosey Allen LPN - 06/09/2019 3:29 PM EST Pt here for nurse visit for blood pressure check due to current medication at last office visit. B/P 146/82 Pulse 84 BP Readings from Last 4 Encounters: 05/12/19 148/66 04/02/19 144/102 12/09/18 144/82 Telephone encounter made about this visit to provider. Patient aware that our office will call them back if there is a change with their medication or treatment, otherwise, no phone call will be made back to the patient. documented in this encounter Plan of Treatment Upcoming Encounters Date Type Specialty Care Team Description 11/10/2019 Office Visit Family Medicine Soniya Mendoza MD [address] [place] [address] Health Maintenance Due Date Last Done Comments Zoster Vaccines (1 of 2) 2018 *COLORECTAL CANCER SCREENING (COLONOSCOPY 10 YEARS; SIGMOIDOSCOPY 5 YEARS; COLOGUARD 3 YEARS; FOBT 1 YEAR),AGES 50-75 12/03/2018 Influenza Vaccine (FLU shot) (#1) 2018 *URINE PROTEIN ONCE FOR HTN-DIPSTICK ACCEPTABLE 04/04/2019 DIABETES SCREEN EVERY 3 YRS- AGE 45 [...] as of this encounter Visit Diagnoses Diagnosis Need for shingles vaccine- Primary Need for prophylactic vaccination and inoculation against other viral diseases documented in this encounter Advance Directives Documents on File Type Date Recorded 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
--- OUTSIDE RECORDS SUMMARY | 2023-01-12 10:26 | External Medical Summary | Summary of Care ---
Author Name Unknown Organization [place] [address] Care Team Providers Care Production Supervisor Off Shift Name Role Phone Soniya Mendoza MD Primary Care Provider [phone] Reason for Visit * Reason Comments NEW PATIENT left shoulder pain X 3 weeks * Evaluate & Treat - Unlimited Visits (Within 10 days (routine)) Status Reason Specialty Diagnoses / Procedures Referred By Contact Referred To Contact Authorized Specialty Services Required Orthopaedic Surgery Diagnoses Acute pain of left shoulder Soniya Mendoza MD [address] [place] [address] Encounter Details Date Type Department Care Team Description 12/18/2018 Office Visit Orthopaedics [facility] [address] [facility] [place] [address] Jayjay Magaña MD [address] [facility] [place] [address] [phone] Arthralgia of left acromioclavicular joint* Allergies Active [...] 12/18/2018 11:02 AM EDT [place] [address] Reyes Mcpherson is a 48 year old male who presents for consultation to [facility] Orthopaedics and Sports Medicine for left shoulder [...] file Gets together: Not on file Attends episcopalian service: Not on file Active member of [...] Jayjay Magaña MD Primary Care Sports Medicine [facility] Orthopaedics [address] [address] documented in this encounter Nursing Notes * Hollie Young LPN - 12/18/2018 10:59 AM EDT Pt presents for left shoulder pain. States he felt a sudden sharp pain while working on car engine.Left hand feels like it is asleep. documented in this encounter Plan of Treatment Upcoming Encounters Date Type Specialty Care Team Description 12/21/2018 Office Visit Otolaryngology Chanda Rees PA-C [address] [facility] [place] [address] [phone] 12/28/2018 Imaging Radiology 01/01/2019 Office Visit [facility]opedics [facility] [address] [phone] 03/17/2019 Office Visit Family Medicine Soniya Mendoza MD [address] [place] [address] [phone] Pending Results Name Type Priority Associated Diagnoses [...] Documents on File Type Date Recorded Patient Treater Helper Expl anation Advanced Directive
--- OUTSIDE RECORDS SUMMARY | 2023-01-12 10:26 | External Medical Summary | Summary of Care ---
Author Name Unknown Organization [place] [address] Care Team Providers Care Horticultural Specialty Grower Name Role Phone Soniya Mendoza MD Primary Care Provider [phone] Reason for Visit * Reason Comments Other Encounter Details Date Type Department Care Team Description 01/14/[address] [facility] [address] [place] [address] Jayjay Magaña MD [address] [place] [address] [phone] Other Allergies Active Allergy Reactions Severity Noted Date Comments Penicillins 12/09/2018 Facial swelling documented as of this encounter (statuses as of 01/14/2019) Medications Medication Sig Dispensed Refills Start Date [...] as of this encounter (statuses as of 01/14/2019) Active Problems Problem Noted Date Tobacco use disorder 12/09/2018 Screening for diabetes mellitus 12/10/19 19 Obesity, Class II, BMI 35-39.9, isolated (see actual BMI) 12/09/2018 documented as of this encounter (statuses as of 01/14/2019) Immunizations Name Administration Dates Next Due Pneumococcal [...] encounter Miscellaneous Notes * Telephone Encounter - Jayjay Magaña MD [...] Visit Family Medicine Soniya Mendoza MD 200 [facility], [place] [address] [phone] Health Maintenance Due Date Last Done Comments [...] Documents on File Type Date Recorded 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
--- OUTSIDE RECORDS SUMMARY | 2023-01-12 10:26 | External Medical Summary | Summary of Care ---
Author Name Unknown Organization [place] [address] Care Team Providers Care Machine Grainer Name Role Phone Soniya Mendoza MD Primary Care Provider [phone] Reason for Visit * Reason Comments NEW PATIENT left shoulder pain X 3 weeks * Evaluate & Treat - Unlimited Visits (Within 10 days (routine)) Status Reason Specialty Diagnoses / Procedures Referred By Contact Referred To Contact Authorized Specialty Services Required Orthopaedic Surgery Diagnoses Acute pain of left shoulder Soniya Mendoza MD [address] [place] [address] Encounter Details Date Type Department Care Team Description 12/18/2018 Office Visit Orthopaedics [facility] [address] [facility] [place] [address] Jayjay Magaña MD [address] [facility] [place] [address] [phone] Arthralgia of left acromioclavicular joint* Allergies Active [...] 12/18/2018 11:02 AM EDT [place] [address] Reyes Mcpherson is a 48 year old male who presents for consultation to [facility] Orthopaedics and Sports Medicine for left [...] file Gets together: Not on file Attends scientology service: Not on file Active member of [...] Jayjay Magaña MD Primary Care Sports Medicine [facility] Orthopaedics [address] [address] documented in this encounter Nursing Notes * [...] Otolaryngology Chanda Rees PA-C [address] [facility] [place] [address] [phone] 12/28/2018 Imaging Radiology 01/01/2019 Office Visit Orthopedics [facility]aña MD [facility] [address] [phone] 03/17/2019 Office Visit Family Medicine Soniya Mendoza MD 200 [facility] [place] [address] [phone] Pending Results Name Type Priority Associated Diagnoses [...] Documents on File Type Date Recorded Patient Manager Customer Service Expl anation Advanced Directive
--- OUTSIDE RECORDS SUMMARY | 2023-01-12 10:26 | External Medical Summary ---
Author Name Unknown Address [address] [facility] [place] [address] Phone Organization K01:[facility] [address] [place] [id number] Laboratory Report Ordering Provider Test Date Status DON LOYA 06/23/2019 13:42:00 Final Observation Date Value Abnormality Reference (Units ) Status Color Ur Auto 06/24/2019 01:34 STRAW Abnormal YEL Final Clarity, Urine 06/24/2019 01:34 CLEAR CLEAR Final Glucose Ur Strip.auto-mCnc 06/24/2019 01:34 NEGATIVE NEG (mg/dL) Final Bilirub Ur Ql Strip.auto 06/24/2019 01:34 NEGATIVE NEG Final Ketones Ur Strip.auto-mCnc 06/24/2019 01:34 NEGATIVE NEG (mg/dL) Final Specific gravity, Urine 06/24/2019 01:34 1.021 1.003-1.030 Final Hemoglobin [Presence] in Urine by Automated test strip 06/24/2019 01:34 NEGATIVE NEG Final pH, Urine 06/24/2019 01:34 6.0 5.0-7.5 (units) Final Prot Ur Strip.auto-mCnc 06/24/2019 01:34 NEGATIVE NEG (mg/dL) Final Urobilinogen Ur Strip.auto-mCnc 06/24/2019 01:34 NORMAL NORM (mg/dL) Final Nitrite Ur Ql Strip.auto 06/24/2019 01:34 NEGATIVE NEG Final Leukocyte esterase [Presence} in Urine by Automated test strip 06/24/2019 01:34 NEGATIVE NEG Final Bacteria/area UmS Auto 06/24/2019 01:34 0-25 [id number] (/HPF) Final WBC No./area UrnS Auto 06/24/2019 01:34 0-2 U02 (/HPF) Final RBC No./area UrnS Auto 06/24/2019 01:34 0-2 U02 (/HPF) Final Performing Location [facility] [address] [facility] [address]
--- OUTSIDE RECORDS SUMMARY | 2023-01-12 10:26 | External Medical Summary | Summary of Care ---
Author Name Unknown Organization [place] [address] Care Team Providers Care Paraffin Plant Operator Name Role Phone Soniya Mendoza MD Primary Care Provider [phone] Encounter Details Date Type Department Care Team Description 06/26/2020 Result Scan Unspecified Department <No scans attached> Allergies Active Allergy Reactions Severity Noted Date Comments Penicillins 12/09/2018 Facial swelling documented as of this encounter (statuses as of 06/27/2020) Medications Medication Sig Dispensed Refills Start Date End Date Status acetaminophen (TYLENOL) 500 MG TabletIndications:Acut e pain of left shoulder Take 2 Tabs by mouth every 8 hours as needed for Pain or Fever. 100 Tab 0 12/09/2018 Active metoprolol succinate XL (TOPROL XL) 25 MG [id number]:HTN, goal below 140/80 Take 0.5 Tabs by mouth daily. Start 06/23/2019 30 Tab 2 06/23/2019 Active amLODIPine (NORVASC) 10 MG TabletIndications:HTN, goal below 130/80 Take 1 Tab by mouth daily. 90 Tab 1 07/28/2019 Active documented as of this encounter (statuses as of 06/27/2020) Active Problems Problem Noted Date HTN, goal below 140/80 04/02/2019 Screen for colon cancer 04/02/2019 Tobacco use disorder 12/09/2018 Obesity, Class II, BMI 35-39.9, isolated (see actual BMI) 12/09/2018 documented as of this encounter (statuses as of 06/27/2020) Resolved Problems Problem Noted Date Resolved Date Screening for diabetes mellitus 12/09/2018 04/02/2019 documented as of this encounter (statuses as of 06/27/2020) Immunizations Name Administration Dates Next Due Pneumococcal [...] as of this encounter Plan of Treatment Health Maintenance [...] Procedure Name Priority Date/Time Associated Diagnosis Comments CARDIAC CATH SCANNED RESULT 06/26/2020 documented in this encounter Results * CARDIAC CATH SCANNED RESULT (06/26/2020) Specimen Narrative Performed At documented in this encounter Advance Directives Documents on File Type Date Recorded Patient Repairer Veneer Sheet Expl anation Advanced Directive Advanced Directive
--- OUTSIDE RECORDS SUMMARY | 2023-01-12 10:26 | External Medical Summary | Summary of Care ---
Author Name Unknown Organization [place] [address] Care Team Providers Care Structural Technician Name Role Phone Soniya Mendoza MD Primary Care Provider [phone] Reason for Referral * Evaluate & Treat - Unlimited Visits (Within 10 days (routine)) Status Reason Specialty Diagnoses / Procedures Referred By Contact Referred To Contact Authorized Specialty Services Required Sleep Medicine Diagnoses Snoring History of apnea Obesity, Class II, BMI 35-39.9, isolated (see actual BMI) Soniya Mendoza MD [address] [place] [address] Reason for Visit * Reason Comments Follow Up HTN/return Encounter Details Date Type Department Care Team Description 06/23/2019 Office Visit [address] [id number] Soniya Mendoza MD 200 [place] [address] [phone] HTN, goal below 140/80*; HTN (hypertension); Snoring; History of apnea; Obesity, Class II, BMI 35-39.9, isolated (see actual BMI); HTN, goal below 140/90; HTN, goal below 130/80 Allergies Active Allergy Reactions Severity Noted Date Comments Penicillins 12/09/2018 Facial swelling documented as of this encounter (statuses as of 06/23/2019) Medications Medication Sig Dispensed Refills Start Date End Date Status acetaminophen (TYLENOL) 500 MG TabletIndications:Acut e pain of left shoulder Take 2 Tabs by mouth every 8 hours as needed for Pain or Fever. 100 Tab 0 12/09/2018 Active amLODIPine (NORVASC) 10 MG TabletIndications:HTN, goal below 130/80 Take 1 Tab by mouth daily. 30 Tab 0 06/09/2019 Active metoprolol succinate XL (TOPROL XL) 25 MG [id number]:HTN, goal below 140/80 Take 0.5 Tabs by mouth daily. Start 06/23/2019 30 Tab 2 06/23/2019 Active documented as of this encounter (statuses as of 06/23/2019) Active Problems Problem Noted Date HTN, goal below 140/80 04/02/2019 Screen for colon cancer 04/02/2019 Tobacco use disorder 12/09/2018 Obesity, Class II, BMI 35-39.9, isolated (see actual BMI) 12/09/2018 documented as of this encounter (statuses as of 06/23/2019) Resolved Problems Problem Noted Date Resolved Date Screening for diabetes mellitus 12/09/2018 04/02/2019 documented as of this encounter (statuses as of 06/23/2019) Immunizations Name Administration Dates Next Due Pneumococcal [...] 30 Smokeless Tobacco: Former User Snuff Tobacco Cessation:Ready to Q uit: No; Counseling Given: Yes Comments:was sm 1.5 ppd x [...] Sign Reading Time Taken Comments Blood Pressure 142/80 06/23/2019 2:20 PM EDT Pulse 82 06/23/2019 1:36 PM EDT Temperature 36.5 C (97.7 F) 06/23/2019 1:36 PM ED T Respiratory Rate 18 06/23/2019 1:36 PM EDT Oxygen Saturation - - Inhaled Oxygen Concentration - - Weight 132.5 kg (292 lb) 06/23/2019 1:36 PM EDT Height 188 cm (6' 2") 06/23/2019 1:36 PM EDT Body Mass Index 37.49 06/23/2019 1:36 PM EDT documented in this encounter Progress Notes * Soniya Mendoza MD - 06/23/2019 2:05 PM EDT SUBJECTIVE: Reyes Mcpherson is a 49 year old male. Chief Complaint Patient presents with Follow Up HTN/return HPI: Fu HTN 12/31-labs--nm cbc, cmp, tsh, psa, lipids. 04/01-BP hi today Drinks coffee 12 cups/d,rare soda. Tries to watch salt intake. 05/03-BP remains high.gained back 5 # over holidays , cut back coffee 1c/d EKG:NSR at 75 bpm, no lvh/isch chg Obesity> int weight loss since spring 2018 by mar portions --st was 305 lbs then Now 287lbs. 05/12/19--st amlodipine 5 mg--inc 10 mg 06/09/19--EKG nsr , no abn 07/01--has cut back coffee to 2c/d Yet to sub ua No wt loss States a few weeks ago he was at his friend's house and had slept on the couch and his friends wifetold him that he had stopped breathing and she had to shake him to get him awake. States he this has never been mentioned n in the past by his Soon be ex- He admits to snoring when he is feels congested but denies excessive daytime sleepiness or a.m. fatigue or headache. Had mild narrowing of the oropharynx on last exam. Smokes 1/2 ppd x 30 yrs, is trying to cut back.-not ready yet Wt Readings from Last 4 Encounters: 06/23/19 132.5 kg (292 lb) 05/12/19 133.3 kg (293 lb 12.8 oz) 04/02/19 131.8 kg (290 lb 9.6 oz) 12/21/18 130.4 kg (287 lb 6.4 oz) BP Readings from Last 6 Encounters: 06/23/19 142/78 06/09/19 146/82 05/12/19 148/66 04/02/19 144/102 12/09/18 144/82 Never had flu vaccine.-refuses. Discussed reg shingrix vaccine- -refuses now Immunization History Administered Date(s) Administered Pneumococcal Polysaccharide PPV23 (Pneumovax) 12/09/2018 TDAP (age 11 and older)(Adacel) 10/04/2016 Current Outpatient Medications Medication Sig Dispense Refill amLODIPine (NORVASC) 10 MG Tablet Take 1 Tab by mouth daily. 30 Tab 0 acetaminophen (TYLENOL) 500 MG Tablet Take 2 Tabs by mouth every 8 hours as needed for Pain or Fever. 100 Tab 0 Patient Active Problem List Diagnosis Code Tobacco use disorder F17.200 Obesity, Class II, BMI 35-39.9, isolated (see actual BMI) E66.9 HTN, goal below 130/80 I10 Screen for colon cancer Z12.11 Outpatient Medications Prior to Visit Medication Sig Dispense Refill amLODIPine (NORVASC) 10 MG Tablet Take 1 Tab by mouth daily. 30 Tab 0 acetaminophen (TYLENOL) 500 MG Tablet Take 2 Tabs by mouth every 8 hours as needed for Pain or Fever. 100 Tab 0 No facility-administered medications prior to visit. Last reviewed on 06/23/2019 1:32 PM by Kristen Perry LPN Review of patient's allergies indicates: Allergen Reactions Penicillins Facial swelling OBJECTIVE: BP 142/78 | Pulse 82 | Temp (Src) 97.7 (Tympanic) | Resp 18 | Ht 6' 2" (1.880m) | Wt 292 lbs (132.450kg) | BMI 37.49 kg/m | BSA 2.63 m PHYSICAL EXAM: General: alert, healthy, no distress, well developed Heart: regular rhythm and rate,No murmurs. Lungs: lungs clear to auscultation Extremities: no edema ASSESSMENT/PLAN: HTN, goal below 140/80 (Primary) - metoprolol succinate XL (TOPROL XL) 25 MG TB24; Take 0.5 Tabs by mouth daily. Start 06/23/2019 Continue amlodipine 10 mg daily Submit urine today. The potential side effects of this medication have been discussed with the patient. Call if any significant problems with these are experienced. HTN (hypertension) - ALBUMIN / CREATININE RATIO, URINE Snoring - SLEEP MEDICINE REFERRAL OP History of apnea - SLEEP MEDICINE REFERRAL OP Obesity, Class II, BMI 35-39.9, isolated (see actual BMI) - SLEEP MEDICINE REFERRAL OP Check-out note: As mekhi --mekhi appt sleep clinic (This note was completed using the dictation program Fluency Direct. As such, there may be misspellings, word substitutions, or other variations that should not change the essence of the clinical content of this encounter note. If there is need for further clarification, please direct questions to the provider listed above.) Patient and / caregiver verbalizes understanding of above instructions and agrees with plan of care. Soniya Mendoza MD 06/23/2019 documented in this encounter Nursing Notes * Kristen Perry LPN - 06/23/2019 1:36 PM EDT Chief Complaint Patient presents with Follow Up HTN/return Voiced no complaints. documented in this encounter Miscellaneous Notes * Addendum Note - Rosemary Starks TECH - 06/23/2019 4:52 PM EDT Addended by: ROSEMARY STARKS on: 06/23/2019 04:52 PM Modules accepted: Orders documented in this encounter Plan of Treatment Upcoming Encounters Date Type Specialty Care Team Description 06/25/2019 PulmDiagnostic Pulmonary Sarina Serrano CRNP 132 [facility] [place] [address] [phone] 11/10/2019 Office Visit Family Medicine Soniya Mendoza MD 200 [place] [address] [phone] Pending Results Name Type Priority Associated Diagnoses Date /Time ALBUMIN / CREATININE RATIO, URINE Lab Routine HTN (hypertension) 06/23/2019 1:42 PM EDT URINE W/ MICROSCOPIC Lab Routine HTN, goal below 140/90 06/23/2019 1:42 PM EDT Scheduled Referrals Name Type Priority Associated Diagnoses Orde r Schedule SLEEP MEDICINE REFERRAL OP Referral Within 10 days (routine) Snoring History of apnea Obesity, Class II, BMI 35-39.9, isolated (see actual BMI) Ordered: 06/23/2019 Health Maintenance Due Date Last Done Comments [...] as of this encounter Visit Diagnoses Diagnosis HTN, goal below 140/80- Primary Unspecified essential hypertension HTN (hypertension) Unspecified essential hypertension Snoring Other dyspnea and respiratory abnormality History of apnea Obesity, Class II, BMI 35-39.9, isolated (see actual BMI) Morbid obesity HTN, goal below 140/90 Unspecified essential hypertension HTN, goal below 130/80 Unspecified essential hypertension documented in this encounter Advance Directives Documents on File Type Date Recorded Patient Cloth Pattern Maker Expl anation Advanced Directive Advanced Directive
--- OUTSIDE RECORDS SUMMARY | 2023-01-12 10:26 | External Medical Summary | Summary of Care ---
Author Name Unknown Organization [place] [address] Care Team Providers Care Management Advisor Name Role Phone Soniya Ochoa MD Primary Care Provider [phone] Reason for Visit * Reason Comments Blood Pressure Check Encounter Details Date Type Department Care Team Description 06/09/2019 Telephone General Internal Medicine [facility] [address] [facility] [address] [place] [address] Soniya Ochoa MD 200 [place] [address] [phone] Blood Pressure Check Allergies Active Allergy Reactions [...] 0 12/09/2018 Active amLODIPine (NORVASC) 10 MG TabletIndications: HTN, goal below 130/80 Take 1 Tab by mouth daily. 30 Tab 0 06/09/2019 Active amLODIPine (NORVASC) 5 MG TabletIndications: HTN, goal below 130/80 Take 1 Tab by mouth daily. Start 05/12/2019--kirill se bp ch 3wks 30 Tab 0 05/12/2019 06/09/2019 Discontinued( Medication/Do se Changed) documented as of this encounter (statuses as [...] encounter Miscellaneous Notes * Addendum Note - Soniya Ochoa MD - 06/09/2019 4:15 PM EST Addended by: SONIYA OCHOA on: 06/09/2019 04:15 PM Modules accepted: Orders * Telephone Encounter - Soniya Ochoa MD - 06/09/2019 4:13 PM EST Bp unchanged from a last month. Increase amlodipine to 10 mg and schedule appointment with me in 2 weeks Rx sent. BP Readings from Last 4 Encounters: 06/09/19 146/82 05/12/19 148/66 04/02/19 144/102 12/09/18 144/82 * Telephone Encounter - Rosey Allen LPN - 06/09/2019 3:36 PM EST Pt here for nurse visit for blood pressure check due to current medication at last office visit. B/P 146/82 Pulse 84 BP Readings from Last 4 Encounters: 05/12/19 148/66 04/02/19 144/102 12/09/18 144/82 Patient aware that our office will call them back if there is a change with their medication or treatment, otherwise, no phone call will be made back to the patient. documented in this encounter Plan of Treatment Upcoming Encounters Date Type Specialty Care Team Description 11/10/2019 Office Visit Family Medicine Soniya Ochoa MD 200 [place] [address] Health Maintenance Due Date Last Done [...] encounter Visit Diagnoses Diagnosis HTN, goal below 130/80- Primary Unspecified essential hypertension documented in this encounter Advance Directives Documents on File Type Date Recorded Patient Community Program Assistant Expl anation Advanced Directive Advanced Directive
--- OUTSIDE RECORDS SUMMARY | 2023-01-12 10:26 | External Medical Summary | Summary of Care ---
Author Name Unknown Organization [place] [address] Care Team Providers Care Orchestrator Name Role Phone Soniya Mendoza MD Primary Care Provider [phone] Reason for Visit * Reason Comments NEW PATIENT left shoulder pain X 3 weeks * Evaluate & Treat - Unlimited Visits (Within 10 days (routine)) Status Reason Specialty Diagnoses / Procedures Referred By Contact Referred To Contact Authorized Specialty Services Required Orthopaedic Surgery Diagnoses Acute pain of left shoulder Soniya Mendoza MD [address] [place] [address] Encounter Details Date Type Department Care Team Description 12/18/2018 Office Visit Orthopaedics [facility] [address] [facility] [place] [address] Jayjay Magaña MD [address] [facility] [place] [address] [phone] Arthralgia of left acromioclavicular joint* Allergies Active [...] 12/18/2018 11:02 AM EDT [place] [address] Reyes Mcpherson is a 48 year old male who presents for consultation to [facility] Orthopaedics and Sports Medicine for left shoulder [...] file Gets together: Not on file Attends temple service: Not on file Active member of [...] Jayjay Magaña MD Primary Care Sports Medicine [facility] Orthopa[facility]ics [address] [address] documented in this encounter Nursing Notes * Hollie Young LPN - 12/18/2018 10:59 AM EDT Pt presents for left shoulder pain. States he felt a sudden sharp pain while working on car engine.Left hand feels like it is asleep. documented in this encounter Plan of Treatment Upcoming Encounters Date Type Specialty Care Team Description 12/21/2018 Office Visit Otolaryngology Chanda Rees PA-C 132 [facility] [place] [address] [phone] 12/28/2018 Imaging Radiology 01/01/2019 Office Visit Orthopedics Jayjay Magaña MD [address] [facility] [address] [phone] 03/17/2019 Office Visit Family Medicine Soniya Mendoza MD 200 [place] [address] [phone] Pending Results Name Type Priority Associated Diagnoses [...] on File Type Date Recorded Patient Registered Nurse Bone Marrow Transplant Expl anation Advanced Directive
--- OUTSIDE RECORDS SUMMARY | 2023-01-12 10:26 | External Medical Summary ---
Author Name Unknown Address [address] [facility] [place] [address] Phone Organization K01:[facility] [address] [facility] [place] [address] Laboratory Report Ordering Provider Test Date Status DON LOYA 06/23/2019 13:42:00 Final Observation Date Value Abnormality Reference (Units ) Status Albumin, Urine 06/24/2019 00:52 <1.20 (mg/dL) Final Creat Ur-sCnc 06/24/2019 00:52 113 (mg/dL) Final Microalbumin / Creatinine Ratio 06/24/2019 00:52 <11 <30 (mg/g creat) Final Performing Location [facility] [address] [facility] [place] [address]
--- OUTSIDE RECORDS SUMMARY | 2023-01-12 10:26 | External Medical Summary ---
Author Name Unknown Address [facility] [address] Phone Organization K01:[place] [address] [address] [facility] [address] Laboratory Report Ordering Provider Test Date Status [place] 12/16/2018 15:08:00 Final Observation Date Value Abnormality Reference Status Albumin 12/16/2018 22:33 4.7 3.8-5.0 Fin al AST (Aspartate aminotransferase) 12/16/2018 22:33 24 10-50 Final Alk Phos 12/16/2018 22:33 85 0-153 Fin al ALT (Alanine aminotransferase) 12/16/2018 22:33 28 10-50 Final Bilirubin, Total 12/16/2018 22:33 0.4 0-1.2 Final Bilirubin, Direct 12/16/2018 22:33 <0.2 0-0.3 Final Protein 12/16/2018 22:33 7.1 6.0-8.3 Fin al Performing Location [place] [address] [address] [facility] [address]
--- OUTSIDE RECORDS SUMMARY | 2023-01-12 10:26 | External Medical Summary | Summary of Care ---
Author Name Unknown Organization [place] [address] Care Team Providers Care Pallet Assembler Name Role Phone Soniya Mendoza MD Primary Care Provider [phone] Reason for Visit * Reason Comments NEW PATIENT left shoulder pain X 3 weeks * Evaluate & Treat - Unlimited Visits (Within 10 days (routine)) Status Reason Specialty Diagnoses / Procedures Referred By Contact Referred To Contact Authorized Specialty Services Required Orthopaedic Surgery Diagnoses Acute pain of left shoulder Soniya Mendoza MD [address] [place] [address] Encounter Details Date Type Department Care Team Description 12/18/2018 Office Visit Orthopaedics [facility] [address] [facility] [place] [address] Jayjay Magaña MD [address] [facility] [place] [address] [phone] Arthralgia of left acromioclavicular joint* Allergies Active [...] 12/18/2018 11:02 AM EDT [place] [id number] Reyes Mcpherson is a 48 year old male who presents for consultation to [facility] Orthopaedics and Sports Medicine for left [...] file Gets together: Not on file Attends confucianism service: Not on file Active member of [...] Jayjay Magaña MD Primary Care Sports Medicine [facility] Orthopa[facility]ics [address] [address] documented in this encounter Nursing Notes * Hollie Young LPN - 12/18/2018 10:59 AM EDT Pt presents for left shoulder pain. States he felt a sudden sharp pain while working on car engine.Left hand feels like it is asleep. documented in this encounter Plan of Treatment Upcoming Encounters Date Type Specialty Care Team Description 12/21/2018 Office Visit Otolaryngology Chanda Rees PA-C [address] [facility] [place] [address] [phone] 12/28/2018 Imaging Radiology 01/01/2019 Office Visit Orthopedics [facility] [address] [phone] 03/17/2019 Office Visit Family Medicine Soniya Mendoza MD [address] [facility] [place] [address] [phone] Pending Results Name Type Priority Associated Diagnoses [...] Documents on File Type Date Recorded Patient Advice Nurse Expl anation Advanced Directive
--- OUTSIDE RECORDS SUMMARY | 2023-01-12 10:26 | External Medical Summary | Summary of Care ---
Author Name Unknown Organization [place] [address] Care Team Providers Care Law Enforcement Instructor Name Role Phone Soniya Mendoza MD Primary Care Provider [phone] Reason for Visit * Reason Comments Blood Pressure Check Encounter Details Date Type Department Care Team Description 06/09/2019 Telephone General Internal Medicine [facility] [address] [address] Soniya Mendoza MD [address] [place] [address] [phone] Blood Pressure Check Allergies Active Allergy Reactions Severity Noted Date Comments Penicillins 12/09/2018 Facial swelling documented as of this encounter (statuses as of 06/10/2019) Medications Medication Sig Dispensed Refills Start Date [...] as of this encounter (statuses as of 06/10/2019) Active Problems Problem Noted Date HTN, goal below 130/80 04/02/2019 Screen for colon cancer 04/02/2019 Tobacco use disorder 12/09/2018 Obesity, Class II, BMI 35-39.9, isolated (see actual BMI) 12/09/2018 documented as of this encounter (statuses as of 06/10/2019) Resolved Problems Problem Noted Date Resolved Date Screening for diabetes mellitus 12/09/2018 04/02/2019 documented as of this encounter (statuses as of 06/10/2019) Immunizations Name Administration Dates Next Due Pneumococcal [...] encounter Miscellaneous Notes * Telephone Encounter - Kristen Perry LPN - 06/10/2019 2:07 PM EST Called patient with below message from Dr. Mendoza. Patient expressed understanding and appreciation with no questions at this time. Call transferred to the scheduling department for the patient to schedule a follow-up with Dr. Mendoza in 2 weeks. 

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
--- OUTSIDE RECORDS SUMMARY | 2023-01-12 10:26 | External Medical Summary | Summary of Care ---
Author Name Unknown Organization [place] [address] Care Team Providers Care Dot Net Developer Name Role Phone Soniya Mendoza MD Primary Care Provider [phone] Reason for Visit * Reason Comments Medication Refill Encounter Details Date Type Department Care Team Description 07/27/2019 Refill General Internal Medicine [facility] [address] [place], [place] [id number] Soniya Mendoza MD 200 [place] [address] [phone] HTN, goal below 130/80 Allergies Active Allergy Reactions Severity Noted Date Comments Penicillins 12/09/2018 Facial swelling documented as of this encounter (statuses as of 07/28/2019) Medications Medication Sig Dispensed Refills Start Date End Date Status acetaminophen (TYLENOL) 500 MG TabletIndications: Acute pain of left shoulder Take 2 Tabs by mouth every 8 hours as needed for Pain or Fever. 100 Tab 0 12/09/2018 Active metoprolol succinate XL (TOPROL XL) 25 MG [id number] N, goal below 140/80 Take 0.5 Tabs by mouth daily. Start 06/23/2019 30 Tab 2 06/23/2019 Active amLODIPine (NORVASC) 10 MG TabletIndications: HTN, goal below 130/80 Take 1 Tab by mouth daily. 90 Tab 1 07/28/2019 Active amLODIPine (NORVASC) 10 MG TabletIndications: HTN, goal below 130/80 Take 1 Tab by mouth daily. 30 Tab 0 06/09/2019 07/27/2019 Discontinued( Refill) documented as of this encounter (statuses as of 07/28/2019) Active Problems Problem Noted Date HTN, goal below 140/80 04/02/2019 Screen for colon cancer 04/02/2019 Tobacco use disorder 12/09/2018 Obesity, Class II, BMI 35-39.9, isolated (see actual BMI) 12/09/2018 documented as of this encounter (statuses as of 07/28/2019) Resolved Problems Problem Noted Date Resolved Date Screening for diabetes mellitus 12/09/2018 04/02/2019 documented as of this encounter (statuses as of 07/28/2019) Immunizations Name Administration Dates Next Due Pneumococcal [...] encounter Miscellaneous Notes * Telephone Encounter - Calvin Richard, [facility] - 07/28/2019 8:42 AM EDT Signed Prescriptions: Disp Refills amLODIPine (NORVASC) 10 MG Tablet 90 Tab 1 Sig: Take 1 Tab by mouth daily.Authorizing Provider: Silvia MENDOZA User: CALVIN RICHARD * Telephone Encounter - Calvin Richard [facility] - 07/28/2019 8:41 AM EDT Dose just increased 06/09/2019. F/U visit on 06/23/2019 MD continued current dose of 10mg. BP was only slightly over goal. Thank you, Calvin Richard, PharmD Clinical Pharmacist TelePharmacy 07/28/19 8:41 AM * Telephone Encounter - Maryellen Ferrara CPhT - 07/27/2019 10:09 AM EDT Pending Prescriptions: Disp Refills amLODIPine (NORVASC) 10 MG Tablet 30 Tab 0 Sig: Take 1 Tab by mouth daily. Last Office Visit: 06/23/2019 Next Office Visit: 11/05/2019 If no future appointments scheduled, and last appointment is greater than a year ago, please schedule patient for a follow-up appointment Last date the medication was ordered: Pharmacy: [facility] [address] [address] Is this request for a controlled substance?No Urine Drug Screen:No results found for this or any previous visit. 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
--- OUTSIDE RECORDS SUMMARY | 2023-01-12 10:26 | External Medical Summary | Summary of Care ---
Author Name Unknown Organization [place] [address] Care Team Providers Care Energy Efficiency Specialist Name Role Phone Soniya Mendoza MD Primary Care Provider [phone] Reason for Visit * Reason Comments Blood Pressure Check Encounter Details Date Type Department Care Team Description 06/09/2019 Telephone General Internal Medicine [facility] [address] [place] [address] Soniya Mendoza MD 200 [place] [address] [phone] Blood Pressure Check Allergies Active Allergy Reactions [...] encounter Miscellaneous Notes * Telephone Encounter - Rosey Allen LPN [...] Visit Family Medicine Soniya Mendoza MD [address] [facility] [place] [address] Health Maintenance Due Date Last [...] Documents on File Type Date Recorded 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
--- OUTSIDE RECORDS SUMMARY | 2023-01-12 10:26 | External Medical Summary | Summary of Care ---
Author Name Unknown Organization [place] [address] Care Team Providers Care Associate Java Developer Name Role Phone Soniya Mendoza MD Primary Care Provider [phone] Reason for Referral * Evaluate & Treat - Unlimited Visits (Within 10 days (routine)) Status Reason Specialty Diagnoses / Procedures Referred By Contact Referred To Contact Pending Review Specialty Services Required Physical Therapy Diagnoses Acute pain of left shoulder Jayjay Magaña MD [address] [facility] [place] [address] Reason for Visit * Reason Comments Follow Up left shoulder S/P MR I Encounter Details Date Type Department Care Team Description 01/11/2019 Office Visit Orthopaedics [facility] [address] [place] [id number] Jayjay Magaña MD [address] [facility] [place] [address] [phone] Acute pain of left shoulder* Allergies Active [...] - 01/11/2019 8:52 AM EDT [place] [id number] Reyes Mcpherson is a 48 year old male who presents for f/u to [facility] Orthopaedics and Sports Medicine for left [...] file Gets together: Not on file Attends jainism service: Not on file Active member of [...] on 12/18/2018 did get him some relief. Update: Spoke with the patient on 01/14/2019. Alerted him that I had discussed his MRI findings with Dr. Ramos (orthopaedic surgery - shoulder elbow specialist) and he strongly recommend surgical consultation. Patient aware. Our office is to call and schedule this visit. 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
--- OUTSIDE RECORDS SUMMARY | 2023-01-12 10:26 | External Medical Summary ---
Author Name Unknown Address [facility] [place] [id number] Phone Organization K01:[facility] [address] [place] [id number] Laboratory Report Ordering Provider Test Date Status DON LOYA 12/16/2018 15:08:00 Final Observation Date Value Abnormality Reference Status BUN 12/16/2018 22:33 9 6-20 Fin al Creatinine 12/16/2018 22:33 0.9 0.6-1.2 Fi nal Performing Location [place] [address] [address] [facility] [address]
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
--- OUTSIDE RECORDS SUMMARY | 2023-01-12 10:26 | External Medical Summary ---
Author Name Unknown Address Unknown Organization [id number]] ([id number],,) Laboratory Report Ordering Provider Test Date Status DON LOYA 12/16/2018 15:08:00 Final Observation Date Value Abnormality Reference Status Fasting status Patient Ql Reported 12/16/2018 15:09 >8 HOURS Final Triglyceride 12/16/2018 22:33 120 <200 Final Performing Location [facility] [[facility]]([id number],1,,)
--- OUTSIDE RECORDS SUMMARY | 2023-01-12 10:26 | External Medical Summary | Summary of Care ---
Author Name Unknown Organization [place] [address] Care Team Providers Care Addiction Specialist Name Role Phone Soniya Mendoza MD Primary Care Provider [phone] Reason for Referral * Evaluate & Treat - Unlimited Visits (Within 10 days (routine)) Status Reason Specialty Diagnoses / Procedures Referred By Contact Referred To Contact Authorized Specialty Services Required Sleep Medicine Diagnoses Snoring History of apnea Obesity, Class II, BMI 35-39.9, isolated (see actual BMI) Soniya Mendoza MD [address] [place] [address] Reason for Visit * Reason Comments Follow Up HTN/return Encounter Details Date Type Department Care Team Description 06/23/2019 Office Visit [address] [id number] Soniya Mendoza MD [address] [place] [address] [phone] HTN, goal below 140/80*; HTN (hypertension); Snoring; [...] metoprolol succinate XL (TOPROL XL) 25 MG [id number]:HTN, goal below 140/80 Take 0.5 Tabs by [...] Voiced no complaints. documented in this encounter Plan of Treatment Upcoming Encounters Date Type Specialty Care Team Description 06/25/2019 PulmDiagnostic Pulmonary Sarina Serrano CRNP [address] [facility] [place] [address] [phone] 11/10/2019 Office Visit Family Medicine [facility] [address] [facility] [address] [phone] Scheduled Orders Name Type Priority Associated Diagnoses Orde r Schedule ALBUMIN / CREATININE RATIO, URINE Lab Routine HTN (hypertension) Ordered: 06/23/2019 Scheduled Referrals Name Type Priority Associated Diagnoses [...] 35-39.9, isolated (see actual BMI) Morbid obesity documented in this encounter Advance Directives Documents on File Type Date Recorded Patient Stock Order Lister Expl anation Advanced Directive Advanced Directive
--- OUTSIDE RECORDS SUMMARY | 2023-01-12 10:26 | External Medical Summary | Summary of Care ---
Author Name Unknown Organization [place] [address] Care Team Providers Care Producer Arborist Manager Name Role Phone Soniya Mendoza MD Primary Care Provider [phone] Reason for Visit * Reason Comments NEW PATIENT left shoulder pain X 3 weeks * Evaluate & Treat - Unlimited Visits (Within 10 days (routine)) Status Reason Specialty Diagnoses / Procedures Referred By Contact Referred To Contact Authorized Specialty Services Required Orthopaedic Surgery Diagnoses Acute pain of left shoulder Soniya Mendoza MD [address] [place] [address] Encounter Details Date Type Department Care Team Description 12/18/2018 Office Visit Orthopaedics [facility] [address] [facility] [place] [address] Jayjay Magaña MD [address] [facility] [place] [address] [phone] Arthralgia of left acromioclavicular joint* Allergies Active [...] 12/18/2018 11:02 AM EDT [place] [address] Reyes Mcpherson is a 48 year old male who presents for consultation to [facility] for left shoulder [...] file Gets together: Not on file Attends spiritism service: Not on file Active member of [...] Jayjay Magaña MD Primary Care Sports Medicine [facility] [address] [address] documented in this encounter Nursing Notes * Hollie Young LPN - 12/18/2018 10:59 AM EDT Pt presents for left shoulder pain. States he felt a sudden sharp pain while working on car engine.Left hand feels like it is asleep. documented in this encounter Plan of Treatment Upcoming Encounters Date Type Specialty Care Team Description 12/21/2018 Office Visit Otolaryngology Chanda Rees PA-C [address] [facility] [place] [address] [phone] 12/28/2018 Imaging Radiology 01/01/2019 Office Visit Orthopedics [facility] [place] [address] [phone] 03/17/2019 Office Visit Family Medicine Soniya Mendoza MD [address] [facility] [place] [address] [phone] Pending Results Name Type Priority Associated Diagnoses [...] Documents on File Type Date Recorded Patient Lead Pharmacy Technician Expl anation Advanced Directive
--- OUTSIDE RECORDS SUMMARY | 2023-01-12 10:26 | External Medical Summary ---
Author Name Unknown Address [address] [place] [address] Phone Organization K01:[facility] [address] [facility] [address] Laboratory Report Ordering Provider Test Date Status DON LOYA 12/16/2018 15:08:00 Final Observation Date Value Abnormality Reference Status PSA 12/16/2018 22:41 1.68 <3.1 Fin al Performing Location [facility] [address] [facility] [address]
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
--- OUTSIDE RECORDS SUMMARY | 2023-01-12 10:26 | External Medical Summary ---
Author Name Unknown Address [address] [facility] [place] [address] Phone Organization K01:[facility] [address] [facility] [address] Laboratory Report Ordering Provider Test Date Status DON LOYA 12/16/2018 15:08:00 Final Observation Date Value Abnormality Reference Status WBC, Total 12/16/2018 22:28 7.74 4.00-10.80 F inal RBC 12/16/2018 22:28 5.04 4.50-5.25 Fin al Hemoglobin 12/16/2018 22:28 15.3 14.0-16.5 Fi nal HCT 12/16/2018 22:28 46.2 40.0-48.4 Fin al MCV 12/16/2018 22:28 91.7 82.0-99.5 Fin al MCH 12/16/2018 22:28 30.4 27.0-34.0 Fin al MCHC 12/16/2018 22:28 33.1 32.0-36.0 Fin al RDW 12/16/2018 22:28 12.6 11.5-15.5 Fin al Platelets 12/16/2018 22:28 282 140-400 Fin al MPV 12/16/2018 22:28 10.6 6.6-11.1 Fin al nRBC/100 WBC Bld Auto-Rto 12/16/2018 22:28 0 0 Final Segs 12/16/2018 22:28 49.1 40-75 Fin al Lymphs % 12/16/2018 22:28 37.1 18-42 Fin al Monos 12/16/2018 22:28 8.3 1-11 Fin al Eosinophils 12/16/2018 22:28 4.5 0-6 F inal Basos 12/16/2018 22:28 0.6 0-2 Fin al Immature Granulocyte, Percent 12/16/2018 22:28 0.4 0-2 Final Neutrophils Bld 12/16/2018 22:28 3.80 1.8-7.7 Final Lymphs, absolute 12/16/2018 22:28 2.87 1.0-4. 8 Final Monos, Abs 12/16/2018 22:28 0.64 0.0-1.1 Fi nal Eos, Abs 12/16/2018 22:28 0.35 0.0-0.7 Fin al Basos, Abs 12/16/2018 22:28 0.05 0.0-0.2 Fi nal Immature Granulocytes, Number 12/16/2018 22:28 0.03 0.0-0.2 Final Performing Location [facility] [address] [facility] [facility] [address]
--- OUTSIDE RECORDS SUMMARY | 2023-01-12 10:26 | External Medical Summary | Summary of Care ---
Author Name Unknown Organization [place] [address] Care Team Providers Care Leave Coordinator Name Role Phone Soniya Mendoza MD Primary Care Provider [phone] Encounter Details Date Type Department Care Team Description 05/12/2019 CardioDiagnostic Study General Internal Medicine [facility] [address] [place], [place] [id number] Soniya Mendoza MD [address] [place] [address] [phone] EKG Report Allergies Active Allergy Reactions Severity Noted Date Comments Penicillins 12/09/2018 Facial swelling documented as of this encounter (statuses as of 05/13/2019) Medications Medication Sig Dispensed Refills Start Date [...] as of this encounter (statuses as of 05/13/2019) Active Problems Problem Noted Date HTN, goal below 130/80 04/02/2019 Screen for colon cancer 04/02/2019 Tobacco use disorder 12/09/2018 Obesity, Class II, BMI 35-39.9, isolated (see actual BMI) 12/09/2018 documented as of this encounter (statuses as of 05/13/2019) Resolved Problems Problem Noted Date Resolved Date Screening for diabetes mellitus 12/09/2018 04/02/2019 documented as of this encounter (statuses as of 05/13/2019) Immunizations Name Administration Dates Next Due Pneumococcal [...] Travel End documented as of this encounter Procedure Notes * Diogenes Chaudhari DO - 05/12/2019 2:44 PM EST Associated Order(s): EKG REPORT REASON FOR STUDY: CONCLUSIONS: Normal sinus rhythm Normal ECG No previous ECGs available Ventricular Rate: 75 Atrial Rate: 75 MI Interval: 154 QRS Duration: 104 QT/QTc: 378/422 ms P-R-T [place]: 5 : 57 : 38 degrees documented in this encounter Plan of Treatment Upcoming Encounters Date Type Specialty Care Team Description 06/09/2019 Nurse Only Nurse Sada [address] [place] [address] [phone] 11/10/2019 Office Visit Family Medicine [facility] [address] [facility] [address] [phone] Health Maintenance Due Date Last Done Comments [...] Procedure Name Priority Date/Time Associated Diagnosis Comments EKG REPORT 05/12/2019 2:44 PM EST documented in this encounter Results * EKG REPORT (05/12/2019 2:44 PM EST) Specimen Procedure Note Diogenes Chaudhari DO - 05/12/2019 2:44 PM EST REASON FOR STUDY: CONCLUSIONS: Normal sinus rhythm Normal ECG No previous ECGs available Ventricular Rate: 75 Atrial Rate: 75 MI Interval: 154 QRS Duration: 104 QT/QTc: 378/422 ms P-R-T [place]: 5 : 57 : 38 degrees documented in this encounter Advance Directives Documents on File Type Date Recorded Patient Design Eng Expl anation Advanced Directive Advanced Directive
--- OUTSIDE RECORDS SUMMARY | 2023-01-12 10:26 | External Medical Summary | Summary of Care ---
Author Name Unknown Organization [place] [address] Care Team Providers Care Seed Cleaner Operator Name Role Phone Soniya Mendoza MD Primary Care Provider [phone] Reason for Visit * Reason Comments Mycode - Thinking About It But No Form P rovided Encounter Details Date Type Department Care Team Description 05/12/2019 Orders Only Outcomes Research Department [address] [place] [address] Clarita Cordero CHRA MyCode Nonconsent Documentation Allergies Active Allergy Reactions Severity Noted Date [...] as of this encounter Progress Notes * Clarita Cordero CHRA - 05/12/2019 2:06 PM EST MyCode Nonconsent Documentation Reyes Mcpherson was approached in the clinic regarding participation in the MyCode Project and did not consent. documented in this encounter Plan of Treatment Upcoming Encounters Date Type Specialty Care Team Description 06/09/2019 Nurse Only Nurse Sada [address] [place] [id number] 11/10/2019 Office Visit Family Medicine Soniya Mendoza MD [address] [place] [address] [phone] Health Maintenance Due Date Last Done Comments [...] on File Type Date Recorded Patient Tar Worker Expl anation Advanced Directive Advanced Directive
--- OUTSIDE RECORDS SUMMARY | 2023-01-12 10:27 | External Medical Summary | Summary of Care ---
Author Name Unknown Organization [place] [address] Care Team Providers Care Pot Firer Name Role Phone Soniya Mendoza MD Primary Care Provider [phone] Encounter Details Date Type Department Care Team Description 11/25/2018 Scan Encounter Unspecified Department <No scans attached> Allergies Active Allergy Reactions Severity Noted Date Comments Penicillins 12/09/2018 Facial swelling documented as of this encounter (statuses as of 12/11/2018) Medications No known medicationsdocumented as of this encounter (statuses as of 12/11/2018) Active Problems Problem Noted Date Tobacco use disorder 12/09/2018 Screening for diabetes mellitus 12/10/19 19 Obesity, Class II, BMI 35-39.9, isolated (see actual BMI) 12/09/2018 documented as of this encounter (statuses as of 12/11/2018) Immunizations Name Administration Dates Next Due TDAP (age 11 and older)(Adacel) 10/04/2016 documented as of this encounter Social History Tobacco Use Types Packs/Day Years Used Date Never Assessed Sex Assigned at Date Recorded Not on file Job Start Date Occupation Industry Not on file Not on file Not on file Travel History Travel Start Travel End documented as of this encounter Plan of Treatment Upcoming Encounters Date Type Specialty Care Team Description 12/18/2018 Office Visit Orthopedics Jayjay Magaña MD [address] [place] [address] [phone] 12/21/2018 Office Visit Otolaryngology Chanda Rees PA-C [address] [address] [phone] 03/17/2019 Office Visit Family Medicine Soniya Mendoza MD [address] [place] [address] [phone] Health Maintenance Due Date Last Done Comments LIPID SCREEN EVERY 5 YRS-MEN AGE 35-75 2003 DIABETES SCREEN EVERY 3 YRS- AGE 45 AND ABOVE 2013 *COLORECTAL CANCER SCREENING (COLONOSCOPY 10 YEARS; SIGMOIDOSCOPY 5 YEARS; COLOGUARD 3 YEARS; FOBT 1 YEAR),AGES 50-75 12/03/2018 Influenza Vaccine (FLU shot) (#1) 2018 DTaP,Tdap,and Td Vaccines (2 - Td) 10/04/20262016 PNEUMOCOCCAL 19-64 MEDIUM RISK Completed 12/09/2018 MENINGOCOCCAL (MENACTRA) Aged Out No longer eligible based on patient's age to complete this topic documented as of this encounter Implants Not on filedocumented as of this encounter Advance Directives Documents on File Type Date Recorded Patient Assistant To The Director Expl anation Advanced Directive
--- OUTSIDE RECORDS SUMMARY | 2023-01-12 10:27 | External Medical Summary | Summary of Care ---
Author Name Unknown Organization [place] [address] Care Team Providers Care Supervisor Evaporator Name Role Phone Soniya Mendoza MD Primary Care Provider [phone] Reason for Visit * Reason Comments Appointment Encounter Details Date Type Department Care Team Description 12/10/2018 Telephone General Internal Medicine [facility] [address] [place], [place] [id number] Soniya Mendoza MD [address] [facility] [place] [address] [phone] Appointment Allergies Active Allergy Reactions Severity Noted Date Comments Penicillins 12/09/2018 Facial swelling documented as of this encounter (statuses as of 12/10/2018) Medications Medication Sig Dispensed Refills Start Date End Date Status Meloxicam (MOBIC) 15 MG TabletIndications:Acu te pain of left shoulder Take 1 Tab by mouth daily. for pain. 30 Tab 0 12/09/2018 Active acetaminophen (TYLENOL) 500 MG TabletIndications:Acu te pain of left shoulder Take 2 Tabs by mouth every 8 hours as needed for Pain or Fever. 100 Tab 0 12/09/2018 Active sulfamethoxazole-trim ethoprim DS (BACTRIM DS) 800-160 MG per tabletIndications:Car buncle of arm, left Take 1 Tab by mouth 2 times a day for 7 days. Until gone 14 Tab 0 12/09/2018 12/16/2018 Active documented as of this encounter (statuses as of 12/10/2018) Active Problems Problem Noted Date Tobacco use disorder 12/09/2018 Screening for diabetes mellitus 12/10/19 19 Obesity, Class II, BMI 35-39.9, isolated (see actual BMI) 12/09/2018 documented as of this encounter (statuses as of 12/10/2018) Immunizations Name Administration Dates Next Due Pneumococcal [...] encounter Miscellaneous Notes * Telephone Encounter - Kirsten Rodriguez OSA - 12/10/2018 9:14 AM EDT Patient has been notified of the message. Pt scheduled appt with ENT for 12/21. Patient has no further questions. * Telephone Encounter - Alecia Russo OSA - 12/10/2018 9:12 AM EDT Pt needs to schedule with ENT Decreased hearing of left ear [H91.92] Abnormal ear exam [Z01.118] Unable to LMOM 12/10 [facility] documented in this encounter Plan of Treatment Upcoming Encounters Date Type Specialty Care Team Description 12/18/2018 Office Visit Orthopedics Jayjay Magaña MD [address] [facility] [place] [address] [phone] 12/21/2018 Office Visit Otolaryngology Chanda Rees PA-C [address] [place] [address] [phone] 03/17/2019 Office Visit Family Medicine [facility] [address] [facility] [address] [phone] Health Maintenance Due Date Last Done Comments LIPID SCREEN EVERY 5 YRS-MEN AGE 35-75 2003 DIABETES SCREEN EVERY 3 YRS- AGE 45 AND ABOVE 2013 *COLORECTAL CANCER SCREENING (COLONOSCOPY 10 YEARS; SIGMOIDOSCOPY 5 YEARS; COLOGUARD 3 YEARS; FOBT 1 YEAR),AGES 50-75 12/03/2018 *DEPRESSION SCREENING,ANNUAL FOR PTS 12 AND OVER 12/03/2018 Influenza Vaccine (FLU shot) (#1) 2018 DTaP,Tdap,and Td Vaccines (2 - Td) 10/04/20262016 PNEUMOCOCCAL 19-64 MEDIUM RISK Completed 12/09/2018 MENINGOCOCCAL (MENACTRA) Aged Out No longer eligible based on patient's age to complete this topic documented as of this encounter Implants Not on filedocumented as of this encounter Advance Directives Documents on File Type Date Recorded Patient Lion Trainer Expl anation Advanced Directive
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
--- OUTSIDE RECORDS SUMMARY | 2023-01-12 10:27 | External Medical Summary | Summary of Care ---
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 Role Phone Soniya Mendoza MD Primary Care Provider [phone] Reason for Visit * Reason Comments Appointment Encounter Details Date Type Department Care Team Description 12/10/2018 Telephone General Internal Medicine [facility] [address] [place], [place] [id number] Soniya Mendoza MD [address] [facility] [place] [address] [phone] Appointment Allergies Active Allergy Reactions Severity Noted [...] Office Visit Orthopedics Jayjay Magaña MD [address] [facility] [place] [address] [phone] 12/21/2018 Office Visit Otolaryngology Chanda Rees PA-C [address] [place] [address] [phone] 03/17/2019 Office Visit Family Medicine [facility] [address] [phone] Health Maintenance Due Date Last Done Comments [...] Documents on File Type Date Recorded 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
== END 2023-01-07 12:57 | disposition home or self-care (01) | DRG 247 ==
LOC: ED 12:41 → 1E 13:21 → SUATTDRO 13:46 → 1E 13:46 → 2E 01-05 17:23
PROC: CLB.CCO (2023-01-04 13:30)